=== PATIENT | female | born 1930 | race Caucasian/White ===

== ENCOUNTER 2016-05-21 12:12 | Inpatient (IN) | payer MEDICARE, MEDICAID ==
--- NOTE | 2016-05-21 12:54 | ED Physician Chart ---
Chief Complaint/HPI - Patient Information Date Seen:: 05/21/16 Time Seen:: 12:40 Chief Complaint:: right chest wall mass History of Present Illness:: location: right chest wall severity: moderate duration: 2 days context: [facility] patient had bath yesterday, staff noted right side chest wall darkened purple area with induration. said it looks like a bruise, but when asked pt reports she did not fall. also does not report any pain at chest wall, but does report pain at the site of the darkened purple area on right lateral chest wall. no substernal chest pain, no shortness of breath or cough. mod factors: none assoc s/s: none hx from pt. and grand daughter and EMS. Allergies:: Allergies Allergy/AdvReac Type Severity Reaction Status Date / Time No Known Allergies Allergy Verified 05/21/16 12:36 Historian:: Patient, EMS, Family Member Review:: Nurse's Note Reviewed, EMS run form Reviewed Review of Systems - Review of Systems General/Constitutional: No fever, No chills, No weight loss, No weakness, No diaphoresis, No edema, No loss of appetite Skin: No skin lesions, No rash, No bruising Head: No headache, No light-headedness Eyes: No loss of vision, No pain, No diplopia ENT: No earache, No nasal drainage, No sore throat, No tinnitus Neck: No neck pain, No swelling, No thyromegaly, No stiffness, No mass noted Cardio Vascular: No chest pain, No palpitations, No PND, No orthopnea, No edema Pulmonary: No SOB, No cough, No sputum, No wheezing GI: No nausea, No vomiting, No diarrhea, No pain, No melena, No hematochezia, No constipation, No hematemesis G/U: No dysuria, No frequency, No hematuria Musculoskeletal: No bone or joint pain, No back pain, No muscle pain Endocrine: No polyuria, No polydipsia Psychiatric: No prior psych history, No depression, No anxiety, No suicidal ideation Hematopoietic: No bruising, No lymphadenopathy Allergic/Immuno: No urticaria, No angioedema Neurological: No syncope, No focal symptoms, No weakness, No paresthesia, No headache, No seizure, No dizziness, No confusion, No vertigo Past Medical History - Past Medical History Past Medical History: HTN, DM, PUD/GERD, ESRD, Other (chronic pain, osteoporosis ) Family History: Diabetes Melitus Social History: Non Smoker, No Alcohol, No Drug Use, Single, Care Facility Surgical History: other (av fistula left upper limb, right AKA) Psychiatricy History: None Medication: Reviewed Family Medical History - Family Member Father History Unknown: Yes Ethnicity: Living Status: Hx Family Cancer: (UNKNOWN) Hx Family Coronary Artery Disease: (UNKNOWN) Hx Family Congestive Heart Failure: (UNKNOWN) Hx Family Hypertension: (UNKNOWN) Hx Family Stroke: (UNKNOWN) Hx Family Diabetes: (UNKNOWN) Hx Family Seizures: (UNKNOWN) Hx Family Dementia: (UNKNOWN) Hx Family AIDS: (UNKNOWN) Hx Family HIV: No Hx Family COPD: (UNKNOWN) Hx Family Hepatitis: (UNKNOWN) Hx Family Psychiatric Problems: (UNKNOWN) Hx Family Tuberculosis: (UNKNOWN) Physical Exam - Physical Examination General/Constitutional: Awake, Well-developed, well-nourished, Alert, No distress, GCS 15, Non-toxic appearing Head: Atraumatic Eyes: Lids, conjuctiva normal, PERRL, EOMI Skin: Nl inspection, No skin lesions (pt with dark purple indurated area size approx 14 cm x 6 cm in 2 locations at right lateral chest wall, nonadherent to underlying chest wall. the purplish mildly indurated area appears to be within the skin of the chest wall and is not affecting the ribs/chest wall. ), Well hydrated ENMT: External ears, nose nl, Nasal exam nl, Lips, teeth, gums nl Neck: Nontender, No nuchal rigidity Respiratory: Nl effort/Exclusion, Clear to Auscultation (chest wall and rib exam , no tenderness on firm pressure of right sided chest wall ribs. thoracic spine is nontender, no step offs, no wound. ), No Wheeze/Rhonchi/Rales Cardio Vascular: RRR, No murmur, gallop, rubs, NL S1 S2 GI: No tenderness/rebounding/guarding, Normal BS's, Nondistended, No mass/bruits , No McBurney tenderness : No CVA tenderness Extremities: No tenderness or effusion (pt is right AKA), Full ROM, normal strength in all extremities, No edema, Normal digits & nails Neuro/Psych: Alert/oriented, Judgement/insight normal, Mood normal, Normal gait , No focal deficits Misc: normal gait, Normal back, No paraspinal tenderness Labs/Radiology/EKG Results - Lab Results Results: Laboratory Tests 05/21/16 05/21/16 05/21/16 13:25 13:25 13:25 WBC 7.5 D RBC 4.25 Hgb 10.0 L Hct 32.0 L MCV 75.2 L MCH 23.5 L MCHC Differential 31.3 RDW 22.0 H Plt Count 67 L MPV 8.4 Neutrophils (Manual) 67 Lymphocytes 20 Monocytes 12 H Eosinophils 1 Platelet Estimate DECREASED PLATELETS Platelet Morphology NORMAL Anisocytosis 1+ Microcytosis 2+ RBC Morph Micro Appear ABNORMAL PT 9.9 INR 1.00 Sodium 129 L Potassium 3.4 L Chloride 96 L Carbon Dioxide 22.3 Anion Gap 14.1 BUN 47 H Creatinine 3.6 H Est GFR ( Amer) TNP Est GFR (Non-Af Amer) TNP BUN/Creatinine Ratio 13.1 Glucose 111 H Calcium 9.3 Total Bilirubin 0.4 AST 10 L ALT 7 Alkaline Phosphatase 64 Ammonia Total Protein 7.4 Albumin 4.0 Globulin 3.4 Albumin/Globulin Ratio 1.2 05/21/16 13:25 WBC RBC Hgb Hct MCV MCH MCHC Differential RDW Plt Count MPV Neutrophils (Manual) Lymphocytes Monocytes Eosinophils Platelet Estimate Platelet Morphology Anisocytosis Microcytosis RBC Morph Micro Appear PT INR Sodium Potassium Chloride Carbon Dioxide Anion Gap BUN Creatinine Est GFR ( Amer) Est GFR (Non-Af Amer) BUN/Creatinine Ratio Glucose Calcium Total Bilirubin AST ALT Alkaline Phosphatase Ammonia 32 Total Protein Albumin Globulin Albumin/Globulin Ratio - Radiology Results Results: CT chest pulmonary nodules, old granulomatous disease (TB?) chronic LLL parenchymal changes cardiomegaly right lobe of thyroid gland, enlargement? nodule? degenerative changes at thoracic spine markedly dilated loop of small bowel RAD READ - EKG Interpretations Comments:: EKG nsr 73 inferior infarct, old anterior infarct, old no acute ST elevation no acute ST depression pt reports no shortness of breath or left sided chest pain or numbness. abnormal EKG ER read Assessment - Assessment General Assessment: pt in stable condition while in ER. complains of pain at affected area. ED Septic Shock - . Is Septic Shock (SBP<90, OR Lactate>4 mmol\L) present?: No Reassessment (Disposition) - Reassessment Reassessment:: ER course: pt stable while in ER, complains of mild right chest wall/skin pain over discolored area. MDM: pt with ESRD, dialysis dependent, recalls no fall. very low platelets. CT chest shows pulmonary nodules, no chest wall mass. markedly dilated loop of bowel beneath the diaphragm. (pt has no tenderness at abdomen) Reassessment Condition:: Unchanged - Diagnosis Diagnosis:: acute low platelets spontaneous bleeding/ecchymosis right chest wall from low platelets acutely dilated bowel - Patient Disposition Discharge/Transfer:: Acute Care w/in this hosp Admitting Medical Physician:: Deepthi Stephenson Condition at Disposition:: Stable
[2016-05-21 14:06] LABS: PROTHROMBIN TIME (TEST) 9.9 SECONDS (9.5-11.5)
[2016-05-21 14:08] LABS: ALB/GLOB RATIO 1.2 (1.0-1.8); ALKALINE PHOSPHATASE 64 U/L (34-104); ANION GAP 14.1 (7.0-16.0); BILIRUBIN,TOTAL 0.4 mg/dL (0.3-1.0); BUN - UREA NITROGEN 47 mg/dL (7-25); BUN/CREATININE RATIO 13.1; CALCIUM SERUM 9.3 mg/dL (8.6-10.3); CARBON DIOXIDE 22.3 mEq/L (21.0-31.0); CHLORIDE 96 mEq/L (98-107); CREATININE - SERUM 3.6 mg/dL (0.6-1.2); GLUCOSE 111 mg/dL (70-105); POTASSIUM SERUM 3.4 mEq/L (3.5-5.1); SGOT 10 U/L (13-39); SGPT/ALT 7 U/L (7-52); SODIUM SERUM 129 mEq/L (136-145)
[2016-05-21 14:18] LABS: MEAN CORPUSCULAR HGB CONC 31.3 pg (28.0-36.0); RED BLOOD COUNT 4.25 Mil/cmm (3.80-5.20); WHITE BLOOD COUNT 7.5 Th/cmm (4.8-10.8)
[2016-05-21 14:19] LABS: MEAN PLATELET VOLUME 8.4 fl; PLATELET COUNT 67 Th/cmm (150-400)
[2016-05-21 14:23] LABS: MEAN CORPUSCULAR HEMOGLOBIN 23.5 pg (27.0-31.0)
[2016-05-21 14:24] LABS: EOSINOPHIL 1 % (0-5); NEUTROPHILS 67 % (40-80); PLATELET ESTIMATE DECREASED PLATELETS (NORMAL); TOTAL CELLS COUNTED 100
[2016-05-21 14:25] LABS: ANISOCYTOSIS 1+; MICROCYTOSIS 2+; PLATELET MORPHOLOGY NORMAL (NORMAL)
[2016-05-21 14:26] LABS: MEAN CELL VOLUME 75.2 fl (81-100)
--- NOTE | 2016-05-21 14:50 | Diagnostic Imaging Report ---
CT scan of the chest without intravenous contrast HISTORY: Mass. Total DLP equals 260 CTDI equals 7.0 Axial sections were obtained from a level above the clavicles down to level below the diaphragm. The heart is enlarged. Atherosclerotic calcification is noted. Several normal-sized lymph nodes are seen within the mediastinum. Evaluation of the hilar structures is limited due to the absence of intravenous contrast. There is a punctate calcified nodule noted in the right upper lobe and left lower lobe regions consistent with old granulomatous disease. Nonspecific interstitial changes noted in the left lower lobe that appear chronic. No other focal abnormalities. Incidentally noted is what appears to be enlargement of the right lobe of the thyroid gland with a hypodense focus that may be related to a thyroid nodule. If necessary, sonography would provide additional characterization. No abnormal chest wall masses are seen. Degenerative changes noted throughout the spine. Incidentally noted is what appears to be a markedly dilated loop of bowel beneath the diaphragm. Significance and etiology uncertain. Clinical correlation is needed. IMPRESSION: 1. Bilateral punctate calcified pulmonary nodules consistent with old granulomatous disease 2. Nonspecific parenchymal changes in the left lower lobe that appear chronic 3. Cardiomegaly with atherosclerotic vascular changes 4. Suggestion of enlargement of the right lobe of the thyroid gland with a questionable nodule. If necessary, follow-up sonography may be helpful. 5. Degenerative changes throughout the spine 6. Incidentally noted is a markedly dilated loop of bowel beneath the diaphragm. The significance should be correlated clinically.
[2016-05-21] MEDS ORDERED: Dextrose 50% 50 mL Abboject IVP PRN (15:36)
[2016-05-21] MEDS ORDERED: Lactulose 10 Gm/15 mL 30mL UDC PO PRN (15:36)
[2016-05-21] MEDS ORDERED: INSULIN ASPART SLIDING SCALE 100 UNITS/ML UNIT SUBQ SCH (16:30)
[2016-05-21] MEDS: INSULIN ASPART SLIDING SCALE 100 UNITS/ML UNIT SUBQ SCH (21:00)
[2016-05-21] MEDS: Zinc Oxide Ointment 60 gm TP SCH (21:29)
[2016-05-21] MEDS: Calcium Carb/Vit D 500 mg/200 U Tab PO SCH (21:29)
[2016-05-21] MEDS: Hydrocodone/APAP 5mg/325mg Tab PO SCH (21:40)
[2016-05-22] MEDS: INSULIN ASPART SLIDING SCALE 100 UNITS/ML UNIT SUBQ SCH ×4 (06:51→21:52)
[2016-05-22 07:22] LABS: ALB/GLOB RATIO 1.1 (1.0-1.8); ALKALINE PHOSPHATASE 61 U/L (34-104); ANION GAP 18.6 (7.0-16.0); BILIRUBIN,TOTAL 0.4 mg/dL (0.3-1.0); BUN - UREA NITROGEN 60 mg/dL (7-25); BUN/CREATININE RATIO 14.6; CALCIUM SERUM 9.6 mg/dL (8.6-10.3); CARBON DIOXIDE 18.4 mEq/L (21.0-31.0); CHLORIDE 94 mEq/L (98-107); GLUCOSE 89 mg/dL (70-105); SGOT 11 U/L (13-39); SGPT/ALT 7 U/L (7-52); SODIUM SERUM 127 mEq/L (136-145)
[2016-05-22 07:27] LABS: HEMATOCRIT 31.4 % (35.0-45.0); HEMOGLOBIN 9.7 gm/dL (11.7-16.1); MEAN CELL VOLUME 76.3 fl (81-100); MEAN CORPUSCULAR HEMOGLOBIN 23.6 pg (27.0-31.0); RED BLOOD COUNT 4.11 Mil/cmm (3.80-5.20); RED CELL DISTRIBUTION WIDTH 23.5 % (11.5-20.0); WHITE BLOOD COUNT 6.4 Th/cmm (4.8-10.8)
[2016-05-22 07:29] LABS: PLATELET COUNT 46 Th/cmm (150-400)
[2016-05-22 07:46] LABS: CREATININE - SERUM 4.1 mg/dL (0.6-1.2)
[2016-05-22] MEDS: Zinc Oxide Ointment 60 gm TP SCH ×3 (09:17→21:29)
[2016-05-22] MEDS: Vitamin B Complex w/Vitamin C Tab PO SCH (09:18)
[2016-05-22] MEDS: Hydrocodone/APAP 5mg/325mg Tab PO SCH ×2 (09:18→21:29)
[2016-05-22 09:46] LABS: ANISOCYTOSIS 2+; BAND NEUTROPHILE 1 % (0-10); EOSINOPHIL 4 % (0-5); MICROCYTOSIS 2+; NEUTROPHILS 56 % (40-80); PLATELET ESTIMATE DECREASED PLATELETS (NORMAL); PLATELET MORPHOLOGY NORMAL (NORMAL); TOTAL CELLS COUNTED 100
[2016-05-22] MEDS: Calcium Carb/Vit D 500 mg/200 U Tab PO SCH (21:35)
[2016-05-23] MEDS ORDERED: Albumin 25% 25gm/100mL 25 GM/100 ML BTL IV PRN
--- NOTE | 2016-05-23 05:07 | Consultation ---
ATTENDING PHYSICIAN: Kyler Stephenson M.D. INDUSTRIAL CLEANER: Francisco Porras M.D. REASON FOR CONSULTATION: Electrolyte imbalance and fluid management. HISTORY OF PRESENT ILLNESS: This is an 85-year-old female with past medical history of end-stage renal disease on hemodialysis, who was brought in because of right chest/lateral breast hematoma. A few hours prior to admission, the patient and staff noted right lateral chest wall and lateral breast hematoma after she took a shower. This was associated with some tenderness initially. She had no history of fall, trauma nor mishandling by [facility] staff. She was then brought to the Emergency Room. CT scan of the chest revealed no evidence of hematoma/abscess. Her pain subsequently resolved. Her AV fistula is situated on her left arm. She does have a history of end-stage renal disease, now on hemodialysis. PAST MEDICAL HISTORY: 1. End-stage renal disease, on hemodialysis. 2. Type 2 diabetes mellitus. 3. Essential hypertension. 4. Diabetic neuropathy. 5. Pemphigus. 6. Acquired thrombocytopenia. PAST SURGICAL HISTORY: 1. 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 2. Status post creation of left AV fistula. CURRENT MEDICATIONS: She is currently on acetaminophen, bisacodyl, calcium carbonate, hydralazine, [place], aspart, lisinopril, nifedipine, Nitrostat, Renagel, sucralfate, vitamin B, zinc oxide, amlodipine and clonidine. ALLERGIES: No known drug allergies. SOCIAL HISTORY: No history of alcohol or tobacco use. 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 FAMILY HISTORY: Noncontributory to her present illness. REVIEW OF SYSTEMS: CONSTITUTIONAL: Denied any weakness. Appetite had been fair. No fever, no chills. HEENT: No mention of headaches, no dizziness. Wears glasses due to poor vision. Her acuity has also diminished. CARDIORESPIRATORY: She has a history of hypertension. PULMONARY: She did complain of pain in right lateral chest wall, but has now resolved. She denies any shortness of breath, palpitations, diaphoresis or cough. GASTROINTESTINAL: No nausea and vomiting, abdominal pain or cramping, hematemesis, melena, hematochezia, no diarrhea. ENDOCRINE: No history of diabetes, no thyroid abnormalities. She has no dyslipidemia. MUSCULOSKELETAL: She has a history of pemphigus but no arthralgias. GENITOURINARY: History of kidney failure, now on hemodialysis. Rarely urinates, but if she does no dysuria nor hematuria. HEMATOLOGIC: She has anemia, more likely of chronic kidney disease. She also has a chronic thrombocythemia. No history of significant bleeding. However, she does have some hematoma on her right lateral chest wall as well as right lateral breast area. NEUROPSYCH: No syncopal episode or seizure activity. She has diabetic neuropathy. PHYSICAL EXAMINATION: NEUROLOGIC: The patient is alert, verbal, comfortable. VITAL SIGNS: Blood pressure is 169/71, pulse 68, temperature 98.4 degrees. SKIN: Good turgor, warm, no rash, no jaundice appreciated. HEENT: Head normocephalic, atraumatic. EYES: Extraocular muscles intact. Pupils equal, round, reactive to light and accommodates. Anicteric sclerae, pale conjunctivae. Nose, midline nasal septum. Mouth, moist mucosa with adequate dentition. NECK: Supple, no adenopathy, no thyromegaly, no bruits. Trachea palpated in the midline. CHEST AND CVS: S1, S2. No rub, murmur, no gallop appreciated. Point of maximal impulse fifth intercostal space, left midclavicular line. No abdominal or femoral bruits appreciated. She does have hematoma located on the right lateral/axillary line of her chest wall, she also has a hematoma involving right lateral breast region. There is palpable mass on the right lateral breast area compared to her left breast area. There is no tenderness on palpation, not warm to touch. No drainage, no discharge. LUNGS: Equal expansion. No use of accessory muscles. No supraclavicular retractions. Decreased breath sounds but clear to auscultation without any wheeze. BREASTS: Symmetrical, without any discharge. ABDOMEN: Flat, soft. Positive bowel sounds. No bruits either diastolic or systolic. RECTAL: Lax sphincter tone. GENITOURINARY: Normal appearing female genitalia. MUSCULOSKELETAL: No effusions present in her joints with adequate range of motion. EXTREMITIES: She has a right BKA, no evidence of edema. No cyanosis on her left lower extremity. NEUROLOGIC: Alert and oriented. Motor is 5/5. Cranial nerves 3-12 intact. Sensory intact. LABORATORY DATA: Sodium 127, potassium 4, chloride 94, bicarbonate 18, BUN 60, creatinine 4.9, glucose 89, calcium 9.6, albumin is 3.6. White count 6.4, hemoglobin is 9.7, hematocrit 31.4. PT is 9.9. INR is 1. IMPRESSION: 1. End-stage renal disease, on hemodialysis. 2. Right lateral chest wall, lateral breast hematoma secondary to chronic thrombocytopenia possible antiphospholipid syndrome or heparin induce. 3. Type 2 diabetes mellitus. 4. Essential hypertension. 5. Diabetic neuropathy. 6. Pemphigus. 7. Acquired thrombocytopenia. 8. Hyponatremia secondary to kidney failure. 9. Anemia of chronic kidney disease. 10. Anion gap, metabolic acidosis. PLAN: 1. Hemodialysis today, but hold heparin. 2. Monitor CBC. 3. Chronic thrombocytopenia workup per attending. JOB# [id number]
--- NOTE | 2016-05-23 05:50 | Consultation ---
REASON FOR CONSULTATION: Abnormal chest x-ray. HISTORY OF PRESENT ILLNESS: This is an 85-year-old female who basically lives in a convalescent home and apparently the patient is also on dialysis. Apparently, there was a questionable history of fall with pain in the right side. As the patient has some bruise tryone as well as pain initially on the right side, the patient was transferred to the hospital for further care and necessary treatment. The patient denies of any coughing, denies any shortness of breath, complaints of slight discomfort in the chest wall area, but otherwise unremarkable on the right side. Denies of any hemoptysis, any swelling of the legs, PND, orthopnea, etc. PAST MEDICAL HISTORY: History of chronic renal failure, history of hemodialysis fistula on the left upper limb, also history of thrombocytopenia and also history of practically bedridden. ALLERGIC HISTORY: Nil. SOCIAL HISTORY: Denies of any smoking. PHYSICAL FINDINGS: GENERAL: This is an elderly looking female, awake, alert and oriented, a little bit slow, not in acute distress. VITAL SIGNS: The patient's recorded vitals: Temperature is 98.4, blood pressure 154/68 and saturation 98% on room air. HEENT: Examination of the head is essentially unremarkable. Pupils appear to be equal and reacting to light. Conjunctivae are slightly pallor. Oral cavity shows edentulous. NECK: No nodes in the neck could be palpated. JVP not visualized. CHEST: Findings show slightly dorsal kyphosis. On the right chest wall, there is some bruise area, very minimal tenderness. LUNGS: Auscultation of lungs appear to be clear. No other adventitious breath sounds could be appreciated. HEART: Regular. ABDOMEN: Soft and nontender. EXTREMITIES: Right leg is above knee amputation and left knee ____ poor pulsation. Right upper arm, there is a shunt and the patient ____. LABORATORY STUDIES: White count is 6.4 and platelets are 46. Sodium is 127 and creatinine is 4.1 and other laboratory studies are essentially unremarkable. IMAGING STUDIES: CT reviewed and no parenchymal injury. There is a vague interstitial change on the left basal area with vague nodular density. ASSESSMENT: 1. The patient has probably chronic changes in the lung on the left base. 2. Chest wall injury with some bruise ____. Probably more bruise because of thrombocytopenia, exact etiology not clear. 3. Chronic renal failure on hemodialysis. PLANS AND SUGGESTIONS: No active treatment needed, observe, cold compresses right chest wall, repeat chest x-ray if there is delayed development or any lung contusion and we will check the blood gases and needs to have workup for thrombocytopenia if it is not done and will be glad to follow along with you. JOB# [id number]
[2016-05-23] MEDS: INSULIN ASPART SLIDING SCALE 100 UNITS/ML UNIT SUBQ SCH ×4 (06:57→21:16)
[2016-05-23 08:02] LABS: INR 1.03 (0.5-1.4); PROTHROMBIN TIME (TEST) 10.2 SECONDS (9.5-11.5)
[2016-05-23 08:15] LABS: HEMOGLOBIN 9.6 gm/dL (11.7-16.1); MEAN CELL VOLUME 75.7 fl (81-100); MEAN CORPUSCULAR HEMOGLOBIN 23.5 pg (27.0-31.0); MEAN PLATELET VOLUME 7.7 fl; RED CELL DISTRIBUTION WIDTH 22.7 % (11.5-20.0)
[2016-05-23 08:22] LABS: ALB/GLOB RATIO 1.1 (1.0-1.8); ALKALINE PHOSPHATASE 54 U/L (34-104); ANION GAP 12.3 (7.0-16.0); BILIRUBIN,TOTAL 0.4 mg/dL (0.3-1.0); BUN - UREA NITROGEN 33 mg/dL (7-25); BUN/CREATININE RATIO 11.8; CALCIUM SERUM 9.3 mg/dL (8.6-10.3); CARBON DIOXIDE 26.9 mEq/L (21.0-31.0); CHLORIDE 97 mEq/L (98-107); CREATININE - SERUM 2.8 mg/dL (0.6-1.2); GLUCOSE 90 mg/dL (70-105); POTASSIUM SERUM 3.2 mEq/L (3.5-5.1); SGOT 10 U/L (13-39); SGPT/ALT 6 U/L (7-52); SODIUM SERUM 133 mEq/L (136-145)
[2016-05-23 08:23] LABS: BILIRUBIN,DIRECT 0.03 mg/dL (0.0-0.2)
[2016-05-23 08:26] LABS: PLATELET COUNT 59 Th/cmm (150-400); WHITE BLOOD COUNT 4.9 Th/cmm (4.8-10.8)
[2016-05-23 08:58] LABS: TSH 2.8 uIU/ml (0.34-5.60)
[2016-05-23 09:16] LABS: ABG SOURCE Arterial; ALLEN TEST Positive; BE(B) 4.3 mmol/L (-3.0-3.0); FIO2 21; HCO3 29.2 mmol/L (20.0-26.0); pH 7.43 (7.35-7.45)
--- NOTE | 2016-05-23 09:41 | General Progress Note ---
Objective - Results Result Diagrams: 05/23/16 07:05 05/23/16 07:05 Recent Labs: Laboratory Last Values WBC 4.9 Th/cmm (4.8-10.8) D 05/23/16 07:05 RBC 4.10 Mil/cmm (3.80-5.20) 05/23/16 07:05 Hgb 9.6 gm/dL (11.7-16.1) L 05/23/16 07:05 Hct 31.0 % (35.0-45.0) L 05/23/16 07:05 MCV 75.7 fl (81-100) L 05/23/16 07:05 MCH 23.5 pg (27.0-31.0) L 05/23/16 07:05 MCHC Differential 31.0 pg (28.0-36.0) 05/23/16 07:05 RDW 22.7 % (11.5-20.0) H 05/23/16 07:05 Plt Count 59 Th/cmm (150-400) L D 05/23/16 07:05 MPV 7.7 fl 05/23/16 07:05 Band Neutrophils % 1 % (0-10) 05/22/16 06:22 Neutrophils (Manual) 56 % (40-80) 05/22/16 06:22 Lymphocytes 27 % (20-50) 05/22/16 06:22 Monocytes 12 % (2-10) H 05/22/16 06:22 Eosinophils 4 % (0-5) 05/22/16 06:22 Nucleated RBCs 1.0 % (0-0) H 05/22/16 06:22 Platelet Estimate DECREASED PLATELETS (NORMAL) 05/22/16 06:22 Platelet Morphology NORMAL (NORMAL) 05/22/16 06:22 Anisocytosis 2+ 05/22/16 06:22 Microcytosis 2+ 05/22/16 06:22 RBC Morph Micro Appear ABNORMAL (NORMAL) 05/22/16 06:22 PT 10.2 SECONDS (9.5-11.5) 05/23/16 07:05 INR 1.03 (0.5-1.4) 05/23/16 07:05 PTT (Actin FS) 27.9 SECONDS (26.0-38.0) 05/23/16 07:05 Specimen Source Arterial 05/23/16 08:54 Sample Site Right Radial 05/23/16 08:54 pH 7.43 (7.35-7.45) 05/23/16 08:54 pCO2 44.0 mmHg (35.0-45.0) 05/23/16 08:54 pO2 81.0 mmHg (80.0-100.0) 05/23/16 08:54 HCO3 29.2 mmol/L (20.0-26.0) H 05/23/16 08:54 Base Excess 4.3 mmol/L (-3.0-3.0) H 05/23/16 08:54 O2 Saturation 96.0 % (92.0-100.0) 05/23/16 08:54 Enrico Test Positive 05/23/16 08:54 Vent Rate NA 05/23/16 08:54 Inspired O2 21 05/23/16 08:54 Tidal Volume NA 05/23/16 08:54 PEEP NA 05/23/16 08:54 Pressure (ins/psv/peep) NA 05/23/16 08:54 Critical Value LZHANG 05/23/16 08:54 Sodium 133 mEq/L (136-145) L 05/23/16 07:05 Potassium 3.2 mEq/L (3.5-5.1) L 05/23/16 07:05 Chloride 97 mEq/L (98-107) L 05/23/16 07:05 Carbon Dioxide 26.9 mEq/L (21.0-31.0) 05/23/16 07:05 Anion Gap 12.3 (7.0-16.0) 05/23/16 07:05 BUN 33 mg/dL (7-25) H 05/23/16 07:05 Creatinine 2.8 mg/dL (0.6-1.2) H 05/23/16 07:05 Est GFR ( Amer) TNP 05/23/16 07:05 Est GFR (Non-Af Amer) TNP 05/23/16 07:05 BUN/Creatinine Ratio 11.8 05/23/16 07:05 Glucose 90 mg/dL (70-105) 05/23/16 07:05 POC Glucose 91 MG/DL (70 - 105) 05/23/16 06:42 Calcium 9.3 mg/dL (8.6-10.3) 05/23/16 07:05 Total Bilirubin 0.4 mg/dL (0.3-1.0) 05/23/16 07:05 Direct Bilirubin 0.03 mg/dL (0.0-0.2) 05/23/16 07:05 AST 10 U/L (13-39) L 05/23/16 07:05 ALT 6 U/L (7-52) L 05/23/16 07:05 Alkaline Phosphatase 54 U/L (34-104) 05/23/16 07:05 Ammonia 30 umol/L (16-53) 05/23/16 07:05 Total Protein 6.9 gm/dL (6.0-8.3) 05/23/16 07:05 Albumin 3.6 gm/dL (3.7-5.3) L 05/23/16 07:05 Globulin 3.3 gm/dL 05/23/16 07:05 Albumin/Globulin Ratio 1.1 (1.0-1.8) 05/23/16 07:05 TSH 2.80 uIU/ml (0.34-5.60) 05/23/16 07:05 - Physical Exam Vitals and I&O: Vital Signs Temp 97.9 F 05/23/16 03:55 Pulse 94 05/23/16 06:59 Resp 18 05/23/16 03:55 BP 159/70 05/23/16 06:59 Pulse Ox 99 05/23/16 03:55 Intake & Output 05/22/16 05/23/16 05/23/16 18:59 06:59 18:59 Intake Total 600 320 Output Total 0 Balance 600 320 Intake: Oral 600 320 Output: Urine 0 Other: # Voids 0 # Bowel Movements 1 Active Medications: Current Medications Acetaminophen (Tylenol) 650 mg PO Q4HR PRN PRN Reason: PAIN (MILD) OR TEMP 100.0 OR > Stop: 07/20/16 15:35 Last Admin: 05/22/16 23:31 Dose: 650 mg Acetaminophen/Hydrocodone Bitart ([place] 5mg/325mg) 1 tab PO Q12HR [facility] Stop: 07/20/16 20:59 Last Admin: 05/22/16 21:29 Dose: 1 tab Amlodipine Besylate (Norvasc) 5 mg PO SuMoWeFr@0900,2100 [facility] Stop: 07/20/16 20:59 Last Admin: 05/21/16 21:29 Dose: 5 mg Amlodipine Besylate (Norvasc) 5 mg PO TuThSa@2100 [facility] Stop: 07/21/16 20:59 Last Admin: 05/22/16 21:27 Dose: 5 mg Bisacodyl (Dulcolax 10 Mg Supp) 10 mg RC DAILY PRN PRN Reason: BM MANAGEMENT Stop: 07/20/16 15:35 Calcium/Vitamin D (Oscal W/Vitamin D) 1 tab PO HS [facility] Stop: 07/20/16 20:59 Last Admin: 05/22/16 21:35 Dose: 1 tab Clonidine HCl (Catapres) 0.1 mg PO Q4H PRN PRN Reason: SBP>160 Stop: 07/20/16 15:35 Dextrose (D50w) 50 ml IVP PRN PRN PRN Reason: BLOOD SUGAR < 70 Stop: 07/20/16 15:35 Hydralazine HCl (Apresoline) 50 mg PO Q12H [facility] Stop: 07/20/16 15:44 Last Admin: 05/23/16 06:59 Dose: 50 mg Albumin Human (Albuminar 25%) 25 gm in 100 mls @ 50 mls/hr IV PRN PRN PRN Reason: BP Support During HD Stop: 05/24/16 00:00 Insulin Aspart (Novolog Insulin Sliding Scale) 0 units SUBQ ACHS [facility] PRN Reason: Protocol Stop: 07/20/16 16:29 Last Admin: 05/23/16 06:57 Dose: Not Given Lactulose (Cephulac) 15 gm PO Q8H PRN PRN Reason: BM MANAGEMENT Lisinopril (Zestril) 40 mg PO BID [facility] Stop: 07/20/16 16:59 Last Admin: 05/22/16 17:03 Dose: Not Given Miscellaneous (Clinical Monitoring) 1 ea MC PRN PRN PRN Reason: RENAL DOSING Stop: 07/21/16 13:08 Nifedipine (Procardia) 10 mg PO Q6H PRN PRN Reason: SBP >160 Stop: 07/20/16 15:35 Nitroglycerin (Nitrostat) 0.4 mg SL Q5MIN PRN PRN Reason: Chest Pain X3 Stop: 07/20/16 15:35 Petrolatum (Zinc Oxide) 1 appl TP TID [facility] Stop: 07/20/16 20:59 Last Admin: 05/22/16 21:29 Dose: 1 appl Sevelamer HCl (Renagel) 800 mg PO TID [facility] Stop: 07/21/16 08:59 Last Admin: 05/22/16 21:28 Dose: 800 mg Sodium Bicarbonate (Sodium Bicarbonate) 650 mg PO BID [facility] PRN Reason: Protocol Stop: 07/21/16 16:59 Last Admin: 05/22/16 16:56 Dose: 650 mg Sucralfate (Carafate) 1 gm PO ACHS [facility] Stop: 07/20/16 16:59 Last Admin: 05/23/16 07:00 Dose: 1 gm Vitamin B Complex/Vit C/Folic Acid (Vitamin B Complex W/Vitamin C) 1 tab PO DAILY [facility] Stop: 07/21/16 08:59 Last Admin: 05/22/16 09:18 Dose: 1 tab - Procedures Procedures: Procedures Procedure Code Date PERFORMANCE OF URINARY FILTRATION, SINGLE [id number] 12/29/15
[2016-05-23 09:42] LABS: MAGNESIUM 2.3 mg/dL (1.9-2.7); PHOSPHOROUS 1.9 mg/dL (2.5-5.0)
[2016-05-23] MEDS: Hydrocodone/APAP 5mg/325mg Tab PO SCH ×2 (10:06→21:06)
[2016-05-23] MEDS: Vitamin B Complex w/Vitamin C Tab PO SCH (10:08)
[2016-05-23] MEDS: Zinc Oxide Ointment 60 gm TP SCH ×3 (10:11→21:16)
[2016-05-23 10:40] LABS: BAND NEUTROPHILE 1 % (0-10); EOSINOPHIL 3 % (0-5); NEUTROPHILS 53 % (40-80); TOTAL CELLS COUNTED 100
[2016-05-23 10:41] LABS: ANISOCYTOSIS 1+; MICROCYTOSIS 2+; PLATELET ESTIMATE DECREASED PLATELETS (NORMAL); PLATELET MORPHOLOGY GIANT PLATELETS SEEN (NORMAL); POLYCHROMASIA 1+
--- NOTE | 2016-05-23 13:02 | Consultation ---
This is a consultation report for hematology. HISTORY OF PRESENT ILLNESS: The patient is an 85-year-old female who has history of hypertension, diabetes, right above-knee amputation, end-stage kidney disease, neuropathy, acquired thrombocytopenia, and history of pemphigus. She was seen in the Emergency Room complaining of bruising and right chest wall mass. ER physician thought that this was possibly a cellulitis. ALLERGIES: No known drug allergies. FAMILY HISTORY: Unremarkable. SOCIAL HISTORY: Nonsmoker, no alcohol, and no drug use. PAST SURGICAL HISTORY: AV fistula left upper extremity, right above-knee amputation. PSYCHIATRIC HISTORY: None. CURRENT MEDICATIONS: Reviewed. REVIEW OF SYSTEMS: GENERAL: No fever, chills, or weight loss. SKIN: No bruising. HEENT: Head: No headache, lightheadedness. Vision: No change. ENT: No discharge. No tinnitus. CARDIOVASCULAR: No chest pain. No palpitation. PULMONARY: No shortness of breath or cough. GASTROINTESTINAL: No bleeding, diarrhea, or melena. GENITOURINARY: No hematuria. MUSCULOSKELETAL: No back pain, joint pain. ENDOCRINE: No polyuria. No cold intolerance. PSYCHIATRIC: No anxiety. HEMATOPOIETIC: No lymphadenopathy. NEUROLOGIC: No syncope. No confusion. No vertigo. PHYSICAL EXAMINATION: VITAL SIGNS: Temperature is 98.4, pulse 69, respirations 17, and blood pressure 154/68. HEENT: Normocephalic and atraumatic. Conjunctivae pale. Sclerae are anicteric. Nose and throat not congested. NECK: Supple. No jugular venous distention. LUNGS: Scattered rhonchi. HEART: S1, S2 normal. On the right chest wall, there is a purplish area of induration. There is no tenderness at that area. ABDOMEN: Soft. Bowel sounds present. EXTREMITIES: Right AKA and AV fistula in left upper extremity. LABORATORY DATA: White cell count 6.4, hemoglobin 9.7, platelet count of <100. Chemistry: Sodium is 127 and creatinine is 4.1. ASSESSMENT: The patient has anemia and thrombocytopenia. This may be due to bone marrow suppression or due to effect of chronic renal failure, rule out drug-induced thrombocytopenia. PLAN: We will follow the patient with you as needed. Thank you for asking us to see the patient in consultation. JOB# [id number] [facility]
--- NOTE | 2016-05-23 13:14 | Diagnostic Imaging Report ---
CHEST X-RAY: AP view INDICATION: Right chest trauma COMPARISON: Chest on 05/21/2016 Findings: Chronic lung changes are seen with no focal consolidation pleural effusions or evidence of pneumothorax. Left basal scarring is noted. Distended bowel loops are seen with elevation of left hemidiaphragm. Cardiomegaly is noted with atherosclerosis. No obvious rib fracture identified. IMPRESSION: Chronic lung changes with left basal scarring. No focal consolidation identified. No evidence of pneumothorax. Cardiomegaly and atherosclerotic vascular disease. . Distended bowel loops along the upper abdomen. Consider follow-up KUB or acute abdominal series. No rib fracture identified. Given clinical history, if indicated dedicated right rib series may also be obtained.
--- NOTE | 2016-05-23 13:21 | General Progress Note ---
Subjective - Review of Systems Service Date: 05/23/16 Subjective: alert, denied further chest wall pain Objective - Results Result Diagrams: 05/23/16 07:05 05/23/16 07:05 Recent Labs: Laboratory Last Values WBC 4.9 Th/cmm (4.8-10.8) D 05/23/16 07:05 RBC 4.10 Mil/cmm (3.80-5.20) 05/23/16 07:05 Hgb 9.6 gm/dL (11.7-16.1) L 05/23/16 07:05 Hct 31.0 % (35.0-45.0) L 05/23/16 07:05 MCV 75.7 fl (81-100) L 05/23/16 07:05 MCH 23.5 pg (27.0-31.0) L 05/23/16 07:05 MCHC Differential 31.0 pg (28.0-36.0) 05/23/16 07:05 RDW 22.7 % (11.5-20.0) H 05/23/16 07:05 Plt Count 59 Th/cmm (150-400) L D 05/23/16 07:05 MPV 7.7 fl 05/23/16 07:05 Band Neutrophils % 1 % (0-10) 05/23/16 07:05 Neutrophils (Manual) 53 % (40-80) 05/23/16 07:05 Lymphocytes 30 % (20-50) 05/23/16 07:05 Monocytes 13 % (2-10) H 05/23/16 07:05 Eosinophils 3 % (0-5) 05/23/16 07:05 Nucleated RBCs 1.0 % (0-0) H 05/22/16 06:22 Platelet Estimate DECREASED PLATELETS (NORMAL) 05/23/16 07:05 Platelet Morphology GIANT PLATELETS SEEN (NORMAL) 05/23/16 07:05 Polychromasia 1+ 05/23/16 07:05 Anisocytosis 1+ 05/23/16 07:05 Microcytosis 2+ 05/23/16 07:05 RBC Morph Micro Appear ABNORMAL (NORMAL) 05/23/16 07:05 PT 10.2 SECONDS (9.5-11.5) 05/23/16 07:05 INR 1.03 (0.5-1.4) 05/23/16 07:05 PTT (Actin FS) 27.9 SECONDS (26.0-38.0) 05/23/16 07:05 Specimen Source Arterial 05/23/16 08:54 Sample Site Right Radial 05/23/16 08:54 pH 7.43 (7.35-7.45) 05/23/16 08:54 pCO2 44.0 mmHg (35.0-45.0) 05/23/16 08:54 pO2 81.0 mmHg (80.0-100.0) 05/23/16 08:54 HCO3 29.2 mmol/L (20.0-26.0) H 05/23/16 08:54 Base Excess 4.3 mmol/L (-3.0-3.0) H 05/23/16 08:54 O2 Saturation 96.0 % (92.0-100.0) 05/23/16 08:54 Enrico Test Positive 05/23/16 08:54 Vent Rate NA 05/23/16 08:54 Inspired O2 21 05/23/16 08:54 Tidal Volume NA 05/23/16 08:54 PEEP NA 05/23/16 08:54 Pressure (ins/psv/peep) NA 05/23/16 08:54 Critical Value LZHANG 05/23/16 08:54 Sodium 133 mEq/L (136-145) L 05/23/16 07:05 Potassium 3.2 mEq/L (3.5-5.1) L 05/23/16 07:05 Chloride 97 mEq/L (98-107) L 05/23/16 07:05 Carbon Dioxide 26.9 mEq/L (21.0-31.0) 05/23/16 07:05 Anion Gap 12.3 (7.0-16.0) 05/23/16 07:05 BUN 33 mg/dL (7-25) H 05/23/16 07:05 Creatinine 2.8 mg/dL (0.6-1.2) H 05/23/16 07:05 Est GFR ( Amer) TNP 05/23/16 07:05 Est GFR (Non-Af Amer) TNP 05/23/16 07:05 BUN/Creatinine Ratio 11.8 05/23/16 07:05 Glucose 90 mg/dL (70-105) 05/23/16 07:05 POC Glucose 146 MG/DL (70 - 105) H 05/23/16 11:23 Calcium 9.3 mg/dL (8.6-10.3) 05/23/16 07:05 Phosphorus 1.9 mg/dL (2.5-5.0) L 05/23/16 07:05 Magnesium 2.3 mg/dL (1.9-2.7) 05/23/16 07:05 Total Bilirubin 0.4 mg/dL (0.3-1.0) 05/23/16 07:05 Direct Bilirubin 0.03 mg/dL (0.0-0.2) 05/23/16 07:05 AST 10 U/L (13-39) L 05/23/16 07:05 ALT 6 U/L (7-52) L 05/23/16 07:05 Alkaline Phosphatase 54 U/L (34-104) 05/23/16 07:05 Ammonia 30 umol/L (16-53) 05/23/16 07:05 Total Protein 6.9 gm/dL (6.0-8.3) 05/23/16 07:05 Albumin 3.6 gm/dL (3.7-5.3) L 05/23/16 07:05 Globulin 3.3 gm/dL 05/23/16 07:05 Albumin/Globulin Ratio 1.1 (1.0-1.8) 05/23/16 07:05 TSH 2.80 uIU/ml (0.34-5.60) 05/23/16 07:05 - Physical Exam Vitals and I&O: Vital Signs Temp 97.9 F 05/23/16 03:55 Pulse 62 05/23/16 10:06 Resp 18 05/23/16 03:55 BP 155/60 05/23/16 10:06 Pulse Ox 99 05/23/16 03:55 Intake & Output 05/22/16 05/23/16 05/23/16 18:59 06:59 18:59 Intake Total 600 320 Output Total 0 Balance 600 320 Intake: Oral 600 320 Output: Urine 0 Other: # Voids 0 # Bowel Movements 1 Active Medications: Current Medications Acetaminophen (Tylenol) 650 mg PO Q4HR PRN PRN Reason: PAIN (MILD) OR TEMP 100.0 OR > Stop: 07/20/16 15:35 Last Admin: 05/22/16 23:31 Dose: 650 mg Acetaminophen/Hydrocodone Bitart ([place] 5mg/325mg) 1 tab PO Q12HR [facility] Stop: 07/20/16 20:59 Last Admin: 05/23/16 10:06 Dose: 1 tab Amlodipine Besylate (Norvasc) 5 mg PO SuMoWeFr@0900,2100 [facility] Stop: 07/20/16 20:59 Last Admin: 05/23/16 10:06 Dose: 5 mg Amlodipine Besylate (Norvasc) 5 mg PO TuThSa@2100 [facility] Stop: 07/21/16 20:59 Last Admin: 05/22/16 21:27 Dose: 5 mg Bisacodyl (Dulcolax 10 Mg Supp) 10 mg RC DAILY PRN PRN Reason: BM MANAGEMENT Stop: 07/20/16 15:35 Calcium/Vitamin D (Oscal W/Vitamin D) 1 tab PO HS [facility] Stop: 07/20/16 20:59 Last Admin: 05/22/16 21:35 Dose: 1 tab Clonidine HCl (Catapres) 0.1 mg PO Q4H PRN PRN Reason: SBP>160 Stop: 07/20/16 15:35 Dextrose (D50w) 50 ml IVP PRN PRN PRN Reason: BLOOD SUGAR < 70 Stop: 07/20/16 15:35 Hydralazine HCl (Apresoline) 50 mg PO Q12H [facility] Stop: 07/20/16 15:44 Last Admin: 05/23/16 06:59 Dose: 50 mg Albumin Human (Albuminar 25%) 25 gm in 100 mls @ 50 mls/hr IV PRN PRN PRN Reason: BP Support During HD Stop: 05/24/16 00:00 Insulin Aspart (Novolog Insulin Sliding Scale) 0 units SUBQ ACHS [facility] PRN Reason: Protocol Stop: 07/20/16 16:29 Last Admin: 05/23/16 12:08 Dose: 2 units Lactulose (Cephulac) 15 gm PO Q8H PRN PRN Reason: BM MANAGEMENT Lisinopril (Zestril) 40 mg PO BID [facility] Stop: 07/20/16 16:59 Last Admin: 05/23/16 10:05 Dose: 40 mg Miscellaneous (Clinical Monitoring) 1 ea MC PRN PRN PRN Reason: RENAL DOSING Stop: 07/21/16 13:08 Nifedipine (Procardia) 10 mg PO Q6H PRN PRN Reason: SBP >160 Stop: 07/20/16 15:35 Nitroglycerin (Nitrostat) 0.4 mg SL Q5MIN PRN PRN Reason: Chest Pain X3 Stop: 07/20/16 15:35 Petrolatum (Zinc Oxide) 1 appl TP TID [facility] Stop: 07/20/16 20:59 Last Admin: 05/23/16 10:11 Dose: 1 appl Sevelamer HCl (Renagel) 800 mg PO TID [facility] Stop: 07/21/16 08:59 Last Admin: 05/23/16 10:06 Dose: 800 mg Sodium Bicarbonate (Sodium Bicarbonate) 650 mg PO BID [facility] PRN Reason: Protocol Stop: 07/21/16 16:59 Last Admin: 05/23/16 10:06 Dose: 650 mg Sucralfate (Carafate) 1 gm PO ACHS [facility] Stop: 07/20/16 16:59 Last Admin: 05/23/16 12:07 Dose: 1 gm Vitamin B Complex/Vit C/Folic Acid (Vitamin B Complex W/Vitamin C) 1 tab PO DAILY [facility] Stop: 07/21/16 08:59 Last Admin: 05/23/16 10:08 Dose: 1 tab General: Alert, No acute distress HEENT: Atraumatic, Mucous membr. moist/pink Neck: Supple, +2 carotid pulse wo bruit Cardiovascular: Regular rate, Normal S1, Normal S2, Other (hematoma right chest wall, breast area) Lungs: Clear to auscultation Abdomen: Bowel sounds, Soft Extremities: no Edema Neurological: Sensation intact Skin: no Rash - Procedures Procedures: Procedures Procedure Code Date PERFORMANCE OF URINARY FILTRATION, SINGLE [id number] 12/29/15 Assessment/Plan - Assessment Assessment: esrd on hd hematoma right lat chest wall, breast area due to chronic thrombocytopenia type 2 dm ess htn dm neuropathy pemphigus acquired thombocytopenia hyponatremia improved anemia ckd AG met acid - Plan Plan: pt. was dialyzed yesterday & tolerated it well replace K hgb/ hct stable @ 9.6/31 f/u cbc, electrolytes
[2016-05-23 13:22] LABS: HEP B CORE IGM Negative (Negative); HEP C ANTIBODY <0.1 s/co ratio (0.0-0.9)
[2016-05-23] MEDS ORDERED: Potassium Chloride 20 mEq ER Tab PO ONE (13:22)
[2016-05-23 14:27] LABS: FOLIC ACID >20.0 ng/mL (>3.0)
[2016-05-23] MEDS ORDERED: Potassium Phosphate 20 MMOLE in Sodium Chloride 0.9% 250 ML IV ONE (15:00)
--- NOTE | 2016-05-23 16:16 | General Progress Note ---
Subjective - Review of Systems Service Date: 05/23/16 Events since last encounter: in no apparent distress/sob.Breathing even and unlabored on RA. o- vss heent not deyvi c/r s1/s2 nl cap gi/u bs+ n/t shle p/e- nms awake labs noted a/p anemia sec to ckd low plt c/w itp plan f/u as needed Objective - Results Result Diagrams: 05/23/16 07:05 05/23/16 07:05 Recent Labs: Laboratory Last Values WBC 4.9 Th/cmm (4.8-10.8) D 05/23/16 07:05 RBC 4.10 Mil/cmm (3.80-5.20) 05/23/16 07:05 Hgb 9.6 gm/dL (11.7-16.1) L 05/23/16 07:05 Hct 31.0 % (35.0-45.0) L 05/23/16 07:05 MCV 75.7 fl (81-100) L 05/23/16 07:05 MCH 23.5 pg (27.0-31.0) L 05/23/16 07:05 MCHC Differential 31.0 pg (28.0-36.0) 05/23/16 07:05 RDW 22.7 % (11.5-20.0) H 05/23/16 07:05 Plt Count 59 Th/cmm (150-400) L D 05/23/16 07:05 MPV 7.7 fl 05/23/16 07:05 Band Neutrophils % 1 % (0-10) 05/23/16 07:05 Neutrophils (Manual) 53 % (40-80) 05/23/16 07:05 Lymphocytes 30 % (20-50) 05/23/16 07:05 Monocytes 13 % (2-10) H 05/23/16 07:05 Eosinophils 3 % (0-5) 05/23/16 07:05 Nucleated RBCs 1.0 % (0-0) H 05/22/16 06:22 Platelet Estimate DECREASED PLATELETS (NORMAL) 05/23/16 07:05 Platelet Morphology GIANT PLATELETS SEEN (NORMAL) 05/23/16 07:05 Polychromasia 1+ 05/23/16 07:05 Anisocytosis 1+ 05/23/16 07:05 Microcytosis 2+ 05/23/16 07:05 RBC Morph Micro Appear ABNORMAL (NORMAL) 05/23/16 07:05 PT 10.2 SECONDS (9.5-11.5) 05/23/16 07:05 INR 1.03 (0.5-1.4) 05/23/16 07:05 PTT (Actin FS) 27.9 SECONDS (26.0-38.0) 05/23/16 07:05 Specimen Source Arterial 05/23/16 08:54 Sample Site Right Radial 05/23/16 08:54 pH 7.43 (7.35-7.45) 05/23/16 08:54 pCO2 44.0 mmHg (35.0-45.0) 05/23/16 08:54 pO2 81.0 mmHg (80.0-100.0) 05/23/16 08:54 HCO3 29.2 mmol/L (20.0-26.0) H 05/23/16 08:54 Base Excess 4.3 mmol/L (-3.0-3.0) H 05/23/16 08:54 O2 Saturation 96.0 % (92.0-100.0) 05/23/16 08:54 Enrico Test Positive 05/23/16 08:54 Vent Rate NA 05/23/16 08:54 Inspired O2 21 05/23/16 08:54 Tidal Volume NA 05/23/16 08:54 PEEP NA 05/23/16 08:54 Pressure (ins/psv/peep) NA 05/23/16 08:54 Critical Value LZHANG 05/23/16 08:54 Sodium 133 mEq/L (136-145) L 05/23/16 07:05 Potassium 3.2 mEq/L (3.5-5.1) L 05/23/16 07:05 Chloride 97 mEq/L (98-107) L 05/23/16 07:05 Carbon Dioxide 26.9 mEq/L (21.0-31.0) 05/23/16 07:05 Anion Gap 12.3 (7.0-16.0) 05/23/16 07:05 BUN 33 mg/dL (7-25) H 05/23/16 07:05 Creatinine 2.8 mg/dL (0.6-1.2) H 05/23/16 07:05 Est GFR ( Amer) TNP 05/23/16 07:05 Est GFR (Non-Af Amer) TNP 05/23/16 07:05 BUN/Creatinine Ratio 11.8 05/23/16 07:05 Glucose 90 mg/dL (70-105) 05/23/16 07:05 POC Glucose 146 MG/DL (70 - 105) H 05/23/16 11:23 Calcium 9.3 mg/dL (8.6-10.3) 05/23/16 07:05 Phosphorus 1.9 mg/dL (2.5-5.0) L 05/23/16 07:05 Magnesium 2.3 mg/dL (1.9-2.7) 05/23/16 07:05 Ferritin 1901 ng/mL (15-150) H 05/22/16 13:25 Total Bilirubin 0.4 mg/dL (0.3-1.0) 05/23/16 07:05 Direct Bilirubin 0.03 mg/dL (0.0-0.2) 05/23/16 07:05 AST 10 U/L (13-39) L 05/23/16 07:05 ALT 6 U/L (7-52) L 05/23/16 07:05 Alkaline Phosphatase 54 U/L (34-104) 05/23/16 07:05 Ammonia 30 umol/L (16-53) 05/23/16 07:05 Total Protein 6.9 gm/dL (6.0-8.3) 05/23/16 07:05 Albumin 3.6 gm/dL (3.7-5.3) L 05/23/16 07:05 Globulin 3.3 gm/dL 05/23/16 07:05 Albumin/Globulin Ratio 1.1 (1.0-1.8) 05/23/16 07:05 Vitamin B12 387 pg/mL (211-946) 05/22/16 13:25 Folic Acid >20.0 ng/mL (>3.0) 05/22/16 13:25 TSH 2.80 uIU/ml (0.34-5.60) 05/23/16 07:05 Hepatitis A IgM Ab Negative (Negative) 05/22/16 13:25 Hep Bs Antigen Negative (Negative) 05/22/16 13:25 Hep B Core IgM Ab Negative (Negative) 05/22/16 13:25 Hepatitis C Antibody <0.1 s/co ratio (0.0-0.9) 05/22/16 13:25 - Physical Exam Vitals and I&O: Vital Signs Temp 97.9 F 05/23/16 03:55 Pulse 62 05/23/16 10:06 Resp 18 05/23/16 03:55 BP 155/60 05/23/16 10:06 Pulse Ox 99 05/23/16 03:55 Intake & Output 05/22/16 05/23/16 05/23/16 18:59 06:59 18:59 Intake Total 600 320 Output Total 0 Balance 600 320 Intake: Oral 600 320 Output: Urine 0 Other: # Voids 0 # Bowel Movements 1 Active Medications: Current Medications Acetaminophen (Tylenol) 650 mg PO Q4HR PRN PRN Reason: PAIN (MILD) OR TEMP 100.0 OR > Stop: 07/20/16 15:35 Last Admin: 05/22/16 23:31 Dose: 650 mg Acetaminophen/Hydrocodone Bitart ([place] 5mg/325mg) 1 tab PO Q12HR [facility] Stop: 07/20/16 20:59 Last Admin: 05/23/16 10:06 Dose: 1 tab Amlodipine Besylate (Norvasc) 5 mg PO SuMoWeFr@0900,2100 [facility] Stop: 07/20/16 20:59 Last Admin: 05/23/16 10:06 Dose: 5 mg Amlodipine Besylate (Norvasc) 5 mg PO TuThSa@2100 [facility] Stop: 07/21/16 20:59 Last Admin: 05/22/16 21:27 Dose: 5 mg Bisacodyl (Dulcolax 10 Mg Supp) 10 mg RC DAILY PRN PRN Reason: BM MANAGEMENT Stop: 07/20/16 15:35 Calcium/Vitamin D (Oscal W/Vitamin D) 1 tab PO HS [facility] Stop: 07/20/16 20:59 Last Admin: 05/22/16 21:35 Dose: 1 tab Clonidine HCl (Catapres) 0.1 mg PO Q4H PRN PRN Reason: SBP>160 Stop: 07/20/16 15:35 Dextrose (D50w) 50 ml IVP PRN PRN PRN Reason: BLOOD SUGAR < 70 Stop: 07/20/16 15:35 Hydralazine HCl (Apresoline) 50 mg PO Q12H [facility] Stop: 07/20/16 15:44 Last Admin: 05/23/16 06:59 Dose: 50 mg Albumin Human (Albuminar 25%) 25 gm in 100 mls @ 50 mls/hr IV PRN PRN PRN Reason: BP Support During HD Stop: 05/24/16 00:00 Potassium Phosphate 20 mmole/ (Sodium Chloride) 256.6667 mls @ 42.5 mls/hr IV X1 ONE Stop: 05/23/16 21:02 Insulin Aspart (Novolog Insulin Sliding Scale) 0 units SUBQ ACHS [facility] PRN Reason: Protocol Stop: 07/20/16 16:29 Last Admin: 05/23/16 12:08 Dose: 2 units Lactulose (Cephulac) 15 gm PO Q8H PRN PRN Reason: BM MANAGEMENT Lisinopril (Zestril) 40 mg PO BID [facility] Stop: 07/20/16 16:59 Last Admin: 05/23/16 10:05 Dose: 40 mg Miscellaneous (Clinical Monitoring) 1 ea MC PRN PRN PRN Reason: RENAL DOSING Stop: 07/21/16 13:08 Nifedipine (Procardia) 10 mg PO Q6H PRN PRN Reason: SBP >160 Stop: 07/20/16 15:35 Nitroglycerin (Nitrostat) 0.4 mg SL Q5MIN PRN PRN Reason: Chest Pain X3 Stop: 07/20/16 15:35 Petrolatum (Zinc Oxide) 1 appl TP TID [facility] Stop: 07/20/16 20:59 Last Admin: 05/23/16 10:11 Dose: 1 appl Sevelamer HCl (Renagel) 800 mg PO TID [facility] Stop: 07/21/16 08:59 Last Admin: 05/23/16 10:06 Dose: 800 mg Sodium Bicarbonate (Sodium Bicarbonate) 650 mg PO BID [facility] PRN Reason: Protocol Stop: 07/21/16 16:59 Last Admin: 05/23/16 10:06 Dose: 650 mg Sucralfate (Carafate) 1 gm PO ACHS [facility] Stop: 07/20/16 16:59 Last Admin: 05/23/16 12:07 Dose: 1 gm Vitamin B Complex/Vit C/Folic Acid (Vitamin B Complex W/Vitamin C) 1 tab PO DAILY [facility] Stop: 07/21/16 08:59 Last Admin: 05/23/16 10:08 Dose: 1 tab - Procedures Procedures: Procedures Procedure Code Date PERFORMANCE OF URINARY FILTRATION, SINGLE [id number] 12/29/15
[2016-05-23] MEDS ORDERED: Menthol/Zinc Oxide Oint 113gm Tube TP PRN (17:33)
[2016-05-23] MEDS: Calcium Carb/Vit D 500 mg/200 U Tab PO SCH (21:05)
[2016-05-24 07:00] LABS: HEMATOCRIT 32.5 % (35.0-45.0); HEMOGLOBIN 10.4 gm/dL (11.7-16.1); MEAN CELL VOLUME 74.4 fl (81-100); MEAN CORPUSCULAR HEMOGLOBIN 23.7 pg (27.0-31.0); MEAN CORPUSCULAR HGB CONC 31.9 pg (28.0-36.0); PLATELET COUNT 61 Th/cmm (150-400); RED BLOOD COUNT 4.36 Mil/cmm (3.80-5.20); RED CELL DISTRIBUTION WIDTH 22.2 % (11.5-20.0); WHITE BLOOD COUNT 5.8 Th/cmm (4.8-10.8)
[2016-05-24 07:15] LABS: ANION GAP 16.5 (7.0-16.0); BUN - UREA NITROGEN 52 mg/dL (7-25); BUN/CREATININE RATIO 14.1; CALCIUM SERUM 9.4 mg/dL (8.6-10.3); CARBON DIOXIDE 22.4 mEq/L (21.0-31.0); CHLORIDE 93 mEq/L (98-107); CREATININE - SERUM 3.7 mg/dL (0.6-1.2); GLUCOSE 109 mg/dL (70-105); MAGNESIUM 2.3 mg/dL (1.9-2.7); POTASSIUM SERUM 3.9 mEq/L (3.5-5.1); SODIUM SERUM 128 mEq/L (136-145)
[2016-05-24 08:14] LABS: T3 FREE 2.3 pg/mL (2.0-4.4); T4 FREE 1.01 ng/dL (0.82-1.77)
--- NOTE | 2016-05-24 08:22 | General Progress Note ---
Objective - Results Result Diagrams: 05/24/16 06:30 05/24/16 06:30 Recent Labs: Laboratory Last Values WBC 5.8 Th/cmm (4.8-10.8) 05/24/16 06:30 RBC 4.36 Mil/cmm (3.80-5.20) 05/24/16 06:30 Hgb 10.4 gm/dL (11.7-16.1) L 05/24/16 06:30 Hct 32.5 % (35.0-45.0) L 05/24/16 06:30 MCV 74.4 fl (81-100) L 05/24/16 06:30 MCH 23.7 pg (27.0-31.0) L 05/24/16 06:30 MCHC Differential 31.9 pg (28.0-36.0) 05/24/16 06:30 RDW 22.2 % (11.5-20.0) H 05/24/16 06:30 Plt Count 61 Th/cmm (150-400) L 05/24/16 06:30 MPV 8.0 fl 05/24/16 06:30 Band Neutrophils % 1 % (0-10) 05/23/16 07:05 Neutrophils (Manual) 53 % (40-80) 05/23/16 07:05 Lymphocytes 30 % (20-50) 05/23/16 07:05 Monocytes 13 % (2-10) H 05/23/16 07:05 Eosinophils 3 % (0-5) 05/23/16 07:05 Nucleated RBCs 1.0 % (0-0) H 05/22/16 06:22 Platelet Estimate DECREASED PLATELETS (NORMAL) 05/23/16 07:05 Platelet Morphology GIANT PLATELETS SEEN (NORMAL) 05/23/16 07:05 Polychromasia 1+ 05/23/16 07:05 Anisocytosis 1+ 05/23/16 07:05 Microcytosis 2+ 05/23/16 07:05 RBC Morph Micro Appear ABNORMAL (NORMAL) 05/23/16 07:05 PT 10.2 SECONDS (9.5-11.5) 05/23/16 07:05 INR 1.03 (0.5-1.4) 05/23/16 07:05 PTT (Actin FS) 27.9 SECONDS (26.0-38.0) 05/23/16 07:05 Specimen Source Arterial 05/23/16 08:54 Sample Site Right Radial 05/23/16 08:54 pH 7.43 (7.35-7.45) 05/23/16 08:54 pCO2 44.0 mmHg (35.0-45.0) 05/23/16 08:54 pO2 81.0 mmHg (80.0-100.0) 05/23/16 08:54 HCO3 29.2 mmol/L (20.0-26.0) H 05/23/16 08:54 Base Excess 4.3 mmol/L (-3.0-3.0) H 05/23/16 08:54 O2 Saturation 96.0 % (92.0-100.0) 05/23/16 08:54 Enrico Test Positive 05/23/16 08:54 Vent Rate NA 05/23/16 08:54 Inspired O2 21 05/23/16 08:54 Tidal Volume NA 05/23/16 08:54 PEEP NA 05/23/16 08:54 Pressure (ins/psv/peep) NA 05/23/16 08:54 Critical Value LZHANG 05/23/16 08:54 Sodium 128 mEq/L (136-145) L 05/24/16 06:30 Potassium 3.9 mEq/L (3.5-5.1) 05/24/16 06:30 Chloride 93 mEq/L (98-107) L 05/24/16 06:30 Carbon Dioxide 22.4 mEq/L (21.0-31.0) 05/24/16 06:30 Anion Gap 16.5 (7.0-16.0) H 05/24/16 06:30 BUN 52 mg/dL (7-25) H 05/24/16 06:30 Creatinine 3.7 mg/dL (0.6-1.2) H 05/24/16 06:30 Est GFR ( Amer) TNP 05/24/16 06:30 Est GFR (Non-Af Amer) TNP 05/24/16 06:30 BUN/Creatinine Ratio 14.1 05/24/16 06:30 Glucose 109 mg/dL (70-105) H 05/24/16 06:30 POC Glucose 111 MG/DL (70 - 105) H 05/24/16 06:38 Calcium 9.4 mg/dL (8.6-10.3) 05/24/16 06:30 Phosphorus 1.9 mg/dL (2.5-5.0) L 05/23/16 07:05 Magnesium 2.3 mg/dL (1.9-2.7) 05/24/16 06:30 Ferritin 1901 ng/mL (15-150) H 05/22/16 13:25 Total Bilirubin 0.4 mg/dL (0.3-1.0) 05/23/16 07:05 Direct Bilirubin 0.03 mg/dL (0.0-0.2) 05/23/16 07:05 AST 10 U/L (13-39) L 05/23/16 07:05 ALT 6 U/L (7-52) L 05/23/16 07:05 Alkaline Phosphatase 54 U/L (34-104) 05/23/16 07:05 Ammonia 30 umol/L (16-53) 05/23/16 07:05 Total Protein 6.9 gm/dL (6.0-8.3) 05/23/16 07:05 Albumin 3.6 gm/dL (3.7-5.3) L 05/23/16 07:05 Globulin 3.3 gm/dL 05/23/16 07:05 Albumin/Globulin Ratio 1.1 (1.0-1.8) 05/23/16 07:05 Vitamin B12 387 pg/mL (211-946) 05/22/16 13:25 Folic Acid >20.0 ng/mL (>3.0) 05/22/16 13:25 Free T4 1.01 ng/dL (0.82-1.77) 05/23/16 07:05 Free T3 2.3 pg/mL (2.0-4.4) 05/23/16 07:05 TSH 2.80 uIU/ml (0.34-5.60) 05/23/16 07:05 Hepatitis A IgM Ab Negative (Negative) 05/22/16 13:25 Hep Bs Antigen Negative (Negative) 05/22/16 13:25 Hep B Core IgM Ab Negative (Negative) 05/22/16 13:25 Hepatitis C Antibody <0.1 s/co ratio (0.0-0.9) 05/22/16 13:25 - Physical Exam Vitals and I&O: Vital Signs Temp 98 F 05/24/16 04:00 Pulse 77 05/24/16 06:01 Resp 100 05/24/16 04:00 BP 159/90 05/24/16 06:01 Pulse Ox 18 05/24/16 04:00 Intake & Output 05/23/16 05/24/16 05/24/16 18:59 06:59 18:59 Intake Total 1080 200 Balance 1080 200 Intake: Oral 1080 200 Other: # Bowel Movements 1 1 Stool Characteristics Soft Soft Active Medications: Current Medications Acetaminophen (Tylenol) 650 mg PO Q4HR PRN PRN Reason: PAIN (MILD) OR TEMP 100.0 OR > Stop: 07/20/16 15:35 Last Admin: 05/24/16 05:40 Dose: 650 mg Acetaminophen/Hydrocodone Bitart (Accord 5mg/325mg) 1 tab PO Q12HR [facility] Stop: 07/20/16 20:59 Last Admin: 05/23/16 21:06 Dose: 1 tab Amlodipine Besylate (Norvasc) 5 mg PO [id number]@0900,2100 [facility] Stop: 07/20/16 20:59 Last Admin: 05/23/16 21:06 Dose: 5 mg Amlodipine Besylate (Norvasc) 5 mg PO TuThSa@2100 [facility] Stop: 07/21/16 20:59 Last Admin: 05/22/16 21:27 Dose: 5 mg Bisacodyl (Dulcolax 10 Mg Supp) 10 mg RC DAILY PRN PRN Reason: BM MANAGEMENT Stop: 07/20/16 15:35 Calamine/Phenol (Calmoseptine) 1 appl TP QID PRN PRN Reason: Skin Irritation Stop: 07/22/16 17:32 Calcium/Vitamin D (Oscal W/Vitamin D) 1 tab PO HS [facility] Stop: 07/20/16 20:59 Last Admin: 05/23/16 21:05 Dose: 1 tab Clonidine HCl (Catapres) 0.1 mg PO Q4H PRN PRN Reason: SBP>160 Stop: 07/20/16 15:35 Dextrose (D50w) 50 ml IVP PRN PRN PRN Reason: BLOOD SUGAR < 70 Stop: 07/20/16 15:35 Hydralazine HCl (Apresoline) 50 mg PO Q12H [facility] Stop: 07/20/16 15:44 Last Admin: 05/24/16 03:44 Dose: 50 mg Insulin Aspart (Novolog Insulin Sliding Scale) 0 units SUBQ ACHS [facility] PRN Reason: Protocol Stop: 07/20/16 16:29 Last Admin: 05/23/16 21:16 Dose: Not Given Lactulose (Cephulac) 15 gm PO Q8H PRN PRN Reason: BM MANAGEMENT Lisinopril (Zestril) 40 mg PO BID [facility] Stop: 07/20/16 16:59 Last Admin: 05/23/16 16:31 Dose: 40 mg Miscellaneous (Clinical Monitoring) 1 ea MC PRN PRN PRN Reason: RENAL DOSING Stop: 07/21/16 13:08 Nifedipine (Procardia) 10 mg PO Q6H PRN PRN Reason: SBP >160 Stop: 07/20/16 15:35 Last Admin: 05/24/16 03:45 Dose: 10 mg Nitroglycerin (Nitrostat) 0.4 mg SL Q5MIN PRN PRN Reason: Chest Pain X3 Stop: 07/20/16 15:35 Petrolatum (Zinc Oxide) 1 appl TP TID [facility] Stop: 07/20/16 20:59 Last Admin: 05/23/16 21:16 Dose: 1 appl Sevelamer HCl (Renagel) 800 mg PO TID [facility] Stop: 07/21/16 08:59 Last Admin: 05/23/16 21:06 Dose: 800 mg Sodium Bicarbonate (Sodium Bicarbonate) 650 mg PO BID [facility] PRN Reason: Protocol Stop: 07/21/16 16:59 Last Admin: 05/23/16 16:31 Dose: 650 mg Sucralfate (Carafate) 1 gm PO ACHS [facility] Stop: 07/20/16 16:59 Last Admin: 05/23/16 21:06 Dose: 1 gm Vitamin B Complex/Vit C/Folic Acid (Vitamin B Complex W/Vitamin C) 1 tab PO DAILY [facility] Stop: 07/21/16 08:59 Last Admin: 05/23/16 10:08 Dose: 1 tab - Procedures Procedures: Procedures Procedure Code Date PERFORMANCE OF URINARY FILTRATION, SINGLE [id number] 12/29/15
[2016-05-24] MEDS: Vitamin B Complex w/Vitamin C Tab PO SCH (09:00)
[2016-05-24] MEDS: Hydrocodone/APAP 5mg/325mg Tab PO SCH (09:00)
[2016-05-24] MEDS: INSULIN ASPART SLIDING SCALE 100 UNITS/ML UNIT SUBQ SCH ×3 (09:02→18:40)
[2016-05-24] MEDS: Zinc Oxide Ointment 60 gm TP SCH ×2 (09:16→13:03)
[2016-05-24 10:13] LABS: ANISOCYTOSIS 1+; BAND NEUTROPHILE 4 % (0-10); EOSINOPHIL 3 % (0-5); MICROCYTOSIS 2+; NEUTROPHILS 56 % (40-80); PLATELET ESTIMATE DECREASED PLATELETS (NORMAL); PLATELET MORPHOLOGY NORMAL (NORMAL); TOTAL CELLS COUNTED 100
--- NOTE | 2016-05-24 13:29 | History & Physical ---
HISTORY OF PRESENT ILLNESS: The patient very well known to me. The patient known to have history of multiple medical problems. She resides at [place]. The patient is an elderly female in late ____. The patient known to have history of hypertension, history of diabetes, history of peripheral vascular disease, history of right above knee amputation, history of ESRD, on dialysis, apparently she has lot of darkened discolored area on her right chest wall was admitted and found to have thrombocytopenia and purpura. PAST MEDICAL HISTORY: History of hypertension, diabetes, peripheral vascular disease, ESRD, and osteoporosis. The patient is unable to give me much history because of language problem. PHYSICAL EXAMINATION: HEAD: Normal. ENT: Normal. LUNGS: Clear to auscultation. CARDIOVASCULAR SYSTEM: S1, S2 heard. ABDOMEN: Soft. Bowel sounds are heard. CENTRAL NERVOUS SYSTEM: Grossly normal. SKIN: Discolored area is noted on the chest wall. LABORATORY DATA: Hemoglobin was 10.0, hematocrit was 32, white count was 7.5 and platelets were lowest at ____. The patient also found to have a chest x-ray showed multiple nodules in left lower lobe, parenchymal changes. DIAGNOSES: Purpura, thrombocytopenia, the patient has possible pneumonia, right lower lobe, history of ____, history of diabetes, history of hypertension, history of end-stage renal disease. PLAN: The patient is being admitted. I will have Hematology and ID consult and I will follow the patient. JOB# [id number]
--- NOTE | 2016-05-24 14:51 | General Progress Note ---
Subjective - Review of Systems Service Date: 05/24/16 Subjective: alert, denied further chest wall pain Objective - Results Result Diagrams: 05/24/16 06:30 05/24/16 06:30 Recent Labs: Laboratory Last Values WBC 5.8 Th/cmm (4.8-10.8) 05/24/16 06:30 RBC 4.36 Mil/cmm (3.80-5.20) 05/24/16 06:30 Hgb 10.4 gm/dL (11.7-16.1) L 05/24/16 06:30 Hct 32.5 % (35.0-45.0) L 05/24/16 06:30 MCV 74.4 fl (81-100) L 05/24/16 06:30 MCH 23.7 pg (27.0-31.0) L 05/24/16 06:30 MCHC Differential 31.9 pg (28.0-36.0) 05/24/16 06:30 RDW 22.2 % (11.5-20.0) H 05/24/16 06:30 Plt Count 61 Th/cmm (150-400) L 05/24/16 06:30 MPV 8.0 fl 05/24/16 06:30 Band Neutrophils % 4 % (0-10) 05/24/16 06:30 Neutrophils (Manual) 56 % (40-80) 05/24/16 06:30 Lymphocytes 26 % (20-50) 05/24/16 06:30 Monocytes 11 % (2-10) H 05/24/16 06:30 Eosinophils 3 % (0-5) 05/24/16 06:30 Nucleated RBCs 1.0 % (0-0) H 05/22/16 06:22 Platelet Estimate DECREASED PLATELETS (NORMAL) 05/24/16 06:30 Platelet Morphology NORMAL (NORMAL) 05/24/16 06:30 Polychromasia 1+ 05/23/16 07:05 Anisocytosis 1+ 05/24/16 06:30 Microcytosis 2+ 05/24/16 06:30 RBC Morph Micro Appear ABNORMAL (NORMAL) 05/24/16 06:30 PT 10.2 SECONDS (9.5-11.5) 05/23/16 07:05 INR 1.03 (0.5-1.4) 05/23/16 07:05 PTT (Actin FS) 27.9 SECONDS (26.0-38.0) 05/23/16 07:05 Specimen Source Arterial 05/23/16 08:54 Sample Site Right Radial 05/23/16 08:54 pH 7.43 (7.35-7.45) 05/23/16 08:54 pCO2 44.0 mmHg (35.0-45.0) 05/23/16 08:54 pO2 81.0 mmHg (80.0-100.0) 05/23/16 08:54 HCO3 29.2 mmol/L (20.0-26.0) H 05/23/16 08:54 Base Excess 4.3 mmol/L (-3.0-3.0) H 05/23/16 08:54 O2 Saturation 96.0 % (92.0-100.0) 05/23/16 08:54 Enrico Test Positive 05/23/16 08:54 Vent Rate NA 05/23/16 08:54 Inspired O2 21 05/23/16 08:54 Tidal Volume NA 05/23/16 08:54 PEEP NA 05/23/16 08:54 Pressure (ins/psv/peep) NA 05/23/16 08:54 Critical Value LZHANG 05/23/16 08:54 Sodium 128 mEq/L (136-145) L 05/24/16 06:30 Potassium 3.9 mEq/L (3.5-5.1) 05/24/16 06:30 Chloride 93 mEq/L (98-107) L 05/24/16 06:30 Carbon Dioxide 22.4 mEq/L (21.0-31.0) 05/24/16 06:30 Anion Gap 16.5 (7.0-16.0) H 05/24/16 06:30 BUN 52 mg/dL (7-25) H 05/24/16 06:30 Creatinine 3.7 mg/dL (0.6-1.2) H 05/24/16 06:30 Est GFR ( Amer) TNP 05/24/16 06:30 Est GFR (Non-Af Amer) TNP 05/24/16 06:30 BUN/Creatinine Ratio 14.1 05/24/16 06:30 Glucose 109 mg/dL (70-105) H 05/24/16 06:30 POC Glucose 118 MG/DL (70 - 105) H 05/24/16 12:18 Calcium 9.4 mg/dL (8.6-10.3) 05/24/16 06:30 Phosphorus 4.0 mg/dL (2.5-5.0) 05/24/16 06:30 Magnesium 2.3 mg/dL (1.9-2.7) 05/24/16 06:30 Ferritin 1901 ng/mL (15-150) H 05/22/16 13:25 Total Bilirubin 0.4 mg/dL (0.3-1.0) 05/23/16 07:05 Direct Bilirubin 0.03 mg/dL (0.0-0.2) 05/23/16 07:05 AST 10 U/L (13-39) L 05/23/16 07:05 ALT 6 U/L (7-52) L 05/23/16 07:05 Alkaline Phosphatase 54 U/L (34-104) 05/23/16 07:05 Ammonia 30 umol/L (16-53) 05/23/16 07:05 Total Protein 6.9 gm/dL (6.0-8.3) 05/23/16 07:05 Albumin 3.6 gm/dL (3.7-5.3) L 05/23/16 07:05 Globulin 3.3 gm/dL 05/23/16 07:05 Albumin/Globulin Ratio 1.1 (1.0-1.8) 05/23/16 07:05 Vitamin B12 387 pg/mL (211-946) 05/22/16 13:25 Folic Acid >20.0 ng/mL (>3.0) 05/22/16 13:25 Free T4 1.01 ng/dL (0.82-1.77) 05/23/16 07:05 Free T3 2.3 pg/mL (2.0-4.4) 05/23/16 07:05 TSH 2.80 uIU/ml (0.34-5.60) 05/23/16 07:05 Hepatitis A IgM Ab Negative (Negative) 05/22/16 13:25 Hep Bs Antigen Negative (Negative) 05/22/16 13:25 Hep B Core IgM Ab Negative (Negative) 05/22/16 13:25 Hepatitis C Antibody <0.1 s/co ratio (0.0-0.9) 05/22/16 13:25 - Physical Exam Vitals and I&O: Vital Signs Temp 97.4 F 05/24/16 12:00 Pulse 67 05/24/16 12:00 Resp 16 05/24/16 12:00 BP 169/78 05/24/16 12:00 Pulse Ox 100 05/24/16 12:00 Intake & Output 05/23/16 05/24/16 05/24/16 18:59 06:59 18:59 Intake Total 1080 200 Balance 1080 200 Intake: Oral 1080 200 Other: # Bowel Movements 1 1 Stool Characteristics Soft Soft Soft Active Medications: Current Medications Acetaminophen (Tylenol) 650 mg PO Q4HR PRN PRN Reason: PAIN (MILD) OR TEMP 100.0 OR > Stop: 07/20/16 15:35 Last Admin: 05/24/16 05:40 Dose: 650 mg Acetaminophen/Hydrocodone Bitart (Sisters 5mg/325mg) 1 tab PO Q12HR [facility] Stop: 07/20/16 20:59 Last Admin: 05/24/16 09:00 Dose: 1 tab Amlodipine Besylate (Norvasc) 5 mg PO SuMoWeFr@0900,2100 [facility] Stop: 07/20/16 20:59 Last Admin: 05/23/16 21:06 Dose: 5 mg Amlodipine Besylate (Norvasc) 5 mg PO TuThSa@2100 [facility] Stop: 07/21/16 20:59 Last Admin: 05/22/16 21:27 Dose: 5 mg Bisacodyl (Dulcolax 10 Mg Supp) 10 mg RC DAILY PRN PRN Reason: BM MANAGEMENT Stop: 07/20/16 15:35 Calamine/Phenol (Calmoseptine) 1 appl TP QID PRN PRN Reason: Skin Irritation Stop: 07/22/16 17:32 Calcium/Vitamin D (Oscal W/Vitamin D) 1 tab PO HS [facility] Stop: 07/20/16 20:59 Last Admin: 05/23/16 21:05 Dose: 1 tab Clonidine HCl (Catapres) 0.1 mg PO Q4H PRN PRN Reason: SBP>160 Stop: 07/20/16 15:35 Dextrose (D50w) 50 ml IVP PRN PRN PRN Reason: BLOOD SUGAR < 70 Stop: 07/20/16 15:35 Hydralazine HCl (Apresoline) 50 mg PO Q12H [facility] Stop: 07/20/16 15:44 Last Admin: 05/24/16 03:44 Dose: 50 mg Insulin Aspart (Novolog Insulin Sliding Scale) 0 units SUBQ ACHS [facility] PRN Reason: Protocol Stop: 07/20/16 16:29 Last Admin: 05/24/16 11:59 Dose: Not Given Lactulose (Cephulac) 15 gm PO Q8H PRN PRN Reason: BM MANAGEMENT Lisinopril (Zestril) 40 mg PO BID [facility] Stop: 07/20/16 16:59 Last Admin: 05/24/16 09:14 Dose: 40 mg Miscellaneous (Clinical Monitoring) 1 ea MC PRN PRN PRN Reason: RENAL DOSING Stop: 07/21/16 13:08 Nifedipine (Procardia) 10 mg PO Q6H PRN PRN Reason: SBP >160 Stop: 07/20/16 15:35 Last Admin: 05/24/16 03:45 Dose: 10 mg Nitroglycerin (Nitrostat) 0.4 mg SL Q5MIN PRN PRN Reason: Chest Pain X3 Stop: 07/20/16 15:35 Petrolatum (Zinc Oxide) 1 appl TP TID [facility] Stop: 07/20/16 20:59 Last Admin: 05/24/16 13:03 Dose: 1 appl Sevelamer HCl (Renagel) 800 mg PO TID [facility] Stop: 07/21/16 08:59 Last Admin: 05/24/16 13:02 Dose: 800 mg Sodium Bicarbonate (Sodium Bicarbonate) 650 mg PO BID [facility] PRN Reason: Protocol Stop: 07/21/16 16:59 Last Admin: 05/24/16 09:00 Dose: 650 mg Sucralfate (Carafate) 1 gm PO ACHS [facility] Stop: 07/20/16 16:59 Last Admin: 05/24/16 12:02 Dose: 1 gm Vitamin B Complex/Vit C/Folic Acid (Vitamin B Complex W/Vitamin C) 1 tab PO DAILY [facility] Stop: 07/21/16 08:59 Last Admin: 05/24/16 09:00 Dose: 1 tab General: Alert, No acute distress HEENT: Atraumatic, Mucous membr. moist/pink Neck: Supple, +2 carotid pulse wo bruit Cardiovascular: Regular rate, Normal S1, Normal S2, Other (hematoma right chest wall & right lateral breast area about same size) Lungs: Clear to auscultation Abdomen: Bowel sounds, Soft Extremities: no Edema Neurological: Normal speech, Sensation intact Skin: no Rash - Procedures Procedures: Procedures Procedure Code Date PERFORMANCE OF URINARY FILTRATION, SINGLE [id number] 12/29/15 Assessment/Plan - Assessment Assessment: esrd on hd hematoma right lat chest wall, breast area due to chronic thrombocytopenia type 2 dm ess htn dm neuropathy pemphigus acquired thombocytopenia hyponatremia improved anemia ckd AG met acid - Plan Plan: scheduled for hd today hgb/ hct stable @ 10.4/32.5 f/u cbc, electrolytes
--- NOTE | 2016-05-24 16:53 | General Progress Note ---
Subjective - Review of Systems Service Date: 05/24/16 Events since last encounter: noted Subjective: pt is resting Objective - Results Result Diagrams: 05/24/16 06:30 05/24/16 06:30 Recent Labs: Laboratory Last Values WBC 5.8 Th/cmm (4.8-10.8) 05/24/16 06:30 RBC 4.36 Mil/cmm (3.80-5.20) 05/24/16 06:30 Hgb 10.4 gm/dL (11.7-16.1) L 05/24/16 06:30 Hct 32.5 % (35.0-45.0) L 05/24/16 06:30 MCV 74.4 fl (81-100) L 05/24/16 06:30 MCH 23.7 pg (27.0-31.0) L 05/24/16 06:30 MCHC Differential 31.9 pg (28.0-36.0) 05/24/16 06:30 RDW 22.2 % (11.5-20.0) H 05/24/16 06:30 Plt Count 61 Th/cmm (150-400) L 05/24/16 06:30 MPV 8.0 fl 05/24/16 06:30 Band Neutrophils % 4 % (0-10) 05/24/16 06:30 Neutrophils (Manual) 56 % (40-80) 05/24/16 06:30 Lymphocytes 26 % (20-50) 05/24/16 06:30 Monocytes 11 % (2-10) H 05/24/16 06:30 Eosinophils 3 % (0-5) 05/24/16 06:30 Nucleated RBCs 1.0 % (0-0) H 05/22/16 06:22 Platelet Estimate DECREASED PLATELETS (NORMAL) 05/24/16 06:30 Platelet Morphology NORMAL (NORMAL) 05/24/16 06:30 Polychromasia 1+ 05/23/16 07:05 Anisocytosis 1+ 05/24/16 06:30 Microcytosis 2+ 05/24/16 06:30 RBC Morph Micro Appear ABNORMAL (NORMAL) 05/24/16 06:30 PT 10.2 SECONDS (9.5-11.5) 05/23/16 07:05 INR 1.03 (0.5-1.4) 05/23/16 07:05 PTT (Actin FS) 27.9 SECONDS (26.0-38.0) 05/23/16 07:05 Specimen Source Arterial 05/23/16 08:54 Sample Site Right Radial 05/23/16 08:54 pH 7.43 (7.35-7.45) 05/23/16 08:54 pCO2 44.0 mmHg (35.0-45.0) 05/23/16 08:54 pO2 81.0 mmHg (80.0-100.0) 05/23/16 08:54 HCO3 29.2 mmol/L (20.0-26.0) H 05/23/16 08:54 Base Excess 4.3 mmol/L (-3.0-3.0) H 05/23/16 08:54 O2 Saturation 96.0 % (92.0-100.0) 05/23/16 08:54 Enrico Test Positive 05/23/16 08:54 Vent Rate NA 05/23/16 08:54 Inspired O2 21 05/23/16 08:54 Tidal Volume NA 05/23/16 08:54 PEEP NA 05/23/16 08:54 Pressure (ins/psv/peep) NA 05/23/16 08:54 Critical Value LZHANG 05/23/16 08:54 Sodium 128 mEq/L (136-145) L 05/24/16 06:30 Potassium 3.9 mEq/L (3.5-5.1) 05/24/16 06:30 Chloride 93 mEq/L (98-107) L 05/24/16 06:30 Carbon Dioxide 22.4 mEq/L (21.0-31.0) 05/24/16 06:30 Anion Gap 16.5 (7.0-16.0) H 05/24/16 06:30 BUN 52 mg/dL (7-25) H 05/24/16 06:30 Creatinine 3.7 mg/dL (0.6-1.2) H 05/24/16 06:30 Est GFR ( Amer) TNP 05/24/16 06:30 Est GFR (Non-Af Amer) TNP 05/24/16 06:30 BUN/Creatinine Ratio 14.1 05/24/16 06:30 Glucose 109 mg/dL (70-105) H 05/24/16 06:30 POC Glucose 118 MG/DL (70 - 105) H 05/24/16 12:18 Calcium 9.4 mg/dL (8.6-10.3) 05/24/16 06:30 Phosphorus 4.0 mg/dL (2.5-5.0) 05/24/16 06:30 Magnesium 2.3 mg/dL (1.9-2.7) 05/24/16 06:30 Ferritin 1901 ng/mL (15-150) H 05/22/16 13:25 Total Bilirubin 0.4 mg/dL (0.3-1.0) 05/23/16 07:05 Direct Bilirubin 0.03 mg/dL (0.0-0.2) 05/23/16 07:05 AST 10 U/L (13-39) L 05/23/16 07:05 ALT 6 U/L (7-52) L 05/23/16 07:05 Alkaline Phosphatase 54 U/L (34-104) 05/23/16 07:05 Ammonia 30 umol/L (16-53) 05/23/16 07:05 Total Protein 6.9 gm/dL (6.0-8.3) 05/23/16 07:05 Albumin 3.6 gm/dL (3.7-5.3) L 05/23/16 07:05 Globulin 3.3 gm/dL 05/23/16 07:05 Albumin/Globulin Ratio 1.1 (1.0-1.8) 05/23/16 07:05 Vitamin B12 387 pg/mL (211-946) 05/22/16 13:25 Folic Acid >20.0 ng/mL (>3.0) 05/22/16 13:25 Free T4 1.01 ng/dL (0.82-1.77) 05/23/16 07:05 Free T3 2.3 pg/mL (2.0-4.4) 05/23/16 07:05 TSH 2.80 uIU/ml (0.34-5.60) 05/23/16 07:05 Hepatitis A IgM Ab Negative (Negative) 05/22/16 13:25 Hep Bs Antigen Negative (Negative) 05/22/16 13:25 Hep B Core IgM Ab Negative (Negative) 05/22/16 13:25 Hepatitis C Antibody <0.1 s/co ratio (0.0-0.9) 05/22/16 13:25 - Physical Exam Vitals and I&O: Vital Signs Temp 97.4 F 05/24/16 12:00 Pulse 67 05/24/16 12:00 Resp 16 05/24/16 12:00 BP 169/78 05/24/16 12:00 Pulse Ox 100 05/24/16 12:00 Intake & Output 05/23/16 05/24/16 05/24/16 18:59 06:59 18:59 Intake Total 1080 200 Balance 1080 200 Intake: Oral 1080 200 Other: # Bowel Movements 1 1 Stool Characteristics Soft Soft Soft Active Medications: Current Medications Acetaminophen (Tylenol) 650 mg PO Q4HR PRN PRN Reason: PAIN (MILD) OR TEMP 100.0 OR > Stop: 07/20/16 15:35 Last Admin: 05/24/16 05:40 Dose: 650 mg Acetaminophen/Hydrocodone Bitart (Malcom 5mg/325mg) 1 tab PO Q12HR [facility] Stop: 07/20/16 20:59 Last Admin: 05/24/16 09:00 Dose: 1 tab Amlodipine Besylate (Norvasc) 5 mg PO SuMoWeFr@0900,2100 [facility] Stop: 07/20/16 20:59 Last Admin: 05/23/16 21:06 Dose: 5 mg Amlodipine Besylate (Norvasc) 5 mg PO TuThSa@2100 [facility] Stop: 07/21/16 20:59 Last Admin: 05/22/16 21:27 Dose: 5 mg Bisacodyl (Dulcolax 10 Mg Supp) 10 mg RC DAILY PRN PRN Reason: BM MANAGEMENT Stop: 07/20/16 15:35 Calamine/Phenol (Calmoseptine) 1 appl TP QID PRN PRN Reason: Skin Irritation Stop: 07/22/16 17:32 Calcium/Vitamin D (Oscal W/Vitamin D) 1 tab PO HS [facility] Stop: 07/20/16 20:59 Last Admin: 05/23/16 21:05 Dose: 1 tab Clonidine HCl (Catapres) 0.1 mg PO Q4H PRN PRN Reason: SBP>160 Stop: 07/20/16 15:35 Dextrose (D50w) 50 ml IVP PRN PRN PRN Reason: BLOOD SUGAR < 70 Stop: 07/20/16 15:35 Hydralazine HCl (Apresoline) 50 mg PO Q12H [facility] Stop: 07/20/16 15:44 Last Admin: 05/24/16 03:44 Dose: 50 mg Insulin Aspart (Novolog Insulin Sliding Scale) 0 units SUBQ ACHS [facility] PRN Reason: Protocol Stop: 07/20/16 16:29 Last Admin: 05/24/16 11:59 Dose: Not Given Lactulose (Cephulac) 15 gm PO Q8H PRN PRN Reason: BM MANAGEMENT Lisinopril (Zestril) 40 mg PO BID [facility] Stop: 07/20/16 16:59 Last Admin: 05/24/16 09:14 Dose: 40 mg Miscellaneous (Clinical Monitoring) 1 ea MC PRN PRN PRN Reason: RENAL DOSING Stop: 07/21/16 13:08 Nifedipine (Procardia) 10 mg PO Q6H PRN PRN Reason: SBP >160 Stop: 07/20/16 15:35 Last Admin: 05/24/16 03:45 Dose: 10 mg Nitroglycerin (Nitrostat) 0.4 mg SL Q5MIN PRN PRN Reason: Chest Pain X3 Stop: 07/20/16 15:35 Petrolatum (Zinc Oxide) 1 appl TP TID [facility] Stop: 07/20/16 20:59 Last Admin: 05/24/16 13:03 Dose: 1 appl Sevelamer HCl (Renagel) 800 mg PO TID [facility] Stop: 07/21/16 08:59 Last Admin: 05/24/16 13:02 Dose: 800 mg Sodium Bicarbonate (Sodium Bicarbonate) 650 mg PO BID [facility] PRN Reason: Protocol Stop: 07/21/16 16:59 Last Admin: 05/24/16 09:00 Dose: 650 mg Sucralfate (Carafate) 1 gm PO ACHS [facility] Stop: 07/20/16 16:59 Last Admin: 05/24/16 12:02 Dose: 1 gm Vitamin B Complex/Vit C/Folic Acid (Vitamin B Complex W/Vitamin C) 1 tab PO DAILY [facility] Stop: 07/21/16 08:59 Last Admin: 05/24/16 09:00 Dose: 1 tab General: Alert, Oriented x3, Cooperative HEENT: Atraumatic, EOMI Neck: Supple, JVD, +2 carotid pulse wo bruit Cardiovascular: Regular rate, Normal S1, Normal S2 Lungs: Clear to auscultation, Normal air movement Abdomen: Bowel sounds, Soft, Tender Extremities: Clubbing, Cyanosis, Edema Neurological: Normal gait Skin: Rash Psych/Mental Status: Mental status NL - Procedures Procedures: Procedures Procedure Code Date PERFORMANCE OF URINARY FILTRATION, SINGLE [id number] 12/29/15 Assessment/Plan - Assessment Assessment: doing fair, anemia stable - Plan Plan: fu as needed
--- NOTE | 2016-05-28 10:56 | Progress Notes ---
PULMONARY PROGRESS NOTE PROBLEM LIST: 1. History of fall, soft issue injury right chest. 2. Questionable infiltrate versus pulmonary nodule. 3. Insulin-dependent diabetes mellitus. 4. Chronic renal failure, on hemodialysis. SYMPTOMS: Nil. She has no shortness of breath. Pain on the right side of the chest is much better and no respiratory distress, etc. No coughing, no hemoptysis, etc. PHYSICAL EXAMINATION: VITAL SIGNS: Temperature is 97, respiration is 74, and patient's saturation is pretty descent on room air. NECK: Veins not visualized. CHEST: Chest wall shows still ecchymotic area towards the lateral side of the breast and may be some hematoma on the lateral part of tissue of the breast and there is some ecchymotic ____ going in the front. No localized tenderness. LUNGS: Clinically clear without any other adventitious breath sounds. HEART: Regular. ABDOMEN: Soft and nontender. LABORATORY DATA: White count is 4.9 and platelet is 59,000. ABG is okay on room air, and electrolyte shows potassium 3.2 and creatinine 2.8. ASSESSMENT: 1. The patient is clinically stable with blunt soft issues injury on right chest wall with some hematoma including in the breast issue with some ecchymotic areas on the surrounding areas. 2. Pulmonary nodule, probably old granuloma, not seen at all on a regular chest x-ray except for slightly elevated diaphragm on the left side. ASSESSMENT AND IMPRESSION: The patient clinically appears doing much better. History of fall. Blunt traumatic injury to soft issue of her chest wall, pulmonary nodules, probably old granuloma and ecchymosis is significant on account of low platelet count. PLANS AND SUGGESTIONS: Pulmonary peck, okay to discharge when okay with Dr. Stephenson and go from there. I have discussed with the patient's granddaughter that side to keep an eye on that hematoma on the lateral part of the breast tissue on the right breast and if it does not resole, we need to do more workout later down the line. JOB# [id number]
--- NOTE | 2016-06-04 20:36 | Discharge Summary ---
HOSPITAL COURSE: The patient was admitted from the half-way through the Emergency Room with a chief complaint of ecchymosis on the right chest wall. From the Emergency Room, chest x-ray and CT scan was done and showed that the patient has chronic pulmonary changes. The patient was admitted to med/surg floor. DISPOSITION: The patient was discharged back to [facility]. DISCHARGE DIAGNOSES: 1. Thrombocytopenia. 2. End-stage renal disease, hemodialysis dependent. 3. Hypertension. 4. Anemia. 5. Peripheral arterial disease. [facility]# [id number]
--- NOTE | 2016-08-15 12:02 | Admit Criteria Form ---
Admit Criteria Forms - Admit Criteria Diagnosis: HEMATOLOGY GRG Clinical Indications for Admission to Inpatient Care (Place 'X' for any and all applicable criteria): Hospital admission is needed for appropriate care of the patient because of ANY ONE of the following: [ ]I. Severe anemia indicated by ANY ONE of the following (1)(2) [ ]a) Altered mental status [ ]b) Syncope [ ]c) Other findings suggesting inadequate perfusion [ ]d) Chest pain [ ]e) Exertional dyspnea [ ]f) Treatment with transfusion or volume replacement is ineffective at resolving ANY ONE of the following [A]: [ ]i) Tachycardia for age [ ]ii) Orthostatic vital sign changes as indicated by ANY ONE of the following (3) [ ]1) Fall in SBP of 20 mm Hg or more 1 to 3 minutes after patient sits or stands from recumbent position [ ]2) Fall in DBP of 10 mm Hg or more 1 to 3 minutes after patient sits or stands from recumbent position [ ]II. High-risk febrile neutropenia [B] as indicated by ANY ONE of the following(4)(5) [ ]a) Hemodynamic instability [ ]b) Hypoxemia [ ]c) Tachypnea [ ]d) Altered mental status [ ]e) New onset abdominal pain [ ]f) New onset vomiting or diarrhea [ ]g) Pneumonia [ ]h) Profound neutropenia [C] anticipated to extend for more than 7 days [ ]i) Oral or gastrointestinal mucositis that interferes with swallowing or causes severe diarrhea [ ]j) Evidence of significant focal infection (eg, cellulitis, central line or catheter infection, perirectal abscess) [ ]k) Leukemia or lymphoma induction therapy [ ]l) Bone marrow transplant patient [ ]m) Renal insufficiency (eg, GFR of less than 30 mL/min/1.73m2 (0.5 mL/sec/1.73m2) [ ]n) Severe liver dysfunction (transaminase levels greater than 5 times normal) [ ]o) Platelet count less than 50,000/mm3 (50 x109/L)(6) [ ]p) [employer] Support[employer] Care in Cancer (MASCC) Risk Index score of < 21 [D] [ ]III. High-risk low platelet count as indicated by ANY ONE of the following(8) (9) [ ]a) Severe or life-threatening bleeding (eg, intracranial, major gastrointestinal, or extensive mucosal bleeding), with any reduced platelet count [ ]b) Platelet count less than 20,000/mm3 (20 x109/L) with any active bleeding [ ]c) Platelet count less than 10,000/mm3 (10 x109/L) with minor purpura or petechiae [ ]d) Platelet count less than 5000/mm3 (5 x109/L) [ ]e) Low platelet count with hemolytic anemia [ ]IV.Active hemolysis with high-risk findings, including ANY ONE of the following(2)(10)(11) [ ]a) Hematocrit less than 25% (0.25) [ ]b) Rapidly progressing anemia [ ]c) Thrombocytopenia(12)(13) [ ]d) Evidence of thrombosis or new renal insufficiency [ ]V. Bleeding disorder with high-risk features (eg, hemophilia, coagulopathy) as indicated by ANY ONE of the following (2)(14)(15) [ ]a) Central nervous system bleeding [ ]b) Retroperitoneal bleeding [ ]c) Retropharyngeal bleeding [ ]d) Gastrointestinal bleeding (22) [ ]e) Purpura [ ]f) Disseminated intravascular coagulation(23) [ ]g) Major trauma [ ]h) Deep laceration [ ]i) Head trauma [ ]j) Any trauma with internal hematoma (eg, retroperitoneal, ocular) [ ]k) Failed outpatient management [ ]. Severe over-anticoagulation or high-risk situation as indicated by ANY ONE of the following(24)(25) [ ]a) Active bleeding [ ]b) International normalized ratio 5 or greater and rapid reversal needed [ ]c) International normalized ratio 9 or greater [ ]VII. Congenital immunodeficiency states with severe morbidity as indicated by ANY ONE of the following(26)(27) [ ]a) Severe infection [ ]b) Bone marrow transplant needed (Also use Medical Oncology GRG) [ ]VIII. Hyperviscosity syndrome with high-risk indicators indicated by ANY ONE of the following (2)(28)(29)(30)(31) [ ]a) Polycythemia vera with hematocrit greater than 60% (0.60) [ ]b) Elevated platelet count associated with thrombosis, bleeding, or life-threatening organ dysfunction [ ]c) Severe signs or symptoms from elevated red cell, white cell, or protein levels, including ANY ONE of the following: [ ]i) Mental status change [ ]ii) Dyspnea [ ]iii) Chest x-ray infiltrate [ ]iv) Visual changes [ ]v) Retinal abnormalities [ ]vi) Neuromuscular symptoms [ ]vii) Suspected ischemia or thrombosis [ ]viii) Bleeding [ ]IX. Methemoglobinemia greater than 15% (0.15) or severe symptoms persist after emergency treatment (32)(33) [ ]X. Spleen trauma with blood loss or other need for acute (medical) treatment (34) [ X]XI. Hematology condition and ALL of the following: [X ]a) Symptom or finding for which emergency and observation care have failed or are not considered appropriate (Also use General Criteria: Observation Care as appropriate) [X ]b) Presence of ANY ONE of the following: [ ]i) A General Admission Criteria [ ]ii) A Pediatric General Admission Criteria The original [facility] content created by [facility] has been revised. The portions of the content which have been revised are identified through the use of italic text or in bold, and [facility] has neither reviewed nor approved the modified material. All other unmodified content is copyright [facility]. Please see references footnoted in the original [facility] edition 2016 Admit Criteria Met?: Yes
== END 2016-05-24 19:05 | DRG 813 ==
LOC: ER 12:12 → MSI 15:27
PROVIDERS: ADMIT Internal Medicine; ATTEND Internal Medicine
PROC: 5A1D60Z (ICD-10-PCS; principal; 2016-05-22)
DX: D69.49 Other primary thrombocytopenia (principal); E87.2 Acidosis; E11.22 Type 2 diabetes mellitus with diabetic chronic kidney disease; N18.6 End stage renal disease; I12.0 Hypertensive chronic kidney disease with stage 5 chronic kidney disease or end stage renal disease; D63.1 Anemia in chronic kidney disease; S20.02XA Contusion of left breast, initial encounter; L10.9 Pemphigus, unspecified; E87.1 Hypo-osmolality and hyponatremia; E11.40 Type 2 diabetes mellitus with diabetic neuropathy, unspecified; N64.89 Other specified disorders of breast; E11.51 Type 2 diabetes mellitus with diabetic peripheral angiopathy without gangrene; K21.9 Gastro-esophageal reflux disease without esophagitis; G89.29 Other chronic pain; M81.0 Age-related osteoporosis without current pathological fracture; Z83.3 Family history of diabetes mellitus; Z89.611 Acquired absence of right leg above knee; Z98.890 Other specified postprocedural states; Z99.2 Dependence on renal dialysis; Z89.511 Acquired absence of right leg below knee
CPT/HCPCS: 36415-UA; 71010-TC; 71250-TC; 80048-TC; 80053-TC; 80074-90; 82140-TC; 82248-TC; 82607-90; 82728-90; 82746-90; 82803-TC; 82948-90; 83735-TC; 84100-TC; 84439-90; 84443-TC; 84479-90; 85007-TC; 85027-TC; 85610-TC; 85730-TC; 90799; 90937; 93005; J1815; J1885; J7030; Z7610

== ENCOUNTER 2016-06-07 15:30 | Inpatient (IN) | payer MEDICARE, MEDICAID ==
--- NOTE | 2016-06-07 16:22 | ED Physician Chart ---
Chief Complaint/HPI - Patient Information Date Seen:: 06/07/16 Time Seen:: 16:00 Chief Complaint:: abnormal lab History of Present Illness:: sent here for a H and H of 7.4 and 23.8. Was 8.8 and 26.4 on 05/28/16. Has had a cough, rhinorrhea and back pain for two days. Last dmitted here 05/21/16 for thrombocytopenia and purpura. Had dialysis today. No longer puts out urine. Allergies:: Allergies Allergy/AdvReac Type Severity Reaction Status Date / Time No Known Allergies Allergy Verified 05/21/16 12:36 Historian:: Patient, Family Member Review of Systems - Review of Systems General/Constitutional: Fever Skin: No skin lesions Head: No headache Eyes: No loss of vision ENT: No earache, No sore throat Neck: No neck pain Cardio Vascular: No chest pain Pulmonary: Cough GI: No nausea, No vomiting, No diarrhea Musculoskeletal: No bone or joint pain Endocrine: No polydipsia Psychiatric: No prior psych history Hematopoietic: Bruising Allergic/Immuno: No urticaria Neurological: No syncope, No focal symptoms Past Medical History - Past Medical History Past Medical History: HTN, DM, Asthma/COPD, PUD/GERD, Other (thrombocytopenia; renal failure on dialysis; hyponatremia; PVD) Social History: Non Smoker, No Alcohol Surgical History: other (right AK amputation; dialysis shunt) Psychiatricy History: None Medication: Reviewed Family Medical History - Family Member Father History Unknown: Yes Ethnicity: Living Status: Still Living Hx Family Cancer: (UNKNOWN) Hx Family Coronary Artery Disease: (UNKNOWN) Hx Family Congestive Heart Failure: (UNKNOWN) Hx Family Hypertension: (UNKNOWN) Hx Family Stroke: (UNKNOWN) Hx Family Diabetes: (UNKNOWN) Hx Family Seizures: (UNKNOWN) Hx Family Dementia: (UNKNOWN) Hx Family AIDS: (UNKNOWN) Hx Family HIV: No Hx Family COPD: (UNKNOWN) Hx Family Hepatitis: (UNKNOWN) Hx Family Psychiatric Problems: (UNKNOWN) Hx Family Tuberculosis: (UNKNOWN) Physical Exam - Physical Examination General/Constitutional: Awake, Alert Other Gen/Cons comments:: chronically ill appearing Head: Atraumatic Other Eyes comments:: pupils off center; right pupil larger than left Skin: Nl inspection ENMT: External ears, nose nl Other ENMT comments:: edentulous Neck: No nuchal rigidity Other Respiratory comments:: basilar rales right more than left Other Cardio Vascular comments:: RR with 4/6 systolic murmur GI: No tenderness/rebounding/guarding : No CVA tenderness Other Extremities comments:: right AK amputation Neuro/Psych: No focal deficits Misc: Normal back Labs/Radiology/EKG Results - Lab Results Results: Laboratory Results - last 24 hr 06/07/16 06/07/16 15:45 15:45 WBC 8.9 D RBC 3.52 L Hgb 8.2 L D Hct 26.3 L D MCV 74.9 L MCH 23.3 L MCHC Differential 31.1 RDW 21.8 H Plt Count 68 L MPV 8.1 Band Neutrophils % 12 H Neutrophils (Manual) 66 Lymphocytes 8 L Monocytes 12 H Eosinophils 2 Platelet Estimate DECREASED PLATELETS Platelet Morphology NORMAL Anisocytosis 1+ Microcytosis 2+ RBC Morph Micro Appear ABNORMAL Sodium 132 L Potassium 3.1 L Chloride 98 Carbon Dioxide 27.2 Anion Gap 9.9 BUN 16 Creatinine 1.8 H Est GFR ( Amer) TNP Est GFR (Non-Af Amer) TNP BUN/Creatinine Ratio 8.9 Glucose 161 H Calcium 9.0 Comments:: CXR: cardiomegaly; calcification aortic arch; increased interstitial markings; possible infiltrate right base - Radiology Results Results: Chest: increased interstitial markings; right basilar infiltrate. CT chest: multifocal infiltrates. CT neck: NAD Assessment - Assessment General Assessment: at 1718 patient compained of severe pain right posterior base of neck radiating to right superior back; neck supple; no redness or swelling ED Septic Shock - . Is Septic Shock (SBP<90, OR Lactate>4 mmol\L) present?: No Reassessment (Disposition) - Reassessment Reassessment Condition:: Unchanged - Diagnosis Diagnosis:: Pneumonia; renal failure on dialysis - Patient Disposition Admitted to:: Med/Surg Spoke to:: Deepthi Stephenson Admitting Medical Physician:: Deepthi Stephenson Condition at Disposition:: Stable, Improved
[2016-06-07 17:01] LABS: MEAN CELL VOLUME 74.9 fl (81-100); MEAN CORPUSCULAR HEMOGLOBIN 23.3 pg (27.0-31.0); MEAN CORPUSCULAR HGB CONC 31.1 pg (28.0-36.0); MEAN PLATELET VOLUME 8.1 fl; PLATELET COUNT 68 Th/cmm (150-400); RED BLOOD COUNT 3.52 Mil/cmm (3.80-5.20); RED CELL DISTRIBUTION WIDTH 21.8 % (11.5-20.0)
[2016-06-07 17:02] LABS: ANION GAP 9.9 (7.0-16.0); BUN - UREA NITROGEN 16 mg/dL (7-25); BUN/CREATININE RATIO 8.9; CARBON DIOXIDE 27.2 mEq/L (21.0-31.0); CHLORIDE 98 mEq/L (98-107); CREATININE - SERUM 1.8 mg/dL (0.6-1.2); GLUCOSE 161 mg/dL (70-105); POTASSIUM SERUM 3.1 mEq/L (3.5-5.1); SODIUM SERUM 132 mEq/L (136-145)
[2016-06-07 17:06] LABS: HEMATOCRIT 26.3 % (35.0-45.0); HEMOGLOBIN 8.2 gm/dL (11.7-16.1); WHITE BLOOD COUNT 8.9 Th/cmm (4.8-10.8)
[2016-06-07] MEDS ORDERED: HYDROmorphone 1 mg/mL 1mL Syr IVP STA (17:20)
[2016-06-07] MEDS ORDERED: HYDROmorphone 1 mg/mL 1mL Syr ONE (17:28)
[2016-06-07 17:38] LABS: ANISOCYTOSIS 1+; BAND NEUTROPHILE 12 % (0-10); EOSINOPHIL 2 % (0-5); MICROCYTOSIS 2+; NEUTROPHILS 66 % (40-80); PLATELET ESTIMATE DECREASED PLATELETS (NORMAL); PLATELET MORPHOLOGY NORMAL (NORMAL); TOTAL CELLS COUNTED 100
[2016-06-07] MEDS ORDERED: cefTRIAXone 1 GM in Sodium Chloride 0.9% 50 ML IV ONE (18:30)
[2016-06-07] MEDS ORDERED: Dextrose 50% 50 mL Abboject IVP PRN (22:22)
[2016-06-07] MEDS ORDERED: Maalox 30 mL Cup PO PRN (22:22)
[2016-06-07] MEDS ORDERED: Lactulose 10 Gm/15 mL 30mL UDC PO PRN (22:22)
--- NOTE | 2016-06-07 22:36 | Admit Criteria Form ---
Admit Criteria Forms - Admit Criteria Diagnosis: PNEUMONIA, COMMUNITY ACQUIRED Clinical Indications for Admission to Inpatient Care ( Place 'X' for any and all applicable criteria): Admission is indicated for ANY ONE of the following (1)(2)(3): [ ]I. Hypoxemia indicated by ANY ONE of the following: [ ]a) Oxygen saturation less than 90% while breathing room air [ ]b) PO2 less than 60 mm Hg (8.0 kPa) while breathing room air [ ]c) Chronic lung disease with significant deterioration from baseline oxygenation [ ]II. Appropriate diagnostic testing and treatment unavailable in outpatient or recovery facility (eg,testing or infection control measures unavailable(10) [ ]III. Moderate-risk or high-risk category patients (Pneumonia Severity Index (PSI) class IV or V, or CURB-65 score of 3 or greater). [ ]IV. Outpatient treatment failure as indicated by ANY ONE of the following(9) : [ ]a) Failure to respond to antibiotic (eg, resistant organism) [ ]b) Clinically significant adverse effects from medication (eg, vomiting) [ ]c) Complications of pneumonia (eg, empyema, bacteremia) [ ]d) Significant worsening of comorbid cond necessitating inpatient care (eg, chronic heart failure) [X]V. Intermediate-risk category patients (eg, PSI class III or CURB-65 score 2) who do not improve with initial therapy and observation. [ ]. Immunocompromised patients (eg, AIDS, chronic steroid use) at moderate or high risk based on clinical evaluation. [ ]VII. Complicated pleural effusions (eg, exudative, loculated) [ ]VIII.Hemodynamic instability [ ] IX. Altered mental status that is severe or persistent. [ ]X. Dehydration that is severe or persistent. [ ]XI. Bacteremia [ ]XII. Respiratory finding (eg. tachypnea) that do not respond to outpatient or observation care treatment Extended stay beyond goal length of stay may be needed for (20) [ ]a) Unclear diagnosis [ ]b) Pleural disease [ ]c) Severe pneumonia or treatment failure (25 [ ]d) Respiratory failure (anticipate invasive or noninvasive ventilatory support) [ ]e) Abnormal serum electrolytes (serum Na concentration less than 135 mEq/L (mmol/L) (32)(33) [ ]f) Clinically significant comorbid illness (eg, heart failure, atrial fibrillation with rapid heart rate, alcohol withdrawal, renal insufficiency)(34)(35) [ ]g) Comorbid acute exacerbation of COPD(36) [ ]h) Concomitant diagnosis of malignancy that may be associated with malnutrition, immunologic impairment, or bronchial obstruction. [ ]i) Concomitant altered mental status [ ]j) Culture-identified Gram-negative or antibiotic-resistant organism (eg, Pseudomonas, methicillin-resistant Staphylococcus aureus)(30) [ ]k) Healthcare-associated pneumonia The original [facility] content created by [facility] has been revised. The portions of the content which have been revised are identified through the use of italic text or in bold, and [facility] has neither reviewed nor approved the modified material. All other unmodified content is copyright [facility]. Please see references footnoted in the original [facility] Lee Silber edition 2016 Admit Criteria Met?: Yes
[2016-06-08] MEDS ORDERED: Pneumococcal Vaccine 0.5 mL Vial IM ONE (01:19)
[2016-06-08] MEDS ORDERED: Piperacillin Sodium/Tazobact 2.25 gm Vial IV ONE (04:15)
[2016-06-08] MEDS: Codeine/Promethazine Susp 5 mL UDC PO PRN ×2 (05:03→13:20)
[2016-06-08 06:55] LABS: ANION GAP 7.6 (7.0-16.0); BUN - UREA NITROGEN 28 mg/dL (7-25); BUN/CREATININE RATIO 10.8; CALCIUM SERUM 8.4 mg/dL (8.6-10.3); CARBON DIOXIDE 26.3 mEq/L (21.0-31.0); CHLORIDE 102 mEq/L (98-107); CREATININE - SERUM 2.6 mg/dL (0.6-1.2); GLUCOSE 130 mg/dL (70-105); SODIUM SERUM 133 mEq/L (136-145)
[2016-06-08 07:15] LABS: MEAN CELL VOLUME 75.2 fl (81-100); MEAN CORPUSCULAR HEMOGLOBIN 23.8 pg (27.0-31.0); MEAN CORPUSCULAR HGB CONC 31.7 pg (28.0-36.0); MEAN PLATELET VOLUME 8.2 fl; RED BLOOD COUNT 3.07 Mil/cmm (3.80-5.20); RED CELL DISTRIBUTION WIDTH 21.4 % (11.5-20.0); WHITE BLOOD COUNT 8.5 Th/cmm (4.8-10.8)
[2016-06-08 07:16] LABS: HEMOGLOBIN 7.3 gm/dL (11.7-16.1); POTASSIUM SERUM 2.9 mEq/L (3.5-5.1)
[2016-06-08 07:17] LABS: HEMATOCRIT 23.1 % (35.0-45.0); PLATELET COUNT 54 Th/cmm (150-400)
[2016-06-08] MEDS: SEVELAMER 800 MG PO SCH ×3 (08:56→17:10)
[2016-06-08] MEDS: INSULIN ASPART SLIDING SCALE 100 UNITS/ML UNIT SUBQ SCH ×4 (08:58→21:19)
[2016-06-08] MEDS ORDERED: Hydrocodone/APAP 5mg/325mg Tab PO SCH (09:00)
[2016-06-08] MEDS ORDERED: SEVELAMER CARBONATE 800 MG PO SCH (09:00)
[2016-06-08 09:47] LABS: ANISOCYTOSIS 1+; BAND NEUTROPHILE 5 % (0-10); BASOPHIL 1 % (0-3); EOSINOPHIL 1 % (0-5); MICROCYTOSIS 2+; NEUTROPHILS 52 % (40-80); PLATELET ESTIMATE DECREASED PLATELETS (NORMAL); PLATELET MORPHOLOGY NORMAL (NORMAL); TOTAL CELLS COUNTED 100
[2016-06-08] MEDS: KCL 20mEq/100mL Premix 20 MEQ/100 ML PIGGYBACK IV SCH ×2 (10:15→15:12)
--- NOTE | 2016-06-08 10:29 | Diagnostic Imaging Report ---
CHEST X-RAY: AP view INDICATION: Cough COMPARISON: Chest x-ray 05/23/2016 FINDINGS: Chronic lung changes are seen with right lower lung zone opacity and infiltrates. Cardiomegaly is noted with atherosclerosis. Distended loops of bowel are seen along the left hemiabdomen with associated elevation of the left hemidiaphragm. Degenerative changes of the spine are noted. IMPRESSION: Chronic lung changes with right lower lung zone opacity and infiltrates. Please refer to follow-up CT chest for further details. Cardiomegaly and atherosclerotic vascular disease. Gaseous distended bowel loops along the upper abdomen.
[2016-06-08] MEDS: Zinc Oxide Ointment 60 gm TP SCH ×3 (10:35→21:00)
[2016-06-08] MEDS: Hydrocodone/APAP 5mg/325mg Tab PO PRN ×2 (10:41→18:08)
--- NOTE | 2016-06-08 11:18 | Diagnostic Imaging Report ---
CT cervical spine without IV contrast HISTORY: Pain, possible soft tissue infection on the right side of the neck COMPARISON: None Technique: Axial images were obtained from the skull base to the upper thoracic spine without IV contrast. Multiplanar reconstructions were made. Total DLP: 356, CTDI23 Findings: Images of the cervical spine obtained without contrast demonstrate no evidence of an acute fracture or subluxation. Spinal scoliosis is noted. Extensive degenerative changes are seen with multilevel disc space loss of height and diffuse subchondral cystic changes throughout the endplates and facet joints. No prevertebral soft tissue swelling. No pockets of gas identified within the visualized portions of the neck. Limited evaluation demonstrate no evidence of gross fluid collection. Atherosclerosis is noted. IMPRESSION: Limited exam as CT cervical spine exam was performed, however, no pockets of gas identified within the region of soft tissues. No evidence of significant focal soft tissue swelling. No evidence of acute fracture or subluxation. Extensive degenerative changes Atherosclerotic vascular disease.
--- NOTE | 2016-06-08 12:10 | Diagnostic Imaging Report ---
CT Chest without IV contrast HISTORY: Cough, infection Comparison: Chest x-ray on 04/06/[address] chest on 05/21/2016. Study was also compared to today's CT cervical spine exam Technique: Axial images were obtained from the base of the neck to the upper abdomen without administration of IV contrast. Coronal reconstructions were made. Total DLP 202, CTD I 5.6 Findings: Exam is limited due to motion. Assessment of the mediastinum is limited due to lack of IV contrast. There is prominence of the right lobe of the thyroid gland with nodules noted. Mildly prominent mediastinal lymph nodes are noted the largest along the paratracheal region on the right side measuring 1.5 cm. Diffuse atherosclerotic vascular disease is noted. Cardiomegaly is noted which trace pericardial effusion. Chronic lung changes are seen with multifocal patchily pulmonary infiltrates and consolidative changes involving the right middle lobe. Additional atelectatic changes of the lungs are seen with small bilateral effusions. 4 mm granuloma of the right upper lobe is noted. The upper abdomen demonstrates evidence of prior granulomatous disease of the liver. Multiple gallstones are noted. Multiple distended loops of bowel are noted with copious amount of stool. Degenerative changes of the spine are noted. No evidence of pockets of gas in the soft tissues. IMPRESSION: Multifocal bilateral pulmonary infiltrates and consolidative changes of the right middle lobe. Findings favor multifocal infectious pneumonia. Neoplastic processes is considered less likely, however follow-up is recommended to ensure resolution. Small bilateral effusions. Multiple gallstones Diffuse distended loops of bowel seen along the upper abdomen with copious stool. Findings may be due to ileus and constipation. Consider follow-up abdominal series or CT examination. Mildly prominent mediastinal lymph nodes, nonspecific. Cardiomegaly and diffuse atherosclerotic vascular disease Evidence of prior granulomatous disease.
--- NOTE | 2016-06-08 13:57 | Consultation ---
Consult Note - Consult Note Service Date: 06/08/16 Referring Physician: Deepthi Stephenson Consult Note: PHYSICIAN Consultation Note: Date of Admission: 06/07/16 Purpose of Consultation: Pneumonia. Chief Complaint: Low H/H History of Present Illness: Patient VIRIDIANA ZARCO was admitted to location Medical[facility] Unit I with PNEUMONIA. Patient is 85 Y female with history of DM2, HTN, CKD 5 on HD brought from the hospital for Hb 7.6 and Cough. On initial evaluation, she was febrile with temperature 101.6 degree F and wbc count was 8900 with bands 12%. Sepsis W/U was performed and Patient was given ceftriaxone and zithromax, I was called for ID consultation for antibiotic management. I did change rocephin to zosyn. She c /o cough and fever, no chills. ALLERGIES: NKDA Allergy/AdvReac Type Severity Reaction Status Date / Time No Known Allergies Allergy Verified 06/07/16 16:29 Vital Signs Temp 100.3 F 06/07/16 21:45 Pulse 68 06/08/16 08:42 Resp 18 06/08/16 08:00 BP 143/61 06/08/16 08:42 Pulse Ox 18 06/07/16 21:45 Intake & Output 06/07/16 06/08/16 06/08/16 18:59 06:59 18:59 Intake Total 150 Balance 150 Intake: Intake, IV Amount 150 Piperacillin Sodium/ 50 Tazobact 2.25 gm In Sodium Chloride 0.9% 50 ml @ 100 mls/hr IV Q8HR [facility] Rx#:[id number] Other: Stool Characteristics Liquid Liquid Brown Brown Laboratory Results - last 24 hr 06/08/16 06/08/16 06/08/16 06:20 06:20 06:20 WBC 8.5 RBC 3.07 L Hgb 7.3 L* Hct 23.1 L* D MCV 75.2 L MCH 23.8 L MCHC Differential 31.7 RDW 21.4 H Plt Count 54 L D MPV 8.2 Band Neutrophils % 5 Neutrophils (Manual) 52 Lymphocytes 15 L Monocytes 26 H Eosinophils 1 Basophils 1 Platelet Estimate DECREASED PLATELETS Platelet Morphology NORMAL Anisocytosis 1+ Microcytosis 2+ RBC Morph Micro Appear ABNORMAL Sodium 133 L Potassium 2.9 L* Chloride 102 Carbon Dioxide 26.3 Anion Gap 7.6 BUN 28 H Creatinine 2.6 H Est GFR ( Amer) TNP Est GFR (Non-Af Amer) TNP BUN/Creatinine Ratio 10.8 Glucose 130 H POC Glucose Calcium 8.4 L Blood Type O POSITIVE Antibody Screen NEGATIVE Crossmatch See Detail 06/08/16 06/08/16 08:58 11:08 WBC RBC Hgb Hct MCV MCH MCHC Differential RDW Plt Count MPV Band Neutrophils % Neutrophils (Manual) Lymphocytes Monocytes Eosinophils Basophils Platelet Estimate Platelet Morphology Anisocytosis Microcytosis RBC Morph Micro Appear Sodium Potassium Chloride Carbon Dioxide Anion Gap BUN Creatinine Est GFR ( Amer) Est GFR (Non-Af Amer) BUN/Creatinine Ratio Glucose POC Glucose 120 H 158 H Calcium Blood Type Antibody Screen Crossmatch CT SCAN CHEST 06/07/2016 Multifocal bilateral infiltrates with consolidative changes in RML. Pleural effusions. Multiple Gall stones. Constipation or Ileus. Cardiomegaly. Home Medication Medication Instructions Recorded Type Calcium Carbonate/Vitamin D3 1 tab PO HS 12/29/15 History [Oystercal-D 500 mg-400 Unit Tb] Hydralazine HCl 50 mg PO Q12H 12/29/15 History Hydrocodone/Acetaminophen [[place] 1 tab PO Q12HR 12/29/15 History 325 mg-5 mg*] Insulin Aspart Sliding Scale 0 units SUBQ ACHS 12/29/15 History [NovoLOG INSULIN SLIDING SCALE] Lisinopril [Zestril*] 40 mg PO BID 12/29/15 History Sevelamer Carbonate [Renvela] 800 mg PO TID 12/29/15 History amLODIPine Besylate [Norvasc] 5 mg PO DAILY 12/29/15 History amLODIPine Besylate [Norvasc] 5 mg PO Q12HR 12/29/15 History Acetaminophen [Tylenol] 650 mg PO Q4HR PRN 05/21/16 History Bisacodyl [Dulcolax 10 Mg Supp] 1 supp RC DAILY PRN 05/21/16 History Clonidine HCl [Catapres] 0.1 mg PO Q4H PRN 05/21/16 History Dextrose 50% [D50w] 50 ml IVP X1 PRN 05/21/16 History Lactulose 15 gm PO Q8H PRN 05/21/16 History NIFEdipine [Procardia] 10 mg PO Q6H PRN 05/21/16 History Nitroglycerin [Nitrostat] 0.4 mg SL [id number] PRN 05/21/16 History Sucralfate [Carafate] 1 gm PO TIDHS 05/21/16 History Zinc Oxide Ointment [Zinc Oxide] 1 appl TP TID 05/21/16 History Sodium Bicarbonate 650 mg PO BID #0 tab 05/24/16 Rx Acetaminophen [Pain Reliever] 1,000 mg PO Q6H PRN 06/07/16 History Hydralazine HCl 50 mg PO HS 06/07/16 History Hydrocodone/Acetaminophen [[place] 1 tab PO Q6H PRN 06/07/16 History 325 mg-5 mg*] Mag Hydrox/Al Hydrox/Simeth 30 ml PO Q6H PRN 06/07/16 History [Alum-Mag Hydroxide-Simeth Liq] Current Medications Generic Name Dose Route Start Last Admin Trade Name Freq PRN Reason Stop Dose Admin Acetaminophen 650 mg 06/07/16 22:22 06/08/16 05:00 Tylenol PO 08/06/16 22:21 650 mg Q4HR PRN Administration PAIN (MILD) OR TEMP 100.0 OR > Acetaminophen/Hydrocodone Bitart 1 tab 06/07/16 22:22 06/08/16 10:41 [place] 5mg/325mg PO 08/06/16 22:21 1 tab Q6H PRN Administration Pain (Severe) Al Hydrox/Mg Hydrox/Simethicone 30 ml 06/07/16 22:22 Maalox PO 08/06/16 22:21 Q6H PRN Upset Stomach / Indigestion Amlodipine Besylate 5 mg 06/08/16 09:00 06/08/16 08:42 Norvasc PO 08/07/16 08:59 5 mg DAILY KOSTA Administration Bisacodyl 10 mg 06/07/16 22:22 Dulcolax 10 Mg Supp RC 08/06/16 22:21 DAILY PRN BM MANAGEMENT Calcium/Vitamin D 1 tab 06/07/16 21:00 Oscal W/Vitamin D PO 08/06/16 20:59 HS KOSTA Clonidine HCl 0.1 mg 06/07/16 22:22 06/08/16 05:01 Catapres PO 08/06/16 22:21 0.1 mg Q4H PRN Administration SBP>160 Dextrose 50 ml 06/07/16 22:22 D50w IVP 08/06/16 22:21 ACHS PRN BLOOD SUGAR < 70 Hydralazine HCl 50 mg 06/08/16 21:00 Apresoline PO 08/07/16 20:59 HS KOSTA Piperacillin Sod/Tazobactam 50 mls @ 100 mls/hr 06/08/16 05:00 06/08/16 13:20 Sod 2.25 gm/ Sodium Chloride IV 08/07/16 04:59 100 mls/hr Q8HR KOSTA Administration Potassium Chloride 20 meq in 100 mls @ 50 mls/hr 06/08/16 11:00 06/08/16 10: 15 Potassium Chloride IV 06/08/16 14:59 50 mls/hr Q2H KOSTA Administration Insulin Aspart 0 units 06/08/16 07:30 06/08/16 12:24 Novolog Insulin Sliding Scale SUBQ 08/07/16 07:29 4 units ACHS KOSTA Administration Protocol Lactulose 15 gm 06/07/16 22:22 Cephulac PO Q8H PRN BM MANAGEMENT Lisinopril 40 mg 06/08/16 09:00 06/08/16 08:42 Zestril PO 08/07/16 08:59 40 mg BID KOSTA Administration Nitroglycerin 0.4 mg 06/07/16 22:22 Nitrostat SL 08/06/16 22:21 Q5M PRN Chest Pain Petrolatum 1 appl 06/08/16 09:00 06/08/16 13:20 Zinc Oxide TP 08/07/16 08:59 1 appl TID KOSTA Administration Promethazine HCl/Codeine 5 ml 06/07/16 22:21 06/08/16 13:20 Phenergan W/Cod Susp PO 08/06/16 22:20 5 ml Q6H PRN Administration Cough Sevelamer HCl 800 mg 06/08/16 09:00 06/08/16 12:24 Renagel PO 08/07/16 08:59 800 mg TIDWM KOSTA Administration Sodium Bicarbonate 650 mg 06/08/16 09:00 06/08/16 08:42 Sodium Bicarbonate PO 08/07/16 08:59 650 mg BID KOSTA Administration Protocol Sucralfate 1 gm 06/08/16 09:00 06/08/16 12:24 Carafate PO 08/07/16 08:59 1 gm TIDHS KOSTA Administration Review of Systems: A 12 point ROS was reviewed with the pertinent positive and negatives noted in the HPI. Past Medical History: Diabetes Mellitus, HTN,COPD, CKD 5 on HD, Asthma, GI Problems/Ulcer Yes TB Diagnosis In Past 2 Years: No. Ill contacts: No. Social History: Lives at [facility] Smoking Status Unknown if ever smoked Drug Use No Alcohol Use No Family Medical History Noncontributory. Physical Exam: VITALS: As above. General: No Acute Distress HEENT: EOMI Bilaterally, PERRLA Bilaterally, Head is normocephalic, atraumatic on inspection. Cardio: +S1/S2 Auscultated, RRR, no murmurs/rubs/gallops noted Respiratory: Vesicular breath sounds. crackles bilaterally. Abdominal: Soft, Nondistended, Nontender to palpation x 4 quadrants. obese. No hepatomegaly appreciated. Extremities: No Edema noted in the lower extremities. Right lower extremity disarticulation Neurological: Alert and Oriented x3, Cranial Nerves II-XII intact bilaterally, Gait Steady, No Focal Deficits noted. Assessment/Plan: 1. Sepsis. 2. multifocal pneumonia. 3. Constipations versus ileus. 4. DM2 5. HTN. 6. Hyperlipidemia. 7. Obesity. 8. Anemia of CD. Recommendation/s: Will continue Zosyn and start zithromax. KUB. CXR. lactulose. PRBC transfusion during HD. Legionella, mycoplasma serlogies. Thank you Dr Stephenson for involving me in taking care of this patient. Brandi, Tez Esqueda M.D. [id number]/08/[id number]
--- NOTE | 2016-06-08 15:22 | History & Physical ---
HISTORY OF PRESENT ILLNESS: The patient known to have history of hypertension, diabetes, history of asthma, COPD, history of peptic ulcer disease, thrombocytopenia. The patient has end-stage renal disease on dialysis, has peripheral vascular disease, has right above-knee amputation and ____. Apparently, the patient was developing a fever, discoloration of back and also the patient's hemoglobin came back at 7.6. The patient was evaluated in the Emergency Room and was admitted for severe anemia and fever of unknown origin, rule out sepsis, history of diabetes, hypertension, CKD and dialysis. PAST MEDICAL HISTORY: As enumerated above. PAST SURGICAL HISTORY: As enumerated above. FAMILY HISTORY: Unremarkable. PHYSICAL EXAMINATION: HEENT: Head, atraumatic. Pupils equal and reactive to light. NECK: Supple, nontender. LUNGS: Right basal rales. CARDIOVASCULAR SYSTEM: S1, S2 heard. ABDOMEN: Soft, bowel sounds are heard. CENTRAL NERVOUS SYSTEM: Grossly normal. SKIN: Discoloration of the skin on the ____ area is noted. The patient complains of pain to the back to the neck as well the patient had a CAT scan, which was negative. DIAGNOSES: 1. Right lower lobe pneumonia. 2. Sepsis. 3. Pain to the back of the neck. 4. History of hypertension. 5. History of diabetes. 6. History of chronic kidney disease, on dialysis with shunt. 7. History of thrombocytopenia purpura, rule out sepsis ____. PLAN: The patient is being admitted. I will ____ antibiotics and allow Dr. Porras for consult for renal and we will also call Dr. Tez Esqueda for ID consult, and I will follow the patient. JOB# [id number]
[2016-06-08] MEDS ORDERED: VTE Chemical Prophylaxis Screen/Admission MC PRN (17:00)
[2016-06-08] MEDS ORDERED: cefTRIAXone 1 GM in Sodium Chloride 0.9% 50 ML IV SCH (21:00)
[2016-06-08] MEDS: Calcium Carb/Vit D 500 mg/200 U Tab PO SCH (21:13)
[2016-06-08] MEDS: Azithromycin 250 MG in Sodium Chloride 0.9% 250 ML IV SCH (22:10)
[2016-06-09] MEDS ORDERED: metroNIDAZOLE 500mg/NS 100mL 500 MG in Premix Fluid 1 BAG IV ONE (01:06)
[2016-06-09] MEDS ORDERED: metroNIDAZOLE 500mg/NS 100mL 500 MG/100 ML BAG IV ONE ×2 (01:12→05:02)
[2016-06-09] MEDS: metroNIDAZOLE 500mg/NS 100mL 500 MG in Premix Fluid 1 BAG IV SCH ×3 (05:51→23:29)
--- NOTE | 2016-06-09 06:07 | Consultation ---
ATTENDING PHYSICIAN: Kyler Stephenson M.D. COMPOUNDING ASSISTANT: Dr. Francisco Porras. REASON FOR CONSULTATION: Electrolyte imbalance and fluid management. HISTORY OF PRESENT ILLNESS: This is an 85-year-old female with past medical history of end-stage renal disease on hemodialysis who came in because of severe anemia. 10 days prior to admission, her hemoglobin/hematocrit were 8.8/26.4. She continues to receive Epogen as per outpatient dialysis unit. Two days prior to admission, her hemoglobin/hematocrit dropped to 7.4/23.8. A few hours prior to admission, she felt quite weak with easy fatigability. She was then brought to the Emergency Room. Her hemoglobin/hematocrit today were 7.3/23.1. She had no hematemesis, melena, hematochezia or epistaxis. PAST MEDICAL HISTORY: 1. End-stage renal disease, on hemodialysis. 2. Type 2 diabetes mellitus. 3. COPD. 4. Peptic ulcer disease. 5. Thrombocythemia. 6. Anemia of chronic disease. PAST SURGICAL HISTORY: 1. Status post creation of left AV fistula. 2. Status post right AKA. CURRENT MEDICATIONS: She is currently on acetaminophen, bisacodyl, calcium carbonate, hydromorphone, Aspart, lactulose, lisinopril, nifedipine, nitroglycerine, sevelamer, sodium bicarbonate, sucralfate, zinc oxide, Zosyn, amlodipine, Rocephin, Catapres and Phenergan with codeine. ALLERGIES: No known drug allergies. SOCIAL HISTORY: No history of alcohol or tobacco use. Currently resides at an extended care facility. FAMILY HISTORY: Unknown at the present time. REVIEW OF SYSTEMS: CONSTITUTIONAL: She did complain of generalized weakness and easy fatigability. Appetite had been fair. HEENT: No mention of headaches nor dizziness. Wears glasses due to poor vision. Hearing acuity has also diminished. CARDIORESPIRATORY: She does have some occasional cough, which is productive. No shortness of breath, chest pain, palpitations or diaphoresis. GASTROINTESTINAL: No nausea and vomiting, abdominal pain or cramping, hematemesis, melena, hematochezia nor diarrhea. ENDOCRINE: No history of diabetes, no thyroid abnormalities and no dyslipidemia. MUSCULOSKELETAL: Multiple joint arthralgias. GENITOURINARY: History of kidney failure on hemodialysis. No further urine output. HEMATOLOGIC: She came in because of progressive anemia. She also has history of chronic thrombocythemia, but no obvious bleeding. NEUROPSYCHIATRIC: No syncopal episode nor seizure activity. PHYSICAL EXAMINATION: GENERAL: The patient is alert, verbal and still weak. VITAL SIGNS: Blood pressure is 142/61 and pulse 68. She is afebrile. SKIN: Poor turgor and warm. No rash and no jaundice appreciated. HEENT: Head is normocephalic and atraumatic. Eyes: Extraocular muscles are intact. Pupils are equal, round and reactive to light and accommodates. Anicteric sclerae. Pale conjunctivae. Nose: Midline nasal septum. Mouth: Moist mucosa with poor dentition. NECK: Supple. No adenopathy, no thyromegaly and no bruits. Trachea palpated in the midline. CHEST AND CVS: S1 and S2. No rub, murmur or gallop appreciated. Point of maximal impulse is in the fifth intercostal space, left midclavicular line. No abdominal or femoral bruits appreciated. She still has a hematoma on the lateral portion of her left breast as well as left lateral chest wall; however hematoma has decreased remarkably as compared to about 2 weeks ago when she was admitted for this. LUNGS: Equal expansion. No use of accessory muscles. No supraclavicular retractions, few rhonchi, but no rales nor wheezes appreciated. ABDOMEN: Flat and soft. Positive for bowel sounds. No bruits either diastolic or systolic. RECTAL: Lax sphincter tone without any evidence of dark stool on examining finger. EXTREMITIES: No evidence of any edema. No cyanosis or clubbing. MUSCULOSKELETAL: No effusions present in her joints with limited range of motion. EXTREMITIES: She has a right AKA, no evidence of any edema, cyanosis nor clubbing on her left lower extremity. She has a palpable femoral, but unable to fully appreciate popliteal and dorsalis pedis again on her left lower extremity. NEUROLOGIC: The patient is alert and verbal. Motor is 5/5. Cranial nerves 2-12 intact. Sensory intact. LABORATORY DATA: Did reveal sodium 133, potassium 2.9, chloride 102, bicarbonate 26, BUN 28, creatinine 2.6, glucose is 130 and calcium 8.4. White count 8.5, hemoglobin 7.3, hematocrit ____, polys 52% and platelets 54. IMPRESSION: 1. End-stage renal disease, on hemodialysis. 2. Anemia, acute, (possibly GI bleed) ____ chronic disease. 3. Chronic thrombocythemia. 4. Type 2 diabetes mellitus with CKD. 5. COPD. 6. Peptic ulcer disease. 7. Bilateral healthcare-acquired pneumonia. 8. Gallbladder stones. 9. Hypokalemia. 10. Ileus with constipation. 11. Essential hypertension with CKD. 12. Peripheral arterial disease, status post right AKA. PLAN: 1. Transfuse 2 units with hemodialysis. 2. Stool for occult blood x 3. 3. Hemodialysis as scheduled. 4. Agree with potassium replacement. Thank you, Dr. Stephenson for this consult. I will follow the patient closely with you. JOB# [id number]
[2016-06-09] MEDS: INSULIN ASPART SLIDING SCALE 100 UNITS/ML UNIT SUBQ SCH ×4 (06:33→22:41)
[2016-06-09 07:43] LABS: RED BLOOD COUNT 3.72 Mil/cmm (3.80-5.20)
[2016-06-09 07:54] LABS: MEAN CORPUSCULAR HGB CONC 33.5 pg (28.0-36.0); MEAN PLATELET VOLUME 8.6 fl; PLATELET COUNT 52 Th/cmm (150-400)
[2016-06-09 07:58] LABS: ALB/GLOB RATIO 1.1 (1.0-1.8); ALKALINE PHOSPHATASE 58 U/L (34-104); ANION GAP 9.9 (7.0-16.0); BILIRUBIN,TOTAL 0.7 mg/dL (0.3-1.0); BUN - UREA NITROGEN 23 mg/dL (7-25); BUN/CREATININE RATIO 10.5; CALCIUM SERUM 8.2 mg/dL (8.6-10.3); CARBON DIOXIDE 27.6 mEq/L (21.0-31.0); CHLORIDE 101 mEq/L (98-107); CREATININE - SERUM 2.2 mg/dL (0.6-1.2); GLUCOSE 99 mg/dL (70-105); POTASSIUM SERUM 3.5 mEq/L (3.5-5.1); SGOT 9 U/L (13-39); SGPT/ALT 6 U/L (7-52); SODIUM SERUM 135 mEq/L (136-145)
[2016-06-09] MEDS: SEVELAMER 800 MG PO SCH ×2 (08:00→12:46)
[2016-06-09 08:08] LABS: MAGNESIUM 1.8 mg/dL (1.9-2.7); PHOSPHOROUS 1.1 mg/dL (2.5-5.0)
[2016-06-09] MEDS: Zinc Oxide Ointment 60 gm TP SCH ×2 (09:43→14:00)
[2016-06-09 09:47] LABS: EOSINOPHIL 4 % (0-5); NEUTROPHILS 72 % (40-80); PLATELET ESTIMATE DECREASED PLATELETS (NORMAL); TOTAL CELLS COUNTED 100
[2016-06-09 09:48] LABS: ANISOCYTOSIS 1+; MICROCYTOSIS 2+; PLATELET MORPHOLOGY NORMAL (NORMAL)
[2016-06-09] MEDS: Hydrocodone/APAP 5mg/325mg Tab PO PRN ×2 (10:09→17:38)
[2016-06-09 10:23] LABS: WHITE BLOOD COUNT 10.5 Th/cmm (4.8-10.8)
[2016-06-09 10:24] LABS: MEAN CORPUSCULAR HEMOGLOBIN 25.8 pg (27.0-31.0)
[2016-06-09 10:26] LABS: RED CELL DISTRIBUTION WIDTH 19.6 % (11.5-20.0)
--- NOTE | 2016-06-09 10:43 | Diagnostic Imaging Report ---
Portable chest x-ray HISTORY: Pneumonia Compared with prior exam of 2016, more focal infiltrate is seen in the right lower lobe. Findings are consistent with pneumonia. The heart remains enlarged. IMPRESSION: 1. Somewhat more focal infiltrate right lower lobe consistent with pneumonia. Clinical correlation is needed. 2. Persistent cardiomegaly with atherosclerotic vascular changes
--- NOTE | 2016-06-09 10:44 | Diagnostic Imaging Report ---
KUB abdominal film HISTORY: Pain The exam demonstrates stool-filled dilated large bowel. A dilated air-filled loop of bowel extends up out of the pelvis that may be related to the sigmoid colon. Additional nondilated small bowel loops are seen. IMPRESSION: 1. Moderately distended stool-filled ascending colon along with stool in the rectal region. Dilated loop of bowel that appears related to the sigmoid colon noted. Findings may be associated with constipation/fecal impaction. Clinical correlation is needed. If necessary, a CT scan would provide additional assessment.
[2016-06-09 11:32] LABS: HEMATOCRIT 28.6 % (35.0-45.0); HEMOGLOBIN 9.6 gm/dL (11.7-16.1)
--- NOTE | 2016-06-09 12:12 | Infectious Disease Prog Note ---
Infectious Disease Subjective - Review of Systems Service Date: 06/09/16 Subjective: No new change, there is no fever. Infectious Disease Objective - Results Result Diagrams: 06/09/16 06:40 06/09/16 06:40 Recent Labs: Laboratory Last Values WBC 10.5 Th/cmm (4.8-10.8) D 06/09/16 06:40 RBC 3.72 Mil/cmm (3.80-5.20) L 06/09/16 06:40 Hgb 9.6 gm/dL (11.7-16.1) L D 06/09/16 06:40 Hct 28.6 % (35.0-45.0) L D 06/09/16 06:40 MCV 77.0 fl (81-100) L 06/09/16 06:40 MCH 25.8 pg (27.0-31.0) L 06/09/16 06:40 MCHC Differential 33.5 pg (28.0-36.0) 06/09/16 06:40 RDW 19.6 % (11.5-20.0) 06/09/16 06:40 Plt Count 52 Th/cmm (150-400) L 06/09/16 06:40 MPV 8.6 fl 06/09/16 06:40 Band Neutrophils % 5 % (0-10) 06/08/16 06:20 Neutrophils (Manual) 72 % (40-80) 06/09/16 06:40 Lymphocytes 9 % (20-50) L 06/09/16 06:40 Monocytes 15 % (2-10) H 06/09/16 06:40 Eosinophils 4 % (0-5) 06/09/16 06:40 Basophils 1 % (0-3) 06/08/16 06:20 Platelet Estimate DECREASED PLATELETS (NORMAL) 06/09/16 06:40 Platelet Morphology NORMAL (NORMAL) 06/09/16 06:40 Anisocytosis 1+ 06/09/16 06:40 Microcytosis 2+ 06/09/16 06:40 RBC Morph Micro Appear ABNORMAL (NORMAL) 06/09/16 06:40 Sodium 135 mEq/L (136-145) L 06/09/16 06:40 Potassium 3.5 mEq/L (3.5-5.1) 06/09/16 06:40 Chloride 101 mEq/L (98-107) 06/09/16 06:40 Carbon Dioxide 27.6 mEq/L (21.0-31.0) 06/09/16 06:40 Anion Gap 9.9 (7.0-16.0) 06/09/16 06:40 BUN 23 mg/dL (7-25) 06/09/16 06:40 Creatinine 2.2 mg/dL (0.6-1.2) H 06/09/16 06:40 Est GFR ( Amer) TNP 06/09/16 06:40 Est GFR (Non-Af Amer) TNP 06/09/16 06:40 BUN/Creatinine Ratio 10.5 06/09/16 06:40 Glucose 99 mg/dL (70-105) 06/09/16 06:40 POC Glucose 104 MG/DL (70 - 105) 06/09/16 06:10 Whole Bld Lactic Acid 1.34 mmol/L (0.60-2.00) 06/08/16 14:46 Calcium 8.2 mg/dL (8.6-10.3) L 06/09/16 06:40 Phosphorus 1.1 mg/dL (2.5-5.0) L 06/09/16 06:40 Magnesium 1.8 mg/dL (1.9-2.7) L 06/09/16 06:40 Total Bilirubin 0.7 mg/dL (0.3-1.0) 06/09/16 06:40 AST 9 U/L (13-39) L 06/09/16 06:40 ALT 6 U/L (7-52) L 06/09/16 06:40 Alkaline Phosphatase 58 U/L (34-104) 06/09/16 06:40 Total Protein 6.4 gm/dL (6.0-8.3) 06/09/16 06:40 Albumin 3.3 gm/dL (3.7-5.3) L 06/09/16 06:40 Globulin 3.1 gm/dL 06/09/16 06:40 Albumin/Globulin Ratio 1.1 (1.0-1.8) 06/09/16 06:40 Stool Occult Blood NEGATIVE (NEGATIVE) 06/09/16 00:45 Blood Type O POSITIVE 06/08/16 06:20 Antibody Screen NEGATIVE 06/08/16 06:20 Crossmatch See Detail 06/08/16 06:20 - Physical Exam Vitals and I&O: Vital Signs Temp 97.2 F 06/09/16 00:00 Pulse 79 06/09/16 09:42 Resp 18 06/09/16 00:00 BP 177/72 06/09/16 09:42 Pulse Ox 100 06/09/16 00:00 Intake & Output 06/08/16 06/09/16 06/09/16 18:59 06:59 18:59 Intake Total 150 300 Balance 150 300 Intake: Intake, IV Amount 150 300 Azithromycin 250 mg In 250 Sodium Chloride 0.9% 250 ml @ 250 mls/hr IV Q24HR [facility] Rx#:[id number] KCL 20mEq/100mL Premix 20 100 meq In 100 ml @ 50 mls/ hr IV Q2H [facility] Rx#: [id number] Piperacillin Sodium/ 50 50 Tazobact 2.25 gm In Sodium Chloride 0.9% 50 ml @ 100 mls/hr IV Q8HR [facility] Rx#:[id number] Other: Stool Characteristics Liquid Liquid Brown Brown Active Medications: Current Medications Acetaminophen (Tylenol) 650 mg PO Q4HR PRN PRN Reason: PAIN (MILD) OR TEMP 100.0 OR > Stop: 08/06/16 22:21 Last Admin: 06/08/16 05:00 Dose: 650 mg Acetaminophen/Hydrocodone Bitart ([place] 5mg/325mg) 1 tab PO Q6H PRN PRN Reason: Pain (Severe) Stop: 08/06/16 22:21 Last Admin: 06/09/16 10:09 Dose: 1 tab Al Hydrox/Mg Hydrox/Simethicone (Maalox) 30 ml PO Q6H PRN PRN Reason: Upset Stomach / Indigestion Stop: 08/06/16 22:21 Amlodipine Besylate (Norvasc) 5 mg PO DAILY [facility] Stop: 08/07/16 08:59 Last Admin: 06/09/16 09:42 Dose: 5 mg Bisacodyl (Dulcolax 10 Mg Supp) 10 mg RC DAILY PRN PRN Reason: BM MANAGEMENT Stop: 08/06/16 22:21 Calcium/Vitamin D (Oscal W/Vitamin D) 1 tab PO HS [facility] Stop: 08/06/16 20:59 Last Admin: 06/08/16 21:13 Dose: 1 tab Clonidine HCl (Catapres) 0.1 mg PO Q4H PRN PRN Reason: SBP>160 Stop: 08/06/16 22:21 Last Admin: 06/08/16 05:01 Dose: 0.1 mg Dextrose (D50w) 50 ml IVP ACHS PRN PRN Reason: BLOOD SUGAR < 70 Stop: 08/06/16 22:21 Hydralazine HCl (Apresoline) 50 mg PO HS [facility] Stop: 08/07/16 20:59 Last Admin: 06/08/16 21:13 Dose: 50 mg Piperacillin Sod/Tazobactam (Sod 2.25 gm/ Sodium Chloride) 50 mls @ 100 mls/hr IV Q8HR [facility] Stop: 08/07/16 04:59 Last Admin: 06/09/16 04:44 Dose: 100 mls/hr Azithromycin 250 mg/ Sodium (Chloride) 250 mls @ 250 mls/hr IV Q24HR [facility] Stop: 06/12/16 20:59 Last Infusion: 06/08/16 23:10 Dose: Infused Metronidazole 500 mg/ (Miscellaneous) 100 mls @ 100 mls/hr IV Q8HR [facility] Stop: 08/08/16 04:59 Last Admin: 06/09/16 05:51 Dose: 100 mls/hr Insulin Aspart (Novolog Insulin Sliding Scale) 0 units SUBQ ACHS [facility] PRN Reason: Protocol Stop: 08/07/16 07:29 Last Admin: 06/09/16 11:54 Dose: 2 units Lactulose (Cephulac) 15 gm PO Q8H PRN PRN Reason: BM MANAGEMENT Lisinopril (Zestril) 40 mg PO BID [facility] Stop: 08/07/16 08:59 Last Admin: 06/09/16 09:42 Dose: 40 mg Miscellaneous (Vte Chemical Prophylaxis Screen/ Admission) 1 ea [facility] PRN PRN PRN Reason: PROTOCOL Stop: 08/07/16 16:59 Nitroglycerin (Nitrostat) 0.4 mg SL Q5M PRN PRN Reason: Chest Pain Stop: 08/06/16 22:21 Petrolatum (Zinc Oxide) 1 appl TP TID [facility] Stop: 08/07/16 08:59 Last Admin: 06/09/16 09:43 Dose: 1 appl Promethazine HCl/Codeine (Phenergan W/Cod Susp) 5 ml PO Q6H PRN PRN Reason: Cough Stop: 08/06/16 22:20 Last Admin: 06/08/16 13:20 Dose: 5 ml Sevelamer HCl (Renagel) 800 mg PO TIDWM [facility] Stop: 08/07/16 08:59 Last Admin: 06/09/16 08:00 Dose: Not Given Sodium Bicarbonate (Sodium Bicarbonate) 650 mg PO BID [facility] PRN Reason: Protocol Stop: 08/07/16 08:59 Last Admin: 06/09/16 09:41 Dose: 650 mg Sucralfate (Carafate) 1 gm PO TIDHS [facility] Stop: 08/07/16 08:59 Last Admin: 06/09/16 09:42 Dose: 1 gm General: no acute distress, well developed, well nourished HEENT: atraumatic, normocephalic, PERRLA, EOMI Neck: supple, no thyromegaly, no lymphadenopathy Cardiovascular: S1S2, regular Lungs: clear to percussion, crackles Abdomen: soft, no tender, no distended, no mass Extremities: no cyanosis, no clubbing, no edema Neurological: awake, alert, oriented Skin: intact - Procedures Procedures: Procedures Procedure Code Date PERFORMANCE OF URINARY FILTRATION, MULTIPLE [id number] 05/21/16 PERFORMANCE OF URINARY FILTRATION, SINGLE [id number] 12/29/15 Infectious Disease Assmt/Plan - Assessment Assessment: Impression: 1. Sepsis improving. 2. Pneumonia, multiofocal. 3. DM2 4. HTN. 5. Hyperlipidemia. 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 7. Anemia of chronic disease. - Plan Plan: Continue zosyn and zithromax.
--- NOTE | 2016-06-09 15:07 | General Progress Note ---
Subjective - Review of Systems Service Date: 06/09/16 Subjective: mild tacypnea, but better overall Objective - Results Result Diagrams: 06/09/16 06:40 06/09/16 06:40 Recent Labs: Laboratory Last Values WBC 10.5 Th/cmm (4.8-10.8) D 06/09/16 06:40 RBC 3.72 Mil/cmm (3.80-5.20) L 06/09/16 06:40 Hgb 9.6 gm/dL (11.7-16.1) L D 06/09/16 06:40 Hct 28.6 % (35.0-45.0) L D 06/09/16 06:40 MCV 77.0 fl (81-100) L 06/09/16 06:40 MCH 25.8 pg (27.0-31.0) L 06/09/16 06:40 MCHC Differential 33.5 pg (28.0-36.0) 06/09/16 06:40 RDW 19.6 % (11.5-20.0) 06/09/16 06:40 Plt Count 52 Th/cmm (150-400) L 06/09/16 06:40 MPV 8.6 fl 06/09/16 06:40 Band Neutrophils % 5 % (0-10) 06/08/16 06:20 Neutrophils (Manual) 72 % (40-80) 06/09/16 06:40 Lymphocytes 9 % (20-50) L 06/09/16 06:40 Monocytes 15 % (2-10) H 06/09/16 06:40 Eosinophils 4 % (0-5) 06/09/16 06:40 Basophils 1 % (0-3) 06/08/16 06:20 Platelet Estimate DECREASED PLATELETS (NORMAL) 06/09/16 06:40 Platelet Morphology NORMAL (NORMAL) 06/09/16 06:40 Anisocytosis 1+ 06/09/16 06:40 Microcytosis 2+ 06/09/16 06:40 RBC Morph Micro Appear ABNORMAL (NORMAL) 06/09/16 06:40 Sodium 135 mEq/L (136-145) L 06/09/16 06:40 Potassium 3.5 mEq/L (3.5-5.1) 06/09/16 06:40 Chloride 101 mEq/L (98-107) 06/09/16 06:40 Carbon Dioxide 27.6 mEq/L (21.0-31.0) 06/09/16 06:40 Anion Gap 9.9 (7.0-16.0) 06/09/16 06:40 BUN 23 mg/dL (7-25) 06/09/16 06:40 Creatinine 2.2 mg/dL (0.6-1.2) H 06/09/16 06:40 Est GFR ( Amer) TNP 06/09/16 06:40 Est GFR (Non-Af Amer) TNP 06/09/16 06:40 BUN/Creatinine Ratio 10.5 06/09/16 06:40 Glucose 99 mg/dL (70-105) 06/09/16 06:40 POC Glucose 104 MG/DL (70 - 105) 06/09/16 06:10 Whole Bld Lactic Acid 1.34 mmol/L (0.60-2.00) 06/08/16 14:46 Calcium 8.2 mg/dL (8.6-10.3) L 06/09/16 06:40 Phosphorus 1.1 mg/dL (2.5-5.0) L 06/09/16 06:40 Magnesium 1.8 mg/dL (1.9-2.7) L 06/09/16 06:40 Total Bilirubin 0.7 mg/dL (0.3-1.0) 06/09/16 06:40 AST 9 U/L (13-39) L 06/09/16 06:40 ALT 6 U/L (7-52) L 06/09/16 06:40 Alkaline Phosphatase 58 U/L (34-104) 06/09/16 06:40 Total Protein 6.4 gm/dL (6.0-8.3) 06/09/16 06:40 Albumin 3.3 gm/dL (3.7-5.3) L 06/09/16 06:40 Globulin 3.1 gm/dL 06/09/16 06:40 Albumin/Globulin Ratio 1.1 (1.0-1.8) 06/09/16 06:40 Stool Occult Blood NEGATIVE (NEGATIVE) 06/09/16 00:45 Blood Type O POSITIVE 06/08/16 06:20 Antibody Screen NEGATIVE 06/08/16 06:20 Crossmatch See Detail 06/08/16 06:20 - Physical Exam Vitals and I&O: Vital Signs Temp 99.3 F 06/09/16 12:00 Pulse 72 06/09/16 12:00 Resp 20 06/09/16 12:00 BP 161/73 06/09/16 12:00 Pulse Ox 96 06/09/16 12:00 Intake & Output 06/08/16 06/09/16 06/09/16 18:59 06:59 18:59 Intake Total 150 350 Balance 150 350 Intake: Intake, IV Amount 150 350 Azithromycin 250 mg In 250 Sodium Chloride 0.9% 250 ml @ 250 mls/hr IV Q24HR [facility] Rx#:[id number] KCL 20mEq/100mL Premix 20 100 meq In 100 ml @ 50 mls/ hr IV Q2H [facility] Rx#: [id number] Piperacillin Sodium/ 50 100 Tazobact 2.25 gm In Sodium Chloride 0.9% 50 ml @ 100 mls/hr IV Q8HR [facility] Rx#:[id number] Other: Stool Characteristics Liquid Liquid Liquid Brown Brown Brown Active Medications: Current Medications Acetaminophen (Tylenol) 650 mg PO Q4HR PRN PRN Reason: PAIN (MILD) OR TEMP 100.0 OR > Stop: 08/06/16 22:21 Last Admin: 06/08/16 05:00 Dose: 650 mg Acetaminophen/Hydrocodone Bitart ([place] 5mg/325mg) 1 tab PO Q6H PRN PRN Reason: Pain (Severe) Stop: 08/06/16 22:21 Last Admin: 06/09/16 10:09 Dose: 1 tab Al Hydrox/Mg Hydrox/Simethicone (Maalox) 30 ml PO Q6H PRN PRN Reason: Upset Stomach / Indigestion Stop: 08/06/16 22:21 Amlodipine Besylate (Norvasc) 5 mg PO DAILY [facility] Stop: 08/07/16 08:59 Last Admin: 06/09/16 09:42 Dose: 5 mg Bisacodyl (Dulcolax 10 Mg Supp) 10 mg RC DAILY PRN PRN Reason: BM MANAGEMENT Stop: 08/06/16 22:21 Calcium/Vitamin D (Oscal W/Vitamin D) 1 tab PO HS [facility] Stop: 08/06/16 20:59 Last Admin: 06/08/16 21:13 Dose: 1 tab Clonidine HCl (Catapres) 0.1 mg PO Q4H PRN PRN Reason: SBP>160 Stop: 08/06/16 22:21 Last Admin: 06/08/16 05:01 Dose: 0.1 mg Dextrose (D50w) 50 ml IVP ACHS PRN PRN Reason: BLOOD SUGAR < 70 Stop: 08/06/16 22:21 Hydralazine HCl (Apresoline) 50 mg PO HS [facility] Stop: 08/07/16 20:59 Last Admin: 06/08/16 21:13 Dose: 50 mg Piperacillin Sod/Tazobactam (Sod 2.25 gm/ Sodium Chloride) 50 mls @ 100 mls/hr IV Q8HR [facility] Stop: 08/07/16 04:59 Last Admin: 06/09/16 12:46 Dose: 100 mls/hr Azithromycin 250 mg/ Sodium (Chloride) 250 mls @ 250 mls/hr IV Q24HR [facility] Stop: 06/12/16 20:59 Last Infusion: 06/08/16 23:10 Dose: Infused Metronidazole 500 mg/ (Miscellaneous) 100 mls @ 100 mls/hr IV Q8HR [facility] Stop: 08/08/16 04:59 Last Admin: 06/09/16 05:51 Dose: 100 mls/hr Insulin Aspart (Novolog Insulin Sliding Scale) 0 units SUBQ ACHS [facility] PRN Reason: Protocol Stop: 08/07/16 07:29 Last Admin: 06/09/16 11:54 Dose: 2 units Lactulose (Cephulac) 15 gm PO Q8H PRN PRN Reason: BM MANAGEMENT Lisinopril (Zestril) 40 mg PO BID [facility] Stop: 08/07/16 08:59 Last Admin: 06/09/16 09:42 Dose: 40 mg Miscellaneous (Vte Chemical Prophylaxis Screen/ Admission) 1 ea [facility] PRN PRN PRN Reason: PROTOCOL Stop: 08/07/16 16:59 Nitroglycerin (Nitrostat) 0.4 mg SL Q5M PRN PRN Reason: Chest Pain Stop: 08/06/16 22:21 Petrolatum (Zinc Oxide) 1 appl TP TID [facility] Stop: 08/07/16 08:59 Last Admin: 06/09/16 09:43 Dose: 1 appl Promethazine HCl/Codeine (Phenergan W/Cod Susp) 5 ml PO Q6H PRN PRN Reason: Cough Stop: 08/06/16 22:20 Last Admin: 06/08/16 13:20 Dose: 5 ml Sevelamer HCl (Renagel) 800 mg PO TIDWM [facility] Stop: 08/07/16 08:59 Last Admin: 06/09/16 12:46 Dose: 800 mg Sodium Bicarbonate (Sodium Bicarbonate) 650 mg PO BID [facility] PRN Reason: Protocol Stop: 08/07/16 08:59 Last Admin: 06/09/16 09:41 Dose: 650 mg Sucralfate (Carafate) 1 gm PO TIDHS [facility] Stop: 08/07/16 08:59 Last Admin: 06/09/16 12:46 Dose: 1 gm General: Alert, Mild distress, Moderate distress HEENT: Atraumatic, Mucous membr. 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
[2016-06-09] MEDS ORDERED: Potassium Phosphate 20 MMOLE in Sodium Chloride 0.9% 250 ML IV ONE (15:10)
[2016-06-09] MEDS: Albuterol/Ipratropium Neb 3 ML AERS HHN SCH (19:49)
[2016-06-09] MEDS: Calcium Carb/Vit D 500 mg/200 U Tab PO SCH (22:29)
[2016-06-10] MEDS: Azithromycin 250 MG in Sodium Chloride 0.9% 250 ML IV SCH ×2 (00:32→23:06)
--- NOTE | 2016-06-10 00:45 | Consultation ---
REASON FOR CONSULTATION: Abnormal chest x-ray. CONSULT NOTE: This is an 85-year-old female who has multiple metabolic disease including hypertension, diabetes mellitus, history of chronic bronchial asthma, has not been a smoker, with history of peptic ulcer disease as well as history of chronic renal failure, on hemodialysis at ____. The patient has right above knee for many, many years when she was okay and apparently the patient was found to have abnormal discoloration of the back and also the patient's blood count was abnormal. Subsequently, the patient was admitted and routine chest x-ray was found to be abnormal. Hence, I was asked to see this patient for further care and necessary treatment. The patient denies of much of coughing though occasionally does, has a history of some snoring, history of periodic wheezing and history of previous pneumonia multiple times and has been on dialysis for last 5 years. PAST MEDICAL HISTORY: As above, multiple metabolic diseases. SURGICAL HISTORY: Right above knee amputation, ____ childhood. ALLERGIC HISTORY: Nil. Smoking history, nil. The patient lives in a convalescent home. Lot of the information is obtained by talking to the patient's granddaughter at the bedside. PHYSICAL EXAMINATION: GENERAL: This is an elderly looking female, awake, alert, not in any acute distress, with some periodic coughing at my exam, but no respiratory distress. VITAL SIGNS: Temperature is 99.4, blood pressure is 161/73 and saturation 96% on 2 liters of oxygen. HEENT: Examination of the head is essentially unremarkable. Pupils appear to be equal and reacting to light. Conjunctivae appear pallor. Oral cavity shows edentulous with small oropharyngeal opening. NECK: Veins not visualized. Good bilateral carotid upstroke. CHEST: Finding shows scattered wheezing with diminished air entry. HEART: Regular. ABDOMEN: Soft, nontender. EXTREMITIES: Right leg is absent just above the knee. Left leg appears to be okay. LABORATORY DATA: The patient's white count is 10.5 and electrolytes are okay except for creatinine 2.2 and albumin is 3.3. Chest x-ray shows slight lower lobe infiltrate and patient's CT shows area of right mid lung area infiltrate associated with some patchy nodular infiltrate bilaterally. IMPRESSION: 1. The patient has bilateral pneumonia, exact etiology not clear, history of chronic bronchial asthma. 2. Nodular infiltrate, a remote possibility of sepsis or septic embolism. 3. Suspect obstructive sleep apnea syndrome. History of metabolic disease. History of chronic bronchial asthma. Nonsmoker with history of chronic renal failure. PLANS AND SUGGESTIONS: We will go ahead with aggressive inhalation treatment, sputum culture, repeat blood cultures, may need to have an ____ valvular disease if there is any problem. Otherwise, continue antibiotic per ID, etc., and go from there. JOB# [id number]
[2016-06-10] MEDS: Hydrocodone/APAP 5mg/325mg Tab PO PRN ×3 (02:54→23:16)
[2016-06-10 06:21] LABS: HEMATOCRIT 29.5 % (35.0-45.0); HEMOGLOBIN 9.5 gm/dL (11.7-16.1); MEAN CELL VOLUME 77.1 fl (81-100); MEAN CORPUSCULAR HEMOGLOBIN 24.9 pg (27.0-31.0); MEAN CORPUSCULAR HGB CONC 32.3 pg (28.0-36.0); MEAN PLATELET VOLUME 7.9 fl; PLATELET COUNT 52 Th/cmm (150-400); RED BLOOD COUNT 3.82 Mil/cmm (3.80-5.20); RED CELL DISTRIBUTION WIDTH 19.3 % (11.5-20.0); WHITE BLOOD COUNT 8.9 Th/cmm (4.8-10.8)
[2016-06-10] MEDS: metroNIDAZOLE 500mg/NS 100mL 500 MG in Premix Fluid 1 BAG IV SCH ×3 (06:38→21:15)
[2016-06-10 06:43] LABS: ANION GAP 14.7 (7.0-16.0); BUN - UREA NITROGEN 40 mg/dL (7-25); BUN/CREATININE RATIO 12.9; CALCIUM SERUM 7.9 mg/dL (8.6-10.3); CHLORIDE 99 mEq/L (98-107); CREATININE - SERUM 3.1 mg/dL (0.6-1.2); GLUCOSE 89 mg/dL (70-105); POTASSIUM SERUM 3.7 mEq/L (3.5-5.1); SODIUM SERUM 133 mEq/L (136-145)
[2016-06-10] MEDS: Albuterol/Ipratropium Neb 3 ML AERS HHN SCH ×4 (06:46→19:32)
[2016-06-10] MEDS: Budesonide 0.5 Mg/2 mL Ud HHN SCH ×2 (06:46→19:32)
[2016-06-10] MEDS: INSULIN ASPART SLIDING SCALE 100 UNITS/ML UNIT SUBQ SCH ×4 (06:46→23:05)
[2016-06-10 07:47] LABS: NEUTROPHILS 72 % (40-80); TOTAL CELLS COUNTED 100
[2016-06-10 07:48] LABS: ANISOCYTOSIS 1+; EOSINOPHIL 4 % (0-5); MICROCYTOSIS 2+; PLATELET ESTIMATE DECREASED PLATELETS (NORMAL); PLATELET MORPHOLOGY NORMAL (NORMAL)
[2016-06-10] MEDS: Zinc Oxide Ointment 60 gm TP SCH ×3 (08:30→21:15)
[2016-06-10 10:01] LABS: BE(B) 0.1 mmol/L (-3.0-3.0); HCO3 25.4 mmol/L (20.0-26.0); pH 7.38 (7.35-7.45)
[2016-06-10 10:02] LABS: ABG SOURCE Arterial; ALLEN TEST YES; CRITICAL VALUES REPORTED BY SH; FIO2 21
--- NOTE | 2016-06-10 14:53 | General Progress Note ---
Subjective - Review of Systems Service Date: 06/10/16 Subjective: mild tacypnea, but better overall, less cough Objective - Results Result Diagrams: 06/10/16 05:40 06/10/16 05:40 Recent Labs: Laboratory Last Values WBC 8.9 Th/cmm (4.8-10.8) 06/10/16 05:40 RBC 3.82 Mil/cmm (3.80-5.20) 06/10/16 05:40 Hgb 9.5 gm/dL (11.7-16.1) L 06/10/16 05:40 Hct 29.5 % (35.0-45.0) L 06/10/16 05:40 MCV 77.1 fl (81-100) L 06/10/16 05:40 MCH 24.9 pg (27.0-31.0) L 06/10/16 05:40 MCHC Differential 32.3 pg (28.0-36.0) 06/10/16 05:40 RDW 19.3 % (11.5-20.0) 06/10/16 05:40 Plt Count 52 Th/cmm (150-400) L 06/10/16 05:40 MPV 7.9 fl 06/10/16 05:40 Band Neutrophils % 5 % (0-10) 06/08/16 06:20 Neutrophils (Manual) 72 % (40-80) 06/10/16 05:40 Lymphocytes 12 % (20-50) L 06/10/16 05:40 Monocytes 12 % (2-10) H 06/10/16 05:40 Eosinophils 4 % (0-5) 06/10/16 05:40 Basophils 1 % (0-3) 06/08/16 06:20 Platelet Estimate DECREASED PLATELETS (NORMAL) 06/10/16 05:40 Platelet Morphology NORMAL (NORMAL) 06/10/16 05:40 Anisocytosis 1+ 06/10/16 05:40 Microcytosis 2+ 06/10/16 05:40 RBC Morph Micro Appear ABNORMAL (NORMAL) 06/10/16 05:40 Specimen Source Arterial 06/10/16 09:00 Sample Site Right Radial 06/10/16 09:00 pH 7.38 (7.35-7.45) 06/10/16 09:00 pCO2 43.0 mmHg (35.0-45.0) 06/10/16 09:00 pO2 55.0 mmHg (80.0-100.0) L 06/10/16 09:00 HCO3 25.4 mmol/L (20.0-26.0) 06/10/16 09:00 Base Excess 0.1 mmol/L (-3.0-3.0) 06/10/16 09:00 O2 Saturation 88.0 % (92.0-100.0) L 06/10/16 09:00 Enrico Test YES 06/10/16 09:00 Vent Rate NA 06/10/16 09:00 Inspired O2 21 06/10/16 09:00 Tidal Volume NA 06/10/16 09:00 PEEP NA 06/10/16 09:00 Pressure (ins/psv/peep) NA 06/10/16 09:00 Critical Value SH 06/10/16 09:00 Sodium 133 mEq/L (136-145) L 06/10/16 05:40 Potassium 3.7 mEq/L (3.5-5.1) 06/10/16 05:40 Chloride 99 mEq/L (98-107) 06/10/16 05:40 Carbon Dioxide 23.0 mEq/L (21.0-31.0) 06/10/16 05:40 Anion Gap 14.7 (7.0-16.0) 06/10/16 05:40 BUN 40 mg/dL (7-25) H 06/10/16 05:40 Creatinine 3.1 mg/dL (0.6-1.2) H 06/10/16 05:40 Est GFR ( Amer) TNP 06/10/16 05:40 Est GFR (Non-Af Amer) TNP 06/10/16 05:40 BUN/Creatinine Ratio 12.9 06/10/16 05:40 Glucose 89 mg/dL (70-105) 06/10/16 05:40 POC Glucose 160 MG/DL (70 - 105) H 06/10/16 11:19 Whole Bld Lactic Acid 1.34 mmol/L (0.60-2.00) 06/08/16 14:46 Calcium 7.9 mg/dL (8.6-10.3) L 06/10/16 05:40 Phosphorus 2.6 mg/dL (2.5-5.0) 06/10/16 05:40 Magnesium 1.8 mg/dL (1.9-2.7) L 06/09/16 06:40 Total Bilirubin 0.7 mg/dL (0.3-1.0) 06/09/16 06:40 AST 9 U/L (13-39) L 06/09/16 06:40 ALT 6 U/L (7-52) L 06/09/16 06:40 Alkaline Phosphatase 58 U/L (34-104) 06/09/16 06:40 Total Protein 6.4 gm/dL (6.0-8.3) 06/09/16 06:40 Albumin 3.3 gm/dL (3.7-5.3) L 06/09/16 06:40 Globulin 3.1 gm/dL 06/09/16 06:40 Albumin/Globulin Ratio 1.1 (1.0-1.8) 06/09/16 06:40 TSH 2.09 uIU/ml (0.34-5.60) 06/10/16 05:40 Stool Occult Blood NEGATIVE (NEGATIVE) 06/09/16 00:45 Blood Type O POSITIVE 06/08/16 06:20 Antibody Screen NEGATIVE 06/08/16 06:20 Crossmatch See Detail 06/08/16 06:20 - Physical Exam Vitals and I&O: Vital Signs Temp 98.1 F 06/10/16 12:00 Pulse 77 06/10/16 12:00 Resp 20 06/10/16 12:00 BP 143/60 06/10/16 12:00 Pulse Ox 98 06/10/16 12:00 Intake & Output 06/09/16 06/10/16 06/10/16 18:59 06:59 18:59 Intake Total 150 200 150 Balance 150 200 150 Intake: Intake, IV Amount 150 200 150 Piperacillin Sodium/ 50 100 50 Tazobact 2.25 gm In Sodium Chloride 0.9% 50 ml @ 100 mls/hr IV Q8HR [facility] Rx#:[id number] metroNIDAZOLE 500mg/NS 100 100 100 100mL 500 mg In Premix Fluid 1 bag @ 100 mls/hr IV Q8HR [facility] Rx#:[id number] Other: # Voids 2 Stool Characteristics Liquid Liquid Brown Active Medications: Current Medications Acetaminophen (Tylenol) 650 mg PO Q4HR PRN PRN Reason: PAIN (MILD) OR TEMP 100.0 OR > Stop: 08/06/16 22:21 Last Admin: 06/08/16 05:00 Dose: 650 mg Acetaminophen/Hydrocodone Bitart ([place] 5mg/325mg) 1 tab PO Q6H PRN PRN Reason: Pain (Severe) Stop: 08/06/16 22:21 Last Admin: 06/10/16 08:18 Dose: 1 tab Al Hydrox/Mg Hydrox/Simethicone (Maalox) 30 ml PO Q6H PRN PRN Reason: Upset Stomach / Indigestion Stop: 08/06/16 22:21 Albuterol/Ipratropium (Duoneb Neb) 3 ml HHN [id number] [facility] Stop: 08/08/16 18:59 Last Admin: 06/10/16 14:36 Dose: 3 ml Amlodipine Besylate (Norvasc) 5 mg PO DAILY [facility] Stop: 08/07/16 08:59 Last Admin: 06/10/16 08:18 Dose: 5 mg Bisacodyl (Dulcolax 10 Mg Supp) 10 mg RC DAILY PRN PRN Reason: BM MANAGEMENT Stop: 08/06/16 22:21 Budesonide (Pulmicort) 0.5 mg HHN BIDRT [facility] Stop: 08/08/16 18:59 Last Admin: 06/10/16 06:46 Dose: 0.5 mg Calcium/Vitamin D (Oscal W/Vitamin D) 1 tab PO HS [facility] Stop: 08/06/16 20:59 Last Admin: 06/09/16 22:29 Dose: 1 tab Clonidine HCl (Catapres) 0.1 mg PO Q4H PRN PRN Reason: SBP>160 Stop: 08/06/16 22:21 Last Admin: 06/10/16 08:30 Dose: 0.1 mg Dextrose (D50w) 50 ml IVP ACHS PRN PRN Reason: BLOOD SUGAR < 70 Stop: 08/06/16 22:21 Hydralazine HCl (Apresoline) 50 mg PO HS [facility] Stop: 08/07/16 20:59 Last Admin: 06/09/16 22:29 Dose: 50 mg Piperacillin Sod/Tazobactam (Sod 2.25 gm/ Sodium Chloride) 50 mls @ 100 mls/hr IV Q8HR [facility] Stop: 08/07/16 04:59 Last Infusion: 06/10/16 13:19 Dose: Infused Azithromycin 250 mg/ Sodium (Chloride) 250 mls @ 250 mls/hr IV Q24HR [facility] Stop: 06/12/16 20:59 Last Admin: 06/10/16 00:32 Dose: 250 mls/hr Metronidazole 500 mg/ (Miscellaneous) 100 mls @ 100 mls/hr IV Q8HR [facility] Stop: 08/08/16 04:59 Last Admin: 06/10/16 12:32 Dose: 100 mls/hr Insulin Aspart (Novolog Insulin Sliding Scale) 0 units SUBQ ACHS [facility] PRN Reason: Protocol Stop: 08/07/16 07:29 Last Admin: 06/10/16 11:20 Dose: 4 units Lactulose (Cephulac) 15 gm PO Q8H PRN PRN Reason: BM MANAGEMENT Lisinopril (Zestril) 40 mg PO BID [facility] Stop: 08/07/16 08:59 Last Admin: 06/10/16 08:19 Dose: 40 mg Magnesium Oxide (Mag-Oxide) 400 mg PO DAILY [facility] Stop: 08/08/16 15:14 Last Admin: 06/10/16 08:18 Dose: 400 mg Miscellaneous (Vte Chemical Prophylaxis Screen/ Admission) 1 ea [facility] PRN PRN PRN Reason: PROTOCOL Stop: 08/07/16 16:59 Nitroglycerin (Nitrostat) 0.4 mg SL Q5M PRN PRN Reason: Chest Pain Stop: 08/06/16 22:21 Petrolatum (Zinc Oxide) 1 appl TP TID [facility] Stop: 08/07/16 08:59 Last Admin: 06/10/16 13:11 Dose: 1 appl Promethazine HCl/Codeine (Phenergan W/Cod Susp) 5 ml PO Q6H PRN PRN Reason: Cough Stop: 08/06/16 22:20 Last Admin: 06/08/16 13:20 Dose: 5 ml Sodium Bicarbonate (Sodium Bicarbonate) 650 mg PO BID [facility] PRN Reason: Protocol Stop: 08/07/16 08:59 Last Admin: 06/10/16 08:18 Dose: 650 mg Sucralfate (Carafate) 1 gm PO TIDHS [facility] Stop: 08/07/16 08:59 Last Admin: 06/10/16 12:32 Dose: 1 gm General: Alert, Oriented x3, Mild distress HEENT: Atraumatic, Mucous membr. moist/pink Neck: Supple, +2 carotid pulse wo bruit Cardiovascular: Regular rate, Normal S1, Normal S2 Lungs: Other (rhonchi, min. congestion) Abdomen: Bowel sounds, Soft Extremities: no Edema Neurological: Sensation intact Skin: no Rash Psych/Mental Status: Mental status NL, Mood NL - Procedures Procedures: Procedures Procedure Code Date PERFORMANCE OF URINARY FILTRATION, MULTIPLE [id number] 05/21/16 PERFORMANCE OF URINARY FILTRATION, SINGLE [id number] 12/29/15 Assessment/Plan - Assessment Assessment: esrd on hd anemia acute ( possible GI bleed ) on CKD chronic thrombocytopenia type 2 dm w/ CKD COPD right lower lobe HAP GB stones ileus/constipation Htn w/ CKD PAD s/p right AKA - Plan Plan: schedule for hd today hgb/hct improved w/transfusion f/u cbc, electrolytes P04 corrected
--- NOTE | 2016-06-10 18:40 | Infectious Disease Prog Note ---
Infectious Disease Subjective - Review of Systems Service Date: 06/10/16 Subjective: No new change, there is no fever. Infectious Disease Objective - Results Result Diagrams: 06/10/16 05:40 06/10/16 05:40 Recent Labs: Laboratory Last Values WBC 8.9 Th/cmm (4.8-10.8) 06/10/16 05:40 RBC 3.82 Mil/cmm (3.80-5.20) 06/10/16 05:40 Hgb 9.5 gm/dL (11.7-16.1) L 06/10/16 05:40 Hct 29.5 % (35.0-45.0) L 06/10/16 05:40 MCV 77.1 fl (81-100) L 06/10/16 05:40 MCH 24.9 pg (27.0-31.0) L 06/10/16 05:40 MCHC Differential 32.3 pg (28.0-36.0) 06/10/16 05:40 RDW 19.3 % (11.5-20.0) 06/10/16 05:40 Plt Count 52 Th/cmm (150-400) L 06/10/16 05:40 MPV 7.9 fl 06/10/16 05:40 Band Neutrophils % 5 % (0-10) 06/08/16 06:20 Neutrophils (Manual) 72 % (40-80) 06/10/16 05:40 Lymphocytes 12 % (20-50) L 06/10/16 05:40 Monocytes 12 % (2-10) H 06/10/16 05:40 Eosinophils 4 % (0-5) 06/10/16 05:40 Basophils 1 % (0-3) 06/08/16 06:20 Platelet Estimate DECREASED PLATELETS (NORMAL) 06/10/16 05:40 Platelet Morphology NORMAL (NORMAL) 06/10/16 05:40 Anisocytosis 1+ 06/10/16 05:40 Microcytosis 2+ 06/10/16 05:40 RBC Morph Micro Appear ABNORMAL (NORMAL) 06/10/16 05:40 Specimen Source Arterial 06/10/16 09:00 Sample Site Right Radial 06/10/16 09:00 pH 7.38 (7.35-7.45) 06/10/16 09:00 pCO2 43.0 mmHg (35.0-45.0) 06/10/16 09:00 pO2 55.0 mmHg (80.0-100.0) L 06/10/16 09:00 HCO3 25.4 mmol/L (20.0-26.0) 06/10/16 09:00 Base Excess 0.1 mmol/L (-3.0-3.0) 06/10/16 09:00 O2 Saturation 88.0 % (92.0-100.0) L 06/10/16 09:00 Enrico Test YES 06/10/16 09:00 Vent Rate NA 06/10/16 09:00 Inspired O2 21 06/10/16 09:00 Tidal Volume NA 06/10/16 09:00 PEEP NA 06/10/16 09:00 Pressure (ins/psv/peep) NA 06/10/16 09:00 Critical Value SH 06/10/16 09:00 Sodium 133 mEq/L (136-145) L 06/10/16 05:40 Potassium 3.7 mEq/L (3.5-5.1) 06/10/16 05:40 Chloride 99 mEq/L (98-107) 06/10/16 05:40 Carbon Dioxide 23.0 mEq/L (21.0-31.0) 06/10/16 05:40 Anion Gap 14.7 (7.0-16.0) 06/10/16 05:40 BUN 40 mg/dL (7-25) H 06/10/16 05:40 Creatinine 3.1 mg/dL (0.6-1.2) H 06/10/16 05:40 Est GFR ( Amer) TNP 06/10/16 05:40 Est GFR (Non-Af Amer) TNP 06/10/16 05:40 BUN/Creatinine Ratio 12.9 06/10/16 05:40 Glucose 89 mg/dL (70-105) 06/10/16 05:40 POC Glucose 225 MG/DL (70 - 105) H 06/10/16 16:27 Whole Bld Lactic Acid 1.34 mmol/L (0.60-2.00) 06/08/16 14:46 Calcium 7.9 mg/dL (8.6-10.3) L 06/10/16 05:40 Phosphorus 2.6 mg/dL (2.5-5.0) 06/10/16 05:40 Magnesium 1.8 mg/dL (1.9-2.7) L 06/09/16 06:40 Total Bilirubin 0.7 mg/dL (0.3-1.0) 06/09/16 06:40 AST 9 U/L (13-39) L 06/09/16 06:40 ALT 6 U/L (7-52) L 06/09/16 06:40 Alkaline Phosphatase 58 U/L (34-104) 06/09/16 06:40 Total Protein 6.4 gm/dL (6.0-8.3) 06/09/16 06:40 Albumin 3.3 gm/dL (3.7-5.3) L 06/09/16 06:40 Globulin 3.1 gm/dL 06/09/16 06:40 Albumin/Globulin Ratio 1.1 (1.0-1.8) 06/09/16 06:40 TSH 2.09 uIU/ml (0.34-5.60) 06/10/16 05:40 Stool Occult Blood NEGATIVE (NEGATIVE) 06/09/16 00:45 Blood Type O POSITIVE 06/08/16 06:20 Antibody Screen NEGATIVE 06/08/16 06:20 Crossmatch See Detail 06/08/16 06:20 - Physical Exam Vitals and I&O: Vital Signs Temp 98.1 F 06/10/16 12:00 Pulse 80 06/10/16 16:32 Resp 16 06/10/16 14:35 BP 136/54 06/10/16 16:32 Pulse Ox 100 06/10/16 14:35 Intake & Output 06/09/16 06/10/16 06/10/16 18:59 06:59 18:59 Intake Total 150 200 150 Balance 150 200 150 Intake: Intake, IV Amount 150 200 150 Piperacillin Sodium/ 50 100 50 Tazobact 2.25 gm In Sodium Chloride 0.9% 50 ml @ 100 mls/hr IV Q8HR [facility] Rx#:[id number] metroNIDAZOLE 500mg/NS 100 100 100 100mL 500 mg In Premix Fluid 1 bag @ 100 mls/hr IV Q8HR [facility] Rx#:[id number] Other: # Voids 2 Stool Characteristics Liquid Liquid Brown Active Medications: Current Medications Acetaminophen (Tylenol) 650 mg PO Q4HR PRN PRN Reason: PAIN (MILD) OR TEMP 100.0 OR > Stop: 08/06/16 22:21 Last Admin: 06/08/16 05:00 Dose: 650 mg Acetaminophen/Hydrocodone Bitart ([place] 5mg/325mg) 1 tab PO Q6H PRN PRN Reason: Pain (Severe) Stop: 08/06/16 22:21 Last Admin: 06/10/16 08:18 Dose: 1 tab Al Hydrox/Mg Hydrox/Simethicone (Maalox) 30 ml PO Q6H PRN PRN Reason: Upset Stomach / Indigestion Stop: 08/06/16 22:21 Albuterol/Ipratropium (Duoneb Neb) 3 ml HHN [id number] [facility] Stop: 08/08/16 18:59 Last Admin: 06/10/16 14:36 Dose: 3 ml Amlodipine Besylate (Norvasc) 5 mg PO DAILY [facility] Stop: 08/07/16 08:59 Last Admin: 06/10/16 08:18 Dose: 5 mg Bisacodyl (Dulcolax 10 Mg Supp) 10 mg RC DAILY PRN PRN Reason: BM MANAGEMENT Stop: 08/06/16 22:21 Budesonide (Pulmicort) 0.5 mg HHN BIDRT [facility] Stop: 08/08/16 18:59 Last Admin: 06/10/16 06:46 Dose: 0.5 mg Calcium/Vitamin D (Oscal W/Vitamin D) 1 tab PO HS [facility] Stop: 08/06/16 20:59 Last Admin: 06/09/16 22:29 Dose: 1 tab Clonidine HCl (Catapres) 0.1 mg PO Q4H PRN PRN Reason: SBP>160 Stop: 08/06/16 22:21 Last Admin: 06/10/16 08:30 Dose: 0.1 mg Dextrose (D50w) 50 ml IVP ACHS PRN PRN Reason: BLOOD SUGAR < 70 Stop: 08/06/16 22:21 Docusate Sodium (Colace) 250 mg PO DAILY [facility] Stop: 08/09/16 14:59 Last Admin: 06/10/16 16:32 Dose: 250 mg Hydralazine HCl (Apresoline) 50 mg PO HS [facility] Stop: 08/07/16 20:59 Last Admin: 06/09/16 22:29 Dose: 50 mg Piperacillin Sod/Tazobactam (Sod 2.25 gm/ Sodium Chloride) 50 mls @ 100 mls/hr IV Q8HR [facility] Stop: 08/07/16 04:59 Last Infusion: 06/10/16 13:19 Dose: Infused Azithromycin 250 mg/ Sodium (Chloride) 250 mls @ 250 mls/hr IV Q24HR [facility] Stop: 06/12/16 20:59 Last Admin: 06/10/16 00:32 Dose: 250 mls/hr Metronidazole 500 mg/ (Miscellaneous) 100 mls @ 100 mls/hr IV Q8HR [facility] Stop: 08/08/16 04:59 Last Admin: 06/10/16 12:32 Dose: 100 mls/hr Insulin Aspart (Novolog Insulin Sliding Scale) 0 units SUBQ ACHS [facility] PRN Reason: Protocol Stop: 08/07/16 07:29 Last Admin: 06/10/16 16:28 Dose: 6 units Lactulose (Cephulac) 15 gm PO Q8H PRN PRN Reason: BM MANAGEMENT Lisinopril (Zestril) 40 mg PO BID [facility] Stop: 08/07/16 08:59 Last Admin: 06/10/16 16:32 Dose: 40 mg Magnesium Oxide (Mag-Oxide) 400 mg PO DAILY [facility] Stop: 08/08/16 15:14 Last Admin: 06/10/16 08:18 Dose: 400 mg Miscellaneous (Vte Chemical Prophylaxis Screen/ Admission) 1 ea [facility] PRN PRN PRN Reason: PROTOCOL Stop: 08/07/16 16:59 Nitroglycerin (Nitrostat) 0.4 mg SL Q5M PRN PRN Reason: Chest Pain Stop: 08/06/16 22:21 Petrolatum (Zinc Oxide) 1 appl TP TID [facility] Stop: 08/07/16 08:59 Last Admin: 06/10/16 13:11 Dose: 1 appl Promethazine HCl/Codeine (Phenergan W/Cod Susp) 5 ml PO Q6H PRN PRN Reason: Cough Stop: 08/06/16 22:20 Last Admin: 06/08/16 13:20 Dose: 5 ml Sodium Bicarbonate (Sodium Bicarbonate) 650 mg PO BID [facility] PRN Reason: Protocol Stop: 08/07/16 08:59 Last Admin: 06/10/16 16:32 Dose: 650 mg Sucralfate (Carafate) 1 gm PO TIDHS [facility] Stop: 08/07/16 08:59 Last Admin: 06/10/16 16:32 Dose: 1 gm General: no acute distress, well developed, well nourished HEENT: atraumatic, normocephalic, PERRLA Neck: supple, no thyromegaly, no lymphadenopathy Cardiovascular: S1S2, regular Lungs: clear to percussion, crackles Abdomen: soft, no tender, no distended Extremities: no cyanosis, no clubbing, no edema Neurological: awake, alert, oriented Skin: intact - Procedures Procedures: Procedures Procedure Code Date PERFORMANCE OF URINARY FILTRATION, MULTIPLE [id number] 05/21/16 PERFORMANCE OF URINARY FILTRATION, SINGLE [id number] 12/29/15 Infectious Disease Assmt/Plan - Assessment Assessment: Impression: 1. Sepsis improving. 2. Pneumonia, multiofocal. suspected nodular infiltrates, ? embolic. 3. DM2 4. HTN. 5. Hyperlipidemia. 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 7. Anemia of chronic disease. - Plan Plan: Continue zosyn and zithromax. 2D echo and consult Dr Becky sandoval.
[2016-06-10] MEDS: Calcium Carb/Vit D 500 mg/200 U Tab PO SCH (21:15)
--- NOTE | 2016-06-11 06:03 | Progress Notes ---
PULMONARY PROGRESS NOTE PROBLEM LIST: 1. Bilateral pneumonia. 2. Possibly septic embolism. 3. Possibly suspect obstructive sleep apnea syndrome and also history of chronic renal failure, on hemodialysis. SYMPTOMS: Nil. The patient has a lot coughing, no specific new symptomatology. No difficulty in breathing, etc. PHYSICAL EXAMINATION: VITAL SIGNS: The patient's recorded vitals: Temperature is 98.1, pulse is 75, blood pressure is 136/74, and saturation 98% on 2 liters. NECK: Veins could not be visualized. CHEST: Shows occasional rhonchi with diminished air entry. HEART: Regular. EXTREMITIES: Left one shows no edema, right one is absent. LABORATORY DATA: The patient's white count is 8.9, hemoglobin 9.5. ABG shows pO2 is 55 on room air. Repeat blood cultures are pending including sputum cultures are pending. ASSESSMENT: The patient clinically appears to be stable, not much changed; pneumonia, question septic embolism with chronic renal failure, on hemodialysis with suspect obstructive sleep apnea syndrome. PLANS AND SUGGESTIONS: We will go ahead and continue current treatment. Await for the cultures, etc. Repeat chest x-ray as well as other studies in the next few days and go from there. JOB# [id number]
[2016-06-11] MEDS: metroNIDAZOLE 500mg/NS 100mL 500 MG in Premix Fluid 1 BAG IV SCH ×3 (06:14→23:48)
[2016-06-11] MEDS: INSULIN ASPART SLIDING SCALE 100 UNITS/ML UNIT SUBQ SCH ×3 (06:39→18:19)
[2016-06-11] MEDS: Budesonide 0.5 Mg/2 mL Ud HHN SCH ×2 (06:40→19:48)
[2016-06-11] MEDS: Albuterol/Ipratropium Neb 3 ML AERS HHN SCH ×4 (06:40→19:49)
[2016-06-11 07:08] LABS: BUN - UREA NITROGEN 25 mg/dL (7-25); BUN/CREATININE RATIO 11.4; CALCIUM SERUM 8.2 mg/dL (8.6-10.3); CARBON DIOXIDE 28.5 mEq/L (21.0-31.0); CHLORIDE 101 mEq/L (98-107); CREATININE - SERUM 2.2 mg/dL (0.6-1.2); GLUCOSE 99 mg/dL (70-105); POTASSIUM SERUM 3.5 mEq/L (3.5-5.1); SODIUM SERUM 134 mEq/L (136-145)
[2016-06-11 07:26] LABS: HEMATOCRIT 29.7 % (35.0-45.0); HEMOGLOBIN 9.7 gm/dL (11.7-16.1); MEAN CELL VOLUME 77.8 fl (81-100); MEAN CORPUSCULAR HEMOGLOBIN 25.4 pg (27.0-31.0); MEAN CORPUSCULAR HGB CONC 32.6 pg (28.0-36.0); MEAN PLATELET VOLUME 8.1 fl; PLATELET COUNT 52 Th/cmm (150-400); RED BLOOD COUNT 3.81 Mil/cmm (3.80-5.20); RED CELL DISTRIBUTION WIDTH 20.1 % (11.5-20.0)
[2016-06-11 07:33] LABS: WHITE BLOOD COUNT 7.1 Th/cmm (4.8-10.8)
[2016-06-11] MEDS: Zinc Oxide Ointment 60 gm TP SCH ×2 (08:30→14:06)
[2016-06-11] MEDS: Hydrocodone/APAP 5mg/325mg Tab PO PRN ×3 (08:40→23:47)
[2016-06-11 09:46] LABS: ANISOCYTOSIS 1+; EOSINOPHIL 4 % (0-5); MICROCYTOSIS 1+; NEUTROPHILS 68 % (40-80); PLATELET ESTIMATE DECREASED PLATELETS (NORMAL); PLATELET MORPHOLOGY GIANT PLATELETS SEEN (NORMAL); TOTAL CELLS COUNTED 100
--- NOTE | 2016-06-11 11:08 | Diagnostic Imaging Report ---
Portable chest x-ray HISTORY: Pneumonia Compared with prior exam of June 09, 2016, the heart remains enlarged. Persistent infiltrate is seen in the right lower lobe. IMPRESSION: 1. No change in the pulmonary status. Persistent infiltrate within the right lower lobe. Findings consistent with pneumonia 2. Persistent cardiomegaly with atherosclerotic vascular changes.
--- NOTE | 2016-06-11 13:16 | Infectious Disease Prog Note ---
Infectious Disease Subjective - Review of Systems Service Date: 06/11/16 Subjective: No new change, there is no fever. Infectious Disease Objective - Results Result Diagrams: 06/11/16 06:15 06/11/16 06:15 Recent Labs: Laboratory Last Values WBC 7.1 Th/cmm (4.8-10.8) D 06/11/16 06:15 RBC 3.81 Mil/cmm (3.80-5.20) 06/11/16 06:15 Hgb 9.7 gm/dL (11.7-16.1) L 06/11/16 06:15 Hct 29.7 % (35.0-45.0) L 06/11/16 06:15 MCV 77.8 fl (81-100) L 06/11/16 06:15 MCH 25.4 pg (27.0-31.0) L 06/11/16 06:15 MCHC Differential 32.6 pg (28.0-36.0) 06/11/16 06:15 RDW 20.1 % (11.5-20.0) H 06/11/16 06:15 Plt Count 52 Th/cmm (150-400) L 06/11/16 06:15 MPV 8.1 fl 06/11/16 06:15 Band Neutrophils % 5 % (0-10) 06/08/16 06:20 Neutrophils (Manual) 68 % (40-80) 06/11/16 06:15 Lymphocytes 12 % (20-50) L 06/11/16 06:15 Monocytes 16 % (2-10) H 06/11/16 06:15 Eosinophils 4 % (0-5) 06/11/16 06:15 Basophils 1 % (0-3) 06/08/16 06:20 Platelet Estimate DECREASED PLATELETS (NORMAL) 06/11/16 06:15 Platelet Morphology GIANT PLATELETS SEEN (NORMAL) 06/11/16 06:15 Anisocytosis 1+ 06/11/16 06:15 Microcytosis 1+ 06/11/16 06:15 RBC Morph Micro Appear ABNORMAL (NORMAL) 06/11/16 06:15 Specimen Source Arterial 06/10/16 09:00 Sample Site Right Radial 06/10/16 09:00 pH 7.38 (7.35-7.45) 06/10/16 09:00 pCO2 43.0 mmHg (35.0-45.0) 06/10/16 09:00 pO2 55.0 mmHg (80.0-100.0) L 06/10/16 09:00 HCO3 25.4 mmol/L (20.0-26.0) 06/10/16 09:00 Base Excess 0.1 mmol/L (-3.0-3.0) 06/10/16 09:00 O2 Saturation 88.0 % (92.0-100.0) L 06/10/16 09:00 Enrico Test YES 06/10/16 09:00 Vent Rate NA 06/10/16 09:00 Inspired O2 21 06/10/16 09:00 Tidal Volume NA 06/10/16 09:00 PEEP NA 06/10/16 09:00 Pressure (ins/psv/peep) NA 06/10/16 09:00 Critical Value SH 06/10/16 09:00 Sodium 134 mEq/L (136-145) L 06/11/16 06:15 Potassium 3.5 mEq/L (3.5-5.1) 06/11/16 06:15 Chloride 101 mEq/L (98-107) 06/11/16 06:15 Carbon Dioxide 28.5 mEq/L (21.0-31.0) 06/11/16 06:15 Anion Gap 8.0 (7.0-16.0) 06/11/16 06:15 BUN 25 mg/dL (7-25) 06/11/16 06:15 Creatinine 2.2 mg/dL (0.6-1.2) H 06/11/16 06:15 Est GFR ( Amer) TNP 06/11/16 06:15 Est GFR (Non-Af Amer) TNP 06/11/16 06:15 BUN/Creatinine Ratio 11.4 06/11/16 06:15 Glucose 99 mg/dL (70-105) 06/11/16 06:15 POC Glucose 177 MG/DL (70 - 105) H 06/11/16 11:55 Whole Bld Lactic Acid 1.34 mmol/L (0.60-2.00) 06/08/16 14:46 Calcium 8.2 mg/dL (8.6-10.3) L 06/11/16 06:15 Phosphorus 2.6 mg/dL (2.5-5.0) 06/10/16 05:40 Magnesium 1.8 mg/dL (1.9-2.7) L 06/09/16 06:40 Total Bilirubin 0.7 mg/dL (0.3-1.0) 06/09/16 06:40 AST 9 U/L (13-39) L 06/09/16 06:40 ALT 6 U/L (7-52) L 06/09/16 06:40 Alkaline Phosphatase 58 U/L (34-104) 06/09/16 06:40 Total Protein 6.4 gm/dL (6.0-8.3) 06/09/16 06:40 Albumin 3.3 gm/dL (3.7-5.3) L 06/09/16 06:40 Globulin 3.1 gm/dL 06/09/16 06:40 Albumin/Globulin Ratio 1.1 (1.0-1.8) 06/09/16 06:40 TSH 2.09 uIU/ml (0.34-5.60) 06/10/16 05:40 Stool Occult Blood NEGATIVE (NEGATIVE) 06/11/16 05:20 Blood Type O POSITIVE 06/08/16 06:20 Antibody Screen NEGATIVE 06/08/16 06:20 Crossmatch See Detail 06/08/16 06:20 - Physical Exam Vitals and I&O: Vital Signs Temp 98.8 F 06/11/16 12:00 Pulse 76 06/11/16 12:00 Resp 18 06/11/16 12:00 BP 141/54 06/11/16 12:00 Pulse Ox 97 06/11/16 12:00 Intake & Output 06/10/16 06/11/16 06/11/16 18:59 06:59 18:59 Intake Total 1300 400 Output Total 2004 Balance 1300 -1604 Intake: Intake, IV Amount 250 200 Piperacillin Sodium/ 50 100 Tazobact 2.25 gm In Sodium Chloride 0.9% 50 ml @ 100 mls/hr IV Q8HR [facility] Rx#:[id number] metroNIDAZOLE 500mg/NS 200 100 100mL 500 mg In Premix Fluid 1 bag @ 100 mls/hr IV Q8HR [facility] Rx#:[id number] Oral 1050 200 Output: Stool 4 Hemodialysis 2000 Other: # Voids 2 Stool Characteristics Liquid Active Medications: Current Medications Acetaminophen (Tylenol) 650 mg PO Q4HR PRN PRN Reason: PAIN (MILD) OR TEMP 100.0 OR > Stop: 08/06/16 22:21 Last Admin: 06/08/16 05:00 Dose: 650 mg Acetaminophen/Hydrocodone Bitart ([place] 5mg/325mg) 1 tab PO Q6H PRN PRN Reason: Pain (Severe) Stop: 08/06/16 22:21 Last Admin: 06/11/16 08:40 Dose: 1 tab Al Hydrox/Mg Hydrox/Simethicone (Maalox) 30 ml PO Q6H PRN PRN Reason: Upset Stomach / Indigestion Stop: 08/06/16 22:21 Albuterol/Ipratropium (Duoneb Neb) 3 ml HHN [id number] [facility] Stop: 08/08/16 18:59 Last Admin: 06/11/16 10:44 Dose: 3 ml Amlodipine Besylate (Norvasc) 5 mg PO DAILY [facility] Stop: 08/07/16 08:59 Last Admin: 06/11/16 08:31 Dose: 5 mg Bisacodyl (Dulcolax 10 Mg Supp) 10 mg RC DAILY PRN PRN Reason: BM MANAGEMENT Stop: 08/06/16 22:21 Budesonide (Pulmicort) 0.5 mg HHN BIDRT [facility] Stop: 08/08/16 18:59 Last Admin: 06/11/16 06:40 Dose: 0.5 mg Calcium/Vitamin D (Oscal W/Vitamin D) 1 tab PO HS [facility] Stop: 08/06/16 20:59 Last Admin: 06/10/16 21:15 Dose: 1 tab Clonidine HCl (Catapres) 0.1 mg PO Q4H PRN PRN Reason: SBP>160 Stop: 08/06/16 22:21 Last Admin: 06/11/16 03:58 Dose: 0.1 mg Dextrose (D50w) 50 ml IVP ACHS PRN PRN Reason: BLOOD SUGAR < 70 Stop: 08/06/16 22:21 Docusate Sodium (Colace) 250 mg PO DAILY [facility] Stop: 08/09/16 14:59 Last Admin: 06/11/16 08:31 Dose: 250 mg Hydralazine HCl (Apresoline) 50 mg PO HS [facility] Stop: 08/07/16 20:59 Last Admin: 06/10/16 23:02 Dose: 50 mg Piperacillin Sod/Tazobactam (Sod 2.25 gm/ Sodium Chloride) 50 mls @ 100 mls/hr IV Q8HR [facility] Stop: 08/07/16 04:59 Last Admin: 06/11/16 12:22 Dose: 100 mls/hr Azithromycin 250 mg/ Sodium (Chloride) 250 mls @ 250 mls/hr IV Q24HR [facility] Stop: 06/12/16 20:59 Last Admin: 06/10/16 23:06 Dose: 250 mls/hr Metronidazole 500 mg/ (Miscellaneous) 100 mls @ 100 mls/hr IV Q8HR [facility] Stop: 08/08/16 04:59 Last Admin: 06/11/16 06:14 Dose: 100 mls/hr Insulin Aspart (Novolog Insulin Sliding Scale) 0 units SUBQ ACHS [facility] PRN Reason: Protocol Stop: 08/07/16 07:29 Last Admin: 06/11/16 12:20 Dose: 4 units Lactulose (Cephulac) 15 gm PO Q8H PRN PRN Reason: BM MANAGEMENT Lisinopril (Zestril) 40 mg PO BID [facility] Stop: 08/07/16 08:59 Last Admin: 06/11/16 08:30 Dose: 40 mg Magnesium Oxide (Mag-Oxide) 400 mg PO DAILY [facility] Stop: 08/08/16 15:14 Last Admin: 06/11/16 08:30 Dose: 400 mg Miscellaneous (Vte Chemical Prophylaxis Screen/ Admission) 1 ea PRN PRN PRN Reason: PROTOCOL Stop: 08/07/16 16:59 Miscellaneous (Clinical Monitoring) 1 ea PRN PRN PRN Reason: RENAL DOSING Stop: 08/10/16 12:35 Nitroglycerin (Nitrostat) 0.4 mg SL Q5M PRN PRN Reason: Chest Pain Stop: 08/06/16 22:21 Petrolatum (Zinc Oxide) 1 appl TP TID [facility] Stop: 08/07/16 08:59 Last Admin: 06/11/16 08:30 Dose: 1 appl Promethazine HCl/Codeine (Phenergan W/Cod Susp) 5 ml PO Q6H PRN PRN Reason: Cough Stop: 08/06/16 22:20 Last Admin: 06/08/16 13:20 Dose: 5 ml Sodium Bicarbonate (Sodium Bicarbonate) 650 mg PO BID [facility] PRN Reason: Protocol Stop: 08/07/16 08:59 Last Admin: 06/11/16 08:30 Dose: 650 mg Sucralfate (Carafate) 1 gm PO TIDHS [facility] Stop: 08/07/16 08:59 Last Admin: 06/11/16 08:31 Dose: 1 gm General: no acute distress, other (obese) HEENT: atraumatic, normocephalic, PERRLA, EOMI, moist mucous membrane Neck: supple, no thyromegaly, no lymphadenopathy Cardiovascular: S1S2, regular Lungs: clear to auscultation bilaterally, clear to percussion Abdomen: soft, no tender, no distended Extremities: no cyanosis, no clubbing, no edema Neurological: awake, alert, oriented Skin: intact - Procedures Procedures: Procedures Procedure Code Date PERFORMANCE OF URINARY FILTRATION, MULTIPLE [id number] 05/21/16 PERFORMANCE OF URINARY FILTRATION, SINGLE [id number] 12/29/15 Infectious Disease Assmt/Plan - Assessment Assessment: Impression: 1. Sepsis improving. 2. Pneumonia, multiofocal. suspected nodular infiltrates, ? embolic. 3. DM2 4. HTN. 5. Hyperlipidemia. 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 7. Anemia of chronic disease. - Plan Plan: Continue zosyn and Zithromax. 2D echo and consult Dr Becky sandoval.
--- NOTE | 2016-06-11 15:18 | General Progress Note ---
Subjective - Review of Systems Service Date: 06/11/16 Subjective: still w/ cough, some congestion Objective - Results Result Diagrams: 06/11/16 06:15 06/11/16 06:15 Recent Labs: Laboratory Last Values WBC 7.1 Th/cmm (4.8-10.8) D 06/11/16 06:15 RBC 3.81 Mil/cmm (3.80-5.20) 06/11/16 06:15 Hgb 9.7 gm/dL (11.7-16.1) L 06/11/16 06:15 Hct 29.7 % (35.0-45.0) L 06/11/16 06:15 MCV 77.8 fl (81-100) L 06/11/16 06:15 MCH 25.4 pg (27.0-31.0) L 06/11/16 06:15 MCHC Differential 32.6 pg (28.0-36.0) 06/11/16 06:15 RDW 20.1 % (11.5-20.0) H 06/11/16 06:15 Plt Count 52 Th/cmm (150-400) L 06/11/16 06:15 MPV 8.1 fl 06/11/16 06:15 Band Neutrophils % 5 % (0-10) 06/08/16 06:20 Neutrophils (Manual) 68 % (40-80) 06/11/16 06:15 Lymphocytes 12 % (20-50) L 06/11/16 06:15 Monocytes 16 % (2-10) H 06/11/16 06:15 Eosinophils 4 % (0-5) 06/11/16 06:15 Basophils 1 % (0-3) 06/08/16 06:20 Platelet Estimate DECREASED PLATELETS (NORMAL) 06/11/16 06:15 Platelet Morphology GIANT PLATELETS SEEN (NORMAL) 06/11/16 06:15 Anisocytosis 1+ 06/11/16 06:15 Microcytosis 1+ 06/11/16 06:15 RBC Morph Micro Appear ABNORMAL (NORMAL) 06/11/16 06:15 Specimen Source Arterial 06/10/16 09:00 Sample Site Right Radial 06/10/16 09:00 pH 7.38 (7.35-7.45) 06/10/16 09:00 pCO2 43.0 mmHg (35.0-45.0) 06/10/16 09:00 pO2 55.0 mmHg (80.0-100.0) L 06/10/16 09:00 HCO3 25.4 mmol/L (20.0-26.0) 06/10/16 09:00 Base Excess 0.1 mmol/L (-3.0-3.0) 06/10/16 09:00 O2 Saturation 88.0 % (92.0-100.0) L 06/10/16 09:00 Enrico Test YES 06/10/16 09:00 Vent Rate NA 06/10/16 09:00 Inspired O2 21 06/10/16 09:00 Tidal Volume NA 06/10/16 09:00 PEEP NA 06/10/16 09:00 Pressure (ins/psv/peep) NA 06/10/16 09:00 Critical Value SH 06/10/16 09:00 Sodium 134 mEq/L (136-145) L 06/11/16 06:15 Potassium 3.5 mEq/L (3.5-5.1) 06/11/16 06:15 Chloride 101 mEq/L (98-107) 06/11/16 06:15 Carbon Dioxide 28.5 mEq/L (21.0-31.0) 06/11/16 06:15 Anion Gap 8.0 (7.0-16.0) 06/11/16 06:15 BUN 25 mg/dL (7-25) 06/11/16 06:15 Creatinine 2.2 mg/dL (0.6-1.2) H 06/11/16 06:15 Est GFR ( Amer) TNP 06/11/16 06:15 Est GFR (Non-Af Amer) TNP 06/11/16 06:15 BUN/Creatinine Ratio 11.4 06/11/16 06:15 Glucose 99 mg/dL (70-105) 06/11/16 06:15 POC Glucose 177 MG/DL (70 - 105) H 06/11/16 11:55 Whole Bld Lactic Acid 1.34 mmol/L (0.60-2.00) 06/08/16 14:46 Calcium 8.2 mg/dL (8.6-10.3) L 06/11/16 06:15 Phosphorus 2.6 mg/dL (2.5-5.0) 06/10/16 05:40 Magnesium 1.8 mg/dL (1.9-2.7) L 06/09/16 06:40 Total Bilirubin 0.7 mg/dL (0.3-1.0) 06/09/16 06:40 AST 9 U/L (13-39) L 06/09/16 06:40 ALT 6 U/L (7-52) L 06/09/16 06:40 Alkaline Phosphatase 58 U/L (34-104) 06/09/16 06:40 Total Protein 6.4 gm/dL (6.0-8.3) 06/09/16 06:40 Albumin 3.3 gm/dL (3.7-5.3) L 06/09/16 06:40 Globulin 3.1 gm/dL 06/09/16 06:40 Albumin/Globulin Ratio 1.1 (1.0-1.8) 06/09/16 06:40 TSH 2.09 uIU/ml (0.34-5.60) 06/10/16 05:40 Stool Occult Blood NEGATIVE (NEGATIVE) 06/11/16 05:20 Blood Type O POSITIVE 06/08/16 06:20 Antibody Screen NEGATIVE 06/08/16 06:20 Crossmatch See Detail 06/08/16 06:20 - Physical Exam Vitals and I&O: Vital Signs Temp 98.8 F 06/11/16 12:00 Pulse 79 06/11/16 14:38 Resp 16 06/11/16 14:38 BP 141/54 06/11/16 12:00 Pulse Ox 100 06/11/16 14:38 Intake & Output 06/10/16 06/11/16 06/11/16 18:59 06:59 18:59 Intake Total 1300 400 100 Output Total 2003 Balance 1300 -1604 100 Intake: Intake, IV Amount 250 200 100 Piperacillin Sodium/ 50 100 Tazobact 2.25 gm In Sodium Chloride 0.9% 50 ml @ 100 mls/hr IV Q8HR [facility] Rx#:[id number] metroNIDAZOLE 500mg/NS 200 100 100 100mL 500 mg In Premix Fluid 1 bag @ 100 mls/hr IV Q8HR [facility] Rx#:[id number] Oral 1050 200 Output: Stool 4 Hemodialysis 2000 Other: # Voids 2 Stool Characteristics Liquid Liquid Active Medications: Current Medications Acetaminophen (Tylenol) 650 mg PO Q4HR PRN PRN Reason: PAIN (MILD) OR TEMP 100.0 OR > Stop: 08/06/16 22:21 Last Admin: 06/08/16 05:00 Dose: 650 mg Acetaminophen/Hydrocodone Bitart ([place] 5mg/325mg) 1 tab PO Q6H PRN PRN Reason: Pain (Severe) Stop: 08/06/16 22:21 Last Admin: 06/11/16 08:40 Dose: 1 tab Al Hydrox/Mg Hydrox/Simethicone (Maalox) 30 ml PO Q6H PRN PRN Reason: Upset Stomach / Indigestion Stop: 08/06/16 22:21 Albuterol/Ipratropium (Duoneb Neb) 3 ml HHN [id number] [facility] Stop: 08/08/16 18:59 Last Admin: 06/11/16 14:37 Dose: 3 ml Amlodipine Besylate (Norvasc) 5 mg PO DAILY [facility] Stop: 08/07/16 08:59 Last Admin: 06/11/16 08:31 Dose: 5 mg Bisacodyl (Dulcolax 10 Mg Supp) 10 mg RC DAILY PRN PRN Reason: BM MANAGEMENT Stop: 08/06/16 22:21 Budesonide (Pulmicort) 0.5 mg HHN BIDRT [facility] Stop: 08/08/16 18:59 Last Admin: 06/11/16 06:40 Dose: 0.5 mg Calcium/Vitamin D (Oscal W/Vitamin D) 1 tab PO HS [facility] Stop: 08/06/16 20:59 Last Admin: 06/10/16 21:15 Dose: 1 tab Clonidine HCl (Catapres) 0.1 mg PO Q4H PRN PRN Reason: SBP>160 Stop: 08/06/16 22:21 Last Admin: 06/11/16 03:58 Dose: 0.1 mg Dextrose (D50w) 50 ml IVP ACHS PRN PRN Reason: BLOOD SUGAR < 70 Stop: 08/06/16 22:21 Docusate Sodium (Colace) 250 mg PO DAILY [facility] Stop: 08/09/16 14:59 Last Admin: 06/11/16 08:31 Dose: 250 mg Hydralazine HCl (Apresoline) 50 mg PO HS [facility] Stop: 08/07/16 20:59 Last Admin: 06/10/16 23:02 Dose: 50 mg Piperacillin Sod/Tazobactam (Sod 2.25 gm/ Sodium Chloride) 50 mls @ 100 mls/hr IV Q8HR [facility] Stop: 06/12/16 06:00 Last Admin: 06/11/16 12:22 Dose: 100 mls/hr Azithromycin 250 mg/ Sodium (Chloride) 250 mls @ 250 mls/hr IV Q24HR [facility] Stop: 06/12/16 20:59 Last Admin: 06/10/16 23:06 Dose: 250 mls/hr Metronidazole 500 mg/ (Miscellaneous) 100 mls @ 100 mls/hr IV Q8HR [facility] Stop: 08/08/16 04:59 Last Admin: 06/11/16 14:06 Dose: 100 mls/hr Piperacillin Sod/Tazobactam (Sod 2.25 gm/ Dextrose) 50 mls @ 100 mls/hr IV Q8HR [facility] Stop: 08/11/16 12:59 Insulin Aspart (Novolog Insulin Sliding Scale) 0 units SUBQ ACHS [facility] PRN Reason: Protocol Stop: 08/07/16 07:29 Last Admin: 06/11/16 12:20 Dose: 4 units Lactulose (Cephulac) 15 gm PO Q8H PRN PRN Reason: BM MANAGEMENT Lactulose (Cephulac) 30 gm PO DAILY [facility] Stop: 08/10/16 14:44 Lisinopril (Zestril) 40 mg PO BID [facility] Stop: 08/07/16 08:59 Last Admin: 06/11/16 08:30 Dose: 40 mg Magnesium Oxide (Mag-Oxide) 400 mg PO DAILY [facility] Stop: 08/08/16 15:14 Last Admin: 06/11/16 08:30 Dose: 400 mg Miscellaneous (Vte Chemical Prophylaxis Screen/ Admission) 1 ea [facility] PRN PRN PRN Reason: PROTOCOL Stop: 08/07/16 16:59 Miscellaneous (Clinical Monitoring) 1 ea [facility] PRN PRN PRN Reason: RENAL DOSING Stop: 08/10/16 12:35 Nitroglycerin (Nitrostat) 0.4 mg SL Q5M PRN PRN Reason: Chest Pain Stop: 08/06/16 22:21 Petrolatum (Zinc Oxide) 1 appl TP TID [facility] Stop: 08/07/16 08:59 Last Admin: 06/11/16 14:06 Dose: 1 appl Promethazine HCl/Codeine (Phenergan W/Cod Susp) 5 ml PO Q6H PRN PRN Reason: Cough Stop: 08/06/16 22:20 Last Admin: 06/08/16 13:20 Dose: 5 ml Sodium Bicarbonate (Sodium Bicarbonate) 650 mg PO BID [facility] PRN Reason: Protocol Stop: 08/07/16 08:59 Last Admin: 06/11/16 08:30 Dose: 650 mg Sucralfate (Carafate) 1 gm PO TIDHS [facility] Stop: 08/07/16 08:59 Last Admin: 06/11/16 14:06 Dose: 1 gm General: Alert, Mild distress HEENT: Atraumatic, Mucous membr. 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
[2016-06-11] MEDS: Lactulose 10 Gm/15 mL 30mL UDC PO SCH (15:19)
--- NOTE | 2016-06-11 16:41 | Cardiology ---
Patient of Dr. Stephenson. M-MODE ECHOCARDIOGRAM: Mitral valve, anterior leaflets of mitral valve shows normal excursion, EF velocity. Posterior leaflet of the mitral valve shows normal excursion. Left ventricular posterior wall shows increased thickness, normal excursion. Interventricular septum shows increased thickness, normal excursion. Hypertrophy of the left ventricle, ejection fraction 50%. Left atrium enlarged 5.1 cm. Aortic root shows normal dimension, normal excursion of aortic leaflets. CONCLUSION: Hypertrophy of the left ventricle, left atrial enlargement, ejection fraction 50%. 2D ECHO: Long axis view shows normal sized left ventricle with hypertrophy of the left ventricle. Left atrium enlarged. Aortic root shows normal dimension, normal excursion of aortic leaflets. Short axis view mitral valve normal, short axis view aortic valve normal. Apical four chamber view showed normal sized left ventricle with hypertrophy of the left ventricle. Left atrium enlarged. Right ventricular cavity normal. Right atrium enlarged. CONCLUSION: Left atrial enlargement. Right atrial enlargement. Hypertrophy of the left ventricle, ejection fraction 50%. Doppler study shows prominent A wave consistent with poor compliance of left ventricle. Mild mitral regurgitation, moderate to severe tricuspid regurgitation, mild mitral regurgitation, mild aortic regurgitation and [id number] pulmonary hypertension with right ventricular systolic pressure 60 mmHg. [facility]# [id number]
[2016-06-11] MEDS: Calcium Carb/Vit D 500 mg/200 U Tab PO SCH (23:47)
--- NOTE | 2016-06-11 23:47 | Progress Notes ---
SUBJECTIVE: The patient was seen in her room. Denies any pain or discomfort at this time, stating that she feels a little bit short of breath and currently on oxygen at 2 liters via nasal cannula. OBJECTIVE: HEENT: Head is atraumatic, normocephalic. Bilateral pupils are equally round and reactive. NECK: Supple. No JVD. CARDIOVASCULAR: S1 and S2 heard, no murmur. PULMONARY: Mild expiratory wheezing noted. GASTROINTESTINAL: Soft and nontender. No guarding. EXTREMITIES: Right above knee amputation. The patient is currently bedbound. ASSESSMENT: 1. Pneumonia. 2. End-stage renal disease, hemodialysis dependent. 3. Hypertension. 4. Anemia. 5. Thrombocytopenia purpura. PLAN: We will continue patient's IV antibiotics per ID doctor. We will continue patient's hemodialysis schedule per renal doctor. We will keep patient in Med/Surg floor. JOB# [id number]
[2016-06-11] MEDS: Azithromycin 250 MG in Sodium Chloride 0.9% 250 ML IV SCH (23:49)
[2016-06-12] MEDS: INSULIN ASPART SLIDING SCALE 100 UNITS/ML UNIT SUBQ SCH ×5 (00:07→20:44)
--- NOTE | 2016-06-12 03:25 | Progress Notes ---
PROBLEM LIST: 1. Bilateral pneumonia with dense ____. Question septic. 2. Obstructive sleep apnea syndrome. 3. Right leg above knee amputation many years ago. SYMPTOMS: Nil. The patient says feeling much better, very minimal to no coughing. No shortness of breath. No mucous, etc. PHYSICAL EXAMINATION: VITAL SIGNS: Temperature is 98.8, blood pressure 140/54, saturation 97. LABORATORY DATA: So far, repeat blood cultures shows no growth. White count is 7.1, hemoglobin is 9.7. ASSESSMENT: The patient is clinically improving. PLANS AND SUGGESTIONS: We will review the x-ray, if it is stable, may consider discharge and followup as an outpatient. [facility]# [id number]
[2016-06-12] MEDS: Zinc Oxide Ointment 60 gm TP SCH ×4 (03:38→20:46)
[2016-06-12] MEDS: metroNIDAZOLE 500mg/NS 100mL 500 MG in Premix Fluid 1 BAG IV SCH ×3 (04:31→22:17)
[2016-06-12 06:48] LABS: HEMATOCRIT 31.1 % (35.0-45.0); HEMOGLOBIN 9.8 gm/dL (11.7-16.1); MEAN CELL VOLUME 78.5 fl (81-100); MEAN CORPUSCULAR HEMOGLOBIN 24.7 pg (27.0-31.0); MEAN CORPUSCULAR HGB CONC 31.4 pg (28.0-36.0); PLATELET COUNT 58 Th/cmm (150-400); RED BLOOD COUNT 3.96 Mil/cmm (3.80-5.20); RED CELL DISTRIBUTION WIDTH 20.1 % (11.5-20.0); WHITE BLOOD COUNT 7.5 Th/cmm (4.8-10.8)
[2016-06-12 07:15] LABS: ANION GAP 11.5 (7.0-16.0); BUN - UREA NITROGEN 20 mg/dL (7-25); BUN/CREATININE RATIO 10.5; CALCIUM SERUM 8.3 mg/dL (8.6-10.3); CARBON DIOXIDE 28.8 mEq/L (21.0-31.0); CHLORIDE 100 mEq/L (98-107); CREATININE - SERUM 1.9 mg/dL (0.6-1.2); GLUCOSE 84 mg/dL (70-105); POTASSIUM SERUM 3.3 mEq/L (3.5-5.1); SODIUM SERUM 137 mEq/L (136-145)
[2016-06-12 07:34] LABS: ANISOCYTOSIS 1+; BAND NEUTROPHILE 3 % (0-10); EOSINOPHIL 5 % (0-5); MICROCYTOSIS 1+; NEUTROPHILS 70 % (40-80); PLATELET ESTIMATE DECREASED PLATELETS (NORMAL); PLATELET MORPHOLOGY NORMAL (NORMAL); TOTAL CELLS COUNTED 100
[2016-06-12] MEDS: Albuterol/Ipratropium Neb 3 ML AERS HHN SCH ×4 (08:06→19:15)
[2016-06-12] MEDS: Budesonide 0.5 Mg/2 mL Ud HHN SCH ×2 (08:07→19:15)
[2016-06-12] MEDS: Hydrocodone/APAP 5mg/325mg Tab PO PRN ×2 (08:10→16:38)
[2016-06-12] MEDS: Lactulose 10 Gm/15 mL 30mL UDC PO SCH (08:11)
--- NOTE | 2016-06-12 11:15 | Diagnostic Imaging Report ---
Portable chest x-ray HISTORY: Shortness of breath Compared with prior exam of 06/11/2016, the heart remains enlarged. There is pulmonary vascular redistribution consistent with cardiac decompensation. Hazy interstitial markings. Findings suggest a persistent yet slightly decreased small right pleural effusion. IMPRESSION: 1. Changes as described above suggesting congestive heart failure. Persistent yet somewhat decreased small right pleural effusion.
[2016-06-12] MEDS ORDERED: Potassium Chloride 20 mEq ER Tab PO ONE ×2 (12:00→13:50)
--- NOTE | 2016-06-12 13:49 | General Progress Note ---
Subjective - Review of Systems Service Date: 06/12/16 Subjective: less cough/congestion, more comfortable Objective - Results Result Diagrams: 06/12/16 06:16 06/12/16 06:16 Recent Labs: Laboratory Last Values WBC 7.5 Th/cmm (4.8-10.8) 06/12/16 06:16 RBC 3.96 Mil/cmm (3.80-5.20) 06/12/16 06:16 Hgb 9.8 gm/dL (11.7-16.1) L 06/12/16 06:16 Hct 31.1 % (35.0-45.0) L 06/12/16 06:16 MCV 78.5 fl (81-100) L 06/12/16 06:16 MCH 24.7 pg (27.0-31.0) L 06/12/16 06:16 MCHC Differential 31.4 pg (28.0-36.0) 06/12/16 06:16 RDW 20.1 % (11.5-20.0) H 06/12/16 06:16 Plt Count 58 Th/cmm (150-400) L 06/12/16 06:16 MPV 8.0 fl 06/12/16 06:16 Band Neutrophils % 3 % (0-10) 06/12/16 06:16 Neutrophils (Manual) 70 % (40-80) 06/12/16 06:16 Lymphocytes 10 % (20-50) L 06/12/16 06:16 Monocytes 12 % (2-10) H 06/12/16 06:16 Eosinophils 5 % (0-5) 06/12/16 06:16 Basophils 1 % (0-3) 06/08/16 06:20 Nucleated RBCs 1.0 % (0-0) H 06/12/16 06:16 Platelet Estimate DECREASED PLATELETS (NORMAL) 06/12/16 06:16 Platelet Morphology NORMAL (NORMAL) 06/12/16 06:16 Anisocytosis 1+ 06/12/16 06:16 Microcytosis 1+ 06/12/16 06:16 RBC Morph Micro Appear ABNORMAL (NORMAL) 06/12/16 06:16 Specimen Source Arterial 06/10/16 09:00 Sample Site Right Radial 06/10/16 09:00 pH 7.38 (7.35-7.45) 06/10/16 09:00 pCO2 43.0 mmHg (35.0-45.0) 06/10/16 09:00 pO2 55.0 mmHg (80.0-100.0) L 06/10/16 09:00 HCO3 25.4 mmol/L (20.0-26.0) 06/10/16 09:00 Base Excess 0.1 mmol/L (-3.0-3.0) 06/10/16 09:00 O2 Saturation 88.0 % (92.0-100.0) L 06/10/16 09:00 Enrico Test YES 06/10/16 09:00 Vent Rate NA 06/10/16 09:00 Inspired O2 21 06/10/16 09:00 Tidal Volume NA 06/10/16 09:00 PEEP NA 06/10/16 09:00 Pressure (ins/psv/peep) NA 06/10/16 09:00 Critical Value SH 06/10/16 09:00 Sodium 137 mEq/L (136-145) 06/12/16 06:16 Potassium 3.3 mEq/L (3.5-5.1) L 06/12/16 06:16 Chloride 100 mEq/L (98-107) 06/12/16 06:16 Carbon Dioxide 28.8 mEq/L (21.0-31.0) 06/12/16 06:16 Anion Gap 11.5 (7.0-16.0) 06/12/16 06:16 BUN 20 mg/dL (7-25) 06/12/16 06:16 Creatinine 1.9 mg/dL (0.6-1.2) H 06/12/16 06:16 Est GFR ( Amer) TNP 06/12/16 06:16 Est GFR (Non-Af Amer) TNP 06/12/16 06:16 BUN/Creatinine Ratio 10.5 06/12/16 06:16 Glucose 84 mg/dL (70-105) 06/12/16 06:16 POC Glucose 179 MG/DL (70 - 105) H 06/12/16 11:19 Whole Bld Lactic Acid 1.34 mmol/L (0.60-2.00) 06/08/16 14:46 Calcium 8.3 mg/dL (8.6-10.3) L 06/12/16 06:16 Phosphorus 2.6 mg/dL (2.5-5.0) 06/10/16 05:40 Magnesium 1.8 mg/dL (1.9-2.7) L 06/09/16 06:40 Total Bilirubin 0.7 mg/dL (0.3-1.0) 06/09/16 06:40 AST 9 U/L (13-39) L 06/09/16 06:40 ALT 6 U/L (7-52) L 06/09/16 06:40 Alkaline Phosphatase 58 U/L (34-104) 06/09/16 06:40 Total Protein 6.4 gm/dL (6.0-8.3) 06/09/16 06:40 Albumin 3.3 gm/dL (3.7-5.3) L 06/09/16 06:40 Globulin 3.1 gm/dL 06/09/16 06:40 Albumin/Globulin Ratio 1.1 (1.0-1.8) 06/09/16 06:40 TSH 2.09 uIU/ml (0.34-5.60) 06/10/16 05:40 Stool Occult Blood NEGATIVE (NEGATIVE) 06/11/16 05:20 Blood Type O POSITIVE 06/08/16 06:20 Antibody Screen NEGATIVE 06/08/16 06:20 Crossmatch See Detail 06/08/16 06:20 - Physical Exam Vitals and I&O: Vital Signs Temp 98.9 F 06/12/16 08:00 Pulse 79 06/12/16 11:10 Resp 18 06/12/16 11:10 BP 175/74 06/12/16 08:09 Pulse Ox 98 06/12/16 11:10 Intake & Output 06/11/16 06/12/16 06/12/16 18:59 06:59 18:59 Intake Total 650 250 Balance 650 250 Intake: Intake, IV Amount 250 250 Piperacillin Sodium/ 50 50 Tazobact 2.25 gm In Sodium Chloride 0.9% 50 ml @ 100 mls/hr IV Q8HR [facility] Rx#:[id number] metroNIDAZOLE 500mg/NS 200 200 100mL 500 mg In Premix Fluid 1 bag @ 100 mls/hr IV Q8HR [facility] Rx#:[id number] Oral 400 Other: # Voids 2 Stool Characteristics Liquid Liquid Active Medications: Current Medications Acetaminophen (Tylenol) 650 mg PO Q4HR PRN PRN Reason: PAIN (MILD) OR TEMP 100.0 OR > Stop: 08/06/16 22:21 Last Admin: 06/08/16 05:00 Dose: 650 mg Acetaminophen/Hydrocodone Bitart ([place] 5mg/325mg) 1 tab PO Q6H PRN PRN Reason: Pain (Severe) Stop: 08/06/16 22:21 Last Admin: 06/12/16 08:10 Dose: 1 tab Al Hydrox/Mg Hydrox/Simethicone (Maalox) 30 ml PO Q6H PRN PRN Reason: Upset Stomach / Indigestion Stop: 08/06/16 22:21 Albuterol/Ipratropium (Duoneb Neb) 3 ml HHN [id number] [place] Stop: 08/08/16 18:59 Last Admin: 06/12/16 11:06 Dose: 3 ml Amlodipine Besylate (Norvasc) 5 mg PO DAILY [facility] Stop: 08/07/16 08:59 Last Admin: 06/12/16 08:09 Dose: 5 mg Bisacodyl (Dulcolax 10 Mg Supp) 10 mg RC DAILY PRN PRN Reason: BM MANAGEMENT Stop: 08/06/16 22:21 Budesonide (Pulmicort) 0.5 mg HHN BIDRT [facility] Stop: 08/08/16 18:59 Last Admin: 06/12/16 08:07 Dose: 0.5 mg Calcium/Vitamin D (Oscal W/Vitamin D) 1 tab PO HS [facility] Stop: 08/06/16 20:59 Last Admin: 06/11/16 23:47 Dose: 1 tab Clonidine HCl (Catapres) 0.1 mg PO Q4H PRN PRN Reason: SBP>160 Stop: 08/06/16 22:21 Last Admin: 06/11/16 03:58 Dose: 0.1 mg Dextrose (D50w) 50 ml IVP ACHS PRN PRN Reason: BLOOD SUGAR < 70 Stop: 08/06/16 22:21 Docusate Sodium (Colace) 250 mg PO DAILY [facility] Stop: 08/09/16 14:59 Last Admin: 06/12/16 08:08 Dose: 250 mg Hydralazine HCl (Apresoline) 50 mg PO HS [facility] Stop: 08/07/16 20:59 Last Admin: 06/11/16 23:42 Dose: 50 mg Azithromycin 250 mg/ Sodium (Chloride) 250 mls @ 250 mls/hr IV Q24HR [facility] Stop: 06/12/16 20:59 Last Admin: 06/11/16 23:49 Dose: 250 mls/hr Metronidazole 500 mg/ (Miscellaneous) 100 mls @ 100 mls/hr IV Q8HR [facility] Stop: 08/08/16 04:59 Last Admin: 06/12/16 13:15 Dose: 100 mls/hr Piperacillin Sod/Tazobactam (Sod 2.25 gm/ Dextrose) 50 mls @ 100 mls/hr IV Q8HR [facility] Stop: 08/11/16 12:59 Last Admin: 06/12/16 12:10 Dose: 100 mls/hr Insulin Aspart (Novolog Insulin Sliding Scale) 0 units SUBQ ACHS [facility] PRN Reason: Protocol Stop: 08/07/16 07:29 Last Admin: 06/12/16 12:11 Dose: 4 units Lactulose (Cephulac) 15 gm PO Q8H PRN PRN Reason: BM MANAGEMENT Lactulose (Cephulac) 30 gm PO DAILY [facility] Stop: 08/10/16 14:44 Last Admin: 06/12/16 08:11 Dose: 30 gm Lisinopril (Zestril) 40 mg PO BID [facility] Stop: 08/07/16 08:59 Last Admin: 06/12/16 08:08 Dose: 40 mg Magnesium Oxide (Mag-Oxide) 400 mg PO DAILY [facility] Stop: 08/08/16 15:14 Last Admin: 06/12/16 08:08 Dose: 400 mg Miscellaneous (Vte Chemical Prophylaxis Screen/ Admission) 1 ea MC PRN PRN PRN Reason: PROTOCOL Stop: 08/07/16 16:59 Miscellaneous (Clinical Monitoring) 1 ea MC PRN PRN PRN Reason: RENAL DOSING Stop: 08/10/16 12:35 Nitroglycerin (Nitrostat) 0.4 mg SL Q5M PRN PRN Reason: Chest Pain Stop: 08/06/16 22:21 Petrolatum (Zinc Oxide) 1 appl TP TID [facility] Stop: 08/07/16 08:59 Last Admin: 02/21/17 13:16 Dose: 1 appl Promethazine HCl/Codeine (Phenergan W/Cod Susp) 5 ml PO Q6H PRN PRN Reason: Cough Stop: 08/06/16 22:20 Last Admin: 06/08/16 13:20 Dose: 5 ml Sodium Bicarbonate (Sodium Bicarbonate) 650 mg PO BID [facility] PRN Reason: Protocol Stop: 08/07/16 08:59 Last Admin: 06/12/16 08:08 Dose: 650 mg Sucralfate (Carafate) 1 gm PO TIDHS [facility] Stop: 08/07/16 08:59 Last Admin: 06/12/16 13:16 Dose: 1 gm General: Alert, No acute distress HEENT: Atraumatic, Mucous membr. 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
--- NOTE | 2016-06-12 14:01 | Infectious Disease Prog Note ---
Infectious Disease Subjective - Review of Systems Service Date: 06/12/16 Subjective: No new change, there is no fever. Infectious Disease Objective - Results Result Diagrams: 06/12/16 06:16 06/12/16 06:16 Recent Labs: Laboratory Last Values WBC 7.5 Th/cmm (4.8-10.8) 06/12/16 06:16 RBC 3.96 Mil/cmm (3.80-5.20) 06/12/16 06:16 Hgb 9.8 gm/dL (11.7-16.1) L 06/12/16 06:16 Hct 31.1 % (35.0-45.0) L 06/12/16 06:16 MCV 78.5 fl (81-100) L 06/12/16 06:16 MCH 24.7 pg (27.0-31.0) L 06/12/16 06:16 MCHC Differential 31.4 pg (28.0-36.0) 06/12/16 06:16 RDW 20.1 % (11.5-20.0) H 06/12/16 06:16 Plt Count 58 Th/cmm (150-400) L 06/12/16 06:16 MPV 8.0 fl 06/12/16 06:16 Band Neutrophils % 3 % (0-10) 06/12/16 06:16 Neutrophils (Manual) 70 % (40-80) 06/12/16 06:16 Lymphocytes 10 % (20-50) L 06/12/16 06:16 Monocytes 12 % (2-10) H 06/12/16 06:16 Eosinophils 5 % (0-5) 06/12/16 06:16 Basophils 1 % (0-3) 06/08/16 06:20 Nucleated RBCs 1.0 % (0-0) H 06/12/16 06:16 Platelet Estimate DECREASED PLATELETS (NORMAL) 06/12/16 06:16 Platelet Morphology NORMAL (NORMAL) 06/12/16 06:16 Anisocytosis 1+ 06/12/16 06:16 Microcytosis 1+ 06/12/16 06:16 RBC Morph Micro Appear ABNORMAL (NORMAL) 06/12/16 06:16 Specimen Source Arterial 06/10/16 09:00 Sample Site Right Radial 06/10/16 09:00 pH 7.38 (7.35-7.45) 06/10/16 09:00 pCO2 43.0 mmHg (35.0-45.0) 06/10/16 09:00 pO2 55.0 mmHg (80.0-100.0) L 06/10/16 09:00 HCO3 25.4 mmol/L (20.0-26.0) 06/10/16 09:00 Base Excess 0.1 mmol/L (-3.0-3.0) 06/10/16 09:00 O2 Saturation 88.0 % (92.0-100.0) L 06/10/16 09:00 Enrico Test YES 06/10/16 09:00 Vent Rate NA 06/10/16 09:00 Inspired O2 21 06/10/16 09:00 Tidal Volume NA 06/10/16 09:00 PEEP NA 06/10/16 09:00 Pressure (ins/psv/peep) NA 06/10/16 09:00 Critical Value SH 06/10/16 09:00 Sodium 137 mEq/L (136-145) 06/12/16 06:16 Potassium 3.3 mEq/L (3.5-5.1) L 06/12/16 06:16 Chloride 100 mEq/L (98-107) 06/12/16 06:16 Carbon Dioxide 28.8 mEq/L (21.0-31.0) 06/12/16 06:16 Anion Gap 11.5 (7.0-16.0) 06/12/16 06:16 BUN 20 mg/dL (7-25) 06/12/16 06:16 Creatinine 1.9 mg/dL (0.6-1.2) H 06/12/16 06:16 Est GFR ( Amer) TNP 06/12/16 06:16 Est GFR (Non-Af Amer) TNP 06/12/16 06:16 BUN/Creatinine Ratio 10.5 06/12/16 06:16 Glucose 84 mg/dL (70-105) 06/12/16 06:16 POC Glucose 179 MG/DL (70 - 105) H 06/12/16 11:19 Whole Bld Lactic Acid 1.34 mmol/L (0.60-2.00) 06/08/16 14:46 Calcium 8.3 mg/dL (8.6-10.3) L 06/12/16 06:16 Phosphorus 2.6 mg/dL (2.5-5.0) 06/10/16 05:40 Magnesium 1.8 mg/dL (1.9-2.7) L 06/09/16 06:40 Total Bilirubin 0.7 mg/dL (0.3-1.0) 06/09/16 06:40 AST 9 U/L (13-39) L 06/09/16 06:40 ALT 6 U/L (7-52) L 06/09/16 06:40 Alkaline Phosphatase 58 U/L (34-104) 06/09/16 06:40 Total Protein 6.4 gm/dL (6.0-8.3) 06/09/16 06:40 Albumin 3.3 gm/dL (3.7-5.3) L 06/09/16 06:40 Globulin 3.1 gm/dL 06/09/16 06:40 Albumin/Globulin Ratio 1.1 (1.0-1.8) 06/09/16 06:40 TSH 2.09 uIU/ml (0.34-5.60) 06/10/16 05:40 Stool Occult Blood NEGATIVE (NEGATIVE) 06/11/16 05:20 Blood Type O POSITIVE 06/08/16 06:20 Antibody Screen NEGATIVE 06/08/16 06:20 Crossmatch See Detail 06/08/16 06:20 - Physical Exam Vitals and I&O: Vital Signs Temp 98.9 F 06/12/16 08:00 Pulse 79 06/12/16 11:10 Resp 18 06/12/16 11:10 BP 175/74 06/12/16 08:09 Pulse Ox 98 06/12/16 11:10 Intake & Output 06/11/16 06/12/16 06/12/16 18:59 06:59 18:59 Intake Total 650 250 Balance 650 250 Intake: Intake, IV Amount 250 250 Piperacillin Sodium/ 50 50 Tazobact 2.25 gm In Sodium Chloride 0.9% 50 ml @ 100 mls/hr IV Q8HR [facility] Rx#:[id number] metroNIDAZOLE 500mg/NS 200 200 100mL 500 mg In Premix Fluid 1 bag @ 100 mls/hr IV Q8HR [facility] Rx#:[id number] Oral 400 Other: # Voids 2 Stool Characteristics Liquid Liquid Active Medications: Current Medications Acetaminophen (Tylenol) 650 mg PO Q4HR PRN PRN Reason: PAIN (MILD) OR TEMP 100.0 OR > Stop: 08/06/16 22:21 Last Admin: 06/08/16 05:00 Dose: 650 mg Acetaminophen/Hydrocodone Bitart ([place] 5mg/325mg) 1 tab PO Q6H PRN PRN Reason: Pain (Severe) Stop: 08/06/16 22:21 Last Admin: 06/12/16 08:10 Dose: 1 tab Al Hydrox/Mg Hydrox/Simethicone (Maalox) 30 ml PO Q6H PRN PRN Reason: Upset Stomach / Indigestion Stop: 08/06/16 22:21 Albuterol/Ipratropium (Duoneb Neb) 3 ml HHN [id number] [facility] Stop: 08/08/16 18:59 Last Admin: 06/12/16 11:06 Dose: 3 ml Amlodipine Besylate (Norvasc) 5 mg PO DAILY [facility] Stop: 08/07/16 08:59 Last Admin: 06/12/16 08:09 Dose: 5 mg Bisacodyl (Dulcolax 10 Mg Supp) 10 mg RC DAILY PRN PRN Reason: BM MANAGEMENT Stop: 08/06/16 22:21 Budesonide (Pulmicort) 0.5 mg HHN BIDRT [facility] [place] Stop: 08/08/16 18:59 Last Admin: 06/12/16 08:07 Dose: 0.5 mg Calcium/Vitamin D (Oscal W/Vitamin D) 1 tab PO HS [facility] [place] Stop: 08/06/16 20:59 Last Admin: 06/11/16 23:47 Dose: 1 tab Clonidine HCl (Catapres) 0.1 mg PO Q4H PRN PRN Reason: SBP>160 Stop: 08/06/16 22:21 Last Admin: 06/11/16 03:58 Dose: 0.1 mg Dextrose (D50w) 50 ml IVP ACHS PRN PRN Reason: BLOOD SUGAR < 70 Stop: 08/06/16 22:21 Docusate Sodium (Colace) 250 mg PO DAILY [facility] Stop: 08/09/16 14:59 Last Admin: 06/12/16 08:08 Dose: 250 mg Hydralazine HCl (Apresoline) 50 mg PO HS [facility] Stop: 08/07/16 20:59 Last Admin: 06/11/16 23:42 Dose: 50 mg Azithromycin 250 mg/ Sodium (Chloride) 250 mls @ 250 mls/hr IV Q24HR [facility] Stop: 06/12/16 20:59 Last Admin: 06/11/16 23:49 Dose: 250 mls/hr Metronidazole 500 mg/ (Miscellaneous) 100 mls @ 100 mls/hr IV Q8HR [facility] Stop: 08/08/16 04:59 Last Admin: 06/12/16 13:15 Dose: 100 mls/hr Piperacillin Sod/Tazobactam (Sod 2.25 gm/ Dextrose) 50 mls @ 100 mls/hr IV Q8HR [facility] Stop: 08/11/16 12:59 Last Admin: 06/12/16 12:10 Dose: 100 mls/hr Insulin Aspart (Novolog Insulin Sliding Scale) 0 units SUBQ ACHS [facility] PRN Reason: Protocol Stop: 08/07/16 07:29 Last Admin: 06/12/16 12:11 Dose: 4 units Lactulose (Cephulac) 15 gm PO Q8H PRN PRN Reason: BM MANAGEMENT Lactulose (Cephulac) 30 gm PO DAILY [facility] Stop: 08/10/16 14:44 Last Admin: 06/12/16 08:11 Dose: 30 gm Lisinopril (Zestril) 40 mg PO BID [facility] Stop: 08/07/16 08:59 Last Admin: 06/12/16 08:08 Dose: 40 mg Magnesium Oxide (Mag-Oxide) 400 mg PO DAILY [facility] Stop: 08/08/16 15:14 Last Admin: 06/12/16 08:08 Dose: 400 mg Miscellaneous (Vte Chemical Prophylaxis Screen/ Admission) 1 ea [facility] PRN PRN PRN Reason: PROTOCOL Stop: 08/07/16 16:59 Miscellaneous (Clinical Monitoring) 1 ea MC PRN PRN PRN Reason: RENAL DOSING Stop: 08/10/16 12:35 Nitroglycerin (Nitrostat) 0.4 mg SL Q5M PRN PRN Reason: Chest Pain Stop: 08/06/16 22:21 Petrolatum (Zinc Oxide) 1 appl TP TID [facility] Stop: 08/07/16 08:59 Last Admin: 06/12/16 13:16 Dose: 1 appl Promethazine HCl/Codeine (Phenergan W/Cod Susp) 5 ml PO Q6H PRN PRN Reason: Cough Stop: 08/06/16 22:20 Last Admin: 06/08/16 13:20 Dose: 5 ml Sodium Bicarbonate (Sodium Bicarbonate) 650 mg PO BID [facility] PRN Reason: Protocol Stop: 08/07/16 08:59 Last Admin: 06/12/16 08:08 Dose: 650 mg Sucralfate (Carafate) 1 gm PO TIDHS [facility] Stop: 08/07/16 08:59 Last Admin: 06/12/16 13:16 Dose: 1 gm General: no acute distress, well developed, well nourished HEENT: atraumatic, normocephalic, PERRLA Neck: supple, no thyromegaly Cardiovascular: S1S2, regular Lungs: clear to percussion, crackles Abdomen: soft, no tender, no distended Extremities: no cyanosis, no clubbing, no edema Neurological: awake, alert, oriented Skin: intact - Procedures Procedures: Procedures Procedure Code Date PERFORMANCE OF URINARY FILTRATION, MULTIPLE [id number] 05/21/16 PERFORMANCE OF URINARY FILTRATION, SINGLE [id number] 12/29/15 Infectious Disease Assmt/Plan - Assessment Assessment: Impression: 1. Sepsis improving. 2. Pneumonia, multiofocal. suspected nodular infiltrates, ? embolic. 3. DM2 4. HTN. 5. Hyperlipidemia. 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 7. Anemia of chronic disease. - Plan Plan: Continue zosyn and Zithromax. LTAC eval.
--- NOTE | 2016-06-12 18:57 | Consultation ---
Patient of Dr. Stephenson. HISTORY AND PHYSICAL: This 85-year-old female patient who was brought to the Emergency Room complaining of shortness of breath. The patient had a chest x-ray, which showed bilateral pneumonia. During the hospital stay, the patient had echocardiogram, which showed severe pulmonary hypertension, moderate mitral regurgitation, moderate tricuspid regurgitation. At this time, Cardiac consult was requested to rule out endocarditis. PAST MEDICAL HISTORY: Pneumonia, chronic asthma, diabetes mellitus type 2, insulin-dependent diabetes mellitus, diabetic CKD stage 5, end-stage renal disease on dialysis, moderate mitral regurgitation, moderate tricuspid regurgitation, moderate pulmonary hypertension, obstructive sleep apnea, thrombocytopenia, diabetic peripheral vascular disease with right above-knee amputation. FAMILY HISTORY: Unremarkable. SOCIAL HISTORY: No history of smoking, alcohol abuse. ALLERGIES: None. PHYSICAL EXAMINATION: VITAL SIGNS: Blood pressure 150/80, pulse 70, respirations 20. HEAD: Normocephalic. No lumps or bumps. EYES: Pupils equal, reactive to light. Fundi show AV nicking, sclerae white, conjunctivae pink. NECK: Carotid 2+. Normal upstroke. JVD 10 cm above the sternal angle. Thyroid not palpable. Lymph nodes not palpable. CHEST: Shows increased AP diameter. No kyphosis, scoliosis. LUNGS: Bilateral bronchovesicular breath sounds. HEART: PMI fifth intercostal space with lateral to midclavicular line. S1, S2. No S3, S4. Systolic murmur, grade 2/6, lower left sternal border ____ left axilla. ABDOMEN: Soft. Liver, spleen not palpable. No organomegaly. Bowel sounds are active. NEUROLOGIC: Unremarkable. EXTREMITIES: Peripheral pulses 2+. No pedal edema. CLINICAL IMPRESSION: Pneumonia, chronic asthma, diabetes mellitus type 2, diabetic chronic kidney disease stage 5, end-stage renal disease on dialysis, moderate mitral regurgitation, moderate tricuspid regurgitation, moderate pulmonary hypertension, obstructive sleep apnea, diabetic peripheral vascular disease with right above-knee amputation and thrombocytopenia. PLAN: Admit the patient. We will continue present care. Echocardiogram showed no evidence of endocarditis. JOB# [id number]
[2016-06-12] MEDS: Calcium Carb/Vit D 500 mg/200 U Tab PO SCH (20:44)
--- NOTE | 2016-06-13 00:21 | Progress Notes ---
PROBLEM LIST: 1. Pneumonia. 2. Right-sided effusion. 3. Chronic renal failure, on hemodialysis. SYMPTOMS: Nil, very minimal coughing, no respiratory distress, etc. PHYSICAL EXAMINATION: VITAL SIGNS: Temperature is 98.9, blood pressure 170/74. Respiration is 18 and the saturation is 98. ENT: Shows no new changes. CHEST: Shows diminished air entry with occasional rhonchi. HEART: Regular. ABDOMEN: Soft, nontender. LABORATORY DATA: White count is 7.5. Potassium is 3.0, creatinine is 1.9. ASSESSMENT: The patient possibly has pneumonia with some effusion on the right side. PLANS AND SUGGESTIONS: Aggressive dialysis, discussed with Dr. Porras yesterday, agree with Ellen. Care and plan discussed with patient's granddaughter at the bedside and go from there. JOB# [id number]
[2016-06-13] MEDS: metroNIDAZOLE 500mg/NS 100mL 500 MG in Premix Fluid 1 BAG IV SCH ×3 (05:02→22:20)
[2016-06-13] MEDS: Hydrocodone/APAP 5mg/325mg Tab PO PRN ×4 (05:07→23:00)
[2016-06-13] MEDS: INSULIN ASPART SLIDING SCALE 100 UNITS/ML UNIT SUBQ SCH ×4 (06:56→22:20)
[2016-06-13 06:58] LABS: HEMOGLOBIN 9.5 gm/dL (11.7-16.1); MEAN CELL VOLUME 78.9 fl (81-100); MEAN CORPUSCULAR HEMOGLOBIN 25.8 pg (27.0-31.0); MEAN CORPUSCULAR HGB CONC 32.7 pg (28.0-36.0); MEAN PLATELET VOLUME 8.2 fl; PLATELET COUNT 57 Th/cmm (150-400); RED BLOOD COUNT 3.68 Mil/cmm (3.80-5.20); RED CELL DISTRIBUTION WIDTH 20.4 % (11.5-20.0); WHITE BLOOD COUNT 8.6 Th/cmm (4.8-10.8)
[2016-06-13] MEDS: Albuterol/Ipratropium Neb 3 ML AERS HHN SCH ×3 (07:06→15:50)
[2016-06-13] MEDS: Budesonide 0.5 Mg/2 mL Ud HHN SCH (07:09)
[2016-06-13 07:38] LABS: ANION GAP 8.9 (7.0-16.0); BUN - UREA NITROGEN 36 mg/dL (7-25); BUN/CREATININE RATIO 12.9; CALCIUM SERUM 8.8 mg/dL (8.6-10.3); CARBON DIOXIDE 27.1 mEq/L (21.0-31.0); CHLORIDE 99 mEq/L (98-107); CREATININE - SERUM 2.8 mg/dL (0.6-1.2); GLUCOSE 103 mg/dL (70-105); MAGNESIUM 1.9 mg/dL (1.9-2.7); SODIUM SERUM 131 mEq/L (136-145)
[2016-06-13 07:44] LABS: BAND NEUTROPHILE 4 % (0-10); EOSINOPHIL 4 % (0-5); NEUTROPHILS 65 % (40-80); TOTAL CELLS COUNTED 100
[2016-06-13 07:45] LABS: ANISOCYTOSIS 1+; MICROCYTOSIS 1+; PLATELET ESTIMATE DECREASED PLATELETS (NORMAL); PLATELET MORPHOLOGY GIANT PLATELETS SEEN (NORMAL)
[2016-06-13] MEDS: Lactulose 10 Gm/15 mL 30mL UDC PO SCH (08:22)
[2016-06-13] MEDS: Zinc Oxide Ointment 60 gm TP SCH ×3 (08:34→20:52)
[2016-06-13] MEDS ORDERED: HYDROmorphone 1 mg/mL 1mL Syr IVP ONE ×2 (11:17→18:08)
[2016-06-13] MEDS ORDERED: HYDROmorphone 1 mg/mL 1mL Syr ONE (11:21)
--- NOTE | 2016-06-13 12:28 | Infectious Disease Prog Note ---
Infectious Disease Subjective - Review of Systems Service Date: 06/13/16 Subjective: No new change, there is no fever. Right shoulder pain, There is no swelling. Infectious Disease Objective - Results Result Diagrams: 06/13/16 06:22 06/13/16 06:22 Recent Labs: Laboratory Last Values WBC 8.6 Th/cmm (4.8-10.8) 06/13/16 06:22 RBC 3.68 Mil/cmm (3.80-5.20) L 06/13/16 06:22 Hgb 9.5 gm/dL (11.7-16.1) L 06/13/16 06:22 Hct 29.0 % (35.0-45.0) L 06/13/16 06:22 MCV 78.9 fl (81-100) L 06/13/16 06:22 MCH 25.8 pg (27.0-31.0) L 06/13/16 06:22 MCHC Differential 32.7 pg (28.0-36.0) 06/13/16 06:22 RDW 20.4 % (11.5-20.0) H 06/13/16 06:22 Plt Count 57 Th/cmm (150-400) L 06/13/16 06:22 MPV 8.2 fl 06/13/16 06:22 Band Neutrophils % 4 % (0-10) 06/13/16 06:22 Neutrophils (Manual) 65 % (40-80) 06/13/16 06:22 Lymphocytes 17 % (20-50) L 06/13/16 06:22 Monocytes 10 % (2-10) 06/13/16 06:22 Eosinophils 4 % (0-5) 06/13/16 06:22 Basophils 1 % (0-3) 06/08/16 06:20 Nucleated RBCs 1.0 % (0-0) H 06/12/16 06:16 Platelet Estimate DECREASED PLATELETS (NORMAL) 06/13/16 06:22 Platelet Morphology GIANT PLATELETS SEEN (NORMAL) 06/13/16 06:22 Anisocytosis 1+ 06/13/16 06:22 Microcytosis 1+ 06/13/16 06:22 RBC Morph Micro Appear ABNORMAL (NORMAL) 06/13/16 06:22 Specimen Source Arterial 06/10/16 09:00 Sample Site Right Radial 06/10/16 09:00 pH 7.38 (7.35-7.45) 06/10/16 09:00 pCO2 43.0 mmHg (35.0-45.0) 06/10/16 09:00 pO2 55.0 mmHg (80.0-100.0) L 06/10/16 09:00 HCO3 25.4 mmol/L (20.0-26.0) 06/10/16 09:00 Base Excess 0.1 mmol/L (-3.0-3.0) 06/10/16 09:00 O2 Saturation 88.0 % (92.0-100.0) L 06/10/16 09:00 Enrico Test YES 06/10/16 09:00 Vent Rate NA 06/10/16 09:00 Inspired O2 21 06/10/16 09:00 Tidal Volume NA 06/10/16 09:00 PEEP NA 06/10/16 09:00 Pressure (ins/psv/peep) NA 06/10/16 09:00 Critical Value SH 06/10/16 09:00 Sodium 131 mEq/L (136-145) L 06/13/16 06:22 Potassium 4.0 mEq/L (3.5-5.1) 06/13/16 06:22 Chloride 99 mEq/L (98-107) 06/13/16 06:22 Carbon Dioxide 27.1 mEq/L (21.0-31.0) 06/13/16 06:22 Anion Gap 8.9 (7.0-16.0) 06/13/16 06:22 BUN 36 mg/dL (7-25) H 06/13/16 06:22 Creatinine 2.8 mg/dL (0.6-1.2) H 06/13/16 06:22 Est GFR ( Amer) TNP 06/13/16 06:22 Est GFR (Non-Af Amer) TNP 06/13/16 06:22 BUN/Creatinine Ratio 12.9 06/13/16 06:22 Glucose 103 mg/dL (70-105) 06/13/16 06:22 POC Glucose 148 MG/DL (70 - 105) H 06/13/16 10:56 Whole Bld Lactic Acid 1.34 mmol/L (0.60-2.00) 06/08/16 14:46 Calcium 8.8 mg/dL (8.6-10.3) 06/13/16 06:22 Phosphorus 2.6 mg/dL (2.5-5.0) 06/10/16 05:40 Magnesium 1.9 mg/dL (1.9-2.7) 06/13/16 06:22 Total Bilirubin 0.7 mg/dL (0.3-1.0) 06/09/16 06:40 AST 9 U/L (13-39) L 06/09/16 06:40 ALT 6 U/L (7-52) L 06/09/16 06:40 Alkaline Phosphatase 58 U/L (34-104) 06/09/16 06:40 Total Protein 6.4 gm/dL (6.0-8.3) 06/09/16 06:40 Albumin 3.3 gm/dL (3.7-5.3) L 06/09/16 06:40 Globulin 3.1 gm/dL 06/09/16 06:40 Albumin/Globulin Ratio 1.1 (1.0-1.8) 06/09/16 06:40 TSH 2.09 uIU/ml (0.34-5.60) 06/10/16 05:40 Stool Occult Blood NEGATIVE (NEGATIVE) 06/11/16 05:20 Mycoplasma pneumon IgG <100 U/mL (0-99) 06/09/16 06:44 Mycoplasma pneumon IgM <770 U/mL (0-769) 06/09/16 06:44 Blood Type O POSITIVE 06/08/16 06:20 Antibody Screen NEGATIVE 06/08/16 06:20 Crossmatch See Detail 06/08/16 06:20 - Physical Exam Vitals and I&O: Vital Signs Temp 97.8 F 06/13/16 12:09 Pulse 82 06/13/16 12:09 Resp 19 06/13/16 12:09 BP 190/83 06/13/16 12:09 Pulse Ox 98 06/13/16 12:09 Intake & Output 06/12/16 06/13/16 06/13/16 18:59 06:59 18:59 Intake Total 950 150 Balance 950 150 Intake: Intake, IV Amount 150 150 Piperacillin Sodium/ 50 50 Tazobact 2.25 gm In Dextrose 5% 50 ml @ 100 mls/hr IV Q8HR [facility] Rx#: [id number] metroNIDAZOLE 500mg/NS 100 100 100mL 500 mg In Premix Fluid 1 bag @ 100 mls/hr IV Q8HR [facility] Rx#:[id number] Oral 800 Other: # Voids 3 # Bowel Movements 1 Stool Characteristics Liquid Liquid Active Medications: Current Medications Acetaminophen (Tylenol) 650 mg PO Q4HR PRN PRN Reason: PAIN (MILD) OR TEMP 100.0 OR > Stop: 08/06/16 22:21 Last Admin: 06/13/16 08:33 Dose: 650 mg Acetaminophen/Hydrocodone Bitart ([place] 5mg/325mg) 1 tab PO Q6H PRN PRN Reason: Pain (Severe) Stop: 08/06/16 22:21 Last Admin: 06/13/16 11:03 Dose: 1 tab Al Hydrox/Mg Hydrox/Simethicone (Maalox) 30 ml PO Q6H PRN PRN Reason: Upset Stomach / Indigestion Stop: 08/06/16 22:21 Albuterol/Ipratropium (Duoneb Neb) 3 ml HHN [id number] [facility] Stop: 08/08/16 18:59 Last Admin: 06/13/16 11:12 Dose: 3 ml Amlodipine Besylate (Norvasc) 5 mg PO DAILY [facility] Stop: 08/07/16 08:59 Last Admin: 06/13/16 08:23 Dose: 5 mg Bisacodyl (Dulcolax 10 Mg Supp) 10 mg RC DAILY PRN PRN Reason: BM MANAGEMENT Stop: 08/06/16 22:21 Budesonide (Pulmicort) 0.5 mg HHN BIDRT [facility] Stop: 08/08/16 18:59 Last Admin: 06/13/16 07:09 Dose: 0.5 mg Calcium/Vitamin D (Oscal W/Vitamin D) 1 tab PO HS [facility] Stop: 08/06/16 20:59 Last Admin: 06/12/16 20:44 Dose: 1 tab Clonidine HCl (Catapres) 0.1 mg PO Q4H PRN PRN Reason: SBP>160 Stop: 08/06/16 22:21 Last Admin: 06/11/16 03:58 Dose: 0.1 mg Dextrose (D50w) 50 ml IVP ACHS PRN PRN Reason: BLOOD SUGAR < 70 Stop: 08/06/16 22:21 Docusate Sodium (Colace) 250 mg PO DAILY [facility] Stop: 08/09/16 14:59 Last Admin: 06/13/16 08:23 Dose: 250 mg Hydralazine HCl (Apresoline) 50 mg PO HS [facility] Stop: 08/07/16 20:59 Last Admin: 06/12/16 20:44 Dose: 50 mg Metronidazole 500 mg/ (Miscellaneous) 100 mls @ 100 mls/hr IV Q8HR [facility] Stop: 08/08/16 04:59 Last Admin: 06/13/16 05:02 Dose: 100 mls/hr Piperacillin Sod/Tazobactam (Sod 2.25 gm/ Dextrose) 50 mls @ 100 mls/hr IV Q8HR [facility] Stop: 08/11/16 12:59 Last Admin: 06/13/16 05:50 Dose: 100 mls/hr Insulin Aspart (Novolog Insulin Sliding Scale) 0 units SUBQ ACHS [facility] PRN Reason: Protocol Stop: 08/07/16 07:29 Last Admin: 06/13/16 11:04 Dose: 2 units Lactulose (Cephulac) 30 gm PO DAILY [facility] Stop: 08/10/16 14:44 Last Admin: 06/13/16 08:22 Dose: 30 gm Lisinopril (Zestril) 40 mg PO BID [facility] Stop: 08/07/16 08:59 Last Admin: 06/13/16 08:24 Dose: 40 mg Magnesium Oxide (Mag-Oxide) 400 mg PO DAILY [facility] Stop: 08/08/16 15:14 Last Admin: 06/13/16 08:23 Dose: 400 mg Miscellaneous (Vte Chemical Prophylaxis Screen/ Admission) 1 ea MC PRN PRN PRN Reason: PROTOCOL Stop: 08/07/16 16:59 Miscellaneous (Clinical Monitoring) 1 ea MC PRN PRN PRN Reason: RENAL DOSING Stop: 08/10/16 12:35 Nitroglycerin (Nitrostat) 0.4 mg SL Q5M PRN PRN Reason: Chest Pain Stop: 08/06/16 22:21 Petrolatum (Zinc Oxide) 1 appl TP TID [facility] Stop: 08/07/16 08:59 Last Admin: 06/13/16 08:34 Dose: 1 appl Promethazine HCl/Codeine (Phenergan W/Cod Susp) 5 ml PO Q6H PRN PRN Reason: Cough Stop: 08/06/16 22:20 Last Admin: 06/08/16 13:20 Dose: 5 ml Sodium Bicarbonate (Sodium Bicarbonate) 650 mg PO BID [facility] PRN Reason: Protocol Stop: 08/07/16 08:59 Last Admin: 06/13/16 08:23 Dose: 650 mg Sucralfate (Carafate) 1 gm PO TIDHS [facility] Stop: 08/07/16 08:59 Last Admin: 06/13/16 08:23 Dose: 1 gm General: no acute distress, well developed, well nourished HEENT: atraumatic, normocephalic, PERRLA, EOMI Neck: supple, no thyromegaly Cardiovascular: S1S2, regular Lungs: clear to auscultation bilaterally, clear to percussion Abdomen: soft, no tender, no distended Extremities: other (There is no swelling of the right shoulder.), no cyanosis, no clubbing, no edema Neurological: awake, alert, oriented Skin: intact - Procedures Procedures: Procedures Procedure Code Date PERFORMANCE OF URINARY FILTRATION, MULTIPLE [id number] 05/21/16 PERFORMANCE OF URINARY FILTRATION, SINGLE [id number] 12/29/15 Infectious Disease Assmt/Plan - Assessment Assessment: Impression: 1. Sepsis improving. 2. Pneumonia, multifocal. suspected nodular infiltrates, ? embolic. 3. DM2 4. HTN. 5. Hyperlipidemia. 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 7. Anemia of chronic disease. 8. Right shoulder pain, osteoarthritis. - Plan Plan: Continue Zosyn and Zithromax. Xray of right shoulder, pain med. LTAC transfer. Nutritional Asmnt/Malnutr-PDOC - Dietary Evaluation Malnutrition Findings (Please click <Entered> for more info): Nutritional Asmnt/Malnutrition Start: 06/12/16 16: 43 Text: Status: Complete Freq: Document 06/12/16 16:43 GSUN (Rec: 06/12/16 16:55 GSUN [id number]) Nutritional Asmnt/Malnutrition Patient General Information Nutritional Screening Moderate Risk Screening Diagnosis Pneumonia Pertinent Medical Hx/Surgical Hx HTN, DM, hx asthma, COPD, hx peptic ulcer disease, thrombocytopenia, ESRD on HD, peripheral vascular disease, right above knee amputation Subjective Information 85yo F, Greek speaking, on HD, granddaughter at bedside and translated. Per H&P: sepsis improving. Pt was alert , very pleasant. Avg PO intake 75-100% of meals, meeting nutritional needs. Family requested for menu to fill out for tomorrow. Family stated some bigger chunks of meat are harder to chew, but not a significant concern, otherwise no nutritional problems at this time. Current Diet Order/ Nutrition Support Renal, mech soft Pertinent Medications maalox, dulcolax, oscal w/ vitamin D, D50, colace, novolog sliding scale, mag- oxide Pertinent Labs 06/07: creatinine 1.8H, glucose 161H 06/08: potassium 2.9L, creatinine 2.6H, glucose 130H 06/10: creatinine 3.1H 06/12: creatinine 1.9H POC glcuose 85-225H Nutritional Hx/Data Height 1.63 m Height (Calculated Centimeters) 162.6 Current Weight (lbs) 55.792 kg Weight (Calculated Kilograms) 55.8 Weight (Calculated Grams) 15816.9 [place] Body Weight 101#/45.9 kg (Hamwi equation, adjusted for AKA -16%) Recent Weight Change No Weight Status Approriate GI Symptoms Food Allergies No Cultural/Ethnic/Samaritan Belief Unknown. Usual diet at home Unknown. Skin Integrity/Comment: Alton Vargas. Skin intact. Current %PO Good (75-100%) Estimated Nutritional Goals Calories/Kcals/Kg IBW 30-35 kcals/kg (pneumonia, HD) Kcals Calculated 3128-7742 kcals/day Protein g/k.2-1.5 gm/kg Protein Calculated 64-80 gm/day Fluid: ml Per MD/DO Nutritional Problem 1. Problem Problem Increase kcal and protein needs related to Etiology hypermtabolic state aeb Signs/Symptoms: ESRD on HD, penumonia, improving sepsis Intervention/Recommendation Comments 1. Continue with renal mech soft diet. Current PO intake is adequate. 2. Recommend [id number] for glycemic control if needed. Expected Outcomes/Goals Expected Outcomes/Goals 1. PO intake to meet 100% of estimated nutritional needs with tolerance. Physician Parameters for PEM Serum Albumin (g/dl) 3.1 - 3.4 (Mild)
--- NOTE | 2016-06-13 14:06 | General Progress Note ---
Subjective - Review of Systems Service Date: 06/13/16 Subjective: less cough/congestion, more comfortable, being dialyzed Objective - Results Result Diagrams: 06/13/16 06:22 06/13/16 06:22 Recent Labs: Laboratory Last Values WBC 8.6 Th/cmm (4.8-10.8) 06/13/16 06:22 RBC 3.68 Mil/cmm (3.80-5.20) L 06/13/16 06:22 Hgb 9.5 gm/dL (11.7-16.1) L 06/13/16 06:22 Hct 29.0 % (35.0-45.0) L 06/13/16 06:22 MCV 78.9 fl (81-100) L 06/13/16 06:22 MCH 25.8 pg (27.0-31.0) L 06/13/16 06:22 MCHC Differential 32.7 pg (28.0-36.0) 06/13/16 06:22 RDW 20.4 % (11.5-20.0) H 06/13/16 06:22 Plt Count 57 Th/cmm (150-400) L 06/13/16 06:22 MPV 8.2 fl 06/13/16 06:22 Band Neutrophils % 4 % (0-10) 06/13/16 06:22 Neutrophils (Manual) 65 % (40-80) 06/13/16 06:22 Lymphocytes 17 % (20-50) L 06/13/16 06:22 Monocytes 10 % (2-10) 06/13/16 06:22 Eosinophils 4 % (0-5) 06/13/16 06:22 Basophils 1 % (0-3) 06/08/16 06:20 Nucleated RBCs 1.0 % (0-0) H 06/12/16 06:16 Platelet Estimate DECREASED PLATELETS (NORMAL) 06/13/16 06:22 Platelet Morphology GIANT PLATELETS SEEN (NORMAL) 06/13/16 06:22 Anisocytosis 1+ 06/13/16 06:22 Microcytosis 1+ 06/13/16 06:22 RBC Morph Micro Appear ABNORMAL (NORMAL) 06/13/16 06:22 Specimen Source Arterial 06/10/16 09:00 Sample Site Right Radial 06/10/16 09:00 pH 7.38 (7.35-7.45) 06/10/16 09:00 pCO2 43.0 mmHg (35.0-45.0) 06/10/16 09:00 pO2 55.0 mmHg (80.0-100.0) L 06/10/16 09:00 HCO3 25.4 mmol/L (20.0-26.0) 06/10/16 09:00 Base Excess 0.1 mmol/L (-3.0-3.0) 06/10/16 09:00 O2 Saturation 88.0 % (92.0-100.0) L 06/10/16 09:00 Enrico Test YES 06/10/16 09:00 Vent Rate NA 06/10/16 09:00 Inspired O2 21 06/10/16 09:00 Tidal Volume NA 06/10/16 09:00 PEEP NA 06/10/16 09:00 Pressure (ins/psv/peep) NA 06/10/16 09:00 Critical Value SH 06/10/16 09:00 Sodium 131 mEq/L (136-145) L 06/13/16 06:22 Potassium 4.0 mEq/L (3.5-5.1) 06/13/16 06:22 Chloride 99 mEq/L (98-107) 06/13/16 06:22 Carbon Dioxide 27.1 mEq/L (21.0-31.0) 06/13/16 06:22 Anion Gap 8.9 (7.0-16.0) 06/13/16 06:22 BUN 36 mg/dL (7-25) H 06/13/16 06:22 Creatinine 2.8 mg/dL (0.6-1.2) H 06/13/16 06:22 Est GFR ( Amer) TNP 06/13/16 06:22 Est GFR (Non-Af Amer) TNP 06/13/16 06:22 BUN/Creatinine Ratio 12.9 06/13/16 06:22 Glucose 103 mg/dL (70-105) 06/13/16 06:22 POC Glucose 148 MG/DL (70 - 105) H 06/13/16 10:56 Whole Bld Lactic Acid 1.34 mmol/L (0.60-2.00) 06/08/16 14:46 Calcium 8.8 mg/dL (8.6-10.3) 06/13/16 06:22 Phosphorus 2.6 mg/dL (2.5-5.0) 06/10/16 05:40 Magnesium 1.9 mg/dL (1.9-2.7) 06/13/16 06:22 Total Bilirubin 0.7 mg/dL (0.3-1.0) 06/09/16 06:40 AST 9 U/L (13-39) L 06/09/16 06:40 ALT 6 U/L (7-52) L 06/09/16 06:40 Alkaline Phosphatase 58 U/L (34-104) 06/09/16 06:40 Total Protein 6.4 gm/dL (6.0-8.3) 06/09/16 06:40 Albumin 3.3 gm/dL (3.7-5.3) L 06/09/16 06:40 Globulin 3.1 gm/dL 06/09/16 06:40 Albumin/Globulin Ratio 1.1 (1.0-1.8) 06/09/16 06:40 TSH 2.09 uIU/ml (0.34-5.60) 06/10/16 05:40 Stool Occult Blood NEGATIVE (NEGATIVE) 06/11/16 05:20 Mycoplasma pneumon IgG <100 U/mL (0-99) 06/09/16 06:44 Mycoplasma pneumon IgM <770 U/mL (0-769) 06/09/16 06:44 Blood Type O POSITIVE 06/08/16 06:20 Antibody Screen NEGATIVE 06/08/16 06:20 Crossmatch See Detail 06/08/16 06:20 - Physical Exam Vitals and I&O: Vital Signs Temp 97.8 F 06/13/16 12:09 Pulse 82 06/13/16 12:09 Resp 19 06/13/16 12:09 BP 190/83 06/13/16 12:09 Pulse Ox 98 06/13/16 12:09 Intake & Output 06/12/16 06/13/16 06/13/16 18:59 06:59 18:59 Intake Total 950 150 Balance 950 150 Intake: Intake, IV Amount 150 150 Piperacillin Sodium/ 50 50 Tazobact 2.25 gm In Dextrose 5% 50 ml @ 100 mls/hr IV Q8HR [facility] Rx#: [id number] metroNIDAZOLE 500mg/NS 100 100 100mL 500 mg In Premix Fluid 1 bag @ 100 mls/hr IV Q8HR [facility] Rx#:[id number] Oral 800 Other: # Voids 3 # Bowel Movements 1 Stool Characteristics Liquid Liquid Active Medications: Current Medications Acetaminophen (Tylenol) 650 mg PO Q4HR PRN PRN Reason: PAIN (MILD) OR TEMP 100.0 OR > Stop: 08/06/16 22:21 Last Admin: 06/13/16 08:33 Dose: 650 mg Acetaminophen/Hydrocodone Bitart ([place] 5mg/325mg) 1 tab PO Q6H PRN PRN Reason: Pain (Severe) Stop: 08/06/16 22:21 Last Admin: 06/13/16 11:03 Dose: 1 tab Al Hydrox/Mg Hydrox/Simethicone (Maalox) 30 ml PO Q6H PRN PRN Reason: Upset Stomach / Indigestion Stop: 08/06/16 22:21 Albuterol/Ipratropium (Duoneb Neb) 3 ml HHN [id number] [facility] Stop: 08/08/16 18:59 Last Admin: 06/13/16 11:12 Dose: 3 ml Amlodipine Besylate (Norvasc) 5 mg PO DAILY [facility] Stop: 08/07/16 08:59 Last Admin: 06/13/16 08:23 Dose: 5 mg Bisacodyl (Dulcolax 10 Mg Supp) 10 mg RC DAILY PRN PRN Reason: BM MANAGEMENT Stop: 08/06/16 22:21 Budesonide (Pulmicort) 0.5 mg HHN BIDRT [facility] Stop: 08/08/16 18:59 Last Admin: 06/13/16 07:09 Dose: 0.5 mg Calcium/Vitamin D (Oscal W/Vitamin D) 1 tab PO HS [facility] Stop: 08/06/16 20:59 Last Admin: 06/12/16 20:44 Dose: 1 tab Clonidine HCl (Catapres) 0.1 mg PO Q4H PRN PRN Reason: SBP>160 Stop: 08/06/16 22:21 Last Admin: 06/11/16 03:58 Dose: 0.1 mg Dextrose (D50w) 50 ml IVP ACHS PRN PRN Reason: BLOOD SUGAR < 70 Stop: 08/06/16 22:21 Docusate Sodium (Colace) 250 mg PO DAILY [facility] Stop: 08/09/16 14:59 Last Admin: 06/13/16 08:23 Dose: 250 mg Hydralazine HCl (Apresoline) 50 mg PO HS [facility] Stop: 08/07/16 20:59 Last Admin: 06/12/16 20:44 Dose: 50 mg Metronidazole 500 mg/ (Miscellaneous) 100 mls @ 100 mls/hr IV Q8HR [facility] Stop: 08/08/16 04:59 Last Admin: 06/13/16 12:54 Dose: Not Given Piperacillin Sod/Tazobactam (Sod 2.25 gm/ Dextrose) 50 mls @ 100 mls/hr IV Q8HR [facility] Stop: 08/11/16 12:59 Last Admin: 06/13/16 12:55 Dose: Not Given Insulin Aspart (Novolog Insulin Sliding Scale) 0 units SUBQ ACHS [facility] PRN Reason: Protocol Stop: 08/07/16 07:29 Last Admin: 06/13/16 11:04 Dose: 2 units Lactulose (Cephulac) 30 gm PO DAILY [facility] Stop: 08/10/16 14:44 Last Admin: 06/13/16 08:22 Dose: 30 gm Lisinopril (Zestril) 40 mg PO BID [facility] Stop: 08/07/16 08:59 Last Admin: 06/13/16 08:24 Dose: 40 mg Magnesium Oxide (Mag-Oxide) 400 mg PO DAILY [facility] Stop: 08/08/16 15:14 Last Admin: 06/13/16 08:23 Dose: 400 mg Miscellaneous (Vte Chemical Prophylaxis Screen/ Admission) 1 ea PRN PRN PRN Reason: PROTOCOL Stop: 08/07/16 16:59 Miscellaneous (Clinical Monitoring) 1 ea PRN PRN PRN Reason: RENAL DOSING Stop: 08/10/16 12:35 Nitroglycerin (Nitrostat) 0.4 mg SL Q5M PRN PRN Reason: Chest Pain Stop: 08/06/16 22:21 Petrolatum (Zinc Oxide) 1 appl TP TID [facility] Stop: 08/07/16 08:59 Last Admin: 06/13/16 08:34 Dose: 1 appl Promethazine HCl/Codeine (Phenergan W/Cod Susp) 5 ml PO Q6H PRN PRN Reason: Cough Stop: 04/17/17 22:20 Last Admin: 06/08/16 13:20 Dose: 5 ml Sodium Bicarbonate (Sodium Bicarbonate) 650 mg PO BID [facility] PRN Reason: Protocol Stop: 08/07/16 08:59 Last Admin: 06/13/16 08:23 Dose: 650 mg Sucralfate (Carafate) 1 gm PO TIDHS [facility] Stop: 08/07/16 08:59 Last Admin: 06/13/16 12:56 Dose: Not Given General: Alert, No acute distress HEENT: Atraumatic, Mucous membr. moist/pink Neck: Supple, +2 carotid pulse wo bruit Cardiovascular: Regular rate, Normal S1, Normal S2 Lungs: Other (few rhonchi right lung) Abdomen: Bowel sounds, Soft Extremities: no Edema Neurological: Sensation intact Skin: no Rash Psych/Mental Status: Mood NL - Procedures Procedures: Procedures Procedure Code Date PERFORMANCE OF URINARY FILTRATION, MULTIPLE [id number] 05/21/16 PERFORMANCE OF URINARY FILTRATION, SINGLE [id number] 12/29/15 Assessment/Plan - Assessment Assessment: esrd on hd anemia acute ( possible GI bleed ) on CKD chronic thrombocytopenia type 2 dm w/ CKD COPD right lower lobe HAP GB stones ileus/constipation Htn w/ CKD PAD s/p right AKA - Plan Plan: schedule for hd today hgb/hct improved w/transfusion f/u cbc, electrolytes P04 corrected replace K possible dc today Nutritional Asmnt/Malnutr-PDOC - Dietary Evaluation Malnutrition Findings (Please click <Entered> for more info): Nutritional Asmnt/Malnutrition Start: 06/12/16 16: 43 Text: Status: Complete Freq: Document 06/12/16 16:43 GSUN (Rec: 06/12/16 16:55 GSUN [email or web address]) Nutritional Asmnt/Malnutrition Patient General Information Nutritional Screening Moderate Risk Screening Diagnosis Pneumonia Pertinent Medical Hx/Surgical Hx HTN, DM, hx asthma, COPD, hx peptic ulcer disease, thrombocytopenia, ESRD on HD, peripheral vascular disease, right above knee amputation Subjective Information 85yo F, [place] speaking, on HD, granddaughter at bedside and translated. Per H&P: sepsis improving. Pt was alert , very pleasant. Avg PO intake 75-100% of meals, meeting nutritional needs. Family requested for menu to fill out for tomorrow. Family stated some bigger chunks of meat are harder to chew, but not a significant concern, otherwise no nutritional problems at this time. Current Diet Order/ Nutrition Support Renal, mech soft Pertinent Medications maalox, dulcolax, oscal w/ vitamin D, D50, colace, novolog sliding scale, mag- oxide Pertinent Labs 06/07: creatinine 1.8H, glucose 161H 06/08: potassium 2.9L, creatinine 2.6H, glucose 130H 06/10: creatinine 3.1H 06/12: creatinine 1.9H POC glcuose 85-225H Nutritional Hx/Data Height 1.63 m Height (Calculated Centimeters) 162.6 Current Weight (lbs) 55.792 kg Weight (Calculated Kilograms) 55.8 Weight (Calculated Grams) 51671.9 [place] Body Weight 101#/45.9 kg (Hamwi equation, adjusted for AKA -16%) Recent Weight Change No Weight Status Approriate GI Symptoms Food Allergies No Cultural/Ethnic/Adventist Belief Unknown. Usual diet at home Unknown. Skin Integrity/Comment: Alton Vargas. Skin intact. Current %PO Good (75-100%) Estimated Nutritional Goals Calories/Kcals/Kg IBW 30-35 kcals/kg (pneumonia, HD) Kcals Calculated 4696-8456 kcals/day Protein g/k.2-1.5 gm/kg Protein Calculated 64-80 gm/day Fluid: ml Per MD/DO Nutritional Problem 1. Problem Problem Increase kcal and protein needs related to Etiology hypermtabolic state aeb Signs/Symptoms: ESRD on HD, penumonia, improving sepsis Intervention/Recommendation Comments 1. Continue with renal [facility] soft diet. Current PO intake is adequate. 2. Recommend [id number] for glycemic control if needed. Expected Outcomes/Goals Expected Outcomes/Goals 1. PO intake to meet 100% of estimated nutritional needs with tolerance. Physician Parameters for PEM Serum Albumin (g/dl) 3.1 - 3.4 (Mild)
[2016-06-13] MEDS: Calcium Carb/Vit D 500 mg/200 U Tab PO SCH (20:48)
--- NOTE | 2016-06-13 23:13 | Progress Notes ---
PROBLEM LIST: 1. Acute pneumonitis. 2. Possibly sepsis. 3. [id number] renal failure with right-sided effusion. SYMPTOMS: Nil. No specific new symptoms. Currently on a dialysis; no specific new other, very minimal coughing or very minimal shortness of breath. PHYSICAL EXAMINATION: VITAL SIGNS: Temperature is 97.4, saturation 98% with 2 liters of oxygen. ENT: Shows no acute changes. CHEST: Shows diminished air entry with occasional rhonchi. HEART: Regular. ABDOMEN: Soft, nontender. LABORATORY DATA: A white count is 8.6, hemoglobin 9.5. Sodium is 131. Chest x-ray yesterday shows slight improvement in effusion ____ right base. 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 PLANS AND SUGGESTIONS: We will go ahead and continue current treatment. We will follow through all other studies when she is transferred to [place] and go from there. [facility]# [id number]
--- NOTE | 2016-06-14 03:45 | Discharge Summary ---
INFECTIOUS DISEASE CHIEF COMPLAINT: Abnormal labs. HISTORY OF PRESENT ILLNESS AND HOSPITAL COURSE: The patient is an 85-year-old female with past medical history of hypertension, diabetes mellitus, history of asthma, COPD, history of peptic ulcer disease, thrombocytopenia, history of CKD stage V on dialysis, peripheral vascular disease, right above-knee amputation, brought to the ER for abnormal labs with hemoglobin of 7.6. The patient was evaluated in the ER and found to have fever of 101.6 degree Fahrenheit. Sepsis workup was performed. The patient was started on Rocephin and Zithromax. CT scan of the chest showed pneumonia. Pulmonary consultation with Dr. Pawan Esqueda and renal consult with Dr. Porras was called. The patient will continue on the medication she used to have some improvement. If the patient is required further treatment and plan, the patient will be transferred to [facility] for further care. DISPOSITION: [facility]. [facility] on correction acute facility. DISCHARGE CONDITION: Stable. MEDICATION: As per medication reconciliation sheet. JOB# [id number]
[2016-06-14] MEDS: metroNIDAZOLE 500mg/NS 100mL 500 MG in Premix Fluid 1 BAG IV SCH ×2 (05:34→14:42)
[2016-06-14] MEDS: INSULIN ASPART SLIDING SCALE 100 UNITS/ML UNIT SUBQ SCH ×3 (06:31→16:47)
[2016-06-14] MEDS: Lactulose 10 Gm/15 mL 30mL UDC PO SCH (08:50)
[2016-06-14] MEDS: Hydrocodone/APAP 5mg/325mg Tab PO PRN ×2 (08:57→16:06)
[2016-06-14] MEDS: Zinc Oxide Ointment 60 gm TP SCH ×2 (10:00→14:42)
--- NOTE | 2016-06-14 11:47 | Infectious Disease Prog Note ---
Infectious Disease Subjective - Review of Systems Service Date: 06/14/16 Subjective: Patient had very high blood pressure , so discharge was put on hold. Infectious Disease Objective - Results Result Diagrams: 06/13/16 06:22 06/13/16 06:22 Recent Labs: Laboratory Last Values WBC 8.6 Th/cmm (4.8-10.8) 06/13/16 06:22 RBC 3.68 Mil/cmm (3.80-5.20) L 06/13/16 06:22 Hgb 9.5 gm/dL (11.7-16.1) L 06/13/16 06:22 Hct 29.0 % (35.0-45.0) L 06/13/16 06:22 MCV 78.9 fl (81-100) L 06/13/16 06:22 MCH 25.8 pg (27.0-31.0) L 06/13/16 06:22 MCHC Differential 32.7 pg (28.0-36.0) 06/13/16 06:22 RDW 20.4 % (11.5-20.0) H 06/13/16 06:22 Plt Count 57 Th/cmm (150-400) L 06/13/16 06:22 MPV 8.2 fl 06/13/16 06:22 Band Neutrophils % 4 % (0-10) 06/13/16 06:22 Neutrophils (Manual) 65 % (40-80) 06/13/16 06:22 Lymphocytes 17 % (20-50) L 06/13/16 06:22 Monocytes 10 % (2-10) 06/13/16 06:22 Eosinophils 4 % (0-5) 06/13/16 06:22 Basophils 1 % (0-3) 06/08/16 06:20 Nucleated RBCs 1.0 % (0-0) H 06/12/16 06:16 Platelet Estimate DECREASED PLATELETS (NORMAL) 06/13/16 06:22 Platelet Morphology GIANT PLATELETS SEEN (NORMAL) 06/13/16 06:22 Anisocytosis 1+ 06/13/16 06:22 Microcytosis 1+ 06/13/16 06:22 RBC Morph Micro Appear ABNORMAL (NORMAL) 06/13/16 06:22 Specimen Source Arterial 06/10/16 09:00 Sample Site Right Radial 06/10/16 09:00 pH 7.38 (7.35-7.45) 06/10/16 09:00 pCO2 43.0 mmHg (35.0-45.0) 06/10/16 09:00 pO2 55.0 mmHg (80.0-100.0) L 06/10/16 09:00 HCO3 25.4 mmol/L (20.0-26.0) 06/10/16 09:00 Base Excess 0.1 mmol/L (-3.0-3.0) 06/10/16 09:00 O2 Saturation 88.0 % (92.0-100.0) L 06/10/16 09:00 Enrico Test YES 06/10/16 09:00 Vent Rate NA 06/10/16 09:00 Inspired O2 21 06/10/16 09:00 Tidal Volume NA 06/10/16 09:00 PEEP NA 06/10/16 09:00 Pressure (ins/psv/peep) NA 06/10/16 09:00 Critical Value SH 06/10/16 09:00 Sodium 131 mEq/L (136-145) L 06/13/16 06:22 Potassium 4.0 mEq/L (3.5-5.1) 06/13/16 06:22 Chloride 99 mEq/L (98-107) 06/13/16 06:22 Carbon Dioxide 27.1 mEq/L (21.0-31.0) 06/13/16 06:22 Anion Gap 8.9 (7.0-16.0) 06/13/16 06:22 BUN 36 mg/dL (7-25) H 06/13/16 06:22 Creatinine 2.8 mg/dL (0.6-1.2) H 06/13/16 06:22 Est GFR ( Amer) TNP 06/13/16 06:22 Est GFR (Non-Af Amer) TNP 06/13/16 06:22 BUN/Creatinine Ratio 12.9 06/13/16 06:22 Glucose 103 mg/dL (70-105) 06/13/16 06:22 POC Glucose 107 MG/DL (70 - 105) H 06/14/16 05:40 Whole Bld Lactic Acid 1.34 mmol/L (0.60-2.00) 06/08/16 14:46 Calcium 8.8 mg/dL (8.6-10.3) 06/13/16 06:22 Phosphorus 2.6 mg/dL (2.5-5.0) 06/10/16 05:40 Magnesium 1.9 mg/dL (1.9-2.7) 06/13/16 06:22 Total Bilirubin 0.7 mg/dL (0.3-1.0) 06/09/16 06:40 AST 9 U/L (13-39) L 06/09/16 06:40 ALT 6 U/L (7-52) L 06/09/16 06:40 Alkaline Phosphatase 58 U/L (34-104) 06/09/16 06:40 Total Protein 6.4 gm/dL (6.0-8.3) 06/09/16 06:40 Albumin 3.3 gm/dL (3.7-5.3) L 06/09/16 06:40 Globulin 3.1 gm/dL 06/09/16 06:40 Albumin/Globulin Ratio 1.1 (1.0-1.8) 06/09/16 06:40 TSH 2.09 uIU/ml (0.34-5.60) 06/10/16 05:40 Stool Occult Blood NEGATIVE (NEGATIVE) 06/11/16 05:20 Mycoplasma pneumon IgG <100 U/mL (0-99) 06/09/16 06:44 Mycoplasma pneumon IgM <770 U/mL (0-769) 06/09/16 06:44 Blood Type O POSITIVE 06/08/16 06:20 Antibody Screen NEGATIVE 06/08/16 06:20 Crossmatch See Detail 06/08/16 06:20 - Physical Exam Vitals and I&O: Vital Signs Temp 97.8 F 06/14/16 08:00 Pulse 66 06/14/16 10:12 Resp 19 06/14/16 08:00 BP 187/84 06/14/16 08:48 Pulse Ox 99 06/14/16 08:00 Intake & Output 06/13/16 06/14/16 06/14/16 18:59 06:59 18:59 Intake Total 2800 250 Output Total 3000 1 Balance -200 249 Intake: Intake, IV Amount 150 Piperacillin Sodium/ 50 Tazobact 2.25 gm In Dextrose 5% 50 ml @ 100 mls/hr IV Q8HR [facility] Rx#: [id number] metroNIDAZOLE 500mg/NS 100 100mL 500 mg In Premix Fluid 1 bag @ 100 mls/hr IV Q8HR [facility] Rx#:[id number] Oral 800 100 Other 2000 Output: Urine 0 Stool 1 Hemodialysis 3000 Other: # Voids 0 # Bowel Movements 1 Stool Characteristics Liquid Liquid Liquid Brown Active Medications: Current Medications Acetaminophen (Tylenol) 650 mg PO Q4HR PRN PRN Reason: PAIN (MILD) OR TEMP 100.0 OR > Stop: 08/06/16 22:21 Last Admin: 06/13/16 08:33 Dose: 650 mg Acetaminophen/Hydrocodone Bitart ([place] 5mg/325mg) 1 tab PO Q6H PRN PRN Reason: Pain (Severe) Stop: 08/06/16 22:21 Last Admin: 06/14/16 08:57 Dose: 1 tab Al Hydrox/Mg Hydrox/Simethicone (Maalox) 30 ml PO Q6H PRN PRN Reason: Upset Stomach / Indigestion Stop: 08/06/16 22:21 Albuterol/Ipratropium (Duoneb Neb) 3 ml HHN [id number] [facility] Stop: 08/08/16 18:59 Last Admin: 06/13/16 15:50 Dose: 3 ml Amlodipine Besylate (Norvasc) 5 mg PO DAILY [facility] Stop: 08/07/16 08:59 Last Admin: 06/14/16 08:48 Dose: 5 mg Bisacodyl (Dulcolax 10 Mg Supp) 10 mg RC DAILY PRN PRN Reason: BM MANAGEMENT Stop: 08/06/16 22:21 Budesonide (Pulmicort) 0.5 mg HHN BIDRT [facility] Stop: 08/08/16 18:59 Last Admin: 06/13/16 07:09 Dose: 0.5 mg Calcium/Vitamin D (Oscal W/Vitamin D) 1 tab PO HS [facility] Stop: 08/06/16 20:59 Last Admin: 06/13/16 20:48 Dose: 1 tab Clonidine HCl (Catapres) 0.1 mg PO Q4H PRN PRN Reason: SBP>160 Stop: 08/06/16 22:21 Last Admin: 06/14/16 10:12 Dose: 0.1 mg Dextrose (D50w) 50 ml IVP ACHS PRN PRN Reason: BLOOD SUGAR < 70 Stop: 08/06/16 22:21 Docusate Sodium (Colace) 250 mg PO DAILY [facility] Stop: 08/09/16 14:59 Last Admin: 06/14/16 08:47 Dose: Not Given Hydralazine HCl (Apresoline) 50 mg PO BID [facility] Stop: 08/13/16 08:59 Last Admin: 06/14/16 08:45 Dose: 50 mg Metronidazole 500 mg/ (Miscellaneous) 100 mls @ 100 mls/hr IV Q8HR [facility] Stop: 08/08/16 04:59 Last Admin: 06/14/16 05:34 Dose: 100 mls/hr Piperacillin Sod/Tazobactam (Sod 2.25 gm/ Dextrose) 50 mls @ 100 mls/hr IV Q8HR [facility] Stop: 08/11/16 12:59 Last Admin: 06/14/16 04:43 Dose: 100 mls/hr Insulin Aspart (Novolog Insulin Sliding Scale) 0 units SUBQ ACHS [facility] PRN Reason: Protocol Stop: 08/07/16 07:29 Last Admin: 06/14/16 06:31 Dose: Not Given Lactulose (Cephulac) 30 gm PO DAILY [facility] Stop: 08/10/16 14:44 Last Admin: 06/14/16 08:50 Dose: Not Given Lisinopril (Zestril) 40 mg PO BID [facility] Stop: 08/07/16 08:59 Last Admin: 06/14/16 08:46 Dose: 40 mg Magnesium Oxide (Mag-Oxide) 400 mg PO DAILY [facility] Stop: 08/08/16 15:14 Last Admin: 06/14/16 08:46 Dose: 400 mg Miscellaneous (Vte Chemical Prophylaxis Screen/ Admission) 1 ea MC PRN PRN PRN Reason: PROTOCOL Stop: 08/07/16 16:59 Miscellaneous (Clinical Monitoring) 1 ea MC PRN PRN PRN Reason: RENAL DOSING Stop: 08/10/16 12:35 Nitroglycerin (Nitrostat) 0.4 mg SL Q5M PRN PRN Reason: Chest Pain Stop: 08/06/16 22:21 Petrolatum (Zinc Oxide) 1 appl TP TID [facility] Stop: 08/07/16 08:59 Last Admin: 06/14/16 10:00 Dose: Not Given Promethazine HCl/Codeine (Phenergan W/Cod Susp) 5 ml PO Q6H PRN PRN Reason: Cough Stop: 08/06/16 22:20 Last Admin: 06/08/16 13:20 Dose: 5 ml Sodium Bicarbonate (Sodium Bicarbonate) 650 mg PO BID [facility] PRN Reason: Protocol Stop: 08/07/16 08:59 Last Admin: 06/14/16 08:48 Dose: 650 mg Sucralfate (Carafate) 1 gm PO TIDHS [facility] Stop: 08/07/16 08:59 Last Admin: 06/14/16 08:48 Dose: 1 gm General: no acute distress, well developed, well nourished HEENT: atraumatic, normocephalic, PERRLA, EOMI Neck: supple, no thyromegaly, no lymphadenopathy Cardiovascular: S1S2, regular Lungs: clear to percussion, crackles Abdomen: soft, no tender, no distended Extremities: no cyanosis, no clubbing, no edema Neurological: awake, alert, oriented, CN 2-12 intact Skin: intact - Procedures Procedures: Procedures Procedure Code Date PERFORMANCE OF URINARY FILTRATION, MULTIPLE [id number] 05/21/16 PERFORMANCE OF URINARY FILTRATION, SINGLE [id number] 12/29/15 Infectious Disease Assmt/Plan - Assessment Assessment: Impression: 1. Sepsis improving. 2. Pneumonia, multifocal. suspected nodular infiltrates, ? embolic. 3. DM2 4. HTN. Uncontrolled. 5. Hyperlipidemia. 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 7. Anemia of chronic disease. 8. Right shoulder pain, osteoarthritis. - Plan Plan: Continue Zosyn and Zithromax. Xray of right shoulder, pain med. LTAC transfer, if ok with consultants. Nutritional Asmnt/Malnutr-PDOC - Dietary Evaluation Malnutrition Findings (Please click <Entered> for more info): Nutritional Asmnt/Malnutrition Start: 06/12/16 16: 43 Text: Status: Complete Freq: Document 06/12/16 16:43 GSUN (Rec: 06/12/16 16:55 GSUN [id number]) Nutritional Asmnt/Malnutrition Patient General Information Nutritional Screening Moderate Risk Screening Diagnosis Pneumonia Pertinent Medical Hx/Surgical Hx HTN, DM, hx asthma, COPD, hx peptic ulcer disease, thrombocytopenia, ESRD on HD, peripheral vascular disease, right above knee amputation Subjective Information 85yo F, Sami speaking, on HD, granddaughter at bedside and translated. Per H&P: sepsis improving. Pt was alert , very pleasant. Avg PO intake 75-100% of meals, meeting nutritional needs. Family requested for menu to fill out for tomorrow. Family stated some bigger chunks of meat are harder to chew, but not a significant concern, otherwise no nutritional problems at this time. Current Diet Order/ Nutrition Support Renal, mech soft Pertinent Medications maalox, dulcolax, oscal w/ vitamin D, D50, colace, novolog sliding scale, mag- oxide Pertinent Labs 06/07: creatinine 1.8H, glucose 161H 06/08: potassium 2.9L, creatinine 2.6H, glucose 130H 06/10: creatinine 3.1H 06/12: creatinine 1.9H POC glcuose 85-225H Nutritional Hx/Data Height 1.63 m Height (Calculated Centimeters) 162.6 Current Weight (lbs) 55.792 kg Weight (Calculated Kilograms) 55.8 Weight (Calculated Grams) 23292.9 [place] Body Weight 101#/45.9 kg (Hamwi equation, adjusted for AKA -16%) Recent Weight Change No Weight Status Approriate GI Symptoms Food Allergies No Cultural/Ethnic/Mandaeism Belief Unknown. Usual diet at home Unknown. Skin Integrity/Comment: [place] 15. Skin intact. Current %PO Good (75-100%) Estimated Nutritional Goals Calories/Kcals/Kg IBW 30-35 kcals/kg (pneumonia, HD) Kcals Calculated 7164-8347 kcals/day Protein g/k.2-1.5 gm/kg Protein Calculated 64-80 gm/day Fluid: ml Per MD/DO Nutritional Problem 1. Problem Problem Increase kcal and protein needs related to Etiology hypermtabolic state aeb Signs/Symptoms: ESRD on HD, penumonia, improving sepsis Intervention/Recommendation Comments 1. Continue with renal mech soft diet. Current PO intake is adequate. 2. Recommend [id number] for glycemic control if needed. Expected Outcomes/Goals Expected Outcomes/Goals 1. PO intake to meet 100% of estimated nutritional needs with tolerance. Physician Parameters for PEM Serum Albumin (g/dl) 3.1 - 3.4 (Mild)
--- NOTE | 2016-06-14 16:14 | General Progress Note ---
Subjective - Review of Systems Service Date: 06/14/16 Subjective: less cough/congestion, more comfortable Objective - Results Result Diagrams: 06/13/16 06:22 06/13/16 06:22 Recent Labs: Laboratory Last Values WBC 8.6 Th/cmm (4.8-10.8) 06/13/16 06:22 RBC 3.68 Mil/cmm (3.80-5.20) L 06/13/16 06:22 Hgb 9.5 gm/dL (11.7-16.1) L 06/13/16 06:22 Hct 29.0 % (35.0-45.0) L 06/13/16 06:22 MCV 78.9 fl (81-100) L 06/13/16 06:22 MCH 25.8 pg (27.0-31.0) L 06/13/16 06:22 MCHC Differential 32.7 pg (28.0-36.0) 06/13/16 06:22 RDW 20.4 % (11.5-20.0) H 06/13/16 06:22 Plt Count 57 Th/cmm (150-400) L 06/13/16 06:22 MPV 8.2 fl 06/13/16 06:22 Band Neutrophils % 4 % (0-10) 06/13/16 06:22 Neutrophils (Manual) 65 % (40-80) 06/13/16 06:22 Lymphocytes 17 % (20-50) L 06/13/16 06:22 Monocytes 10 % (2-10) 06/13/16 06:22 Eosinophils 4 % (0-5) 06/13/16 06:22 Basophils 1 % (0-3) 06/08/16 06:20 Nucleated RBCs 1.0 % (0-0) H 06/12/16 06:16 Platelet Estimate DECREASED PLATELETS (NORMAL) 06/13/16 06:22 Platelet Morphology GIANT PLATELETS SEEN (NORMAL) 06/13/16 06:22 Anisocytosis 1+ 06/13/16 06:22 Microcytosis 1+ 06/13/16 06:22 RBC Morph Micro Appear ABNORMAL (NORMAL) 06/13/16 06:22 Specimen Source Arterial 06/10/16 09:00 Sample Site Right Radial 06/10/16 09:00 pH 7.38 (7.35-7.45) 06/10/16 09:00 pCO2 43.0 mmHg (35.0-45.0) 06/10/16 09:00 pO2 55.0 mmHg (80.0-100.0) L 06/10/16 09:00 HCO3 25.4 mmol/L (20.0-26.0) 06/10/16 09:00 Base Excess 0.1 mmol/L (-3.0-3.0) 06/10/16 09:00 O2 Saturation 88.0 % (92.0-100.0) L 06/10/16 09:00 Enrico Test YES 06/10/16 09:00 Vent Rate NA 06/10/16 09:00 Inspired O2 21 06/10/16 09:00 Tidal Volume NA 06/10/16 09:00 PEEP NA 06/10/16 09:00 Pressure (ins/psv/peep) NA 06/10/16 09:00 Critical Value SH 06/10/16 09:00 Sodium 131 mEq/L (136-145) L 06/13/16 06:22 Potassium 4.0 mEq/L (3.5-5.1) 06/13/16 06:22 Chloride 99 mEq/L (98-107) 06/13/16 06:22 Carbon Dioxide 27.1 mEq/L (21.0-31.0) 06/13/16 06:22 Anion Gap 8.9 (7.0-16.0) 06/13/16 06:22 BUN 36 mg/dL (7-25) H 06/13/16 06:22 Creatinine 2.8 mg/dL (0.6-1.2) H 06/13/16 06:22 Est GFR ( Amer) TNP 06/13/16 06:22 Est GFR (Non-Af Amer) TNP 06/13/16 06:22 BUN/Creatinine Ratio 12.9 06/13/16 06:22 Glucose 103 mg/dL (70-105) 06/13/16 06:22 POC Glucose 152 MG/DL (70 - 105) H 06/14/16 12:01 Whole Bld Lactic Acid 1.34 mmol/L (0.60-2.00) 06/08/16 14:46 Calcium 8.8 mg/dL (8.6-10.3) 06/13/16 06:22 Phosphorus 2.6 mg/dL (2.5-5.0) 06/10/16 05:40 Magnesium 1.9 mg/dL (1.9-2.7) 06/13/16 06:22 Total Bilirubin 0.7 mg/dL (0.3-1.0) 06/09/16 06:40 AST 9 U/L (13-39) L 06/09/16 06:40 ALT 6 U/L (7-52) L 06/09/16 06:40 Alkaline Phosphatase 58 U/L (34-104) 06/09/16 06:40 Total Protein 6.4 gm/dL (6.0-8.3) 06/09/16 06:40 Albumin 3.3 gm/dL (3.7-5.3) L 06/09/16 06:40 Globulin 3.1 gm/dL 06/09/16 06:40 Albumin/Globulin Ratio 1.1 (1.0-1.8) 06/09/16 06:40 TSH 2.09 uIU/ml (0.34-5.60) 06/10/16 05:40 Stool Occult Blood NEGATIVE (NEGATIVE) 06/11/16 05:20 Mycoplasma pneumon IgG <100 U/mL (0-99) 06/09/16 06:44 Mycoplasma pneumon IgM <770 U/mL (0-769) 06/09/16 06:44 Blood Type O POSITIVE 06/08/16 06:20 Antibody Screen NEGATIVE 06/08/16 06:20 Crossmatch See Detail 06/08/16 06:20 - Physical Exam Vitals and I&O: Vital Signs Temp 97.7 F 06/14/16 12:00 Pulse 70 06/14/16 16:03 Resp 19 06/14/16 12:00 BP 136/56 06/14/16 16:03 Pulse Ox 100 06/14/16 12:00 Intake & Output 06/13/16 06/14/16 06/14/16 18:59 06:59 18:59 Intake Total 2800 400 Output Total 3000 1 Balance -200 399 Intake: Intake, IV Amount 300 Piperacillin Sodium/ 100 Tazobact 2.25 gm In Dextrose 5% 50 ml @ 100 mls/hr IV Q8HR [facility] Rx#: [id number] metroNIDAZOLE 500mg/NS 200 100mL 500 mg In Premix Fluid 1 bag @ 100 mls/hr IV Q8HR [facility] Rx#:[id number] Oral 800 100 Other 2000 Output: Urine 0 Stool 1 Hemodialysis 3000 Other: # Voids 0 # Bowel Movements 1 Stool Characteristics Liquid Liquid Liquid Brown Active Medications: Current Medications Acetaminophen (Tylenol) 650 mg PO Q4HR PRN PRN Reason: PAIN (MILD) OR TEMP 100.0 OR > Stop: 08/06/16 22:21 Last Admin: 06/13/16 08:33 Dose: 650 mg Acetaminophen/Hydrocodone Bitart ([place] 5mg/325mg) 1 tab PO Q6H PRN PRN Reason: Pain (Severe) Stop: 08/06/16 22:21 Last Admin: 06/14/16 16:06 Dose: 1 tab Al Hydrox/Mg Hydrox/Simethicone (Maalox) 30 ml PO Q6H PRN PRN Reason: Upset Stomach / Indigestion Stop: 08/06/16 22:21 Albuterol/Ipratropium (Duoneb Neb) 3 ml HHN [id number] [facility] Stop: 08/08/16 18:59 Last Admin: 06/13/16 15:50 Dose: 3 ml Amlodipine Besylate (Norvasc) 5 mg PO DAILY [facility] Stop: 08/07/16 08:59 Last Admin: 06/14/16 08:48 Dose: 5 mg Bisacodyl (Dulcolax 10 Mg Supp) 10 mg RC DAILY PRN PRN Reason: BM MANAGEMENT Stop: 08/06/16 22:21 Budesonide (Pulmicort) 0.5 mg HHN BIDRT [facility] Stop: 08/08/16 18:59 Last Admin: 06/13/16 07:09 Dose: 0.5 mg Calcium/Vitamin D (Oscal W/Vitamin D) 1 tab PO HS [facility] Stop: 08/06/16 20:59 Last Admin: 06/13/16 20:48 Dose: 1 tab Clonidine HCl (Catapres) 0.1 mg PO Q4H PRN PRN Reason: SBP>160 Stop: 08/06/16 22:21 Last Admin: 06/14/16 10:12 Dose: 0.1 mg Dextrose (D50w) 50 ml IVP ACHS PRN PRN Reason: BLOOD SUGAR < 70 Stop: 08/06/16 22:21 Docusate Sodium (Colace) 250 mg PO DAILY [facility] Stop: 08/09/16 14:59 Last Admin: 06/14/16 08:47 Dose: Not Given Hydralazine HCl (Apresoline) 50 mg PO BID [facility] Stop: 08/13/16 08:59 Last Admin: 06/14/16 16:03 Dose: 50 mg Metronidazole 500 mg/ (Miscellaneous) 100 mls @ 100 mls/hr IV Q8HR [facility] Stop: 08/08/16 04:59 Last Admin: 06/14/16 14:42 Dose: 100 mls/hr Piperacillin Sod/Tazobactam (Sod 2.25 gm/ Dextrose) 50 mls @ 100 mls/hr IV Q8HR [facility] Stop: 08/11/16 12:59 Last Admin: 06/14/16 12:08 Dose: 100 mls/hr Insulin Aspart (Novolog Insulin Sliding Scale) 0 units SUBQ ACHS [facility] PRN Reason: Protocol Stop: 08/07/16 07:29 Last Admin: 06/14/16 12:12 Dose: 4 units Lactulose (Cephulac) 30 gm PO DAILY [facility] Stop: 08/10/16 14:44 Last Admin: 06/14/16 08:50 Dose: Not Given Lisinopril (Zestril) 40 mg PO BID [facility] Stop: 08/07/16 08:59 Last Admin: 06/14/16 16:03 Dose: 40 mg Magnesium Oxide (Mag-Oxide) 400 mg PO DAILY [facility] Stop: 08/08/16 15:14 Last Admin: 06/14/16 08:46 Dose: 400 mg Miscellaneous (Vte Chemical Prophylaxis Screen/ Admission) 1 ea MC PRN PRN PRN Reason: PROTOCOL Stop: 08/07/16 16:59 Miscellaneous (Clinical Monitoring) 1 ea MC PRN PRN PRN Reason: RENAL DOSING Stop: 08/10/16 12:35 Nitroglycerin (Nitrostat) 0.4 mg SL Q5M PRN PRN Reason: Chest Pain Stop: 08/06/16 22:21 Petrolatum (Zinc Oxide) 1 appl TP TID [facility] Stop: 08/07/16 08:59 Last Admin: 06/14/16 14:42 Dose: Not Given Promethazine HCl/Codeine (Phenergan W/Cod Susp) 5 ml PO Q6H PRN PRN Reason: Cough Stop: 08/06/16 22:20 Last Admin: 06/08/16 13:20 Dose: 5 ml Sodium Bicarbonate (Sodium Bicarbonate) 650 mg PO BID [facility] PRN Reason: Protocol Stop: 08/07/16 08:59 Last Admin: 06/14/16 16:03 Dose: 650 mg Sucralfate (Carafate) 1 gm PO TIDHS [facility] Stop: 08/07/16 08:59 Last Admin: 06/14/16 16:04 Dose: 1 gm General: Alert, No acute distress HEENT: Atraumatic, Mucous membr. 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 was dialyzed yesterday hgb/hct improved w/transfusion f/u cbc, electrolytes P04 corrected replace K BP elevated last nite, dc held, possible dc this pm Nutritional Asmnt/Malnutr-PDOC - Dietary Evaluation Malnutrition Findings (Please click <Entered> for more info): Nutritional Asmnt/Malnutrition Start: 06/12/16 16: 43 Text: Status: Complete Freq: Document 06/12/16 16:43 GSUN (Rec: 06/12/16 16:55 [email or web address] [id number]) Nutritional Asmnt/Malnutrition Patient General Information Nutritional Screening Moderate Risk Screening Diagnosis Pneumonia Pertinent Medical Hx/Surgical Hx HTN, DM, hx asthma, COPD, hx peptic ulcer disease, thrombocytopenia, ESRD on HD, peripheral vascular disease, right above knee amputation Subjective Information 85yo F, Nepali speaking, on HD, granddaughter at bedside and translated. Per H&P: sepsis improving. Pt was alert , very pleasant. Avg PO intake 75-100% of meals, meeting nutritional needs. Family requested for menu to fill out for tomorrow. Family stated some bigger chunks of meat are harder to chew, but not a significant concern, otherwise no nutritional problems at this time. Current Diet Order/ Nutrition Support Renal, mech soft Pertinent Medications maalox, dulcolax, oscal w/ vitamin D, D50, colace, novolog sliding scale, mag- oxide Pertinent Labs 06/07: creatinine 1.8H, glucose 161H 06/08: potassium 2.9L, creatinine 2.6H, glucose 130H 06/10: creatinine 3.1H 06/12: creatinine 1.9H POC glcuose 85-225H Nutritional Hx/Data Height 1.63 m Height (Calculated Centimeters) 162.6 Current Weight (lbs) 55.792 kg Weight (Calculated Kilograms) 55.8 Weight (Calculated Grams) 36385.9 [place] Body Weight 101#/45.9 kg ([place] equation, adjusted for AKA -16%) Recent Weight Change No Weight Status Approriate GI Symptoms Food Allergies No Cultural/Ethnic/Alevism Belief Unknown. Usual diet at home Unknown. Skin Integrity/Comment: [place] 15. Skin intact. Current %PO Good (75-100%) Estimated Nutritional Goals Calories/Kcals/Kg IBW 30-35 kcals/kg (pneumonia, HD) Kcals Calculated 8975-2971 kcals/day Protein g/k.2-1.5 gm/kg Protein Calculated 64-80 gm/day Fluid: ml Per MD/DO Nutritional Problem 1. Problem Problem Increase kcal and protein needs related to Etiology hypermtabolic state aeb Signs/Symptoms: ESRD on HD, penumonia, improving sepsis Intervention/Recommendation Comments 1. Continue with renal [facility] soft diet. Current PO intake is adequate. 2. Recommend [id number] for glycemic control if needed. Expected Outcomes/Goals Expected Outcomes/Goals 1. PO intake to meet 100% of estimated nutritional needs with tolerance. Physician Parameters for PEM Serum Albumin (g/dl) 3.1 - 3.4 (Mild)
--- NOTE | 2016-06-15 02:23 | Progress Notes ---
PROBLEM LIST: 1. Right-sided pneumonia. 2. Fluid overload. 3. Metabolic syndrome. 4. Right-sided AK amputation with history of chronic renal failure, on hemodialysis. SYMPTOMS: Nil, feeling okay. He is being prepared to go to the [facility]. No specific new symptoms otherwise. PHYSICAL EXAMINATION: VITAL SIGNS: The patient's recorded vitals: Temperature is 98.6, blood pressure 136/56. NECK: Veins not visualized. CHEST: Shows diminished air entry with occasional rhonchi; otherwise, unremarkable. ASSESSMENT: The patient is clinically stable, improving with very slow improvement in right basal effusion infiltrate with renal failure, on hemodialysis with the chronic anemia as well as a sleep apnea syndrome. PLANS AND SUGGESTIONS: We will continue current treatment. We will follow the patient at [facility] and go from there. JOB# [id number]
--- NOTE | 2016-06-15 03:08 | Progress Notes ---
SUBJECTIVE: The patient was seen in her room. Supposedly, the patient will be discharged to LTAC yesterday, but unfortunately the patient having elevated blood pressure despite giving clonidine p.r.n. So per director franchise sales the ____ discharged to LTAC until blood pressure is stable. Blood pressure today is better. The patient also was started on hydralazine p.o. OBJECTIVE: HEENT: Head is atraumatic and normocephalic. Bilateral pupils are equally round and reactive. NECK: Supple. No JVD. CARDIOVASCULAR: No murmurs, S1 and S2 heard. PULMONARY: Mild expiratory wheezing. The patient is not currently on 2 liters nasal cannula. GASTROINTESTINAL: Soft and nontender. Positive bowel sounds. EXTREMITIES: Right above knee amputation. ASSESSMENT: 1. End-stage renal disease, hemodialysis dependent. 2. Pneumonia. 3. Hypertension. 4. Anemia. 5. Thrombocytopenia. PLAN: We will stabilize the patient's blood pressure and condition. We will continue hemodialysis per [employer] and then we will proceed with discharge to a long-term acute care once cleared by the director franchise sales. JOB# [id number]
== END 2016-06-14 18:15 | disposition short-term general hospital (02) | DRG 871 ==
LOC: ER 15:30 → MSI 21:03 → TELE 06-08 14:40 → MSI 06-08 16:33
PROVIDERS: ADMIT Internal Medicine; ATTEND Internal Medicine
PROC: 30233N1 Transfusion of Nonautologous Red Blood Cells into Peripheral Vein, Percutaneous Approach (ICD-10-PCS; principal; 2016-06-08)
PROC: 5A1D60Z (ICD-10-PCS; 2016-06-08)
DX: A41.9 Sepsis, unspecified organism (principal); J18.9 Pneumonia, unspecified organism; J90 Pleural effusion, not elsewhere classified; D69.49 Other primary thrombocytopenia; N18.6 End stage renal disease; I12.0 Hypertensive chronic kidney disease with stage 5 chronic kidney disease or end stage renal disease; E11.22 Type 2 diabetes mellitus with diabetic chronic kidney disease; I27.2 Other secondary pulmonary hypertension; K56.7 Ileus, unspecified; K27.9 Peptic ulcer, site unspecified, unspecified as acute or chronic, without hemorrhage or perforation; E78.5 Hyperlipidemia, unspecified; K59.00 Constipation, unspecified; E66.9 Obesity, unspecified; J44.9 Chronic obstructive pulmonary disease, unspecified; E87.6 Hypokalemia; K80.20 Calculus of gallbladder without cholecystitis without obstruction; D63.8 Anemia in other chronic diseases classified elsewhere; D50.9 Iron deficiency anemia, unspecified; K21.9 Gastro-esophageal reflux disease without esophagitis; J45.909 Unspecified asthma, uncomplicated; G47.33 Obstructive sleep apnea (adult) (pediatric); I08.1 Rheumatic disorders of both mitral and tricuspid valves; M19.011 Primary osteoarthritis, right shoulder; E87.70 Fluid overload, unspecified; E88.81 Metabolic syndrome and other insulin resistance; Z99.2 Dependence on renal dialysis; Z79.4 Long term (current) use of insulin; Z89.611 Acquired absence of right leg above knee
CPT/HCPCS: 36415-UA; 36600-90; 71010-TC; 71250-TC; 72125-TC; 74000-TC; 80048-TC; 80053-TC; 82270-TC; 82803-TC; 82948-90; 83605; 83735-TC; 84100-TC; 84443-TC; 85007-TC; 85027-TC; 86738-90; 86850-TC; 86900-TC; 86901-TC; 86922-TC; 87070; 87230-TC; 90799; 90937; 93005; 94760; 96375; J0295; J0456; J0696; J1170; J1815; J2543; J3480; J7030; P9016; Z7610

== ENCOUNTER 2016-08-12 23:05 | Inpatient (IN) | payer MEDICARE, MEDICAID ==
--- NOTE | 2016-08-12 23:41 | ED Physician Chart ---
Chief Complaint/HPI - Patient Information Date Seen:: 08/12/16 Time Seen:: 23:30 Chief Complaint:: Recurrent bleeding from AV shunt in L forearm History of Present Illness:: Pt is Czech speaking. Interpretation is provided by her granddaughter Martha per pt's request. Pt was brought in by ambulance reportedly had bleeding from AV shunt at L forearm earlier today and last evening. Pt feels well now and denies lightheadedness. Pt has h/o ESRD on hemodialysis with last one performed yesterday. Pt does not take ASA or any anticoagulant. Pt has h/o thrombocytopenia. Allergies:: Allergies Allergy/AdvReac Type Severity Reaction Status Date / Time No Known Allergies Allergy Verified 08/12/16 23:17 Vitals:: Vital Signs - 8 hr 08/12/16 08/12/16 23:05 23:17 Temp 98.4 F 98.4 F HR 94 92 RR 18 18 BP 160/62 160/62 O2 Sat % 100 100 Historian:: Patient, Medical Records (from transferring facility.) Family MD/PCP:: Dr. Stephenson LMP:: Postmenopausal. Review:: Nurse's Note Reviewed, Transfer documents Reviewed Review of Systems - Review of Systems General/Constitutional: No fever, No chills, No weight loss, No weakness, No diaphoresis, No edema, No loss of appetite Skin: Bruising Head: No headache, No light-headedness Eyes: No pain, No diplopia, Other (Pt has significant loss of her L eye vision for about 2 years.) Neck: No neck pain, No swelling, No thyromegaly, No stiffness, No mass noted Cardio Vascular: No chest pain, No palpitations, No PND, No edema Pulmonary: No SOB, No cough, No wheezing GI: Nausea, Vomiting (transient vomiting yesterday with vomitus consists of gastric content.), No diarrhea, No pain, No melena, No hematochezia, No constipation, No hematemesis G/U: Other (Pt does not make much urine.) Psychiatric: No prior psych history Hematopoietic: Bruising (related to thrombocytopenia), No lymphadenopathy Allergic/Immuno: No urticaria, No angioedema Neurological: No syncope, No focal symptoms, No headache Past Medical History - Past Medical History Past Medical History: HTN, DM, Asthma/COPD, ESRD, Other (Chronic anemia, thrombocytopenia) Social History: Non Smoker, No Alcohol, No Drug Use, Legally, Care Facility Employment:: retired. Surgical History: other (R AKA at age 9.) Psychiatricy History: None Medication: Reviewed Family Medical History - Family Member Father History Unknown: Yes Ethnicity: Living Status: Hx Family Cancer: (UNKNOWN) Hx Family Coronary Artery Disease: (UNKNOWN) Hx Family Congestive Heart Failure: (UNKNOWN) Hx Family Hypertension: (UNKNOWN) Hx Family Stroke: (UNKNOWN) Hx Family Diabetes: (UNKNOWN) Hx Family Seizures: (UNKNOWN) Hx Family Dementia: (UNKNOWN) Hx Family AIDS: (UNKNOWN) Hx Family HIV: No Hx Family COPD: (UNKNOWN) Hx Family Hepatitis: (UNKNOWN) Hx Family Psychiatric Problems: (UNKNOWN) Hx Family Tuberculosis: (UNKNOWN) Physical Exam - Physical Examination General/Constitutional: Awake, Well-developed, well-nourished, Alert, No distress, Non-toxic appearing Other Gen/Cons comments:: Breathes comfortably and speaks clearly. Pt interacts normally. Head: Atraumatic Eyes: Lids, conjuctiva normal, PERRL, EOMI Other Eyes comments:: Mildly pale conjunctiva. Skin: Well hydrated, No lymphadenopathy Other Skin comments:: There are few ecchymotic areas in both UE's. Affected areas are nontender without other abnormal findings. ENMT: External ears, nose nl, Nasal exam nl, Oropharynx nl Other ENMT comments:: Pt is edentulous. Neck: Nontender, Full ROM w/o pain, No JVD, No nuchal rigidity, No mass, No stridor Respiratory: Nl effort/Exclusion, Clear to Auscultation, No Wheeze/Rhonchi/Rales Cardio Vascular: RRR, No murmur, gallop, rubs GI: No tenderness/rebounding/guarding, No organomegaly, No hernia, Normal BS's, Nondistended, No mass/bruits Other GI comments:: Abdomen is soft. Extremities: No edema Other Extremities comments:: R above knee amputation noticed with clean stump. L forearm AV shunt area has no sign of active bleeding or swelling. Neuro/Psych: Alert/oriented (oriented x 3), Mood normal, No focal deficits ( except pt has R AKA.) Labs/Radiology/EKG Results - Lab Results Results: Laboratory Tests 08/13/16 08/13/16 08/13/16 00:08 00:08 00:08 WBC 3.6 L D RBC 3.51 L Hgb 8.9 L Hct 28.0 L MCV 79.7 L MCH 25.4 L MCHC Differential 31.8 RDW 17.4 Plt Count 25 L* MPV 7.4 PT 10.6 INR 1.02 PTT (Actin FS) 35.0 Sodium 134 L Potassium 2.8 L* Chloride 95 L Carbon Dioxide 23.9 Anion Gap 17.9 H BUN 39 H Creatinine 3.6 H Est GFR ( Amer) TNP Est GFR (Non-Af Amer) TNP BUN/Creatinine Ratio 10.8 Glucose 146 H Whole Bld Lactic Acid Calcium 8.7 Total Bilirubin 0.4 AST 13 ALT 11 Alkaline Phosphatase 40 Total Protein 6.8 Albumin 3.8 Globulin 3.0 Albumin/Globulin Ratio 1.3 08/13/16 00:08 WBC RBC Hgb Hct MCV MCH MCHC Differential RDW Plt Count MPV PT INR PTT (Actin FS) Sodium Potassium Chloride Carbon Dioxide Anion Gap BUN Creatinine Est GFR ( Amer) Est GFR (Non-Af Amer) BUN/Creatinine Ratio Glucose Whole Bld Lactic Acid 0.59 L Calcium Total Bilirubin AST ALT Alkaline Phosphatase Total Protein Albumin Globulin Albumin/Globulin Ratio Mg level is pending. - EKG Interpretations EKG Time:: 00:56 Rate & Rhythm: NSR with VR 92 Comments:: First degree AVB. LAE. LVH Cannot r/o old IMI and AMI, age undetermined. No acute ischemic changes. ED Septic Shock - . Is Septic Shock (SBP<90, OR Lactate>4 mmol\L) present?: No - <6hrs of presentation: Vital Signs: Vital Signs - 8 hr 08/12/16 08/12/16 23:05 23:17 Temp 98.4 F 98.4 F HR 94 92 RR 18 18 BP 160/62 160/62 O2 Sat % 100 100 Reassessment (Disposition) - Reassessment Reassessment:: 0055 Pt remains stable. Lab results just became available. Lab findings have been reviewed with pt. Management plan has been discussed. Interpretation is provided by pt's granddaughter Martha. Pt is to be given oral potassium because of hypokalemia. EKG and Mg level have been ordered. 0110 Case was discussed with Dr. Stephenson with pertinent H & P, EKG, and available lab results reviewed. Pt is to be admitted to [facility] under his care. He will follow on pending Mg level. Reassessment Condition:: Improved - Diagnosis Diagnosis:: Pancytopenia. Consider myeloproliferative disorder. Mild hypokalemia, stable. ESRD, on hemodialysis. Diabetes mellitus, stable. - Patient Disposition Admitted to:: Telemetry Admitting Medical Physician:: Deepthi Stephenson Time:: 01:15 Condition at Disposition:: Stable, Improved
[2016-08-13 00:22] LABS: HEMOGLOBIN 8.9 gm/dL (11.7-16.1); MEAN CELL VOLUME 79.7 fl (81-100); MEAN CORPUSCULAR HEMOGLOBIN 25.4 pg (27.0-31.0); MEAN CORPUSCULAR HGB CONC 31.8 pg (28.0-36.0); MEAN PLATELET VOLUME 7.4 fl; RED BLOOD COUNT 3.51 Mil/cmm (3.80-5.20); RED CELL DISTRIBUTION WIDTH 17.4 % (11.5-20.0)
[2016-08-13 00:29] LABS: PLATELET COUNT 25 Th/cmm (150-400); WHITE BLOOD COUNT 3.6 Th/cmm (4.8-10.8)
[2016-08-13 00:30] LABS: INR 1.02 (0.5-1.4); PROTHROMBIN TIME (TEST) 10.6 SECONDS (9.5-11.5)
[2016-08-13 00:31] LABS: ALB/GLOB RATIO 1.3 (1.0-1.8); ALKALINE PHOSPHATASE 40 U/L (34-104); ANION GAP 17.9 (7.0-16.0); BILIRUBIN,TOTAL 0.4 mg/dL (0.3-1.0); BUN - UREA NITROGEN 39 mg/dL (7-25); BUN/CREATININE RATIO 10.8; CALCIUM SERUM 8.7 mg/dL (8.6-10.3); CARBON DIOXIDE 23.9 mEq/L (21.0-31.0); CHLORIDE 95 mEq/L (98-107); CREATININE - SERUM 3.6 mg/dL (0.6-1.2); GLUCOSE 146 mg/dL (70-105); SGOT 13 U/L (13-39); SGPT/ALT 11 U/L (7-52); SODIUM SERUM 134 mEq/L (136-145)
[2016-08-13 00:35] LABS: POTASSIUM SERUM 2.8 mEq/L (3.5-5.1)
[2016-08-13] MEDS ORDERED: Potassium Chloride 20 mEq ER Tab PO ONE ×3 (00:49→14:00)
[2016-08-13] MEDS ORDERED: Potassium Chloride Elixir 20 mEq /15 mL UDC ONE (00:52)
[2016-08-13 01:11] LABS: BAND NEUTROPHILE 3 % (0-10); HYPOCHROMIA 2+; MICROCYTOSIS 1+; NEUTROPHILS 65 % (40-80); PLATELET ESTIMATE DECREASED PLATELETS (NORMAL); POLYCHROMASIA 1+; TOTAL CELLS COUNTED 100
[2016-08-13] MEDS ORDERED: Dextrose 50% 50 mL Abboject IVP PRN ×2 (01:24→17:40)
[2016-08-13] MEDS ORDERED: Lactulose 10 Gm/15 mL 30mL UDC PO PRN (02:00)
[2016-08-13] MEDS ORDERED: cefTRIAXone 1 GM in Sodium Chloride 0.9% 50 ML IV ONE (02:14)
[2016-08-13] MEDS ORDERED: Pneumococcal Vaccine 0.5 mL Vial IM ONE (04:04)
[2016-08-13] MEDS: INSULIN ASPART SLIDING SCALE 100 UNITS/ML UNIT SUBQ SCH ×4 (06:55→21:33)
[2016-08-13] MEDS: Albuterol/Ipratropium Neb 3 ML AERS HHN SCH ×3 (06:55→19:34)
[2016-08-13] MEDS: Budesonide 0.5 Mg/2 mL Ud HHN SCH ×2 (06:55→19:37)
[2016-08-13 07:26] LABS: HEMATOCRIT 28.2 % (35.0-45.0); HEMOGLOBIN 9.2 gm/dL (11.7-16.1); MEAN CELL VOLUME 80.3 fl (81-100); MEAN CORPUSCULAR HEMOGLOBIN 26.1 pg (27.0-31.0); MEAN CORPUSCULAR HGB CONC 32.5 pg (28.0-36.0); MEAN PLATELET VOLUME 7.3 fl; PLATELET COUNT 60 Th/cmm (150-400); RED BLOOD COUNT 3.51 Mil/cmm (3.80-5.20); RED CELL DISTRIBUTION WIDTH 18.3 % (11.5-20.0); WHITE BLOOD COUNT 4.7 Th/cmm (4.8-10.8)
[2016-08-13 07:58] LABS: ANION GAP 17.4 (7.0-16.0); BUN - UREA NITROGEN 43 mg/dL (7-25); CALCIUM SERUM 9.2 mg/dL (8.6-10.3); CARBON DIOXIDE 23.9 mEq/L (21.0-31.0); CHLORIDE 96 mEq/L (98-107); CREATININE - SERUM 3.9 mg/dL (0.6-1.2); GLUCOSE 143 mg/dL (70-105); POTASSIUM SERUM 3.3 mEq/L (3.5-5.1); SODIUM SERUM 134 mEq/L (136-145)
[2016-08-13 08:48] LABS: BAND NEUTROPHILE 0 % (0-10); NEUTROPHILS 60 % (40-80); TOTAL CELLS COUNTED 100
[2016-08-13 08:49] LABS: PLATELET ESTIMATE DECREASED PLATELETS (NORMAL)
[2016-08-13] MEDS ORDERED: NUT TX GLUC INTOLER LAC FR SOY PO SCH (09:00)
[2016-08-13] MEDS: Lidocaine 5% Patch TD SCH (09:30)
--- NOTE | 2016-08-13 12:02 | Consultation ---
Consult Note - Consult Note Service Date: 08/13/16 Referring Physician: Deepthi Stephenson Consult Note: [id number]
[2016-08-13] MEDS: Hydrocodone/APAP 5mg/325mg Tab PO SCH ×2 (12:57→20:47)
[2016-08-13] MEDS: Vitamin B Complex w/Vitamin C Tab PO SCH (16:56)
--- NOTE | 2016-08-13 20:49 | Admit Criteria Form ---
Admit Criteria Forms - Admit Criteria Diagnosis: HEMATOLOGY GRG Clinical Indications for Admission to Inpatient Care (Place 'X' for any and all applicable criteria): Hospital admission is needed for appropriate care of the patient because of ANY ONE of the following: [ ]I. Severe anemia indicated by ANY ONE of the following (1)(2) [ ]a) Altered mental status [ ]b) Syncope [ ]c) Other findings suggesting inadequate perfusion [ ]d) Chest pain [ ]e) Exertional dyspnea [ ]f) Treatment with transfusion or volume replacement is ineffective at resolving ANY ONE of the following [A]: [ ]i) Tachycardia for age [ ]ii) Orthostatic vital sign changes as indicated by ANY ONE of the following (3) [ ]1) Fall in SBP of 20 mm Hg or more 1 to 3 minutes after patient sits or stands from recumbent position [ ]2) Fall in DBP of 10 mm Hg or more 1 to 3 minutes after patient sits or stands from recumbent position [ ]II. High-risk febrile neutropenia [B] as indicated by ANY ONE of the following(4)(5) [ ]a) Hemodynamic instability [ ]b) Hypoxemia [ ]c) Tachypnea [ ]d) Altered mental status [ ]e) New onset abdominal pain [ ]f) New onset vomiting or diarrhea [ ]g) Pneumonia [ ]h) Profound neutropenia [C] anticipated to extend for more than 7 days [ ]i) Oral or gastrointestinal mucositis that interferes with swallowing or causes severe diarrhea [ ]j) Evidence of significant focal infection (eg, cellulitis, central line or catheter infection, perirectal abscess) [ ]k) Leukemia or lymphoma induction therapy [ ]l) Bone marrow transplant patient [ ]m) Renal insufficiency (eg, GFR of less than 30 mL/min/1.73m2 (0.5 mL/sec/1.73m2) [ ]n) Severe liver dysfunction (transaminase levels greater than 5 times normal) [ ]o) Platelet count less than 50,000/mm3 (50 x109/L)(6) [ ]p) [employer] Association for Supportive Care in Cancer (MASCC) Risk Index score of < 21 [D] [ ]III. High-risk low platelet count as indicated by ANY ONE of the following(8) (9) [ ]a) Severe or life-threatening bleeding (eg, intracranial, major gastrointestinal, or extensive mucosal bleeding), with any reduced platelet count [ ]b) Platelet count less than 20,000/mm3 (20 x109/L) with any active bleeding [ ]c) Platelet count less than 10,000/mm3 (10 x109/L) with minor purpura or petechiae [ ]d) Platelet count less than 5000/mm3 (5 x109/L) [ ]e) Low platelet count with hemolytic anemia [X]IV.Active hemolysis with high-risk findings, including ANY ONE of the following(2)(10)(11) [ ]a) Hematocrit less than 25% (0.25) [ ]b) Rapidly progressing anemia [X]c) Thrombocytopenia(12)(13) [ ]d) Evidence of thrombosis or new renal insufficiency [ ]V. Bleeding disorder with high-risk features (eg, hemophilia, coagulopathy) as indicated by ANY ONE of the following (2)(14)(15) [ ]a) Central nervous system bleeding [ ]b) Retroperitoneal bleeding [ ]c) Retropharyngeal bleeding [ ]d) Gastrointestinal bleeding (22) [ ]e) Purpura [ ]f) Disseminated intravascular coagulation(23) [ ]g) Major trauma [ ]h) Deep laceration [ ]i) Head trauma [ ]j) Any trauma with internal hematoma (eg, retroperitoneal, ocular) [ ]k) Failed outpatient management [ ]. Severe over-anticoagulation or high-risk situation as indicated by ANY ONE of the following(24)(25) [ ]a) Active bleeding [ ]b) International normalized ratio 5 or greater and rapid reversal needed [ ]c) International normalized ratio 9 or greater [ ]VII. Congenital immunodeficiency states with severe morbidity as indicated by ANY ONE of the following(26)(27) [ ]a) Severe infection [ ]b) Bone marrow transplant needed (Also use Medical Oncology GRG) [ ]VIII. Hyperviscosity syndrome with high-risk indicators indicated by ANY ONE of the following (2)(28)(29)(30)(31) [ ]a) Polycythemia vera with hematocrit greater than 60% (0.60) [ ]b) Elevated platelet count associated with thrombosis, bleeding, or life-threatening organ dysfunction [ ]c) Severe signs or symptoms from elevated red cell, white cell, or protein levels, including ANY ONE of the following: [ ]i) Mental status change [ ]ii) Dyspnea [ ]iii) Chest x-ray infiltrate [ ]iv) Visual changes [ ]v) Retinal abnormalities [ ]vi) Neuromuscular symptoms [ ]vii) Suspected ischemia or thrombosis [ ]viii) Bleeding [ ]IX. Methemoglobinemia greater than 15% (0.15) or severe symptoms persist after emergency treatment (32)(33) [ ]X. Spleen trauma with blood loss or other need for acute (medical) treatment (34) [ ]XI. Hematology condition and ALL of the following: [ ]a) Symptom or finding for which emergency and observation care have failed or are not considered appropriate (Also use General Criteria: Observation Care as appropriate) [ ]b) Presence of ANY ONE of the following: [ ]i) A General Admission Criteria [ ]ii) A Pediatric General Admission Criteria The original [facility] content created by [facility] has been revised. The portions of the content which have been revised are identified through the use of italic text or in bold, and [facility] has neither reviewed nor approved the modified material. All other unmodified content is copyright [facility]. Please see references footnoted in the original [facility] edition 2016 Admit Criteria Met?: Yes
--- NOTE | 2016-08-14 01:47 | History & Physical ---
ADMIT DATE: 08/13/2016 The patient was admitted for recurrent bleeding from the AV fistula site. HISTORY OF PRESENT ILLNESS: This is a very well known patient for me. A very elderly female patient known to have history of hypertension, history of diabetes, history of ESRD, end-stage renal disease on dialysis and also history of low platelets and history of thrombocytopenia, was in the hemodialysis center, had bleeding, came to the Emergency Room, was admitted. The patient had no fever, no chills and no rigors. REVIEW OF SYSTEMS: Negative. PAST MEDICAL HISTORY: As enumerated ____ hypertension, diabetes, asthma, COPD, ESRD, chronic anemia and thrombocytopenia. 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 PHYSICAL EXAMINATION: GENERAL: Awake, alert, oriented and well-nourished. VITAL SIGNS: Stable. HEAD: Normal. ENT: Normal. LUNGS: Bilateral rhonchi. CARDIOVASCULAR SYSTEM: S1, S2 heard. ABDOMEN: Soft. EXTREMITIES: Some ecchymotic ____ on the left arm ____ upper extremities. CENTRAL NERVOUS SYSTEM: Grossly normal, left shunt was slightly bleeding. LABORATORY DATA: White count was 3.6, hemoglobin 8.9 and hematocrit was 28. BUN and creatinine were high. DIAGNOSES: Bleeding from the arteriovenous site, rule out sepsis, urinary tract infection, possible bronchitis, history of chronic obstructive pulmonary disease, history of end-stage renal disease, right above knee amputation history and history of hypertension was made. The patient is being admitted and I will follow the patient along with. We will call Dr. Esqueda for ID consult and we will also have the surgeon and call the dressmaker garment fitter. JOB# [id number]
[2016-08-14] MEDS: Albuterol/Ipratropium Neb 3 ML AERS HHN SCH ×4 (01:51→19:22)
--- NOTE | 2016-08-14 06:04 | Consultation ---
DATE OF CONSULTATION: 08/13/2016 REASON FOR CONSULTATION: Suspect sepsis. HISTORY OF PRESENT ILLNESS: The patient is an 86-year-old female with a past medical history of CKD stage V, on hemodialysis; diabetes mellitus type 2, hypertension, brought in to the ER for bleeding from AV shunt and left forearm. The patient was noted to have pancytopenia with platelets going down to 25,000. The patient had had no fever. Had normal temperature around 99.4 degrees Fahrenheit. ID consult was called for further antibiotic management. PAST MEDICAL HISTORY: CKD stage V, on hemodialysis; hypertension; and diabetes mellitus type 2. ALLERGIES: NKDA. MEDICATIONS: As per medication reconciliation sheet. The patient has received Rocephin 1 g in the ER. REVIEW OF SYSTEMS: The patient is a poor historian, not giving any history. No fever. SOCIAL HISTORY: The patient lives in [facility]. No history of smoking, alcohol, or drug use. FAMILY HISTORY: Noncontributory. PHYSICAL EXAMINATION: VITAL SIGNS: Shows temperature is 99 degrees Fahrenheit, pulse is 58, respirations 18, and blood pressure 149/77. GENERAL: The patient is comfortable, lying in the bed, not in acute distress. HEENT: Head is normocephalic and atraumatic. Oral cavity is moist, pink tongue. NECK: Supple. No JVD. No carotid bruit. Trachea in midline. CHEST: Bilateral breath sounds. No crackles or wheezing. HEART: S1 and S2 within normal limits. Regular rhythm. Systolic murmur present. ABDOMEN: Soft, nontender, and nondistended. Bowel sounds present. EXTREMITIES: No cyanosis, no clubbing, and no edema. Right lower extremity has disarticulation. NEUROLOGIC: Alert and awake. LABORATORY DATA: Current lab shows WBC count is 4700, hemoglobin 9.2, hematocrit 28.2, platelets 60,000, neutrophils 60%, leukocyte 25%. Sodium 134, potassium 3.3, chloride 96, BUN is 43, creatinine 3.9, and glucose is 129. Hold antibiotic at this time. IMPRESSION: 1. Pancytopenia. 2. Congestive heart failure. Chest x-ray shows congestive heart failure. 3. Diabetes mellitus type 2. 4. Hypertension. 5. Hyperlipidemia. 6. Obesity. 7. Anemia of chronic disease. 8. Chronic kidney disease stage V, on hemodialysis. 9. Bleeding from AV shunt on the left side, which has improved. RECOMMENDATIONS: We will monitor same antibiotics. Thank you, Dr. Stephenson for involving me in taking care of this patient. JOB# [id number] [email or web address]
[2016-08-14] MEDS: Hydrocodone/APAP 5mg/325mg Tab PO SCH ×3 (06:40→20:44)
[2016-08-14 07:07] LABS: ANION GAP 15.5 (7.0-16.0); BUN - UREA NITROGEN 52 mg/dL (7-25); BUN/CREATININE RATIO 11.3; CALCIUM SERUM 8.7 mg/dL (8.6-10.3); CARBON DIOXIDE 22.4 mEq/L (21.0-31.0); CHLORIDE 97 mEq/L (98-107); GLUCOSE 116 mg/dL (70-105); PHOSPHOROUS 1.9 mg/dL (2.5-5.0); POTASSIUM SERUM 3.9 mEq/L (3.5-5.1); SODIUM SERUM 131 mEq/L (136-145)
[2016-08-14] MEDS: Budesonide 0.5 Mg/2 mL Ud HHN SCH ×2 (07:35→19:22)
[2016-08-14] MEDS: INSULIN ASPART SLIDING SCALE 100 UNITS/ML UNIT SUBQ SCH ×5 (07:37→23:05)
[2016-08-14 07:50] LABS: MEAN CORPUSCULAR HEMOGLOBIN 25.6 pg (27.0-31.0)
[2016-08-14 07:56] LABS: HEMOGLOBIN 8.1 gm/dL (11.7-16.1); MEAN CELL VOLUME 79.7 fl (81-100); MEAN CORPUSCULAR HGB CONC 32.2 pg (28.0-36.0); MEAN PLATELET VOLUME 8.9 fl; RED BLOOD COUNT 3.17 Mil/cmm (3.80-5.20); RED CELL DISTRIBUTION WIDTH 18.3 % (11.5-20.0)
[2016-08-14] MEDS: Lidocaine 5% Patch TD SCH (08:19)
[2016-08-14 08:23] LABS: HEMATOCRIT 25.2 % (35.0-45.0); PLATELET COUNT 44 Th/cmm (150-400); WHITE BLOOD COUNT 3.9 Th/cmm (4.8-10.8)
[2016-08-14 08:28] LABS: CREATININE - SERUM 4.6 mg/dL (0.6-1.2)
[2016-08-14 09:58] LABS: ANISOCYTOSIS 1+; EOSINOPHIL 1 % (0-5); METAMYELOCYTE 2 % (0-0); MICROCYTOSIS 1+; NEUTROPHILS 61 % (40-80); PLATELET ESTIMATE DECREASED PLATELETS (NORMAL); PLATELET MORPHOLOGY NORMAL (NORMAL); TOTAL CELLS COUNTED 100
--- NOTE | 2016-08-14 11:24 | General Progress Note ---
Objective - Results Result Diagrams: 08/14/16 06:11 08/14/16 06:11 Recent Labs: Laboratory Last Values WBC 3.9 Th/cmm (4.8-10.8) L 08/14/16 06:11 RBC 3.17 Mil/cmm (3.80-5.20) L 08/14/16 06:11 Hgb 8.1 gm/dL (11.7-16.1) L 08/14/16 06:11 Hct 25.2 % (35.0-45.0) L D 08/14/16 06:11 MCV 79.7 fl (81-100) L 08/14/16 06:11 MCH 25.6 pg (27.0-31.0) L 08/14/16 06:11 MCHC Differential 32.2 pg (28.0-36.0) 08/14/16 06:11 RDW 18.3 % (11.5-20.0) 08/14/16 06:11 Plt Count 44 Th/cmm (150-400) L D 08/14/16 06:11 MPV 8.9 fl 08/14/16 06:11 Band Neutrophils % 0 % (0-10) 08/13/16 06:22 Neutrophils (Manual) 61 % (40-80) 08/14/16 06:11 Lymphocytes 24 % (20-50) 08/14/16 06:11 Monocytes 12 % (2-10) H 08/14/16 06:11 Eosinophils 1 % (0-5) 08/14/16 06:11 Metamyelocytes 2 % (0-0) H 08/14/16 06:11 Nucleated RBCs 1.0 % (0-0) H 08/14/16 06:11 Hypochromia 2+ 08/13/16 00:08 Platelet Estimate DECREASED PLATELETS (NORMAL) 08/14/16 06:11 Platelet Morphology NORMAL (NORMAL) 08/14/16 06:11 Polychromasia 1+ 08/13/16 00:08 Anisocytosis 1+ 08/14/16 06:11 Microcytosis 1+ 08/14/16 06:11 RBC Morph Micro Appear ABNORMAL (NORMAL) 08/14/16 06:11 PT 10.6 SECONDS (9.5-11.5) 08/13/16 00:08 INR 1.02 (0.5-1.4) 08/13/16 00:08 PTT (Actin FS) 35.0 SECONDS (26.0-38.0) 08/13/16 00:08 Sodium 131 mEq/L (136-145) L 08/14/16 06:11 Potassium 3.9 mEq/L (3.5-5.1) 08/14/16 06:11 Chloride 97 mEq/L (98-107) L 08/14/16 06:11 Carbon Dioxide 22.4 mEq/L (21.0-31.0) 08/14/16 06:11 Anion Gap 15.5 (7.0-16.0) 08/14/16 06:11 BUN 52 mg/dL (7-25) H 08/14/16 06:11 Creatinine 4.6 mg/dL (0.6-1.2) H* 08/14/16 06:11 Est GFR ( Amer) TNP 08/14/16 06:11 Est GFR (Non-Af Amer) TNP 08/14/16 06:11 BUN/Creatinine Ratio 11.3 08/14/16 06:11 Glucose 116 mg/dL (70-105) H 08/14/16 06:11 POC Glucose 113 MG/DL (70 - 105) H 08/14/16 06:28 Whole Bld Lactic Acid 0.59 mmol/L (0.60-1.99) L 08/13/16 00:08 Calcium 8.7 mg/dL (8.6-10.3) 08/14/16 06:11 Phosphorus 1.9 mg/dL (2.5-5.0) L 08/14/16 06:11 Magnesium 2.2 mg/dL (1.9-2.7) 08/13/16 00:08 Total Bilirubin 0.4 mg/dL (0.3-1.0) 08/13/16 00:08 AST 13 U/L (13-39) 08/13/16 00:08 ALT 11 U/L (7-52) 08/13/16 00:08 Alkaline Phosphatase 40 U/L (34-104) 08/13/16 00:08 Total Protein 6.8 gm/dL (6.0-8.3) 08/13/16 00:08 Albumin 3.8 gm/dL (3.7-5.3) 08/13/16 00:08 Globulin 3.0 gm/dL 08/13/16 00:08 Albumin/Globulin Ratio 1.3 (1.0-1.8) 08/13/16 00:08 Blood Type O POSITIVE 08/13/16 00:08 - Physical Exam Vitals and I&O: Vital Signs Temp 98.6 F 08/14/16 08:00 Pulse 91 08/14/16 08:00 Resp 20 08/14/16 08:00 BP 136/55 08/14/16 08:00 Pulse Ox 100 08/14/16 08:00 Intake & Output 08/13/16 08/14/16 08/14/16 18:59 06:59 18:59 Intake Total 300 Balance 300 Intake: Oral 300 Other: # Voids 2 Active Medications: Current Medications Acetaminophen (Tylenol) 650 mg PO Q4HR PRN PRN Reason: PAIN (MILD) OR TEMP 100.0 OR > Stop: 10/12/16 01:23 Last Admin: 08/13/16 02:32 Dose: 650 mg Acetaminophen/Hydrocodone Bitart ([place] 5mg/325mg) 1 tab PO Q8HR [facility] Stop: 10/12/16 04:59 Last Admin: 08/14/16 06:40 Dose: 1 tab Albuterol/Ipratropium (Duoneb Neb) 3 ml HHN Q6HR [facility] Stop: 10/12/16 05:59 Last Admin: 08/14/16 07:34 Dose: 3 ml Amlodipine Besylate (Norvasc) 5 mg PO TuThSa@2100 [facility] Stop: 10/12/16 20:59 Last Admin: 08/14/16 07:35 Dose: Not Given Amlodipine Besylate (Norvasc) 5 mg PO SuMoWeFr@0900,2100 [facility] Stop: 10/12/16 08:59 Last Admin: 08/13/16 20:47 Dose: 5 mg Ascorbic Acid (Vitamin C) 500 mg PO 1700 [facility] Stop: 10/12/16 16:59 Last Admin: 08/13/16 16:56 Dose: 500 mg Bisacodyl (Dulcolax 10 Mg Supp) 10 mg RC DAILY PRN PRN Reason: BM MANAGEMENT Stop: 10/12/16 01:23 Budesonide (Pulmicort) 0.5 mg HHN BIDRT [facility] Stop: 10/12/16 06:59 Last Admin: 08/14/16 07:35 Dose: 0.5 mg Clonidine HCl (Catapres) 0.1 mg PO Q4H PRN PRN Reason: SBP ABOVE 160 Stop: 10/12/16 01:23 Dextrose (D50w) 50 ml IVP ACHS PRN PRN Reason: BLOOD SUGAR < 70 Stop: 10/12/16 01:23 Last Admin: 08/13/16 17:44 Dose: 50 ml Docusate Sodium (Colace) 250 mg PO 1700 [facility] Stop: 10/12/16 16:59 Last Admin: 08/13/16 16:56 Dose: 250 mg Hydralazine HCl (Apresoline) 50 mg PO SuMoWeFr@0900,2100 [facility] Stop: 10/12/16 08:59 Last Admin: 08/13/16 20:48 Dose: 50 mg Hydralazine HCl (Apresoline) 50 mg PO HS [facility] Stop: 10/12/16 20:59 Insulin Aspart (Novolog Insulin Sliding Scale) 0 units SUBQ ACHS [place] PRN Reason: Protocol Stop: 10/12/16 07:29 Last Admin: 08/14/16 07:37 Dose: Not Given Lactulose (Cephulac) 15 gm PO Q8H PRN PRN Reason: BM MANAGEMENT Stop: 10/12/16 01:59 Lidocaine (Lidoderm 5% Patch) 1 patch TD DAILY [facility] Stop: 10/12/16 08:59 Last Admin: 08/14/16 08:19 Dose: 1 patch Lidocaine (Lidoderm 5% Patch) 1 patch TD DAILY [facility] Stop: 10/14/16 08:59 Lisinopril (Zestril) 40 mg PO TuThSa@2100 [facility] Stop: 10/12/16 20:59 Last Admin: 08/14/16 07:36 Dose: Not Given Lisinopril (Zestril) 40 mg PO SuMoWeFr@BID [facility] Stop: 10/12/16 16:59 Last Admin: 08/13/16 16:56 Dose: 40 mg Miscellaneous (Clinical Monitoring) 1 ea MC DAILY PRN PRN Reason: RENAL Stop: 10/12/16 06:58 Nifedipine (Procardia) 10 mg PO Q6H PRN PRN Reason: SBP >160 Stop: 10/12/16 01:23 Nitroglycerin (Nitrostat) 0.4 mg SL Q5M PRN PRN Reason: Chest Pain Stop: 10/12/16 01:23 Oxycodone HCl (Oxycodone Ir) 5 mg PO Q6HR PRN PRN Reason: Pain (Severe) Stop: 10/12/16 01:23 Sodium Bicarbonate (Sodium Bicarbonate) 650 mg PO BID [facility] PRN Reason: Protocol Stop: 10/12/16 08:59 Last Admin: 08/14/16 08:18 Dose: 650 mg Sucralfate (Carafate) 1 gm PO SuMoWeFr@ACHS [facility] Stop: 10/12/16 11:29 Last Admin: 08/13/16 20:49 Dose: 1 gm Sucralfate (Carafate) 1 gm PO TuThSa@TID [facility] Stop: 10/12/16 09:29 Last Admin: 08/14/16 08:18 Dose: 1 gm Vitamin B Complex/Vit C/Folic Acid (Vitamin B Complex W/Vitamin C) 1 tab PO 1700 [facility] Stop: 10/12/16 16:59 Last Admin: 08/13/16 16:56 Dose: 1 tab - Procedures Procedures: Procedures Procedure Code Date PERFORMANCE OF URINARY FILTRATION, MULTIPLE [id number] 06/07/16 PERFORMANCE OF URINARY FILTRATION, SINGLE [id number] 12/29/15 TRANSFUSE NONAUT RED BLOOD CELLS IN PERIPH VEIN, [facility] [id number] 06/07/16
--- NOTE | 2016-08-14 12:54 | Infectious Disease Prog Note ---
Infectious Disease Subjective - Review of Systems Service Date: 08/14/16 Subjective: No new change. Infectious Disease Objective - Results Result Diagrams: 08/14/16 06:11 08/14/16 06:11 Recent Labs: Laboratory Last Values WBC 3.9 Th/cmm (4.8-10.8) L 08/14/16 06:11 RBC 3.17 Mil/cmm (3.80-5.20) L 08/14/16 06:11 Hgb 8.1 gm/dL (11.7-16.1) L 08/14/16 06:11 Hct 25.2 % (35.0-45.0) L D 08/14/16 06:11 MCV 79.7 fl (81-100) L 08/14/16 06:11 MCH 25.6 pg (27.0-31.0) L 08/14/16 06:11 MCHC Differential 32.2 pg (28.0-36.0) 08/14/16 06:11 RDW 18.3 % (11.5-20.0) 08/14/16 06:11 Plt Count 44 Th/cmm (150-400) L D 08/14/16 06:11 MPV 8.9 fl 08/14/16 06:11 Band Neutrophils % 0 % (0-10) 08/13/16 06:22 Neutrophils (Manual) 61 % (40-80) 08/14/16 06:11 Lymphocytes 24 % (20-50) 08/14/16 06:11 Monocytes 12 % (2-10) H 08/14/16 06:11 Eosinophils 1 % (0-5) 08/14/16 06:11 Metamyelocytes 2 % (0-0) H 08/14/16 06:11 Nucleated RBCs 1.0 % (0-0) H 08/14/16 06:11 Hypochromia 2+ 08/13/16 00:08 Platelet Estimate DECREASED PLATELETS (NORMAL) 08/14/16 06:11 Platelet Morphology NORMAL (NORMAL) 08/14/16 06:11 Polychromasia 1+ 08/13/16 00:08 Anisocytosis 1+ 08/14/16 06:11 Microcytosis 1+ 08/14/16 06:11 RBC Morph Micro Appear ABNORMAL (NORMAL) 08/14/16 06:11 PT 10.6 SECONDS (9.5-11.5) 08/13/16 00:08 INR 1.02 (0.5-1.4) 08/13/16 00:08 PTT (Actin FS) 35.0 SECONDS (26.0-38.0) 08/13/16 00:08 Sodium 131 mEq/L (136-145) L 08/14/16 06:11 Potassium 3.9 mEq/L (3.5-5.1) 08/14/16 06:11 Chloride 97 mEq/L (98-107) L 08/14/16 06:11 Carbon Dioxide 22.4 mEq/L (21.0-31.0) 08/14/16 06:11 Anion Gap 15.5 (7.0-16.0) 08/14/16 06:11 BUN 52 mg/dL (7-25) H 08/14/16 06:11 Creatinine 4.6 mg/dL (0.6-1.2) H* 08/14/16 06:11 Est GFR ( Amer) TNP 08/14/16 06:11 Est GFR (Non-Af Amer) TNP 08/14/16 06:11 BUN/Creatinine Ratio 11.3 08/14/16 06:11 Glucose 116 mg/dL (70-105) H 08/14/16 06:11 POC Glucose 160 MG/DL (70 - 105) H 08/14/16 11:29 Whole Bld Lactic Acid 0.59 mmol/L (0.60-1.99) L 08/13/16 00:08 Calcium 8.7 mg/dL (8.6-10.3) 08/14/16 06:11 Phosphorus 1.9 mg/dL (2.5-5.0) L 08/14/16 06:11 Magnesium 2.2 mg/dL (1.9-2.7) 08/13/16 00:08 Total Bilirubin 0.4 mg/dL (0.3-1.0) 08/13/16 00:08 AST 13 U/L (13-39) 08/13/16 00:08 ALT 11 U/L (7-52) 08/13/16 00:08 Alkaline Phosphatase 40 U/L (34-104) 08/13/16 00:08 Total Protein 6.8 gm/dL (6.0-8.3) 08/13/16 00:08 Albumin 3.8 gm/dL (3.7-5.3) 08/13/16 00:08 Globulin 3.0 gm/dL 08/13/16 00:08 Albumin/Globulin Ratio 1.3 (1.0-1.8) 08/13/16 00:08 Blood Type O POSITIVE 08/13/16 00:08 - Physical Exam Vitals and I&O: Vital Signs Temp 98.7 F 08/14/16 12:00 Pulse 80 08/14/16 12:00 Resp 19 08/14/16 12:00 BP 141/69 08/14/16 12:00 Pulse Ox 100 08/14/16 12:00 Intake & Output 08/13/16 08/14/16 08/14/16 18:59 06:59 18:59 Intake Total 300 Balance 300 Intake: Oral 300 Other: # Voids 2 Active Medications: Current Medications Acetaminophen (Tylenol) 650 mg PO Q4HR PRN PRN Reason: PAIN (MILD) OR TEMP 100.0 OR > Stop: 10/12/16 01:23 Last Admin: 08/13/16 02:32 Dose: 650 mg Acetaminophen/Hydrocodone Bitart ([place] 5mg/325mg) 1 tab PO Q8HR [facility] Stop: 10/12/16 04:59 Last Admin: 08/14/16 06:40 Dose: 1 tab Albuterol/Ipratropium (Duoneb Neb) 3 ml HHN Q6HR [facility] Stop: 10/12/16 05:59 Last Admin: 08/14/16 07:34 Dose: 3 ml Amlodipine Besylate (Norvasc) 5 mg PO TuThSa@2100 [facility] Stop: 10/12/16 20:59 Last Admin: 08/14/16 07:35 Dose: Not Given Amlodipine Besylate (Norvasc) 5 mg PO SuMoWeFr@0900,2100 [facility] Stop: 10/12/16 08:59 Last Admin: 08/13/16 20:47 Dose: 5 mg Ascorbic Acid (Vitamin C) 500 mg PO 1700 [facility] Stop: 10/12/16 16:59 Last Admin: 08/13/16 16:56 Dose: 500 mg Bisacodyl (Dulcolax 10 Mg Supp) 10 mg RC DAILY PRN PRN Reason: BM MANAGEMENT Stop: 10/12/16 01:23 Budesonide (Pulmicort) 0.5 mg HHN BIDRT [facility] Stop: 10/12/16 06:59 Last Admin: 08/14/16 07:35 Dose: 0.5 mg Clonidine HCl (Catapres) 0.1 mg PO Q4H PRN PRN Reason: SBP ABOVE 160 Stop: 10/12/16 01:23 Dextrose (D50w) 50 ml IVP ACHS PRN PRN Reason: BLOOD SUGAR < 70 Stop: 10/12/16 01:23 Last Admin: 08/13/16 17:44 Dose: 50 ml Docusate Sodium (Colace) 250 mg PO 1700 [facility] Stop: 10/12/16 16:59 Last Admin: 08/13/16 16:56 Dose: 250 mg Hydralazine HCl (Apresoline) 50 mg PO SuMoWeFr@0900,2100 [facility] Stop: 10/12/16 08:59 Last Admin: 08/13/16 20:48 Dose: 50 mg Hydralazine HCl (Apresoline) 50 mg PO HS [facility] Stop: 10/12/16 20:59 Insulin Aspart (Novolog Insulin Sliding Scale) 0 units SUBQ ACHS [facility] PRN Reason: Protocol Stop: 10/12/16 07:29 Last Admin: 08/14/16 07:37 Dose: Not Given Lactulose (Cephulac) 15 gm PO Q8H PRN PRN Reason: BM MANAGEMENT Stop: 10/12/16 01:59 Lidocaine (Lidoderm 5% Patch) 1 patch TD DAILY [facility] Stop: 10/14/16 08:59 Lisinopril (Zestril) 40 mg PO TuThSa@2100 [facility] Stop: 10/12/16 20:59 Last Admin: 08/14/16 07:36 Dose: Not Given Lisinopril (Zestril) 40 mg PO SuMoWeFr@BID [facility] Stop: 10/12/16 16:59 Last Admin: 08/13/16 16:56 Dose: 40 mg Miscellaneous (Clinical Monitoring) 1 ea MC DAILY PRN PRN Reason: RENAL Stop: 10/12/16 06:58 Nifedipine (Procardia) 10 mg PO Q6H PRN PRN Reason: SBP >160 Stop: 10/12/16 01:23 Nitroglycerin (Nitrostat) 0.4 mg SL Q5M PRN PRN Reason: Chest Pain Stop: 10/12/16 01:23 Oxycodone HCl (Oxycodone Ir) 5 mg PO Q6HR PRN PRN Reason: Pain (Severe) Stop: 10/12/16 01:23 Sodium Bicarbonate (Sodium Bicarbonate) 650 mg PO BID [facility] PRN Reason: Protocol Stop: 10/12/16 08:59 Last Admin: 08/14/16 08:18 Dose: 650 mg Sucralfate (Carafate) 1 gm PO SuMoWeFr@ACHS [facility] Stop: 10/12/16 11:29 Last Admin: 08/13/16 20:49 Dose: 1 gm Sucralfate (Carafate) 1 gm PO TuThSa@TID [facility] Stop: 10/12/16 09:29 Last Admin: 08/14/16 08:18 Dose: 1 gm Vitamin B Complex/Vit C/Folic Acid (Vitamin B Complex W/Vitamin C) 1 tab PO 1700 [facility] Stop: 10/12/16 16:59 Last Admin: 08/13/16 16:56 Dose: 1 tab General: no acute distress, well developed, well nourished HEENT: atraumatic, normocephalic, PERRLA, EOMI, moist mucous membrane Neck: supple Cardiovascular: S1S2, regular Lungs: clear to auscultation bilaterally, clear to percussion Abdomen: soft, no tender, no distended, no splenomegaly Extremities: no cyanosis, no clubbing, no edema Neurological: awake, alert, oriented, CN 2-12 intact Skin: intact - Procedures Procedures: Procedures Procedure Code Date PERFORMANCE OF URINARY FILTRATION, MULTIPLE [id number] 06/07/16 PERFORMANCE OF URINARY FILTRATION, SINGLE [id number] 12/29/15 TRANSFUSE NONAUT RED BLOOD CELLS IN PERIPH VEIN, [facility] [id number] 06/07/16 Infectious Disease Assmt/Plan - Assessment Assessment: IMPRESSION: 1. Pancytopenia. 2. Congestive heart failure. Chest x-ray shows congestive heart failure. 3. Diabetes mellitus type 2. 4. Hypertension. 5. Hyperlipidemia. 6. Obesity. 7. Anemia of chronic disease. 8. Chronic kidney disease stage V, on hemodialysis. 9. Bleeding from AV shunt on the left side, which has improved. RECOMMENDATIONS: Will monitor off antibiotics.
--- NOTE | 2016-08-14 13:28 | Consultation ---
DATE OF CONSULTATION: 08/14/2016 REFERRING PHYSICIAN: Dr. Stephenson. REASON FOR CONSULTATION: Bleeding, left arm Lakia fistula. Thank you for referring this patient to me. HISTORY OF PRESENT ILLNESS: This is an 86-year-old female on chronic hemodialysis treatment with the Lakia fistula in the left upper extremity. The patient was sent to the Emergency Room because of bleeding. She has history of thrombocytopenia. Other comorbidities include hypertension, diabetes, asthma, COPD, chronic anemia. On this admission, laboratory studies showed hemoglobin 8.1, platelet count is 44,000. Chemistry, BUN 52 and creatinine of 4.6. The patient was given 1 unit of platelets. The bleeding had stopped since admission. The Lakia fistula is working well with no bleeding at this point. Hematology consultation was requested with Dr. Collazo. We will follow as needed. JOB# [id number]
[2016-08-14] MEDS: cefTRIAXone 1 GM in Sodium Chloride 0.9% 50 ML IV SCH (16:43)
[2016-08-14] MEDS: Vitamin B Complex w/Vitamin C Tab PO SCH (16:46)
--- NOTE | 2016-08-14 18:46 | General Progress Note ---
Subjective - Review of Systems Service Date: 08/14/16 Subjective: alert, comfortable, verbal Objective - Results Result Diagrams: 08/14/16 06:11 08/14/16 06:11 Recent Labs: Laboratory Last Values WBC 3.9 Th/cmm (4.8-10.8) L 08/14/16 06:11 RBC 3.17 Mil/cmm (3.80-5.20) L 08/14/16 06:11 Hgb 8.1 gm/dL (11.7-16.1) L 08/14/16 06:11 Hct 25.2 % (35.0-45.0) L D 08/14/16 06:11 MCV 79.7 fl (81-100) L 08/14/16 06:11 MCH 25.6 pg (27.0-31.0) L 08/14/16 06:11 MCHC Differential 32.2 pg (28.0-36.0) 08/14/16 06:11 RDW 18.3 % (11.5-20.0) 08/14/16 06:11 Plt Count 44 Th/cmm (150-400) L D 08/14/16 06:11 MPV 8.9 fl 08/14/16 06:11 Band Neutrophils % 0 % (0-10) 08/13/16 06:22 Neutrophils (Manual) 61 % (40-80) 08/14/16 06:11 Lymphocytes 24 % (20-50) 08/14/16 06:11 Monocytes 12 % (2-10) H 08/14/16 06:11 Eosinophils 1 % (0-5) 08/14/16 06:11 Metamyelocytes 2 % (0-0) H 08/14/16 06:11 Nucleated RBCs 1.0 % (0-0) H 08/14/16 06:11 Hypochromia 2+ 08/13/16 00:08 Platelet Estimate DECREASED PLATELETS (NORMAL) 08/14/16 06:11 Platelet Morphology NORMAL (NORMAL) 08/14/16 06:11 Polychromasia 1+ 08/13/16 00:08 Anisocytosis 1+ 08/14/16 06:11 Microcytosis 1+ 08/14/16 06:11 RBC Morph Micro Appear ABNORMAL (NORMAL) 08/14/16 06:11 PT 10.6 SECONDS (9.5-11.5) 08/13/16 00:08 INR 1.02 (0.5-1.4) 08/13/16 00:08 PTT (Actin FS) 35.0 SECONDS (26.0-38.0) 08/13/16 00:08 Sodium 131 mEq/L (136-145) L 08/14/16 06:11 Potassium 3.9 mEq/L (3.5-5.1) 08/14/16 06:11 Chloride 97 mEq/L (98-107) L 08/14/16 06:11 Carbon Dioxide 22.4 mEq/L (21.0-31.0) 08/14/16 06:11 Anion Gap 15.5 (7.0-16.0) 08/14/16 06:11 BUN 52 mg/dL (7-25) H 08/14/16 06:11 Creatinine 4.6 mg/dL (0.6-1.2) H* 08/14/16 06:11 Est GFR ( Amer) TNP 08/14/16 06:11 Est GFR (Non-Af Amer) TNP 08/14/16 06:11 BUN/Creatinine Ratio 11.3 08/14/16 06:11 Glucose 116 mg/dL (70-105) H 08/14/16 06:11 POC Glucose 149 MG/DL (70 - 105) H 08/14/16 16:20 Whole Bld Lactic Acid 0.59 mmol/L (0.60-1.99) L 08/13/16 00:08 Calcium 8.7 mg/dL (8.6-10.3) 08/14/16 06:11 Phosphorus 1.9 mg/dL (2.5-5.0) L 08/14/16 06:11 Magnesium 2.2 mg/dL (1.9-2.7) 08/13/16 00:08 Total Bilirubin 0.4 mg/dL (0.3-1.0) 08/13/16 00:08 AST 13 U/L (13-39) 08/13/16 00:08 ALT 11 U/L (7-52) 08/13/16 00:08 Alkaline Phosphatase 40 U/L (34-104) 08/13/16 00:08 Total Protein 6.8 gm/dL (6.0-8.3) 08/13/16 00:08 Albumin 3.8 gm/dL (3.7-5.3) 08/13/16 00:08 Globulin 3.0 gm/dL 08/13/16 00:08 Albumin/Globulin Ratio 1.3 (1.0-1.8) 08/13/16 00:08 Blood Type O POSITIVE 08/13/16 00:08 - Physical Exam Vitals and I&O: Vital Signs Temp 99.1 F 08/14/16 16:00 Pulse 93 08/14/16 16:00 Resp 20 08/14/16 16:00 BP 147/57 08/14/16 16:00 Pulse Ox 100 08/14/16 16:00 Intake & Output 08/13/16 08/14/16 08/14/16 18:59 06:59 18:59 Intake Total 300 Balance 300 Intake: Oral 300 Other: # Voids 2 3 # Bowel Movements 3 Active Medications: Current Medications Acetaminophen (Tylenol) 650 mg PO Q4HR PRN PRN Reason: PAIN (MILD) OR TEMP 100.0 OR > Stop: 10/12/16 01:23 Last Admin: 08/13/16 02:32 Dose: 650 mg Acetaminophen/Hydrocodone Bitart ([place] 5mg/325mg) 1 tab PO Q8HR [facility] Stop: 10/12/16 04:59 Last Admin: 08/14/16 14:40 Dose: 1 tab Albuterol/Ipratropium (Duoneb Neb) 3 ml HHN Q6HR [facility] Stop: 10/12/16 05:59 Last Admin: 08/14/16 13:07 Dose: 3 ml Amlodipine Besylate (Norvasc) 5 mg PO TuThSa@2100 [facility] Stop: 10/12/16 20:59 Last Admin: 08/14/16 07:35 Dose: Not Given Amlodipine Besylate (Norvasc) 5 mg PO SuMoWeFr@0900,2100 [facility] Stop: 10/12/16 08:59 Last Admin: 08/13/16 20:47 Dose: 5 mg Ascorbic Acid (Vitamin C) 500 mg PO 1700 [facility] Stop: 10/12/16 16:59 Last Admin: 08/14/16 16:46 Dose: 500 mg Bisacodyl (Dulcolax 10 Mg Supp) 10 mg RC DAILY PRN PRN Reason: BM MANAGEMENT Stop: 10/12/16 01:23 Budesonide (Pulmicort) 0.5 mg HHN BIDRT [facility] Stop: 10/12/16 06:59 Last Admin: 08/14/16 07:35 Dose: 0.5 mg Clonidine HCl (Catapres) 0.1 mg PO Q4H PRN PRN Reason: SBP ABOVE 160 Stop: 10/12/16 01:23 Dextrose (D50w) 50 ml IVP ACHS PRN PRN Reason: BLOOD SUGAR < 70 Stop: 10/12/16 01:23 Last Admin: 08/13/16 17:44 Dose: 50 ml Docusate Sodium (Colace) 250 mg PO 1700 [facility] Stop: 10/12/16 16:59 Last Admin: 08/14/16 16:46 Dose: Not Given Hydralazine HCl (Apresoline) 50 mg PO SuMoWeFr@0900,2100 [facility] Stop: 10/12/16 08:59 Last Admin: 08/13/16 20:48 Dose: 50 mg Hydralazine HCl (Apresoline) 50 mg PO TuThSa@2100 [facility] Stop: 10/13/16 20:59 Ceftriaxone Sodium 1 gm/ (Sodium Chloride) 50 mls @ 100 mls/hr IV Q24HR [facility] Stop: 10/13/16 14:29 Last Admin: 08/14/16 16:43 Dose: 100 mls/hr Insulin Aspart (Novolog Insulin Sliding Scale) 0 units SUBQ ACHS [facility] PRN Reason: Protocol Stop: 10/12/16 07:29 Last Admin: 08/14/16 17:38 Dose: Not Given Lactulose (Cephulac) 15 gm PO Q8H PRN PRN Reason: BM MANAGEMENT Stop: 10/12/16 01:59 Lidocaine (Lidoderm 5% Patch) 1 patch TD DAILY [facility] Stop: 10/14/16 08:59 Miscellaneous (Clinical Monitoring) 1 ea MC DAILY PRN PRN Reason: RENAL Stop: 10/12/16 06:58 Nifedipine (Procardia) 10 mg PO Q6H PRN PRN Reason: SBP >160 Stop: 10/12/16 01:23 Nitroglycerin (Nitrostat) 0.4 mg SL Q5M PRN PRN Reason: Chest Pain Stop: 10/12/16 01:23 Oxycodone HCl (Oxycodone Ir) 5 mg PO Q6HR PRN PRN Reason: Pain (Severe) Stop: 10/12/16 01:23 Sodium Bicarbonate (Sodium Bicarbonate) 650 mg PO BID [facility] PRN Reason: Protocol Stop: 10/12/16 08:59 Last Admin: 08/14/16 16:46 Dose: 650 mg Sucralfate (Carafate) 1 gm PO SuMoWeFr@ACHS [facility] Stop: 10/12/16 11:29 Last Admin: 08/13/16 20:49 Dose: 1 gm Sucralfate (Carafate) 1 gm PO TuThSa@TID [facility] Stop: 10/12/16 09:29 Last Admin: 08/14/16 14:40 Dose: 1 gm Vitamin B Complex/Vit C/Folic Acid (Vitamin B Complex W/Vitamin C) 1 tab PO 1700 [facility] Stop: 10/12/16 16:59 Last Admin: 08/14/16 16:46 Dose: 1 tab General: Alert, Cooperative, No acute distress HEENT: Atraumatic, EOMI, Mucous membr. moist/pink Neck: Supple, +2 carotid pulse wo bruit Cardiovascular: Regular rate, Normal S1, Normal S2 Lungs: Clear to auscultation Abdomen: Bowel sounds, Soft Extremities: Other (no bleed left avf), no Edema Neurological: Sensation intact Skin: no Rash Psych/Mental Status: Mood NL - Procedures Procedures: Procedures Procedure Code Date PERFORMANCE OF URINARY FILTRATION, MULTIPLE [id number] 06/07/16 PERFORMANCE OF URINARY FILTRATION, SINGLE [id number] 12/29/15 TRANSFUSE NONAUT RED BLOOD CELLS IN PERIPH VEIN, [facility] [id number] 06/07/16 Assessment/Plan - Assessment Assessment: ESRD o HD S/P bleed left AVF Pancytopenia 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 HTN w/ ckd DM 2 w/ ckd dyslipidemia anemia of ckd Lo 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 - Plan Plan: Lab - Result Diagrams 08/14/16 06:11 08/14/16 06:11 Current Medications Acetaminophen (Tylenol) 650 mg PO Q4HR PRN PRN Reason: PAIN (MILD) OR TEMP 100.0 OR > Stop: 10/12/16 01:23 Last Admin: 08/13/16 02:32 Dose: 650 mg Acetaminophen/Hydrocodone Bitart ([place] 5mg/325mg) 1 tab PO Q8HR [facility] Stop: 10/12/16 04:59 Last Admin: 08/14/16 14:40 Dose: 1 tab Albuterol/Ipratropium (Duoneb Neb) 3 ml HHN Q6HR [facility] Stop: 10/12/16 05:59 Last Admin: 08/14/16 13:07 Dose: 3 ml Amlodipine Besylate (Norvasc) 5 mg PO TuThSa@2099 [facility] Stop: 10/12/16 20:59 Last Admin: 08/14/16 07:35 Dose: Not Given Amlodipine Besylate (Norvasc) 5 mg PO SuMoWeFr@899,2099 [facility] Stop: 10/12/16 08:59 Last Admin: 08/13/16 20:47 Dose: 5 mg Ascorbic Acid (Vitamin C) 500 mg PO 1700 [facility] Stop: 10/12/16 16:59 Last Admin: 08/14/16 16:46 Dose: 500 mg Bisacodyl (Dulcolax 10 Mg Supp) 10 mg RC DAILY PRN PRN Reason: BM MANAGEMENT Stop: 10/12/16 01:23 Budesonide (Pulmicort) 0.5 mg HHN BIDRT [facility] Stop: 10/12/16 06:59 Last Admin: 08/14/16 07:35 Dose: 0.5 mg Clonidine HCl (Catapres) 0.1 mg PO Q4H PRN PRN Reason: SBP ABOVE 160 Stop: 10/12/16 01:23 Dextrose (D50w) 50 ml IVP ACHS PRN PRN Reason: BLOOD SUGAR < 70 Stop: 10/12/16 01:23 Last Admin: 08/13/16 17:44 Dose: 50 ml Docusate Sodium (Colace) 250 mg PO 1700 [facility] Stop: 10/12/16 16:59 Last Admin: 08/14/16 16:46 Dose: Not Given Hydralazine HCl (Apresoline) 50 mg PO SuMoWeFr@899,2099 [facility] Stop: 10/12/16 08:59 Last Admin: 08/13/16 20:48 Dose: 50 mg Hydralazine HCl (Apresoline) 50 mg PO TuThSa@2100 [facility] Stop: 10/13/16 20:59 Ceftriaxone Sodium 1 gm/ (Sodium Chloride) 50 mls @ 100 mls/hr IV Q24HR [facility] Stop: 10/13/16 14:29 Last Admin: 08/14/16 16:43 Dose: 100 mls/hr Insulin Aspart (Novolog Insulin Sliding Scale) 0 units SUBQ ACHS [facility] PRN Reason: Protocol Stop: 10/12/16 07:29 Last Admin: 08/14/16 17:38 Dose: Not Given Lactulose (Cephulac) 15 gm PO Q8H PRN PRN Reason: BM MANAGEMENT Stop: 10/12/16 01:59 Lidocaine (Lidoderm 5% Patch) 1 patch TD DAILY [facility] Stop: 10/14/16 08:59 Miscellaneous (Clinical Monitoring) 1 ea MC DAILY PRN PRN Reason: RENAL Stop: 10/12/16 06:58 Nifedipine (Procardia) 10 mg PO Q6H PRN PRN Reason: SBP >160 Stop: 10/12/16 01:23 Nitroglycerin (Nitrostat) 0.4 mg SL Q5M PRN PRN Reason: Chest Pain Stop: 10/12/16 01:23 Oxycodone HCl (Oxycodone Ir) 5 mg PO Q6HR PRN PRN Reason: Pain (Severe) Stop: 10/12/16 01:23 Sodium Bicarbonate (Sodium Bicarbonate) 650 mg PO BID [facility] PRN Reason: Protocol Stop: 10/12/16 08:59 Last Admin: 08/14/16 16:46 Dose: 650 mg Sucralfate (Carafate) 1 gm PO SuMoWeFr@ACHS [facility] Stop: 10/12/16 11:29 Last Admin: 08/13/16 20:49 Dose: 1 gm Sucralfate (Carafate) 1 gm PO TuThSa@TID [facility] Stop: 10/12/16 09:29 Last Admin: 08/14/16 14:40 Dose: 1 gm Vitamin B Complex/Vit C/Folic Acid (Vitamin B Complex W/Vitamin C) 1 tab PO 1700 [facility] Stop: 10/12/16 16:59 Last Admin: 08/14/16 16:46 Dose: 1 tab scheduled for HD today, no heparin P04 will increase off binders monitor plts closely
--- NOTE | 2016-08-14 18:48 | Consultation ---
DATE OF CONSULTATION: 08/14/2016 REFERRING PHYSICIAN: Dr. Stephenson. REASON FOR CONSULTATION: Pancytopenia. HISTORY OF PRESENT ILLNESS: The patient is an 86-year-old female who was admitted with a bleeding from the dialysis fistula site. The patient was found to have pancytopenia; therefore, I was asked to evaluate. PAST MEDICAL HISTORY: Hypertension, diabetes, COPD, chronic thrombocytopenia. PAST SURGICAL HISTORY: Right above-knee amputation and left AV shunt. MEDICATIONS: Reviewed including clonidine, lisinopril, nifedipine, oxycodone, hydrocodone, acetaminophen, verapamil. PHYSICAL EXAMINATION: GENERAL: The patient is awake, not in a respiratory distress. EXTREMITIES: Stable, no active bleeding from any site. ABDOMEN: Soft. EXTREMITIES: Right above-knee amputation. CHEST: Equal air entry, scattered rhonchi. LABORATORY DATA: White count 3.9, hemoglobin 8.1, platelets 44, creatinine 4.6 from April, B12 and folate level were normal. ASSESSMENT AND PLAN: Pancytopenia, differential diagnosis drug-induced by clonidine or lisinopril for myelodysplastic syndrome or splenic sequestration ____ consumption. I will obtain DIC panel, abdominal ultrasound, B12 and folate level. I will ____ suspect some drugs, lisinopril initially. If all workup and intervention is nonrevealing, then MDS is a likely diagnosis and confirmation with bone marrow biopsy would be considered. Thank you, Dr. Stephenson, for the opportunity to participate in the care of this interesting case with you. JOB# [id number]
[2016-08-14 20:47] LABS: PROTHROMBIN TIME (TEST) 10.4 SECONDS (9.5-11.5)
[2016-08-15] MEDS: oxyCODONE 5 mg IR Tab PO PRN (02:25)
[2016-08-15] MEDS: Albuterol/Ipratropium Neb 3 ML AERS HHN SCH ×4 (03:16→19:20)
--- NOTE | 2016-08-15 05:10 | Consultation ---
DATE OF CONSULTATION: 08/14/2016 Thank you very much, Dr. Stephenson for this consultation. HISTORY OF PRESENT ILLNESS: This is an 86-year-old female with history of end-stage renal disease, presented with some cough and congestion and some shortness of breath. The patient was admitted with some bleeding from the AV fistula. She has been on dialysis now. Her breathing has improved, placed on oxygen and nebulized treatment. The patient still has some cough and some congestion. PAST MEDICAL HISTORY: As above. In addition, hypertension and diabetes mellitus. SOCIAL HISTORY: No history of smoking. PHYSICAL EXAMINATION: GENERAL: Awake, alert, not in acute distress. VITAL SIGNS: Temperature 98.7, pulse 80, respirations 19, blood pressure 141/69, and saturation 100%. HEENT: Head is atraumatic and normocephalic. Pupils react to light and accommodation. Ears, nose, and throat normal. NECK: Supple. CHEST: There are a few rhonchi in bases, no crackles or wheezing. HEART: Regular rate and rhythm. ABDOMEN: Soft. EXTREMITIES: No edema. LABORATORY DATA: WBC is 9.3, hemoglobin 8.1, and platelets 44,000. Sodium is 131, potassium 3.9, BUN is 52, and creatinine 0.6. I did not see her chest x-ray. IMPRESSION: This is an 86-year-old female with bleeding AV fistula, controlled on hemodialysis, now with some shortness of breath. Need to rule out any pneumonia, especially with the presence of cough. PLAN: 1. We will start IV antibiotics. 2. Continue with nebulizer treatment and followup chest x-ray. Thank you very much, Dr. Stephenson for this consultation. I will follow the patient with you. JOB# [id number]
[2016-08-15] MEDS: Hydrocodone/APAP 5mg/325mg Tab PO SCH ×3 (05:22→21:56)
[2016-08-15 06:36] LABS: HEMATOCRIT 26.1 % (35.0-45.0); HEMOGLOBIN 8.3 gm/dL (11.7-16.1); MEAN CELL VOLUME 80.5 fl (81-100); MEAN CORPUSCULAR HEMOGLOBIN 25.5 pg (27.0-31.0); MEAN CORPUSCULAR HGB CONC 31.7 pg (28.0-36.0); MEAN PLATELET VOLUME 8.5 fl; PLATELET COUNT 39 Th/cmm (150-400); RED BLOOD COUNT 3.24 Mil/cmm (3.80-5.20); RED CELL DISTRIBUTION WIDTH 18.6 % (11.5-20.0)
[2016-08-15] MEDS: INSULIN ASPART SLIDING SCALE 100 UNITS/ML UNIT SUBQ SCH ×4 (06:59→22:14)
[2016-08-15 07:03] LABS: ANION GAP 11.8 (7.0-16.0); BUN - UREA NITROGEN 27 mg/dL (7-25); BUN/CREATININE RATIO 9.3; CALCIUM SERUM 8.6 mg/dL (8.6-10.3); CHLORIDE 98 mEq/L (98-107); CREATININE - SERUM 2.9 mg/dL (0.6-1.2); GLUCOSE 129 mg/dL (70-105); POTASSIUM SERUM 3.8 mEq/L (3.5-5.1); SODIUM SERUM 134 mEq/L (136-145)
[2016-08-15] MEDS: Budesonide 0.5 Mg/2 mL Ud HHN SCH ×2 (07:42→19:20)
--- NOTE | 2016-08-15 08:48 | General Progress Note ---
Objective - Results Result Diagrams: 08/15/16 06:10 08/15/16 06:10 Recent Labs: Laboratory Last Values WBC 4.0 Th/cmm (4.8-10.8) L 08/15/16 06:10 RBC 3.24 Mil/cmm (3.80-5.20) L 08/15/16 06:10 Hgb 8.3 gm/dL (11.7-16.1) L 08/15/16 06:10 Hct 26.1 % (35.0-45.0) L 08/15/16 06:10 MCV 80.5 fl (81-100) L 08/15/16 06:10 MCH 25.5 pg (27.0-31.0) L 08/15/16 06:10 MCHC Differential 31.7 pg (28.0-36.0) 08/15/16 06:10 RDW 18.6 % (11.5-20.0) 08/15/16 06:10 Plt Count 39 Th/cmm (150-400) L 08/15/16 06:10 MPV 8.5 fl 08/15/16 06:10 Band Neutrophils % 0 % (0-10) 08/13/16 06:22 Neutrophils (Manual) 61 % (40-80) 08/14/16 06:11 Lymphocytes 24 % (20-50) 08/14/16 06:11 Monocytes 12 % (2-10) H 08/14/16 06:11 Eosinophils 1 % (0-5) 08/14/16 06:11 Metamyelocytes 2 % (0-0) H 08/14/16 06:11 Nucleated RBCs 1.0 % (0-0) H 08/14/16 06:11 Hypochromia 2+ 08/13/16 00:08 Platelet Estimate DECREASED PLATELETS (NORMAL) 08/14/16 06:11 Platelet Morphology NORMAL (NORMAL) 08/14/16 06:11 Polychromasia 1+ 08/13/16 00:08 Anisocytosis 1+ 08/14/16 06:11 Microcytosis 1+ 08/14/16 06:11 RBC Morph Micro Appear ABNORMAL (NORMAL) 08/14/16 06:11 Plt Count 44 Th/cmm (150-750) L 08/14/16 20:00 PT 10.4 SECONDS (9.5-11.5) 08/14/16 20:00 INR 1.00 (0.5-1.4) 08/14/16 20:00 PTT (Actin FS) 30.2 SECONDS (26.0-38.0) 08/14/16 20:00 Fibrinogen 206.0 mg/dL (200.0-400.0) 08/14/16 20:00 D-Dimer 665 ng/mL (100-400) H 08/14/16 20:00 Sodium 134 mEq/L (136-145) L 08/15/16 06:10 Potassium 3.8 mEq/L (3.5-5.1) 08/15/16 06:10 Chloride 98 mEq/L (98-107) 08/15/16 06:10 Carbon Dioxide 28.0 mEq/L (21.0-31.0) 08/15/16 06:10 Anion Gap 11.8 (7.0-16.0) 08/15/16 06:10 BUN 27 mg/dL (7-25) H 08/15/16 06:10 Creatinine 2.9 mg/dL (0.6-1.2) H 08/15/16 06:10 Est GFR ( Amer) TNP 08/15/16 06:10 Est GFR (Non-Af Amer) TNP 08/15/16 06:10 BUN/Creatinine Ratio 9.3 08/15/16 06:10 Glucose 129 mg/dL (70-105) H 08/15/16 06:10 POC Glucose 129 MG/DL (70 - 105) H 08/15/16 06:46 Whole Bld Lactic Acid 0.59 mmol/L (0.60-1.99) L 08/13/16 00:08 Calcium 8.6 mg/dL (8.6-10.3) 08/15/16 06:10 Phosphorus 1.9 mg/dL (2.5-5.0) L 08/14/16 06:11 Magnesium 2.2 mg/dL (1.9-2.7) 08/13/16 00:08 Total Bilirubin 0.4 mg/dL (0.3-1.0) 08/13/16 00:08 AST 13 U/L (13-39) 08/13/16 00:08 ALT 11 U/L (7-52) 08/13/16 00:08 Alkaline Phosphatase 40 U/L (34-104) 08/13/16 00:08 Total Protein 6.8 gm/dL (6.0-8.3) 08/13/16 00:08 Albumin 3.8 gm/dL (3.7-5.3) 08/13/16 00:08 Globulin 3.0 gm/dL 08/13/16 00:08 Albumin/Globulin Ratio 1.3 (1.0-1.8) 08/13/16 00:08 Blood Type O POSITIVE 08/13/16 00:08 - Physical Exam Vitals and I&O: Vital Signs Temp 99.5 F 08/15/16 04:00 Pulse 75 08/15/16 08:05 Resp 18 08/15/16 08:05 BP 126/50 08/15/16 04:00 Pulse Ox 98 08/15/16 08:05 Intake & Output 08/14/16 08/15/16 08/15/16 18:59 06:59 18:59 Other: # Voids 3 # Bowel Movements 3 Active Medications: Current Medications Acetaminophen (Tylenol) 650 mg PO Q4HR PRN PRN Reason: PAIN (MILD) OR TEMP 100.0 OR > Stop: 10/12/16 01:23 Last Admin: 08/13/16 02:32 Dose: 650 mg Acetaminophen/Hydrocodone Bitart ([place] 5mg/325mg) 1 tab PO Q8HR [facility] Stop: 10/12/16 04:59 Last Admin: 08/15/16 05:22 Dose: 1 tab Albuterol/Ipratropium (Duoneb Neb) 3 ml HHN Q6HR [facility] Stop: 10/12/16 05:59 Last Admin: 08/15/16 07:42 Dose: 3 ml Amlodipine Besylate (Norvasc) 5 mg PO TuThSa@2100 [facility] Stop: 10/12/16 20:59 Last Admin: 08/14/16 20:44 Dose: 5 mg Amlodipine Besylate (Norvasc) 5 mg PO SuMoWeFr@0900,2100 [facility] Stop: 10/12/16 08:59 Last Admin: 08/13/16 20:47 Dose: 5 mg Ascorbic Acid (Vitamin C) 500 mg PO 1700 [facility] Stop: 10/12/16 16:59 Last Admin: 08/14/16 16:46 Dose: 500 mg Bisacodyl (Dulcolax 10 Mg Supp) 10 mg RC DAILY PRN PRN Reason: BM MANAGEMENT Stop: 10/12/16 01:23 Budesonide (Pulmicort) 0.5 mg HHN BIDRT [facility] Stop: 10/12/16 06:59 Last Admin: 08/15/16 07:42 Dose: 0.5 mg Clonidine HCl (Catapres) 0.1 mg PO Q4H PRN PRN Reason: SBP ABOVE 160 Stop: 10/12/16 01:23 Dextrose (D50w) 50 ml IVP ACHS PRN PRN Reason: BLOOD SUGAR < 70 Stop: 10/12/16 01:23 Last Admin: 08/13/16 17:44 Dose: 50 ml Docusate Sodium (Colace) 250 mg PO 1700 [facility] Stop: 10/12/16 16:59 Last Admin: 08/14/16 16:46 Dose: Not Given Hydralazine HCl (Apresoline) 50 mg PO SuMoWeFr@0900,2100 [facility] Stop: 10/12/16 08:59 Last Admin: 08/13/16 20:48 Dose: 50 mg Hydralazine HCl (Apresoline) 50 mg PO TuThSa@2100 [facility] Stop: 10/13/16 20:59 Last Admin: 08/14/16 20:44 Dose: 50 mg Ceftriaxone Sodium 1 gm/ (Sodium Chloride) 50 mls @ 100 mls/hr IV Q24HR [facility] Stop: 10/13/16 14:29 Last Admin: 08/14/16 16:43 Dose: 100 mls/hr Insulin Aspart (Novolog Insulin Sliding Scale) 0 units SUBQ ACHS [facility] PRN Reason: Protocol Stop: 10/12/16 07:29 Last Admin: 08/15/16 06:59 Dose: Not Given Lactulose (Cephulac) 15 gm PO Q8H PRN PRN Reason: BM MANAGEMENT Stop: 10/12/16 01:59 Lidocaine (Lidoderm 5% Patch) 1 patch TD DAILY [facility] Stop: 10/14/16 08:59 Miscellaneous (Clinical Monitoring) 1 ea MC DAILY PRN PRN Reason: RENAL Stop: 10/12/16 06:58 Nifedipine (Procardia) 10 mg PO Q6H PRN PRN Reason: SBP >160 Stop: 10/12/16 01:23 Nitroglycerin (Nitrostat) 0.4 mg SL Q5M PRN PRN Reason: Chest Pain Stop: 10/12/16 01:23 Oxycodone HCl (Oxycodone Ir) 5 mg PO Q6HR PRN PRN Reason: Pain (Severe) Stop: 10/12/16 01:23 Last Admin: 08/15/16 02:25 Dose: 5 mg Sodium Bicarbonate (Sodium Bicarbonate) 650 mg PO BID [facility] PRN Reason: Protocol Stop: 10/12/16 08:59 Last Admin: 08/14/16 16:46 Dose: 650 mg Sucralfate (Carafate) 1 gm PO SuMoWeFr@ACHS [facility] Stop: 10/12/16 11:29 Last Admin: 08/13/16 20:49 Dose: 1 gm Sucralfate (Carafate) 1 gm PO TuThSa@TID [facility] Stop: 10/12/16 09:29 Last Admin: 08/14/16 20:45 Dose: 1 gm Vitamin B Complex/Vit C/Folic Acid (Vitamin B Complex W/Vitamin C) 1 tab PO 1700 [facility] Stop: 10/12/16 16:59 Last Admin: 08/14/16 16:46 Dose: 1 tab - Procedures Procedures: Procedures Procedure Code Date PERFORMANCE OF URINARY FILTRATION, MULTIPLE 0F7B58J 06/07/16 PERFORMANCE OF URINARY FILTRATION, SINGLE [id number] 12/29/15 TRANSFUSE NONAUT RED BLOOD CELLS IN PERIPH VEIN, [facility] [id number] 06/07/16
[2016-08-15] MEDS: Lidocaine 5% Patch TD SCH (09:15)
[2016-08-15 09:23] LABS: EOSINOPHIL 3 % (0-5); NEUTROPHILS 61 % (40-80); TOTAL CELLS COUNTED 100
[2016-08-15 09:24] LABS: ANISOCYTOSIS 1+; PLATELET ESTIMATE DECREASED PLATELETS (NORMAL); PLATELET MORPHOLOGY GIANT PLATELETS SEEN (NORMAL)
--- NOTE | 2016-08-15 10:48 | Diagnostic Imaging Report ---
Portable chest x-ray HISTORY: Shortness of breath There is a poor inspiration. The heart is enlarged. Extensive atherosclerotic vascular calcination seen throughout the aorta. Density is noted in the right lower hemithorax consistent with a pleural effusion. Underlying infiltrate/pneumonia cannot be excluded. Dilated stool-filled large bowel is seen within the abdomen. IMPRESSION: 1. Cardiomegaly with extensive atherosclerotic vascular changes 2. Evidence of a right pleural effusion. Underlying pneumonia and/or atelectasis cannot be excluded. 3. Partial visualization of stool-filled dilated large bowel.
[2016-08-15] MEDS: cefTRIAXone 1 GM in Sodium Chloride 0.9% 50 ML IV SCH (13:41)
--- NOTE | 2016-08-15 14:57 | General Progress Note ---
Subjective - Review of Systems Service Date: 08/15/16 Subjective: alert, comfortable, verbal, upright Objective - Results Result Diagrams: 08/15/16 06:10 08/15/16 06:10 Recent Labs: Laboratory Last Values WBC 4.0 Th/cmm (4.8-10.8) L 08/15/16 06:10 RBC 3.24 Mil/cmm (3.80-5.20) L 08/15/16 06:10 Hgb 8.3 gm/dL (11.7-16.1) L 08/15/16 06:10 Hct 26.1 % (35.0-45.0) L 08/15/16 06:10 MCV 80.5 fl (81-100) L 08/15/16 06:10 MCH 25.5 pg (27.0-31.0) L 08/15/16 06:10 MCHC Differential 31.7 pg (28.0-36.0) 08/15/16 06:10 RDW 18.6 % (11.5-20.0) 08/15/16 06:10 Plt Count 39 Th/cmm (150-400) L 08/15/16 06:10 MPV 8.5 fl 08/15/16 06:10 Band Neutrophils % 0 % (0-10) 08/13/16 06:22 Neutrophils (Manual) 61 % (40-80) 08/15/16 06:10 Lymphocytes 23 % (20-50) 08/15/16 06:10 Monocytes 13 % (2-10) H 08/15/16 06:10 Eosinophils 3 % (0-5) 08/15/16 06:10 Metamyelocytes 2 % (0-0) H 08/14/16 06:11 Nucleated RBCs 1.0 % (0-0) H 08/15/16 06:10 Hypochromia 2+ 08/13/16 00:08 Platelet Estimate DECREASED PLATELETS (NORMAL) 08/15/16 06:10 Platelet Morphology GIANT PLATELETS SEEN (NORMAL) 08/15/16 06:10 Polychromasia 1+ 08/13/16 00:08 Anisocytosis 1+ 08/15/16 06:10 Microcytosis 1+ 08/14/16 06:11 RBC Morph Micro Appear ABNORMAL (NORMAL) 08/15/16 06:10 Plt Count 44 Th/cmm (150-750) L 08/14/16 20:00 PT 10.4 SECONDS (9.5-11.5) 08/14/16 20:00 INR 1.00 (0.5-1.4) 08/14/16 20:00 PTT (Actin FS) 30.2 SECONDS (26.0-38.0) 08/14/16 20:00 Fibrinogen 206.0 mg/dL (200.0-400.0) 08/14/16 20:00 D-Dimer 665 ng/mL (100-400) H 08/14/16 20:00 Sodium 134 mEq/L (136-145) L 08/15/16 06:10 Potassium 3.8 mEq/L (3.5-5.1) 08/15/16 06:10 Chloride 98 mEq/L (98-107) 08/15/16 06:10 Carbon Dioxide 28.0 mEq/L (21.0-31.0) 08/15/16 06:10 Anion Gap 11.8 (7.0-16.0) 08/15/16 06:10 BUN 27 mg/dL (7-25) H 08/15/16 06:10 Creatinine 2.9 mg/dL (0.6-1.2) H 08/15/16 06:10 Est GFR ( Amer) TNP 08/15/16 06:10 Est GFR (Non-Af Amer) TNP 08/15/16 06:10 BUN/Creatinine Ratio 9.3 08/15/16 06:10 Glucose 129 mg/dL (70-105) H 08/15/16 06:10 POC Glucose 126 MG/DL (70 - 105) H 08/15/16 11:45 Whole Bld Lactic Acid 0.59 mmol/L (0.60-1.99) L 08/13/16 00:08 Calcium 8.6 mg/dL (8.6-10.3) 08/15/16 06:10 Phosphorus 1.9 mg/dL (2.5-5.0) L 08/14/16 06:11 Magnesium 2.2 mg/dL (1.9-2.7) 08/13/16 00:08 Total Bilirubin 0.4 mg/dL (0.3-1.0) 08/13/16 00:08 AST 13 U/L (13-39) 08/13/16 00:08 ALT 11 U/L (7-52) 08/13/16 00:08 Alkaline Phosphatase 40 U/L (34-104) 08/13/16 00:08 Total Protein 6.8 gm/dL (6.0-8.3) 08/13/16 00:08 Albumin 3.8 gm/dL (3.7-5.3) 08/13/16 00:08 Globulin 3.0 gm/dL 08/13/16 00:08 Albumin/Globulin Ratio 1.3 (1.0-1.8) 08/13/16 00:08 Hepatitis C Antibody <0.1 s/co ratio (0.0-0.9) 08/14/16 06:11 Blood Type O POSITIVE 08/13/16 00:08 - Physical Exam Vitals and I&O: Vital Signs Temp 98.8 F 08/15/16 11:38 Pulse 80 08/15/16 11:38 Resp 18 08/15/16 11:38 BP 135/59 08/15/16 11:38 Pulse Ox 99 08/15/16 11:38 Intake & Output 08/14/16 08/15/16 08/15/16 18:59 06:59 18:59 Intake Total 50 Balance 50 Intake: Intake, IV Amount 50 [id number] 1 gm In 50 Sodium Chloride 0.9% 50 ml @ 100 mls/hr IV Q24HR [facility] Rx#:[id number] Other: # Voids 3 # Bowel Movements 3 Active Medications: Current Medications Acetaminophen (Tylenol) 650 mg PO Q4HR PRN PRN Reason: PAIN (MILD) OR TEMP 100.0 OR > Stop: 10/12/16 01:23 Last Admin: 08/13/16 02:32 Dose: 650 mg Acetaminophen/Hydrocodone Bitart ([place] 5mg/325mg) 1 tab PO Q8HR [facility] Stop: 10/12/16 04:59 Last Admin: 08/15/16 12:22 Dose: 1 tab Albuterol/Ipratropium (Duoneb Neb) 3 ml HHN Q6HR [facility] Stop: 10/12/16 05:59 Last Admin: 08/15/16 12:15 Dose: 3 ml Amlodipine Besylate (Norvasc) 5 mg PO TuThSa@2100 [facility] Stop: 10/12/16 20:59 Last Admin: 08/14/16 20:44 Dose: 5 mg Amlodipine Besylate (Norvasc) 5 mg PO SuMoWeFr@ [facility] Stop: 10/12/16 08:59 Last Admin: 08/15/16 09:14 Dose: 5 mg Ascorbic Acid (Vitamin C) 500 mg PO 1700 [facility] Stop: 10/12/16 16:59 Last Admin: 08/14/16 16:46 Dose: 500 mg Bisacodyl (Dulcolax 10 Mg Supp) 10 mg RC DAILY PRN PRN Reason: BM MANAGEMENT Stop: 10/12/16 01:23 Budesonide (Pulmicort) 0.5 mg HHN BIDRT [facility] Stop: 10/12/16 06:59 Last Admin: 08/15/16 07:42 Dose: 0.5 mg Clonidine HCl (Catapres) 0.1 mg PO Q4H PRN PRN Reason: SBP ABOVE 160 Stop: 10/12/16 01:23 Dextrose (D50w) 50 ml IVP ACHS PRN PRN Reason: BLOOD SUGAR < 70 Stop: 10/12/16 01:23 Last Admin: 08/13/16 17:44 Dose: 50 ml Docusate Sodium (Colace) 250 mg PO 170 [facility] Stop: 10/12/16 16:59 Last Admin: 08/14/16 16:46 Dose: Not Given Hydralazine HCl (Apresoline) 50 mg PO SuMoWeFr@ [facility] Stop: 10/12/16 08:59 Last Admin: 08/15/16 09:13 Dose: 50 mg Hydralazine HCl (Apresoline) 50 mg PO TuThSa@2099 [facility] Stop: 10/13/16 20:59 Last Admin: 08/14/16 20:44 Dose: 50 mg Ceftriaxone Sodium 1 gm/ (Sodium Chloride) 50 mls @ 100 mls/hr IV Q24HR [facility] Stop: 10/13/16 14:29 Last Admin: 08/15/16 13:41 Dose: 100 mls/hr Insulin Aspart (Novolog Insulin Sliding Scale) 0 units SUBQ ACHS [facility] PRN Reason: Protocol Stop: 10/12/16 07:29 Last Admin: 08/15/16 12:20 Dose: Not Given Lactulose (Cephulac) 15 gm PO Q8H PRN PRN Reason: BM MANAGEMENT Stop: 10/12/16 01:59 Lidocaine (Lidoderm 5% Patch) 1 patch TD DAILY [facility] Stop: 10/14/16 08:59 Last Admin: 08/15/16 09:15 Dose: 1 patch Miscellaneous (Clinical Monitoring) 1 ea MC DAILY PRN PRN Reason: RENAL Stop: 10/12/16 06:58 Nifedipine (Procardia) 10 mg PO Q6H PRN PRN Reason: SBP >160 Stop: 10/12/16 01:23 Nitroglycerin (Nitrostat) 0.4 mg SL Q5M PRN PRN Reason: Chest Pain Stop: 10/12/16 01:23 Oxycodone HCl (Oxycodone Ir) 5 mg PO Q6HR PRN PRN Reason: Pain (Severe) Stop: 10/12/16 01:23 Last Admin: 08/15/16 02:25 Dose: 5 mg Sodium Bicarbonate (Sodium Bicarbonate) 650 mg PO BID [facility] PRN Reason: Protocol Stop: 10/12/16 08:59 Last Admin: 08/15/16 09:13 Dose: 650 mg Sucralfate (Carafate) 1 gm PO SuMoWeFr@ACHS [facility] Stop: 10/12/16 11:29 Last Admin: 08/15/16 12:22 Dose: 1 gm Sucralfate (Carafate) 1 gm PO TuThSa@TID [facility] Stop: 10/12/16 09:29 Last Admin: 08/14/16 20:45 Dose: 1 gm Vitamin B Complex/Vit C/Folic Acid (Vitamin B Complex W/Vitamin C) 1 tab PO 1700 [facility] Stop: 10/12/16 16:59 Last Admin: 08/14/16 16:46 Dose: 1 tab General: Alert, No acute distress HEENT: Atraumatic, EOMI, Mucous membr. moist/pink Neck: Supple, +2 carotid pulse wo bruit Cardiovascular: Regular rate, Normal S1, Normal S2 Lungs: Other (rhonchi w/ some rales, crepitations) Abdomen: Bowel sounds, Soft Extremities: no Edema Neurological: Sensation intact Skin: no Rash Psych/Mental Status: Mood NL - Procedures Procedures: Procedures Procedure Code Date PERFORMANCE OF URINARY FILTRATION, MULTIPLE 7U1F42E 06/07/16 PERFORMANCE OF URINARY FILTRATION, SINGLE [id number] 12/29/15 TRANSFUSE NONAUT RED BLOOD CELLS IN PERIPH VEIN, [facility] [id number] 06/07/16 Assessment/Plan - Assessment Assessment: ESRD o HD S/P bleed left AVF Pancytopenia 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 HTN w/ ckd DM 2 w/ ckd dyslipidemia anemia of ckd Lo 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 - Plan Plan: Lab - Result Diagrams 08/14/16 06:11 08/14/16 06:11 Current Medications Acetaminophen (Tylenol) 650 mg PO Q4HR PRN PRN Reason: PAIN (MILD) OR TEMP 100.0 OR > Stop: 10/12/16 01:23 Last Admin: 08/13/16 02:32 Dose: 650 mg Acetaminophen/Hydrocodone Bitart ([place] 5mg/325mg) 1 tab PO Q8HR [facility] Stop: 10/12/16 04:59 Last Admin: 08/14/16 14:40 Dose: 1 tab Albuterol/Ipratropium (Duoneb Neb) 3 ml HHN Q6HR [facility] Stop: 10/12/16 05:59 Last Admin: 08/14/16 13:07 Dose: 3 ml Amlodipine Besylate (Norvasc) 5 mg PO TuThSa@2100 [facility] Stop: 10/12/16 20:59 Last Admin: 08/14/16 07:35 Dose: Not Given Amlodipine Besylate (Norvasc) 5 mg PO SuMoWeFr@0900,2100 [facility] Stop: 10/12/16 08:59 Last Admin: 08/13/16 20:47 Dose: 5 mg Ascorbic Acid (Vitamin C) 500 mg PO 1700 [facility] Stop: 10/12/16 16:59 Last Admin: 08/14/16 16:46 Dose: 500 mg Bisacodyl (Dulcolax 10 Mg Supp) 10 mg RC DAILY PRN PRN Reason: BM MANAGEMENT Stop: 10/12/16 01:23 Budesonide (Pulmicort) 0.5 mg HHN BIDRT [facility] Stop: 10/12/16 06:59 Last Admin: 08/14/16 07:35 Dose: 0.5 mg Clonidine HCl (Catapres) 0.1 mg PO Q4H PRN PRN Reason: SBP ABOVE 160 Stop: 10/12/16 01:23 Dextrose (D50w) 50 ml IVP [facility] PRN PRN Reason: BLOOD SUGAR < 70 Stop: 10/12/16 01:23 Last Admin: 08/13/16 17:44 Dose: 50 ml Docusate Sodium (Colace) 250 mg PO 1700 [facility] Stop: 10/12/16 16:59 Last Admin: 08/14/16 16:46 Dose: Not Given Hydralazine HCl (Apresoline) 50 mg PO SuMoWeFr@0900,2100 [facility] Stop: 10/12/16 08:59 Last Admin: 08/13/16 20:48 Dose: 50 mg Hydralazine HCl (Apresoline) 50 mg PO TuThSa@2100 [facility] Stop: 10/13/16 20:59 Ceftriaxone Sodium 1 gm/ (Sodium Chloride) 50 mls @ 100 mls/hr IV Q24HR [facility] Stop: 10/13/16 14:29 Last Admin: 08/14/16 16:43 Dose: 100 mls/hr Insulin Aspart (Novolog Insulin Sliding Scale) 0 units SUBQ [facility] PRN Reason: Protocol Stop: 10/12/16 07:29 Last Admin: 08/14/16 17:38 Dose: Not Given Lactulose (Cephulac) 15 gm PO Q8H PRN PRN Reason: BM MANAGEMENT Stop: 10/12/16 01:59 Lidocaine (Lidoderm 5% Patch) 1 patch TD DAILY [facility] Stop: 10/14/16 08:59 Miscellaneous (Clinical Monitoring) 1 ea MC DAILY PRN PRN Reason: RENAL Stop: 10/12/16 06:58 Nifedipine (Procardia) 10 mg PO Q6H PRN PRN Reason: SBP >160 Stop: 10/12/16 01:23 Nitroglycerin (Nitrostat) 0.4 mg SL Q5M PRN PRN Reason: Chest Pain Stop: 10/12/16 01:23 Oxycodone HCl (Oxycodone Ir) 5 mg PO Q6HR PRN PRN Reason: Pain (Severe) Stop: 10/12/16 01:23 Sodium Bicarbonate (Sodium Bicarbonate) 650 mg PO BID [facility] PRN Reason: Protocol Stop: 10/12/16 08:59 Last Admin: 08/14/16 16:46 Dose: 650 mg Sucralfate (Carafate) 1 gm PO [email or web address] [facility] Stop: 10/12/16 11:29 Last Admin: 08/13/16 20:49 Dose: 1 gm Sucralfate (Carafate) 1 gm PO [email or web address] [facility] Stop: 10/12/16 09:29 Last Admin: 08/14/16 14:40 Dose: 1 gm Vitamin B Complex/Vit C/Folic Acid (Vitamin B Complex W/Vitamin C) 1 tab PO 1700 [facility] Stop: 10/12/16 16:59 Last Admin: 08/14/16 16:46 Dose: 1 tab scheduled for HD in am, no heparin P04 lo will maintain off binders monitor plts closely & for bleeding
[2016-08-15] MEDS: Vitamin B Complex w/Vitamin C Tab PO SCH (17:35)
--- NOTE | 2016-08-15 23:58 | Infectious Disease Prog Note ---
Infectious Disease Subjective - Review of Systems Service Date: 08/15/16 Subjective: No new change. Infectious Disease Objective - Results Result Diagrams: 08/15/16 06:10 08/15/16 06:10 Recent Labs: Laboratory Last Values WBC 4.0 Th/cmm (4.8-10.8) L 08/15/16 06:10 RBC 3.24 Mil/cmm (3.80-5.20) L 08/15/16 06:10 Hgb 8.3 gm/dL (11.7-16.1) L 08/15/16 06:10 Hct 26.1 % (35.0-45.0) L 08/15/16 06:10 MCV 80.5 fl (81-100) L 08/15/16 06:10 MCH 25.5 pg (27.0-31.0) L 08/15/16 06:10 MCHC Differential 31.7 pg (28.0-36.0) 08/15/16 06:10 RDW 18.6 % (11.5-20.0) 08/15/16 06:10 Plt Count 39 Th/cmm (150-400) L 08/15/16 06:10 MPV 8.5 fl 08/15/16 06:10 Band Neutrophils % 0 % (0-10) 08/13/16 06:22 Neutrophils (Manual) 61 % (40-80) 08/15/16 06:10 Lymphocytes 23 % (20-50) 08/15/16 06:10 Monocytes 13 % (2-10) H 08/15/16 06:10 Eosinophils 3 % (0-5) 08/15/16 06:10 Metamyelocytes 2 % (0-0) H 08/14/16 06:11 Nucleated RBCs 1.0 % (0-0) H 08/15/16 06:10 Hypochromia 2+ 08/13/16 00:08 Platelet Estimate DECREASED PLATELETS (NORMAL) 08/15/16 06:10 Platelet Morphology GIANT PLATELETS SEEN (NORMAL) 08/15/16 06:10 Polychromasia 1+ 08/13/16 00:08 Anisocytosis 1+ 08/15/16 06:10 Microcytosis 1+ 08/14/16 06:11 RBC Morph Micro Appear ABNORMAL (NORMAL) 08/15/16 06:10 Plt Count 44 Th/cmm (150-750) L 08/14/16 20:00 PT 10.4 SECONDS (9.5-11.5) 08/14/16 20:00 INR 1.00 (0.5-1.4) 08/14/16 20:00 PTT (Actin FS) 30.2 SECONDS (26.0-38.0) 08/14/16 20:00 Fibrinogen 206.0 mg/dL (200.0-400.0) 08/14/16 20:00 D-Dimer 665 ng/mL (100-400) H 08/14/16 20:00 Sodium 134 mEq/L (136-145) L 08/15/16 06:10 Potassium 3.8 mEq/L (3.5-5.1) 08/15/16 06:10 Chloride 98 mEq/L (98-107) 08/15/16 06:10 Carbon Dioxide 28.0 mEq/L (21.0-31.0) 08/15/16 06:10 Anion Gap 11.8 (7.0-16.0) 08/15/16 06:10 BUN 27 mg/dL (7-25) H 08/15/16 06:10 Creatinine 2.9 mg/dL (0.6-1.2) H 08/15/16 06:10 Est GFR ( Amer) TNP 08/15/16 06:10 Est GFR (Non-Af Amer) TNP 08/15/16 06:10 BUN/Creatinine Ratio 9.3 08/15/16 06:10 Glucose 129 mg/dL (70-105) H 08/15/16 06:10 POC Glucose 167 MG/DL (70 - 105) H 08/15/16 22:03 Whole Bld Lactic Acid 0.59 mmol/L (0.60-1.99) L 08/13/16 00:08 Calcium 8.6 mg/dL (8.6-10.3) 08/15/16 06:10 Phosphorus 1.9 mg/dL (2.5-5.0) L 08/14/16 06:11 Magnesium 2.2 mg/dL (1.9-2.7) 08/13/16 00:08 Total Bilirubin 0.4 mg/dL (0.3-1.0) 08/13/16 00:08 AST 13 U/L (13-39) 08/13/16 00:08 ALT 11 U/L (7-52) 08/13/16 00:08 Alkaline Phosphatase 40 U/L (34-104) 08/13/16 00:08 Total Protein 6.8 gm/dL (6.0-8.3) 08/13/16 00:08 Albumin 3.8 gm/dL (3.7-5.3) 08/13/16 00:08 Globulin 3.0 gm/dL 08/13/16 00:08 Albumin/Globulin Ratio 1.3 (1.0-1.8) 08/13/16 00:08 Hepatitis C Antibody <0.1 s/co ratio (0.0-0.9) 08/14/16 06:11 Blood Type O POSITIVE 08/13/16 00:08 - Physical Exam Vitals and I&O: Vital Signs Temp 97.1 F 08/15/16 20:00 Pulse 85 08/15/16 21:57 Resp 18 08/15/16 20:00 BP 156/64 08/15/16 21:57 Pulse Ox 99 08/15/16 20:00 Intake & Output 08/15/16 08/15/16 08/16/16 06:59 18:59 06:59 Intake Total 800 Output Total 1 Balance 799 Intake: Oral 800 Output: Stool 1 Other: # Voids 2 Active Medications: Current Medications Acetaminophen (Tylenol) 650 mg PO Q4HR PRN PRN Reason: PAIN (MILD) OR TEMP 100.0 OR > Stop: 10/12/16 01:23 Last Admin: 08/13/16 02:32 Dose: 650 mg Acetaminophen/Hydrocodone Bitart ([place] 5mg/325mg) 1 tab PO Q8HR [facility] Stop: 10/12/16 04:59 Last Admin: 08/15/16 21:56 Dose: 1 tab Albuterol/Ipratropium (Duoneb Neb) 3 ml HHN Q6HR [facility] Stop: 10/12/16 05:59 Last Admin: 08/15/16 19:20 Dose: 3 ml Amlodipine Besylate (Norvasc) 5 mg PO TuThSa@2100 [facility] Stop: 10/12/16 20:59 Last Admin: 08/14/16 20:44 Dose: 5 mg Amlodipine Besylate (Norvasc) 5 mg PO SuMoWeFr@0900,2100 [facility] Stop: 10/12/16 08:59 Last Admin: 08/15/16 21:57 Dose: 5 mg Ascorbic Acid (Vitamin C) 500 mg PO 1700 [facility] Stop: 10/12/16 16:59 Last Admin: 08/15/16 17:35 Dose: 500 mg Bisacodyl (Dulcolax 10 Mg Supp) 10 mg RC DAILY PRN PRN Reason: BM MANAGEMENT Stop: 10/12/16 01:23 Budesonide (Pulmicort) 0.5 mg HHN BIDRT [facility] Stop: 10/12/16 06:59 Last Admin: 08/15/16 19:20 Dose: 0.5 mg Clonidine HCl (Catapres) 0.1 mg PO Q4H PRN PRN Reason: SBP ABOVE 160 Stop: 10/12/16 01:23 Dextrose (D50w) 50 ml IVP ACHS PRN PRN Reason: BLOOD SUGAR < 70 Stop: 10/12/16 01:23 Last Admin: 08/13/16 17:44 Dose: 50 ml Docusate Sodium (Colace) 250 mg PO 1700 [facility] Stop: 10/12/16 16:59 Last Admin: 08/15/16 17:35 Dose: 250 mg Hydralazine HCl (Apresoline) 50 mg PO SuMoWeFr@0900,2100 [facility] Stop: 10/12/16 08:59 Last Admin: 08/15/16 21:56 Dose: 50 mg Hydralazine HCl (Apresoline) 50 mg PO TuThSa@2100 [facility] Stop: 10/13/16 20:59 Last Admin: 08/14/16 20:44 Dose: 50 mg Ceftriaxone Sodium 1 gm/ (Sodium Chloride) 50 mls @ 100 mls/hr IV Q24HR [facility] Stop: 10/13/16 14:29 Last Admin: 08/15/16 13:41 Dose: 100 mls/hr Insulin Aspart (Novolog Insulin Sliding Scale) 0 units SUBQ ACHS [facility] PRN Reason: Protocol Stop: 10/12/16 07:29 Last Admin: 08/15/16 22:14 Dose: 4 units Lactulose (Cephulac) 15 gm PO Q8H PRN PRN Reason: BM MANAGEMENT Stop: 10/12/16 01:59 Lidocaine (Lidoderm 5% Patch) 1 patch TD DAILY [facility] Stop: 10/14/16 08:59 Last Admin: 08/15/16 09:15 Dose: 1 patch Miscellaneous (Clinical Monitoring) 1 ea MC DAILY PRN PRN Reason: RENAL Stop: 10/12/16 06:58 Nifedipine (Procardia) 10 mg PO Q6H PRN PRN Reason: SBP >160 Stop: 10/12/16 01:23 Nitroglycerin (Nitrostat) 0.4 mg SL Q5M PRN PRN Reason: Chest Pain Stop: 10/12/16 01:23 Oxycodone HCl (Oxycodone Ir) 5 mg PO Q6HR PRN PRN Reason: Pain (Severe) Stop: 10/12/16 01:23 Last Admin: 08/15/16 02:25 Dose: 5 mg Sodium Bicarbonate (Sodium Bicarbonate) 650 mg PO BID [facility] PRN Reason: Protocol Stop: 10/12/16 08:59 Last Admin: 08/15/16 17:35 Dose: 650 mg Sucralfate (Carafate) 1 gm PO SuMoWeFr@ACHS [facility] Stop: 10/12/16 11:29 Last Admin: 08/15/16 21:56 Dose: 1 gm Sucralfate (Carafate) 1 gm PO TuThSa@TID [facility] Stop: 10/12/16 09:29 Last Admin: 08/14/16 20:45 Dose: 1 gm Vitamin B Complex/Vit C/Folic Acid (Vitamin B Complex W/Vitamin C) 1 tab PO 1700 [facility] Stop: 10/12/16 16:59 Last Admin: 08/15/16 17:35 Dose: 1 tab General: no acute distress, well developed, well nourished HEENT: atraumatic, normocephalic, PERRLA, EOMI, moist mucous membrane Neck: supple Cardiovascular: S1S2, regular Lungs: clear to auscultation bilaterally, clear to percussion Abdomen: soft, no tender, no distended Extremities: no cyanosis, no clubbing, no edema Neurological: awake, alert - Procedures Procedures: Procedures Procedure Code Date PERFORMANCE OF URINARY FILTRATION, MULTIPLE [id number] 06/07/16 PERFORMANCE OF URINARY FILTRATION, SINGLE [id number] 12/29/15 TRANSFUSE NONAUT RED BLOOD CELLS IN PERIPH VEIN, [facility] [id number] 06/07/16 Infectious Disease Assmt/Plan - Assessment Assessment: IMPRESSION: 1. Pancytopenia. 2. Congestive heart failure. Chest x-ray shows congestive heart failure. 3. Diabetes mellitus type 2. 4. Hypertension. 5. Hyperlipidemia. 6. Obesity. 7. Anemia of chronic disease. 8. Chronic kidney disease stage V, on hemodialysis. 9. Bleeding from AV shunt on the left side, which has improved. RECOMMENDATIONS: Will monitor off antibiotics.
[2016-08-16] MEDS: Albuterol/Ipratropium Neb 3 ML AERS HHN SCH ×3 (01:48→13:56)
[2016-08-16] MEDS: oxyCODONE 5 mg IR Tab PO PRN ×2 (02:10→09:09)
[2016-08-16 05:25] LABS: HEMOGLOBIN 8.2 gm/dL (11.7-16.1)
[2016-08-16 05:41] LABS: HEMATOCRIT 26.2 % (35.0-45.0); MEAN CELL VOLUME 80.9 fl (81-100); MEAN CORPUSCULAR HEMOGLOBIN 25.4 pg (27.0-31.0); MEAN CORPUSCULAR HGB CONC 31.3 pg (28.0-36.0); PLATELET COUNT 40 Th/cmm (150-400); RED BLOOD COUNT 3.23 Mil/cmm (3.80-5.20); RED CELL DISTRIBUTION WIDTH 18.5 % (11.5-20.0); WHITE BLOOD COUNT 5.2 Th/cmm (4.8-10.8)
[2016-08-16 06:09] LABS: FOLIC ACID >20.0 ng/mL (>3.0)
[2016-08-16] MEDS: Hydrocodone/APAP 5mg/325mg Tab PO SCH ×2 (06:50→14:12)
[2016-08-16] MEDS: INSULIN ASPART SLIDING SCALE 100 UNITS/ML UNIT SUBQ SCH ×2 (06:50→11:58)
[2016-08-16] MEDS: Budesonide 0.5 Mg/2 mL Ud HHN SCH (07:25)
[2016-08-16 07:53] LABS: TOTAL CELLS COUNTED 100
[2016-08-16 07:54] LABS: BAND NEUTROPHILE 3 % (0-10); NEUTROPHILS 55 % (40-80)
[2016-08-16 07:55] LABS: PLATELET ESTIMATE DECREASED PLATELETS (NORMAL)
[2016-08-16 08:11] LABS: IRON SATURATION 24 % (15-55); TIBC (LCI) 111 ug/dL (250-450); UIBC 84 ug/dL (118-369)
--- NOTE | 2016-08-16 08:23 | General Progress Note ---
Subjective - Review of Systems Events since last encounter: no distress Objective - Results Result Diagrams: 08/16/16 05:20 08/15/16 06:10 Recent Labs: Laboratory Last Values WBC 5.2 Th/cmm (4.8-10.8) D 08/16/16 05:20 RBC 3.23 Mil/cmm (3.80-5.20) L 08/16/16 05:20 Hgb 8.2 gm/dL (11.7-16.1) L 08/16/16 05:20 Hct 26.2 % (35.0-45.0) L 08/16/16 05:20 MCV 80.9 fl (81-100) L 08/16/16 05:20 MCH 25.4 pg (27.0-31.0) L 08/16/16 05:20 MCHC Differential 31.3 pg (28.0-36.0) 08/16/16 05:20 RDW 18.5 % (11.5-20.0) 08/16/16 05:20 Plt Count 40 Th/cmm (150-400) L 08/16/16 05:20 MPV 8.0 fl 08/16/16 05:20 Band Neutrophils % 3 % (0-10) 08/16/16 05:20 Neutrophils (Manual) 55 % (40-80) 08/16/16 05:20 Lymphocytes 26 % (20-50) 08/16/16 05:20 Monocytes 16 % (2-10) H 08/16/16 05:20 Eosinophils 3 % (0-5) 08/15/16 06:10 Metamyelocytes 2 % (0-0) H 08/14/16 06:11 Nucleated RBCs 1.0 % (0-0) H 08/15/16 06:10 Hypochromia 2+ 08/13/16 00:08 Platelet Estimate DECREASED PLATELETS (NORMAL) 08/16/16 05:20 Platelet Morphology GIANT PLATELETS SEEN (NORMAL) 08/15/16 06:10 Polychromasia 1+ 08/13/16 00:08 Anisocytosis 1+ 08/15/16 06:10 Microcytosis 1+ 08/14/16 06:11 RBC Morph Micro Appear ABNORMAL (NORMAL) 08/15/16 06:10 Plt Count 44 Th/cmm (150-750) L 08/14/16 20:00 PT 10.4 SECONDS (9.5-11.5) 08/14/16 20:00 INR 1.00 (0.5-1.4) 08/14/16 20:00 PTT (Actin FS) 30.2 SECONDS (26.0-38.0) 08/14/16 20:00 Fibrinogen 206.0 mg/dL (200.0-400.0) 08/14/16 20:00 D-Dimer 665 ng/mL (100-400) H 08/14/16 20:00 Sodium 134 mEq/L (136-145) L 08/15/16 06:10 Potassium 3.8 mEq/L (3.5-5.1) 08/15/16 06:10 Chloride 98 mEq/L (98-107) 08/15/16 06:10 Carbon Dioxide 28.0 mEq/L (21.0-31.0) 08/15/16 06:10 Anion Gap 11.8 (7.0-16.0) 08/15/16 06:10 BUN 27 mg/dL (7-25) H 08/15/16 06:10 Creatinine 2.9 mg/dL (0.6-1.2) H 08/15/16 06:10 Est GFR ( Amer) TNP 08/15/16 06:10 Est GFR (Non-Af Amer) TNP 08/15/16 06:10 BUN/Creatinine Ratio 9.3 08/15/16 06:10 Glucose 129 mg/dL (70-105) H 08/15/16 06:10 POC Glucose 121 MG/DL (70 - 105) H 08/16/16 06:39 Whole Bld Lactic Acid 0.59 mmol/L (0.60-1.99) L 08/13/16 00:08 Calcium 8.6 mg/dL (8.6-10.3) 08/15/16 06:10 Phosphorus 1.9 mg/dL (2.5-5.0) L 08/14/16 06:11 Magnesium 2.2 mg/dL (1.9-2.7) 08/13/16 00:08 Iron 27 ug/dL (27-139) 08/15/16 06:10 TIBC 111 ug/dL (250-450) L 08/15/16 06:10 Iron Saturation 24 % (15-55) 08/15/16 06:10 Unsaturated IBC 84 ug/dL (118-369) L 08/15/16 06:10 Total Bilirubin 0.4 mg/dL (0.3-1.0) 08/13/16 00:08 AST 13 U/L (13-39) 08/13/16 00:08 ALT 11 U/L (7-52) 08/13/16 00:08 Alkaline Phosphatase 40 U/L (34-104) 08/13/16 00:08 Total Protein 6.8 gm/dL (6.0-8.3) 08/13/16 00:08 Albumin 3.8 gm/dL (3.7-5.3) 08/13/16 00:08 Globulin 3.0 gm/dL 08/13/16 00:08 Albumin/Globulin Ratio 1.3 (1.0-1.8) 08/13/16 00:08 Vitamin B12 562 pg/mL (211-946) 08/14/16 20:00 Folic Acid >20.0 ng/mL (>3.0) 08/14/16 20:00 Hepatitis C Antibody <0.1 s/co ratio (0.0-0.9) 08/14/16 06:11 Blood Type O POSITIVE 08/13/16 00:08 - Physical Exam Vitals and I&O: Vital Signs Temp 98.6 F 08/16/16 04:00 Pulse 85 08/16/16 07:26 Resp 18 08/16/16 07:26 BP 143/61 08/16/16 04:00 Pulse Ox 98 08/16/16 07:26 Intake & Output 08/15/16 08/16/16 08/16/16 18:59 06:59 18:59 Intake Total 850 200 Output Total 1 0 Balance 849 200 Intake: Intake, IV Amount 50 [id number] 1 gm In 50 Sodium Chloride 0.9% 50 ml @ 100 mls/hr IV Q24HR [facility] Rx#:[id number] Oral 800 200 Output: Stool 1 0 Other: # Voids 2 Active Medications: Current Medications Acetaminophen (Tylenol) 650 mg PO Q4HR PRN PRN Reason: PAIN (MILD) OR TEMP 100.0 OR > Stop: 10/12/16 01:23 Last Admin: 08/13/16 02:32 Dose: 650 mg Acetaminophen/Hydrocodone Bitart ([place] 5mg/325mg) 1 tab PO Q8HR [facility] Stop: 10/12/16 04:59 Last Admin: 08/16/16 06:50 Dose: Not Given Albuterol/Ipratropium (Duoneb Neb) 3 ml HHN Q6HR [facility] Stop: 10/12/16 05:59 Last Admin: 08/16/16 07:25 Dose: 3 ml Amlodipine Besylate (Norvasc) 5 mg PO TuThSa@2100 [facility] Stop: 10/12/16 20:59 Last Admin: 08/14/16 20:44 Dose: 5 mg Amlodipine Besylate (Norvasc) 5 mg PO SuMoWeFr@899,2099 [facility] Stop: 10/12/16 08:59 Last Admin: 08/15/16 21:57 Dose: 5 mg Ascorbic Acid (Vitamin C) 500 mg PO 1700 [facility] Stop: 10/12/16 16:59 Last Admin: 08/15/16 17:35 Dose: 500 mg Bisacodyl (Dulcolax 10 Mg Supp) 10 mg RC DAILY PRN PRN Reason: BM MANAGEMENT Stop: 10/12/16 01:23 Budesonide (Pulmicort) 0.5 mg HHN BIDRT [facility] Stop: 10/12/16 06:59 Last Admin: 08/16/16 07:25 Dose: 0.5 mg Clonidine HCl (Catapres) 0.1 mg PO Q4H PRN PRN Reason: SBP ABOVE 160 Stop: 10/12/16 01:23 Dextrose (D50w) 50 ml IVP ACHS PRN PRN Reason: BLOOD SUGAR < 70 Stop: 10/12/16 01:23 Last Admin: 08/13/16 17:44 Dose: 50 ml Docusate Sodium (Colace) 250 mg PO 1700 [facility] Stop: 10/12/16 16:59 Last Admin: 08/15/16 17:35 Dose: 250 mg Hydralazine HCl (Apresoline) 50 mg PO SuMoWeFr@00,2100 [facility] Stop: 10/12/16 08:59 Last Admin: 08/15/16 21:56 Dose: 50 mg Hydralazine HCl (Apresoline) 50 mg PO TuThSa@2100 [facility] Stop: 10/13/16 20:59 Last Admin: 08/14/16 20:44 Dose: 50 mg Ceftriaxone Sodium 1 gm/ (Sodium Chloride) 50 mls @ 100 mls/hr IV Q24HR [facility] Stop: 10/13/16 14:29 Last Infusion: 08/15/16 14:11 Dose: Infused Insulin Aspart (Novolog Insulin Sliding Scale) 0 units SUBQ ACHS [facility] PRN Reason: Protocol Stop: 10/12/16 07:29 Last Admin: 08/16/16 06:50 Dose: Not Given Lactulose (Cephulac) 15 gm PO Q8H PRN PRN Reason: BM MANAGEMENT Stop: 10/12/16 01:59 Lidocaine (Lidoderm 5% Patch) 1 patch TD DAILY [facility] Stop: 10/14/16 08:59 Last Admin: 08/15/16 09:15 Dose: 1 patch Miscellaneous (Clinical Monitoring) 1 ea MC DAILY PRN PRN Reason: RENAL Stop: 10/12/16 06:58 Nifedipine (Procardia) 10 mg PO Q6H PRN PRN Reason: SBP >160 Stop: 10/12/16 01:23 Nitroglycerin (Nitrostat) 0.4 mg SL Q5M PRN PRN Reason: Chest Pain Stop: 10/12/16 01:23 Oxycodone HCl (Oxycodone Ir) 5 mg PO Q6HR PRN PRN Reason: Pain (Severe) Stop: 10/12/16 01:23 Last Admin: 08/16/16 02:10 Dose: 5 mg Sodium Bicarbonate (Sodium Bicarbonate) 650 mg PO BID [facility] PRN Reason: Protocol Stop: 10/12/16 08:59 Last Admin: 08/15/16 17:35 Dose: 650 mg Sucralfate (Carafate) 1 gm PO SuMoWeFr@ACHS [facility] Stop: 10/12/16 11:29 Last Admin: 08/15/16 21:56 Dose: 1 gm Sucralfate (Carafate) 1 gm PO TuThSa@TID [facility] Stop: 10/12/16 09:29 Last Admin: 08/14/16 20:45 Dose: 1 gm Vitamin B Complex/Vit C/Folic Acid (Vitamin B Complex W/Vitamin C) 1 tab PO 1700 [facility] Stop: 10/12/16 16:59 Last Admin: 08/15/16 17:35 Dose: 1 tab - Procedures Procedures: Procedures Procedure Code Date PERFORMANCE OF URINARY FILTRATION, MULTIPLE [id number] 06/07/16 PERFORMANCE OF URINARY FILTRATION, SINGLE [id number] 12/29/15 TRANSFUSE NONAUT RED BLOOD CELLS IN PERIPH VEIN, [facility] [id number] 06/07/16
[2016-08-16] MEDS: Lidocaine 5% Patch TD SCH (09:00)
--- NOTE | 2016-08-16 09:26 | Diagnostic Imaging Report ---
Portable chest x-ray HISTORY: Shortness of breath Compared with the prior exam of 08/14/2016, the heart is enlarged. Atherosclerotic calcification seen in the aorta. Persistent elevation of the right hemidiaphragm with question of a small right pleural effusion. IMPRESSION: 1. No change in the cardiopulmonary status as noted above.
--- NOTE | 2016-08-16 09:41 | Consultation ---
DATE OF CONSULTATION: 08/13/2016 ATTENDING DOCTOR: Dr. Kyler Stephenson. [employer] OPERATOR: Dr. Francisco Porras. REASON FOR CONSULTATION: Electrolyte imbalance and fluid management. HISTORY OF PRESENT ILLNESS: This is an 86-year-old female with past medical history of end-stage renal disease, on hemodialysis, who came in because of recurrent bleeding of her left AV fistula. The patient has had history of multiple sites of hematoma and bleeding especially from her AV fistula in the past. This has been attributed to her persistent thrombocytopenia. The patient was dialyzed Saturday as scheduled was Saturday, and Saturday. A few hours prior to admission, she noticed recurrent bleeding of her left AV fistula. She could not control her bleeding. Paramedics were notified and she was brought to the Emergency Room. ____ that her platelets was only 25. She was subsequently admitted to control her bleeding as well as to transfuse platelets. Her hemoglobin/hematocrit remains stable at 9.2/28.2. PAST MEDICAL HISTORY: 1. End-stage renal disease, on hemodialysis. 2. Chronic pancytopenia. 3. Essential hypertension. 4. Chronic obstructive pulmonary disease. 5. Type 2 diabetes mellitus. PAST SURGICAL HISTORY: Status post creation of left AV fistula. CURRENT MEDICATIONS: She is currently on acetaminophen, ascorbic acid, bisacodyl, ____, docusate sodium, hydralazine, hydrocodone/APAP, aspart, lactulose, lisinopril, nifedipine, nitroglycerin, ondansetron, sodium bicarbonate, sucralfate, amlodipine, ceftriaxone, oxycodone, clonidine. ALLERGIES: No known drug allergies. SOCIAL HISTORY: No history of alcohol or tobacco use. Currently, resides at the [facility]. FAMILY HISTORY: Noncontributory to present illness. REVIEW OF SYSTEMS: CONSTITUTIONAL: Her appetite had been fair. No fever, no chills. Continues to have weakness. HEENT: No mention of headaches, no dizziness. Wears glasses due to poor vision. Her acuity has also diminished. CARDIORESPIRATORY: She has a history of hypertension, COPD. At this point, she does not have any chest pain, palpitations, diaphoresis, cough, no shortness of breath. GASTROINTESTINAL: No nausea and vomiting, abdominal pain or cramping, hematemesis, melena, hematochezia, no diarrhea. ENDOCRINE: History of diabetes, no thyroid abnormalities, no dyslipidemia. GENITOURINARY: History of kidney failure, on hemodialysis, no longer urinates. MUSCULOSKELETAL: Multiple joint arthralgias. HEMATOLOGIC: She has chronic pancytopenia with recurring severe thrombocytopenia and bleeding episodes. NEUROPSYCH: No syncopal episode. No seizure activity. She has some form of neuropathy. PHYSICAL EXAMINATION: GENERAL: The patient is sleeping, arousable, not in any form of distress. VITAL SIGNS: Her blood pressure is 143/62, pulse 97, temperature 99.6 degrees. SKIN: Good turgor, warm, no rash, no jaundice appreciated. HEENT: Head normocephalic, atraumatic. EYES: Extraocular muscles intact. Pupils equal, round, reactive to light and accommodate. Anicteric sclerae. Pale conjunctivae. Nose, midline nasal septum. Mouth, moist mucosa with very poor dentition. NECK: Supple, no adenopathy, no thyromegaly. No bruits. Trachea palpated in the midline. CHEST AND CVS: S1, S2. No rub, murmur nor gallop appreciated. Point of maximal impulse, fifth intercostal space, left midclavicular line. No abdominal or femoral bruits appreciated. LUNGS: Equal expansion. No use of accessory muscles. No supraclavicular retractions, decreased breath sounds, clear to auscultation without any wheeze. BREASTS: Symmetrical, without any discharge. ABDOMEN: Flat, soft. Positive for bowel sounds. No bruits either diastolic or systolic. RECTAL: The patient refused. GENITOURINARY: Normal-appearing female genitalia. MUSCULOSKELETAL: No effusions present in her joints with adequate range of motion. No evidence of edema, cyanosis nor clubbing. She has a very good bruit nor thrill on her left AV fistula. NEUROLOGIC: The patient is alert, verbal, motor is 5/5. Cranial nerves 3-12 intact. Sensory intact. LABORATORY DATA: Revealed sodium 134, potassium 3.3, chloride 96, bicarb 23, BUN 43, creatinine 3.9, glucose 143, calcium 9.2. White count 4.7, hemoglobin 9.2, hematocrit 28.3, platelets 60. IMPRESSION: 1. End-stage renal disease, on hemodialysis. 2. Chronic pancytopenia with recurrent severe thrombocytopenia leading to bleeding episodes, possible myelodysplastic syndrome, or chronic ____. 3. Essential hypertension with chronic kidney disease. 4. Type 2 diabetes mellitus with chronic kidney disease. 5. Chronic obstructive pulmonary disease. 6. Anemia of chronic kidney disease. 7. Low potassium, likely due to recent dialysis treatment. PLAN: 1. Hemodialysis as scheduled. 2. No heparin. 3. Transfuse as necessary. 4. Hematology consult. 5. Start the patient on Epogen. 6. Monitor CBC. Thank you, Dr. Stephenson, for this consult and we will follow the patient closely with you. JOB# [id number]
[2016-08-16] MEDS ORDERED: Epoetin Alfa 20000 Units/mL Vial SUBQ SCH (10:00)
--- NOTE | 2016-08-16 11:05 | Diagnostic Imaging Report ---
Abdominal 10 HISTORY: Pain, splenomegaly The spleen is normal in size (8.5 x 4.0 x 3.3 cm). The liver is enlarged. No focal lesions. The exam of the gallbladder demonstrates an approximate 1. 5.2 cm intraluminal echogenic density in the dependent region. No acoustic shadowing. Suggestion of additional smaller foci. Despite the absence acoustic shadowing, findings are most likely associated with cholelithiasis. Low-level intraluminal echoes suggests "sludge". Common bile duct cannot be well visualized. No intrahepatic biliary dilatation. Pancreas deftly seen due to bowel gas. The right kidney is decreased in size (8.2 x 3.8 x 4.2 cm). No focal lesions. No hydronephrosis. The left kidney is also decreased in size (7.9 x 4.0 x 3.6 cm). No focal lesions. No hydronephrosis. No other retroperitoneal or intra-abdominal abnormalities. IMPRESSION: 1. Limited exam due to patient's size and body habitus 2. Diminished renal size is bilaterally. No hydronephrosis 3. Hepatomegaly
--- NOTE | 2016-08-16 14:47 | Infectious Disease Prog Note ---
Infectious Disease Subjective - Review of Systems Service Date: 08/16/16 Subjective: No new change. Infectious Disease Objective - Results Result Diagrams: 08/16/16 05:20 08/15/16 06:10 Recent Labs: Laboratory Last Values WBC 5.2 Th/cmm (4.8-10.8) D 08/16/16 05:20 RBC 3.23 Mil/cmm (3.80-5.20) L 08/16/16 05:20 Hgb 8.2 gm/dL (11.7-16.1) L 08/16/16 05:20 Hct 26.2 % (35.0-45.0) L 08/16/16 05:20 MCV 80.9 fl (81-100) L 08/16/16 05:20 MCH 25.4 pg (27.0-31.0) L 08/16/16 05:20 MCHC Differential 31.3 pg (28.0-36.0) 08/16/16 05:20 RDW 18.5 % (11.5-20.0) 08/16/16 05:20 Plt Count 40 Th/cmm (150-400) L 08/16/16 05:20 MPV 8.0 fl 08/16/16 05:20 Band Neutrophils % 3 % (0-10) 08/16/16 05:20 Neutrophils (Manual) 55 % (40-80) 08/16/16 05:20 Lymphocytes 26 % (20-50) 08/16/16 05:20 Monocytes 16 % (2-10) H 08/16/16 05:20 Eosinophils 3 % (0-5) 08/15/16 06:10 Metamyelocytes 2 % (0-0) H 08/14/16 06:11 Nucleated RBCs 1.0 % (0-0) H 08/15/16 06:10 Hypochromia 2+ 08/13/16 00:08 Platelet Estimate DECREASED PLATELETS (NORMAL) 08/16/16 05:20 Platelet Morphology GIANT PLATELETS SEEN (NORMAL) 08/15/16 06:10 Polychromasia 1+ 08/13/16 00:08 Anisocytosis 1+ 08/15/16 06:10 Microcytosis 1+ 08/14/16 06:11 RBC Morph Micro Appear ABNORMAL (NORMAL) 08/15/16 06:10 Plt Count 44 Th/cmm (150-750) L 08/14/16 20:00 PT 10.4 SECONDS (9.5-11.5) 08/14/16 20:00 INR 1.00 (0.5-1.4) 08/14/16 20:00 PTT (Actin FS) 30.2 SECONDS (26.0-38.0) 08/14/16 20:00 Fibrinogen 206.0 mg/dL (200.0-400.0) 08/14/16 20:00 D-Dimer 665 ng/mL (100-400) H 08/14/16 20:00 Sodium 134 mEq/L (136-145) L 08/15/16 06:10 Potassium 3.8 mEq/L (3.5-5.1) 08/15/16 06:10 Chloride 98 mEq/L (98-107) 08/15/16 06:10 Carbon Dioxide 28.0 mEq/L (21.0-31.0) 08/15/16 06:10 Anion Gap 11.8 (7.0-16.0) 08/15/16 06:10 BUN 27 mg/dL (7-25) H 08/15/16 06:10 Creatinine 2.9 mg/dL (0.6-1.2) H 08/15/16 06:10 Est GFR ( Amer) TNP 08/15/16 06:10 Est GFR (Non-Af Amer) TNP 08/15/16 06:10 BUN/Creatinine Ratio 9.3 08/15/16 06:10 Glucose 129 mg/dL (70-105) H 08/15/16 06:10 POC Glucose 150 MG/DL (70 - 105) H 08/16/16 11:19 Whole Bld Lactic Acid 0.59 mmol/L (0.60-1.99) L 08/13/16 00:08 Calcium 8.6 mg/dL (8.6-10.3) 08/15/16 06:10 Phosphorus 1.9 mg/dL (2.5-5.0) L 08/14/16 06:11 Magnesium 2.2 mg/dL (1.9-2.7) 08/13/16 00:08 Iron 27 ug/dL (27-139) 08/15/16 06:10 TIBC 111 ug/dL (250-450) L 08/15/16 06:10 Iron Saturation 24 % (15-55) 08/15/16 06:10 Unsaturated IBC 84 ug/dL (118-369) L 08/15/16 06:10 Total Bilirubin 0.4 mg/dL (0.3-1.0) 08/13/16 00:08 AST 13 U/L (13-39) 08/13/16 00:08 ALT 11 U/L (7-52) 08/13/16 00:08 Alkaline Phosphatase 40 U/L (34-104) 08/13/16 00:08 Total Protein 6.8 gm/dL (6.0-8.3) 08/13/16 00:08 Albumin 3.8 gm/dL (3.7-5.3) 08/13/16 00:08 Globulin 3.0 gm/dL 08/13/16 00:08 Albumin/Globulin Ratio 1.3 (1.0-1.8) 08/13/16 00:08 Vitamin B12 562 pg/mL (211-946) 08/14/16 20:00 Folic Acid >20.0 ng/mL (>3.0) 08/14/16 20:00 Hepatitis C Antibody <0.1 s/co ratio (0.0-0.9) 08/14/16 06:11 Blood Type O POSITIVE 08/13/16 00:08 - Physical Exam Vitals and I&O: Vital Signs Temp 98.8 F 08/16/16 13:18 Pulse 86 08/16/16 13:56 Resp 18 08/16/16 13:56 BP 139/69 08/16/16 13:18 Pulse Ox 98 08/16/16 13:56 Intake & Output 08/15/16 08/16/16 08/16/16 18:59 06:59 18:59 Intake Total 850 200 Output Total 1 0 Balance 849 200 Intake: Intake, IV Amount 50 cefTRIAXone 1 gm In 50 Sodium Chloride 0.9% 50 ml @ 100 mls/hr IV Q24HR [facility] Rx#:[id number] Oral 800 200 Output: Stool 1 0 Other: # Voids 2 Active Medications: Current Medications Acetaminophen (Tylenol) 650 mg PO Q4HR PRN PRN Reason: PAIN (MILD) OR TEMP 100.0 OR > Stop: 10/12/16 01:23 Last Admin: 08/13/16 02:32 Dose: 650 mg Acetaminophen/Hydrocodone Bitart ([place] 5mg/325mg) 1 tab PO Q8HR [facility] Stop: 10/12/16 04:59 Last Admin: 08/16/16 14:12 Dose: 1 tab Albuterol/Ipratropium (Duoneb Neb) 3 ml HHN Q6HR [facility] Stop: 10/12/16 05:59 Last Admin: 08/16/16 13:56 Dose: 3 ml Amlodipine Besylate (Norvasc) 5 mg PO TuThSa@2100 [facility] Stop: 10/12/16 20:59 Last Admin: 08/14/16 20:44 Dose: 5 mg Amlodipine Besylate (Norvasc) 5 mg PO SuMoWeFr@0900,2100 [facility] Stop: 10/12/16 08:59 Last Admin: 08/15/16 21:57 Dose: 5 mg Ascorbic Acid (Vitamin C) 500 mg PO 1700 [facility] Stop: 10/12/16 16:59 Last Admin: 08/15/16 17:35 Dose: 500 mg Bisacodyl (Dulcolax 10 Mg Supp) 10 mg RC DAILY PRN PRN Reason: BM MANAGEMENT Stop: 10/12/16 01:23 Budesonide (Pulmicort) 0.5 mg HHN BIDRT [facility] Stop: 10/12/16 06:59 Last Admin: 08/16/16 07:25 Dose: 0.5 mg Clonidine HCl (Catapres) 0.1 mg PO Q4H PRN PRN Reason: SBP ABOVE 160 Stop: 10/12/16 01:23 Dextrose (D50w) 50 ml IVP ACHS PRN PRN Reason: BLOOD SUGAR < 70 Stop: 10/12/16 01:23 Last Admin: 08/13/16 17:44 Dose: 50 ml Docusate Sodium (Colace) 250 mg PO 1700 [facility] Stop: 10/12/16 16:59 Last Admin: 08/15/16 17:35 Dose: 250 mg Epoetin Scott (Epogen) 5,000 units SUBQ TuThSa [facility] Stop: 10/15/16 09:59 Last Admin: 08/16/16 14:13 Dose: 5,000 units Hydralazine HCl (Apresoline) 50 mg PO SuMoWeFr@0900,2100 [facility] Stop: 10/12/16 08:59 Last Admin: 08/15/16 21:56 Dose: 50 mg Hydralazine HCl (Apresoline) 50 mg PO TuThSa@2100 [facility] Stop: 10/13/16 20:59 Last Admin: 08/14/16 20:44 Dose: 50 mg Insulin Aspart (Novolog Insulin Sliding Scale) 0 units SUBQ ACHS [facility] PRN Reason: Protocol Stop: 10/12/16 07:29 Last Admin: 08/16/16 11:58 Dose: 2 units Lactulose (Cephulac) 15 gm PO Q8H PRN PRN Reason: BM MANAGEMENT Stop: 10/12/16 01:59 Lidocaine (Lidoderm 5% Patch) 1 patch TD DAILY [facility] Stop: 10/14/16 08:59 Last Admin: 08/16/16 09:00 Dose: 1 patch Miscellaneous (Clinical Monitoring) 1 ea MC DAILY PRN PRN Reason: RENAL Stop: 10/12/16 06:58 Nifedipine (Procardia) 10 mg PO Q6H PRN PRN Reason: SBP >160 Stop: 10/12/16 01:23 Nitroglycerin (Nitrostat) 0.4 mg SL Q5M PRN PRN Reason: Chest Pain Stop: 10/12/16 01:23 Oxycodone HCl (Oxycodone Ir) 5 mg PO Q6HR PRN PRN Reason: Pain (Severe) Stop: 10/12/16 01:23 Last Admin: 08/16/16 09:09 Dose: 5 mg Sodium Bicarbonate (Sodium Bicarbonate) 650 mg PO BID [facility] PRN Reason: Protocol Stop: 10/12/16 08:59 Last Admin: 08/16/16 09:12 Dose: Not Given Sucralfate (Carafate) 1 gm PO SuMoWeFr@ACHS [facility] Stop: 10/12/16 11:29 Last Admin: 08/15/16 21:56 Dose: 1 gm Sucralfate (Carafate) 1 gm PO TuThSa@TID [facility] Stop: 10/12/16 09:29 Last Admin: 08/16/16 14:16 Dose: 1 gm Vitamin B Complex/Vit C/Folic Acid (Vitamin B Complex W/Vitamin C) 1 tab PO 1700 [facility] Stop: 10/12/16 16:59 Last Admin: 08/15/16 17:35 Dose: 1 tab General: no acute distress, well developed, well nourished, cachectic HEENT: atraumatic, normocephalic, PERRLA, EOMI Neck: supple Cardiovascular: S1S2, regular Lungs: clear to auscultation bilaterally, clear to percussion Abdomen: soft, no tender, no distended Extremities: no cyanosis, no clubbing, no edema Neurological: awake, alert Skin: intact - Procedures Procedures: Procedures Procedure Code Date PERFORMANCE OF URINARY FILTRATION, MULTIPLE [id number] 06/07/16 PERFORMANCE OF URINARY FILTRATION, SINGLE [id number] 12/29/15 TRANSFUSE NONAUT RED BLOOD CELLS IN PERIPH VEIN, PERC [id number] 06/07/16 Infectious Disease Assmt/Plan - Assessment Assessment: IMPRESSION: 1. Pancytopenia. 2. Congestive heart failure. Chest x-ray shows congestive heart failure. 3. Diabetes mellitus type 2. 4. Hypertension. 5. Hyperlipidemia. 6. Obesity. 7. Anemia of chronic disease. 8. Chronic kidney disease stage V, on hemodialysis. 9. Bleeding from AV shunt on the left side, which has improved. RECOMMENDATIONS: Will monitor off antibiotics. Ok to dc patient to SNf from ID point of view.
[2016-08-17 13:11] LABS: HEP B CORE IGM Negative (Negative); HEP C ANTIBODY <0.1 s/co ratio (0.0-0.9)
--- NOTE | 2016-09-08 15:50 | Discharge Summary ---
DATE OF DISCHARGE: 08/16/2016 The patient was admitted for severe thrombocytopenia and the patient known to have history of thrombocytopenia, anemia, end-stage renal disease, on dialysis, right above-knee amputation and patient was admitted. The patient had a complete workup including Hematology consultation. The patient gradually improved and also an ID consult. The patient was in stable condition on August 16. FINAL DIAGNOSIS: Thrombocytopenia, improved, history of end-stage renal disease, history of hypertension, history of diabetes, history of right above-knee amputation. The patient was discharged back to the [facility] where I will be following the patient. The patient's condition at the time of discharge of stable. MEDICATIONS: See the reconciliation sheet. [facility]# [id number]
== END 2016-08-16 15:30 | DRG 314 ==
LOC: ER 23:05 → TELE 08-13 01:10
PROVIDERS: ADMIT Internal Medicine; ATTEND Internal Medicine
PROC: 30233R1 Transfusion of Nonautologous Platelets into Peripheral Vein, Percutaneous Approach (ICD-10-PCS; 2016-08-13)
PROC: 5A1D60Z (ICD-10-PCS; principal; 2016-08-15)
DX: T82.838A Hemorrhage due to vascular prosthetic devices, implants and grafts, initial encounter (principal); N18.6 End stage renal disease; D61.818 Other pancytopenia; I13.2 Hypertensive heart and chronic kidney disease with heart failure and with stage 5 chronic kidney disease, or end stage renal disease; N18.4 Chronic kidney disease, stage 4 (severe); E11.22 Type 2 diabetes mellitus with diabetic chronic kidney disease; N39.0 Urinary tract infection, site not specified; J44.9 Chronic obstructive pulmonary disease, unspecified; I50.9 Heart failure, unspecified; D64.9 Anemia, unspecified; J40 Bronchitis, not specified as acute or chronic; Z66 Do not resuscitate; E78.5 Hyperlipidemia, unspecified; E66.9 Obesity, unspecified; E87.6 Hypokalemia; Z99.2 Dependence on renal dialysis; Z89.611 Acquired absence of right leg above knee; Z68.20 Body mass index [BMI] 20.0-20.9, adult
CPT/HCPCS: 36415-UA; 71010-TC; 76700-TC; 80048-TC; 80053-TC; 80074-90; 82607-90; 82728-90; 82746-90; 82948-90; 83540-90; 83550-90; 83605; 83735-TC; 84100-TC; 85007-TC; 85027-TC; 85049-TC; 85379-TC; 85384-TC; 85610-TC; 85730-TC; 86803-90; 86900-TC; 86901-TC; 90937; 93005; 94640; 94760; 96374; J0696; J0885; J1815; J2405; J7030; J7799; P9035; Z7610

== ENCOUNTER 2016-10-16 18:00 | Inpatient (IN) | payer MEDICARE, MEDICAID ==
--- NOTE | 2016-10-16 18:11 | ED Physician Chart ---
Chief Complaint/HPI - Patient Information Date Seen:: 10/16/16 Time Seen:: 18:04 Chief Complaint:: edema History of Present Illness:: 86-year-old female, end-stage renal disease on dialysis, brought in from nursing facility with acute, worsening, constant, severe, anasarca. Had dialysis today which was thought to have potentially helped but the symptoms continued. Denies shortness of breath, chest pain, palpitations, nausea, vomiting, abdominal pain, numbness, tingling, fevers. Allergies:: Allergies Allergy/AdvReac Type Severity Reaction Status Date / Time No Known Allergies Allergy Verified 08/12/16 23:17 Historian:: Patient, EMS, Family Member (granddaughter) Review:: Nurse's Note Reviewed, EMS run form Reviewed, Transfer documents Reviewed Review of Systems - Review of Systems Other: Complete system review otherwise unremarkable except as noted in history of present illness. Past Medical History - Past Medical History Past Medical History: HTN, DM, ESRD, Other (thrombocytopenia) Family History: None Social History: Non Smoker, No Alcohol, No Drug Use, Care Facility Surgical History: other (right-sided melzg-cpu-dwlb amputation) Psychiatricy History: None Medication: Reviewed Family Medical History - Family Member Father History Unknown: Yes Ethnicity: Living Status: Hx Family Cancer: (UNKNOWN) Hx Family Coronary Artery Disease: (UNKNOWN) Hx Family Congestive Heart Failure: (UNKNOWN) Hx Family Hypertension: (UNKNOWN) Hx Family Stroke: (UNKNOWN) Hx Family Diabetes: (UNKNOWN) Hx Family Seizures: (UNKNOWN) Hx Family Dementia: (UNKNOWN) Hx Family AIDS: (UNKNOWN) Hx Family HIV: No Hx Family COPD: (UNKNOWN) Hx Family Hepatitis: (UNKNOWN) Hx Family Psychiatric Problems: (UNKNOWN) Hx Family Tuberculosis: (UNKNOWN) Physical Exam - Physical Examination Other:: INITIAL VITAL SIGNS: Reviewed by me GENERAL: Alert and interactive. Mild respiratory distress. HEAD: Head is normocephalic and atraumatic EYES: EOMI. PERRL. No scleral icterus. No conjunctival injection ENT: Moist mucous membranes. NECK: Supple. No masses. Full range of motion RESPIRATORY: Tachypneic. Clear breath sounds bilaterally. No wheezing, rales, or rhonchi CV: Regular rate and rhythm. No murmurs, rubs, or gallops ABDOMEN: Soft, non-distended, non-tender. No guarding. No rebound. No masses. EXTREMITIES: Right-sided pydqw-kfh-rgyf amputation. Otherwise No deformity. No cyanosis. The generalized edema of the face and upper extremities and left lower extremity SKIN: Warm and dry. Multiple bruises throughout lower extremity and upper extremities. No obvious rashes. NEUROLOGIC: Alert and oriented. Face is symmetric. Speech is normal. Moves all extremities equally. Motor and sensory distally intact. Labs/Radiology/EKG Results - Lab Results Results: Lab Results 10/16/16 10/16/16 10/16/16 Range/Units 18:27 18:27 18:27 WBC 5.7 (4.8-10.8) Th/cmm RBC 3.75 L (3.80-5.20) Mil/cmm Hgb 9.3 L (11.7-16.1) gm/dL Hct 30.8 L D (35.0-45.0) % MCV 82.3 (81-100) fl MCH 24.8 L (27.0-31.0) pg MCHC Differential 30.2 (28.0-36.0) pg RDW 19.9 (11.5-20.0) % Plt Count 31 L D (150-400) Th/cmm MPV 7.3 fl Neutrophils % 73.9 (40.0-80.0) % Lymphocytes % 10.7 L (20.0-50.0) % Monocytes % 11.5 H (2.0-10.0) % Eosinophils % 1.4 (0.0-5.0) % Basophils % 2.5 H (0.0-2.0) % Sodium 135 L (136-145) mEq/L Potassium 3.4 L (3.5-5.1) mEq/L Chloride 98 (98-107) mEq/L Carbon Dioxide 30.8 (21.0-31.0) mEq/L Anion Gap 9.6 (7.0-16.0) BUN 31 H (7-25) mg/dL Creatinine 2.4 H (0.6-1.2) mg/dL Est GFR ( Amer) TNP Est GFR (Non-Af Amer) TNP BUN/Creatinine Ratio 12.9 Glucose 169 H (70-105) mg/dL Calcium 9.4 (8.6-10.3) mg/dL Total Bilirubin 0.5 (0.3-1.0) mg/dL AST 14 (13-39) U/L ALT 10 (7-52) U/L Alkaline Phosphatase 67 (34-104) U/L B-Natriuretic Peptide 1970.0 H (5.0-100.0) pg/mL Total Protein 7.4 (6.0-8.3) gm/dL Albumin 3.8 (3.7-5.3) gm/dL Globulin 3.6 gm/dL Albumin/Globulin Ratio 1.1 (1.0-1.8) - Radiology Results Results: Single AP VIEW Portable Chest X-ray was interpreted independently and contemporaneously by Christian Ruggiero MD: No cardiomegaly Normal mediastinum No lung infiltrates No pneumothorax No soft tissue or bony abnormalities - EKG Interpretations Comments:: 12-lead EKG Interpretation by Christian Ruggiero MD: Atrial fibrillation with ventricular rate of 72 beats per minute Normal axis Normal intervals No acute ST or T wave changes. No obvious STEMI Assessment - Assessment General Assessment: Critical Care Time: 30 minutes Treatments/Evaluations: Close monitoring and treatment of unstable vital signs, cardiorespiratory, and neurologic status, while maintaining tight balance of fluid, respiratory, and cardiac interventions. This time includes discussing the case with the patient and the patient's family. This time does not include all procedures stated elsewhere in this record. This time also includes reviewing old records, labs and radiological studies. This time includes examining and re-examining the patient. Additionally, this time also includes arranging care with admitting and consulting physicians. Critical Care Time: 30 minutes Excludes all billable procedures: Yes This condition life threatening/high prob of deterioration: Yes ED Septic Shock - . Is Septic Shock (SBP<90, OR Lactate>4 mmol\L) present?: No Reassessment (Disposition) - Reassessment Reassessment:: 86-year-old female end-stage renal disease presents with acute anasarca looks worse over the past 3 days. She is in CHF exacerbation with a BNP almost 2000. We did give IV Lasix, however, she will likely need dialysis to help correct this. She is also in atrial fibrillation. This is not listed in her history is maybe a new diagnosis. Discussed all the findings with the patient, her family physician. Patient further workup and treatment. Reassessment Condition:: Improved - Diagnosis Diagnosis:: Acute anasarca due to acute CHF exacerbation Acute respiratory distress End-stage renal disease Diabetes mellitus - Patient Disposition Discharge/Transfer:: Acute Care w/in this hosp Admitted to:: Telemetry Admitting Medical Physician:: Deepthi Stephenson Time:: 19:16 Condition at Disposition:: Stable
[2016-10-16 18:39] LABS: HEMOGLOBIN 9.3 gm/dL (11.7-16.1); MEAN CELL VOLUME 82.3 fl (81-100); MEAN CORPUSCULAR HEMOGLOBIN 24.8 pg (27.0-31.0); MEAN CORPUSCULAR HGB CONC 30.2 pg (28.0-36.0); MEAN PLATELET VOLUME 7.3 fl; RED BLOOD COUNT 3.75 Mil/cmm (3.80-5.20); RED CELL DISTRIBUTION WIDTH 19.9 % (11.5-20.0); WHITE BLOOD COUNT 5.7 Th/cmm (4.8-10.8)
[2016-10-16 18:51] LABS: ALB/GLOB RATIO 1.1 (1.0-1.8); ALKALINE PHOSPHATASE 67 U/L (34-104); ANION GAP 9.6 (7.0-16.0); BILIRUBIN,TOTAL 0.5 mg/dL (0.3-1.0); BUN - UREA NITROGEN 31 mg/dL (7-25); BUN/CREATININE RATIO 12.9; CALCIUM SERUM 9.4 mg/dL (8.6-10.3); CARBON DIOXIDE 30.8 mEq/L (21.0-31.0); CHLORIDE 98 mEq/L (98-107); CREATININE - SERUM 2.4 mg/dL (0.6-1.2); GLUCOSE 169 mg/dL (70-105); POTASSIUM SERUM 3.4 mEq/L (3.5-5.1); SGOT 14 U/L (13-39); SGPT/ALT 10 U/L (7-52); SODIUM SERUM 135 mEq/L (136-145)
[2016-10-16] MEDS ORDERED: Albuterol/Ipratropium Neb 3 ML AERS HHN ONE ×2 (18:57→19:14)
[2016-10-16 19:03] LABS: HEMATOCRIT 30.8 % (35.0-45.0); PLATELET COUNT 31 Th/cmm (150-400)
[2016-10-16 19:27] LABS: INR 1.01 (0.5-1.4); PROTHROMBIN TIME (TEST) 10.5 SECONDS (9.5-11.5)
[2016-10-16] MEDS ORDERED: Acetaminophen 500 MG TAB PO PRN (22:28)
[2016-10-16] MEDS ORDERED: Lactulose 10 Gm/15 mL 30mL UDC PO PRN (22:28)
[2016-10-16] MEDS ORDERED: Maalox 30 mL Cup PO PRN (22:28)
[2016-10-16] MEDS ORDERED: Dextrose 50% 50 mL Abboject IVP PRN (22:28)
[2016-10-16] MEDS: Hydrocodone/APAP 5mg/325mg Tab PO SCH (23:34)
[2016-10-16] MEDS: Epoetin Alfa 20000 Units/mL Vial SUBQ SCH (23:34)
--- NOTE | 2016-10-16 23:46 | Consultation ---
Consult Note - Consult Note Service Date: 10/16/16 Referring Physician: Deepthi Stephenson Consult Note: PHYSICIAN Consultation Note: Date of Admission: 10/16/16 Purpose of Consultation: Chief Complaint: Patient VIRIDIANA ZARCO was admitted to location Intensive Care Unit with CHF EXACERBATION. History of Present Illness: Patient is 86 y female with history of CHF, A fib, CKD 5 on HD, Dementia. brought from SNF for worseining of mental status and associated swelling of the body. Patient is very confused and unable to give any history. Patient is sitting on the bed with oxygen via NC. On initial evaluation, her temperature was 97.6 degree F and WBC count was 5, 700. ID consult was called of alteration in mental status. Past Medical History: DM2, HTN, CKD 5 on HD, CHF, Atrial fibrillation Allergies: Allergy/AdvReac Type Severity Reaction Status Date / Time No Known Allergies Allergy Verified 08/12/16 23:17 Vital Signs Temp 98.5 F 10/16/16 21:10 Pulse 95 10/16/16 21:10 Resp 21 10/16/16 21:10 BP 114/61 10/16/16 21:10 Pulse Ox 100 10/16/16 21:10 Intake & Output 10/16/16 10/16/16 10/17/16 06:59 18:59 06:59 Weight (lbs) 60.781 kg Other: # Voids 1 Home Medication Medication Instructions Recorded Type amLODIPine Besylate [Norvasc] 5 mg PO Q12HR 12/29/15 History Lactulose 15 gm PO Q8H PRN 05/21/16 History NIFEdipine [Procardia] 10 mg PO Q6H PRN 05/21/16 History Acetaminophen [Pain Reliever] 1,000 mg PO Q6H PRN 06/07/16 History Acetaminophen [Tylenol] 650 mg PO Q4HR PRN #0 tab 06/13/16 Rx Bisacodyl [Dulcolax 10 Mg Supp] 10 mg RC DAILY PRN #0 sup 06/13/16 Rx Budesonide [Pulmicort] 0.5 mg HHN BIDRT #0 ud 06/13/16 Rx Dextrose 50% [D50w] 50 ml IVP ACHS PRN #0 syr 06/13/16 Rx Lisinopril [Zestril] 40 mg PO BID #0 tab 06/13/16 Rx Nitroglycerin [Nitrostat*] 0.4 mg SL Q5M PRN #0 tab 06/13/16 Rx Sodium Bicarbonate 650 mg PO BID #0 tab 06/13/16 Rx Sucralfate [Carafate] 1 gm PO TIDHS #0 tab 06/13/16 Rx cloNIDine HCl [Catapres] 0.1 mg PO Q4H PRN #0 tab 06/13/16 Rx Ascorbic Acid [Vitamin C] 500 mg PO 1700 08/12/16 History Folic Acid/Vit Bcomp,C [Renal 0.8 mg PO 1700 08/12/16 History Vitamin Tablet] Nut.tx.gluc.intoler,Lac-Fr,Soy 237 ml PO BID 08/12/16 History [Glucerna] Albuterol/Ipratropium Neb [Duoneb 3 ml HHN Q6HR 08/13/16 History Neb] Docusate Sodium [Colace] 250 mg PO 1700 08/13/16 History Hydrocodone/APAP 5mg/325mg [[place] 1 tab PO Q8H 08/13/16 History 5mg/325mg] Insulin Aspart Sliding Scale See Protocol SUBQ ACHS 08/13/16 History [NovoLOG INSULIN SLIDING SCALE] Oxycodone HCl 5 mg PO Q6HR PRN 08/13/16 History Sucralfate 1 gm PO TID 08/13/16 History amLODIPine Besylate [Norvasc] 5 mg PO 2100 08/13/16 History Epoetin Scott [Epogen] 5,000 units SUBQ TuThSa #0 ml 08/16/16 Rx Hydralazine [Apresoline*] 50 mg PO SuMoWeFr@0900,2100 #0 tab 08/16/16 Rx Lidocaine 5% Patch [Lidoderm 5% 1 patch TD DAILY #0 tdm 08/16/16 Rx Patch] Al Hyd/Mg Hyd/Simethicone [Maalox] 10/16/16 History Current Medications Generic Name Dose Route Start Last Admin Trade Name Freq PRN Reason Stop Dose Admin Acetaminophen 650 mg 10/16/16 22:28 Tylenol PO 12/15/16 22:27 Q4HR PRN PAIN (MILD) OR TEMP 100.0 OR > Acetaminophen 1,000 mg 10/16/16 22:28 Tylenol Extra Strength PO Q6H PRN Pain (Moderate) Acetaminophen/Hydrocodone Bitart 1 tab 10/16/16 22:30 10/16/16 23:34 [place] 5mg/325mg PO 12/15/16 22:29 1 tab Q8H [facility] Administration Al Hydrox/Mg Hydrox/Simethicone 30 ml 10/16/16 22:28 Maalox PO 12/16/16 00:00 Q6HR PRN GI DISTRESS Albuterol/Ipratropium 3 ml 10/17/16 00:00 Duoneb Neb HHN 12/16/16 00:00 Q6HR [facility] Amlodipine Besylate 5 mg 10/17/16 21:00 Norvasc PO 12/16/16 20:59 2100 [facility] Amlodipine Besylate 5 mg 10/17/16 09:00 Norvasc PO 12/16/16 08:59 Q12HR [facility] Ascorbic Acid 500 mg 10/17/16 17:00 Vitamin C PO 12/16/16 16:59 1700 [facility] Bisacodyl 10 mg 10/16/16 22:28 Dulcolax 10 Mg Supp RC 12/15/16 22:27 DAILY PRN BM MANAGEMENT Budesonide 0.5 mg 10/17/16 07:00 Pulmicort HHN 12/16/16 06:59 BIDRT [facility] Clonidine HCl 0.1 mg 10/16/16 22:28 Catapres PO 12/15/16 22:27 Q4H PRN for SBP>160 or DBP >100 Dextrose 50 ml 10/16/16 22:28 D50w IVP 12/15/16 22:27 ACHS PRN BLOOD SUGAR < 70 Docusate Sodium 250 mg 10/17/16 17:00 Colace PO 12/16/16 16:59 1700 [facility] Epoetin Scott 5,000 units 10/16/16 22:30 10/16/16 23:34 Epogen SUBQ 12/15/16 22:29 Not Given TuThSa [facility] Hydralazine HCl 50 mg 10/17/16 09:00 Apresoline PO 12/16/16 08:59 SuMoWeFr@0900,2100 [facility] Insulin Aspart 0 units 10/17/16 07:30 Novolog Insulin Sliding Scale SUBQ 12/16/16 07:29 ACHS [facility] Protocol Lactulose 15 gm 10/16/16 22:28 Cephulac PO Q8H PRN BM MANAGEMENT Lidocaine 1 patch 10/17/16 09:00 Lidoderm 5% Patch TD 12/16/16 08:59 DAILY [facility] Lisinopril 40 mg 10/17/16 09:00 Zestril PO 12/16/16 08:59 BID [facility] Miscellaneous 237 ml 10/17/16 09:00 Nut.Tx.Gluc.Intoler,Lac-Fr,Soy [Glucerna] PO 12/16/16 08:59 BID [facility] Nifedipine 10 mg 10/16/16 22:28 Procardia PO 12/15/16 22:27 Q6H PRN SBP >160 Nitroglycerin 0.4 mg 10/16/16 22:28 Nitrostat SL 12/15/16 22:27 Q5M PRN Chest Pain Oxycodone HCl 5 mg 10/16/16 22:28 Oxycodone Ir PO 12/15/16 22:27 Q6HR PRN Pain (Severe) Sodium Bicarbonate 650 mg 10/17/16 09:00 Sodium Bicarbonate PO 12/16/16 08:59 BID [facility] Protocol Sucralfate 1 gm 10/17/16 09:00 Carafate PO 12/16/16 08:59 TIDHS [facility] Vitamin B Complex/Vit C/Folic Acid 1 tab 10/17/16 17:00 Vitamin B Complex W/Vitamin C PO 12/16/16 16:59 1700 [facility] Review of Systems: A 12 point ROS was reviewed with the pertinent positive and negatives noted in the HPI. Social History Smoking Status Unknown if ever smoked Drug Use No Alcohol Use No Family Medical History Unknown Physical Exam: General: Comfortable, not in any acute distress, Cachectic. HEENT: EOMI Bilaterally, PERRLA Bilaterally, Head is normocephalic, atraumatic on inspection. Cardio: +S1/S2 Auscultated, RRR, no murmurs/rubs/gallops noted Respiratory: Clear to Auscultate Bilaterally, decreased breath sounds. Abdominal: Soft, Nondistended, Nontender to palpation x 4 quadrants Extremities: Edema of left lower extremity. right AKA. Neurological: Alertn Awake, Confused. Unable to communicate. There is no neck rigidity. Skin: small sacral decubitus. Impression: 1. Altered mental status, rule out sepsis. May have toxic/metabolic encephalopathy. There is no neck rigidity. 2. Anasarca. 3. H/o CHF, may have CHF exacerbation. 4. Dementia. 5. Respiratory insufficiency. 6. DM2 7. Sacral decubitus. Recommendations: Will check U/s of renal. Will wait for above mentioned labs. meanwhile start Rocephin. Wound care. Signed, eTz Esqueda M.D. 10/[id number]
[2016-10-17] MEDS: Albuterol/Ipratropium Neb 3 ML AERS HHN SCH ×4 (00:46→18:44)
[2016-10-17] MEDS ORDERED: Sodium Chloride 0.9% 100 ML IV SCH (01:30)
--- NOTE | 2016-10-17 04:35 | Admit Criteria Form ---
Admit Criteria Forms - Admit Criteria Diagnosis: HEART FAILURE Clinical Indications for Admission to Inpatient Care (Place 'X' for any and all applicable criteria): Admission is indicated by 1 or more of the following(1)(2)(3)(4)(5)(6)(7) [ ]I. Hemodynamic instability(9) [ ]II. Severe electrolyte abnormalities requiring inpatient care [ ]III. Cardiac arrhythmias of immediate concern [ ]IV. Precipitating cause for acute decompensation (eg, pneumonia, pulmonary embolism) requires inpatient care [ ]V. Acute cardiac ischemia causing or associated with failure (Also use Angina or Myocardial Infarction as appropriate) [ ]. Pulmonary edema that is very severe (eg, mechanical ventilation needed, imminent or likely, need for 100% oxygen to keep oxygen saturation above 90%) [X]VII. Massive skin edema (anasarca) with complications (eg tissue breakdown with infection, inability to void due to edema)[A] (15) [ ]VIIl. Inpatient admission required [B]rather than observation care (See Heart Failure: Observation Care as appropriate) because of 1 or more of the following(16)(17): [ ]a) Pulmonary edema that is severe or worsening as indicated by ALL of the following: [ ]1) New need for oxygen therapy to keep oxygen saturation above 90% (or increased FiO2 need from baseline) [ ]2) Has not improved sufficiently with emergency department or observation care IV diuretics or other heart failure treatments[C] [ ]b) Altered mental status that is severe or persistent [ ]c) Increased creatinine (new on laboratory test) with reduction of more than 50% in estimated glomerular filtration rate from baseline. [ ]d) Progressively (ongoing) rising creatinine (known from past laboratory test) with reduction of more than 25% in estimated glomerular filtration rate from baseline [ ]e) Acute renal insufficiency (progressively (ongoing) rising creatinine (known from past laboratory test) with reduction of more than 25% in estimated glomerular filtration rate from baseline. [ ]f) Acute renal failure [ ]g) Acute peripheral ischemia (e.g., examination shows pulseless, cool, mottled, or cyanotic extremity) [ ]h) Oyxgen administration or respiratory treatments have been needed for over 24 hours that are performable only in acute inpatient setting [ ]i) Pulmonary artery catheter monitoring [ ]j) Other condition, treatment or monitoring requiring inpatient admission Extended stay beyond goal length of stay may be needed for(1)(14)(38)(42)(45) [ ]a) Cardiac ischemia, confirmed or suspected as precipitant (1) [ ]b) Cardiogenic shock (2)(46)(47)(48)(49) [ ]c) Acute renal failure [ ]d) Stage IV chronic kidney disease (estimated glomerular filtration rate of less than 30 mL/min/1.73m2 (0.50 mL/sec/1.73m2), and not previously on chronic dialysis [ ]e) Respiratory failure (eg, need for noninvasive or invasive ventilation) ( 50) [ ]f) Concomitant pneumonia or significant electrolyte abnormality (eg, severe hyponatremia) (51) [ ]g) Newly diagnosed (new onset) atrial fibrillation (52)(53) The original [employer] [email or web address] content created by [employer] has been revised. The portions of the content which have been revised are identified through the use of italic text or in bold, and [facility] has neither reviewed nor approved the modified material. All other unmodified content is copyright [employer] [facility]. Please see references footnoted in the original [employer] edition 2017
[2016-10-17] MEDS: Hydrocodone/APAP 5mg/325mg Tab PO SCH ×3 (06:34→22:00)
[2016-10-17] MEDS: INSULIN ASPART SLIDING SCALE 100 UNITS/ML UNIT SUBQ SCH ×5 (06:35→21:23)
[2016-10-17] MEDS: Budesonide 0.5 Mg/2 mL Ud HHN SCH ×2 (07:11→18:44)
[2016-10-17] MEDS ORDERED: INSULIN ASPART SLIDING SCALE 100 UNITS/ML UNIT SUBQ SCH (07:30)
[2016-10-17 07:43] LABS: HEMATOCRIT 29.9 % (35.0-45.0); HEMOGLOBIN 8.9 gm/dL (11.7-16.1); MEAN CELL VOLUME 82.5 fl (81-100); MEAN CORPUSCULAR HEMOGLOBIN 24.6 pg (27.0-31.0); MEAN CORPUSCULAR HGB CONC 29.8 pg (28.0-36.0); MEAN PLATELET VOLUME 8.5 fl; RED BLOOD COUNT 3.62 Mil/cmm (3.80-5.20); RED CELL DISTRIBUTION WIDTH 19.7 % (11.5-20.0)
[2016-10-17 08:36] LABS: PLATELET COUNT 25 Th/cmm (150-400); WHITE BLOOD COUNT 3.2 Th/cmm (4.8-10.8)
[2016-10-17 08:39] LABS: BAND NEUTROPHILE 0 % (0-10); NEUTROPHILS 84 % (40-80); TOTAL CELLS COUNTED 100
[2016-10-17 08:40] LABS: PLATELET ESTIMATE DECREASED PLATELETS (NORMAL)
[2016-10-17 08:50] LABS: BUN - UREA NITROGEN 39 mg/dL (7-25); BUN/CREATININE RATIO 13.9; CALCIUM SERUM 9.1 mg/dL (8.6-10.3); CARBON DIOXIDE 26.4 mEq/L (21.0-31.0); CHLORIDE 98 mEq/L (98-107); CREATININE - SERUM 2.8 mg/dL (0.6-1.2); GLUCOSE 185 mg/dL (70-105); POTASSIUM SERUM 3.4 mEq/L (3.5-5.1); SODIUM SERUM 136 mEq/L (136-145)
[2016-10-17] MEDS: Lidocaine 5% Patch TD SCH (08:53)
[2016-10-17] MEDS ORDERED: NUT TX GLUC INTOLER LAC FR SOY PO SCH (09:00)
--- NOTE | 2016-10-17 10:24 | Diagnostic Imaging Report ---
CHEST X-RAY: AP view INDICATION: pain COMPARISON: Chest x-ray 08/16/2016 FINDINGS: Low lung volumes are noted. There may be a mild degree of congestion. Small effusions are suspected. No focal consolidation. Cardiomegaly is noted. IMPRESSION: Low lung volumes. There may be a mild degree of congestion. Small bilateral pleural effusions are also suspected.
[2016-10-17] MEDS ORDERED: Potassium Chloride 20 mEq ER Tab PO ONE (15:23)
[2016-10-17 15:49] LABS: BAND NEUTROPHILE 0 % (0-10); BASOPHIL 0 % (0-3); EOSINOPHIL 2 % (0-5); NEUTROPHILS 71 % (40-80); TOTAL CELLS COUNTED 100
[2016-10-17 15:50] LABS: PLATELET ESTIMATE DECREASED PLATELETS (NORMAL)
[2016-10-17 15:51] LABS: HYPOCHROMIA 1+; MICROCYTOSIS 1+; PLATELET MORPHOLOGY NORMAL (NORMAL)
[2016-10-17] MEDS: Vitamin B Complex w/Vitamin C Tab PO SCH (16:25)
[2016-10-18] MEDS: Albuterol/Ipratropium Neb 3 ML AERS HHN SCH ×4 (00:36→18:33)
[2016-10-18] MEDS: oxyCODONE 5 mg IR Tab PO PRN (04:56)
[2016-10-18 05:23] LABS: HEMATOCRIT 30.8 % (35.0-45.0); MEAN CELL VOLUME 83.1 fl (81-100); MEAN CORPUSCULAR HEMOGLOBIN 24.3 pg (27.0-31.0); MEAN CORPUSCULAR HGB CONC 29.2 pg (28.0-36.0); MEAN PLATELET VOLUME 8.2 fl; RED BLOOD COUNT 3.71 Mil/cmm (3.80-5.20); RED CELL DISTRIBUTION WIDTH 19.3 % (11.5-20.0); WHITE BLOOD COUNT 4.1 Th/cmm (4.8-10.8)
[2016-10-18 05:30] LABS: ALB/GLOB RATIO 1.1 (1.0-1.8); ALKALINE PHOSPHATASE 63 U/L (34-104); ANION GAP 9.3 (7.0-16.0); BILIRUBIN,TOTAL 0.4 mg/dL (0.3-1.0); BUN - UREA NITROGEN 25 mg/dL (7-25); BUN/CREATININE RATIO 12.5; CALCIUM SERUM 9.1 mg/dL (8.6-10.3); CARBON DIOXIDE 31.2 mEq/L (21.0-31.0); CHLORIDE 100 mEq/L (98-107); GLUCOSE 126 mg/dL (70-105); POTASSIUM SERUM 3.5 mEq/L (3.5-5.1); SGOT 12 U/L (13-39); SGPT/ALT 11 U/L (7-52); SODIUM SERUM 137 mEq/L (136-145)
[2016-10-18 05:35] LABS: PLATELET COUNT 27 Th/cmm (150-400)
[2016-10-18] MEDS: Hydrocodone/APAP 5mg/325mg Tab PO SCH ×3 (06:05→22:30)
[2016-10-18 06:29] LABS: EOSINOPHIL 3 % (0-5); NEUTROPHILS 46 % (40-80); TOTAL CELLS COUNTED 100
[2016-10-18 06:30] LABS: PLATELET ESTIMATE DECREASED PLATELETS (NORMAL)
[2016-10-18] MEDS: INSULIN ASPART SLIDING SCALE 100 UNITS/ML UNIT SUBQ SCH ×4 (06:30→21:09)
[2016-10-18] MEDS: Budesonide 0.5 Mg/2 mL Ud HHN SCH ×2 (06:57→18:33)
[2016-10-18] MEDS: Lidocaine 5% Patch TD SCH (08:26)
[2016-10-18] MEDS ORDERED: Probiotic Screen MC PRN (09:49)
--- NOTE | 2016-10-18 10:13 | Consultation ---
Consult Note - Consult Note Service Date: 10/18/16 Referring Physician: Deepthi Stephenson Consult Note: PHYSICIAN Consultation Note: Date of Admission: 10/16/16 Purpose of Consultation:thrombocytopenia Chief Complaint: History of Present Illness: Patient VIRIDIANA ZARCO was admitted to location Intensive Care Unit with CHF EXACERBATION. Patient found to have low platelets and no bleeding reported. Her old records were reviewed revealing low platelet since last year. The patient was seen in July for same problem and I recommended discontinuing lisinopril. 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 (10/16/16) HEART FAILURE, UNSPECIFIED (10/16/16) ACUTE RESPIRATORY DISTRESS SYNDROME (10/16/16) END STAGE RENAL DISEASE (10/16/16) GENERALIZED EDEMA (10/16/16) DEPENDENCE ON RENAL DIALYSIS (10/16/16) Allergies Allergy/AdvReac Type Severity Reaction Status Date / Time No Known Allergies Allergy Verified 08/12/16 23:17 Vital Signs Temp 97.9 F 10/18/16 09:00 Pulse 82 10/18/16 09:00 Resp 13 10/18/16 09:00 BP 151/52 10/18/16 09:00 Pulse Ox 100 10/18/16 09:00 Intake & Output 10/17/16 10/18/16 10/18/16 18:59 06:59 18:59 Intake Total 1070 100 350 Output Total 0 3000 Balance 1070 -2900 350 Weight (lbs) 60.781 kg 61.915 kg 61.915 kg Intake: Oral 1070 100 350 Output: Urine 0 0 Hemodialysis 3000 Other: # Bowel Movements 1 1 0 Stool Characteristics Foamy Foamy Brown Brown Laboratory Results - last 24 hr 10/17/16 10/17/16 10/17/16 11:42 14:44 16:21 WBC RBC Hgb Hct MCV MCH MCHC Differential RDW Plt Count MPV Neutrophils (Manual) Lymphocytes Monocytes Eosinophils Platelet Estimate Sodium Potassium Chloride Carbon Dioxide Anion Gap BUN Creatinine Est GFR ( Amer) Est GFR (Non-Af Amer) BUN/Creatinine Ratio Glucose POC Glucose 166 H 121 H Calcium Total Bilirubin AST ALT Alkaline Phosphatase Troponin I 0.03 Total Protein Albumin Globulin Albumin/Globulin Ratio 10/17/16 10/18/16 10/18/16 21:15 04:37 04:37 WBC 4.1 L D RBC 3.71 L Hgb 9.0 L Hct 30.8 L MCV 83.1 MCH 24.3 L MCHC Differential 29.2 RDW 19.3 Plt Count 27 L* MPV 8.2 Neutrophils (Manual) 46 Lymphocytes 32 Monocytes 19 H Eosinophils 3 Platelet Estimate DECREASED PLATELETS Sodium 137 Potassium 3.5 Chloride 100 Carbon Dioxide 31.2 H Anion Gap 9.3 BUN 25 Creatinine 2.0 H Est GFR ( Amer) TNP Est GFR (Non-Af Amer) TNP BUN/Creatinine Ratio 12.5 Glucose 126 H POC Glucose 157 H Calcium 9.1 Total Bilirubin 0.4 AST 12 L ALT 11 Alkaline Phosphatase 63 Troponin I Total Protein 7.0 Albumin 3.6 L Globulin 3.4 Albumin/Globulin Ratio 1.1 Home Medication Medication Instructions Recorded Type amLODIPine Besylate [Norvasc] 5 mg PO Q12HR 12/29/15 History Lactulose 15 gm PO Q8H PRN 05/21/16 History NIFEdipine [Procardia] 10 mg PO Q6H PRN 05/21/16 History Acetaminophen [Pain Reliever] 1,000 mg PO Q6H PRN 06/07/16 History Acetaminophen [Tylenol] 650 mg PO Q4HR PRN #0 tab 06/13/16 Rx Bisacodyl [Dulcolax 10 Mg Supp] 10 mg RC DAILY PRN #0 sup 06/13/16 Rx Budesonide [Pulmicort] 0.5 mg HHN BIDRT #0 ud 06/13/16 Rx Dextrose 50% [D50w] 50 ml IVP ACHS PRN #0 syr 06/13/16 Rx Lisinopril [Zestril] 40 mg PO BID #0 tab 06/13/16 Rx Nitroglycerin [Nitrostat*] 0.4 mg SL Q5M PRN #0 tab 06/13/16 Rx Sodium Bicarbonate 650 mg PO BID #0 tab 06/13/16 Rx Sucralfate [Carafate] 1 gm PO TIDHS #0 tab 06/13/16 Rx cloNIDine HCl [Catapres] 0.1 mg PO Q4H PRN #0 tab 06/13/16 Rx Ascorbic Acid [Vitamin C] 500 mg PO 1700 08/12/16 History Folic Acid/Vit Bcomp,C [Renal 0.8 mg PO 1700 08/12/16 History Vitamin Tablet] Nut.tx.gluc.intoler,Lac-Fr,Soy 237 ml PO BID 08/12/16 History [Glucerna] Albuterol/Ipratropium Neb [Duoneb 3 ml HHN Q6HR 08/13/16 History Neb] Docusate Sodium [Colace] 250 mg PO 1700 08/13/16 History Hydrocodone/APAP 5mg/325mg [Larimore 1 tab PO Q8H 08/13/16 History 5mg/325mg] Insulin Aspart Sliding Scale See Protocol SUBQ ACHS 08/13/16 History [NovoLOG INSULIN SLIDING SCALE] Oxycodone HCl 5 mg PO Q6HR PRN 08/13/16 History Sucralfate 1 gm PO TID 08/13/16 History amLODIPine Besylate [Norvasc] 5 mg PO 2100 08/13/16 History Epoetin Scott [Epogen] 5,000 units SUBQ TuThSa #0 ml 08/16/16 Rx Hydralazine [Apresoline*] 50 mg PO SuMoWeFr@0900,2100 #0 tab 08/16/16 Rx Lidocaine 5% Patch [Lidoderm 5% 1 patch TD DAILY #0 tdm 08/16/16 Rx Patch] Al Hyd/Mg Hyd/Simethicone [Maalox] 10/16/16 History Current Medications Generic Name Dose Route Start Last Admin Trade Name Freq PRN Reason Stop Dose Admin Acetaminophen 650 mg 10/16/16 22:28 Tylenol PO 12/15/16 22:27 Q4HR PRN PAIN (MILD) OR TEMP 100.0 OR > Acetaminophen 1,000 mg 10/16/16 22:28 10/17/16 11:35 Tylenol Extra Strength PO 1,000 mg Q6H PRN Administration Pain (Moderate) Acetaminophen/Hydrocodone Bitart 1 tab 10/16/16 22:30 10/18/16 06:05 Larimore 5mg/325mg PO 12/15/16 22:29 Not Given Q8H [facility] Al Hydrox/Mg Hydrox/Simethicone 30 ml 10/16/16 22:28 Maalox PO 12/16/16 00:00 Q6HR PRN GI DISTRESS Albuterol/Ipratropium 3 ml 10/17/16 13:00 10/18/16 06:57 Duoneb Neb HHN 12/16/16 12:59 3 ml Q6HRT [facility] Administration Amlodipine Besylate 5 mg 10/18/16 21:00 Norvasc PO 12/17/16 20:59 TuThSa@2100 [facility] Amlodipine Besylate 5 mg 10/17/16 09:00 10/17/16 20:34 Norvasc PO 12/16/16 08:59 Not Given SuMoWeFr@0900,2100 [facility] Ascorbic Acid 500 mg 10/17/16 17:00 10/17/16 16:25 Vitamin C PO 12/16/16 16:59 500 mg 1700 [facility] Administration Bisacodyl 10 mg 10/16/16 22:28 Dulcolax 10 Mg Supp RC 12/15/16 22:27 DAILY PRN BM MANAGEMENT Budesonide 0.5 mg 10/17/16 07:00 10/18/16 06:57 Pulmicort HHN 12/16/16 06:59 0.5 mg BIDRT [facility] Administration Clonidine HCl 0.1 mg 10/16/16 22:28 Catapres PO 12/15/16 22:27 Q4H PRN for SBP>160 or DBP >100 Dextrose 50 ml 10/16/16 22:28 D50w IVP 12/15/16 22:27 ACHS PRN BLOOD SUGAR < 70 Docusate Sodium 250 mg 10/17/16 17:00 10/17/16 16:25 Colace PO 12/16/16 16:59 250 mg 1700 [facility] Administration Epoetin Scott 5,000 units 10/16/16 22:30 10/16/16 23:34 Epogen SUBQ 12/15/16 22:29 Not Given TuThSa [facility] Hydralazine HCl 50 mg 10/17/16 09:00 10/17/16 20:35 Apresoline PO 12/16/16 08:59 Not Given SuMoWeFr@0900,2100 [facility] Ceftriaxone Sodium 1 gm/ 50 mls @ 100 mls/hr 10/17/16 21:00 10/17/16 20:33 Dextrose IV 12/16/16 20:59 Not Given Q24H [facility] Sodium Chloride 100 mls @ 0 mls/hr 10/17/16 01:30 Nacl 0.9% IV 12/16/16 01:29 .Q0M [facility] TKO Insulin Aspart 0 units 10/17/16 07:30 10/18/16 06:30 Novolog Insulin Sliding Scale SUBQ 12/16/16 07:29 2 units ACHS [facility] Administration Protocol Lactobacillus Rhamnosus 1 each 10/19/16 09:00 Culturelle PO 12/18/16 08:59 DAILY [facility] Lactulose 15 gm 10/16/16 22:28 Cephulac PO Q8H PRN BM MANAGEMENT Lidocaine 1 patch 10/17/16 09:00 10/18/16 08:26 Lidoderm 5% Patch TD 12/16/16 08:59 1 patch DAILY [facility] Administration Lisinopril 40 mg 10/17/16 09:00 10/18/16 08:28 Zestril PO 12/16/16 08:59 40 mg BID [facility] Administration Miscellaneous 1 10/17/16 09:06 Clinical Monitoring 12/16/16 09:05 DAILY PRN RENAL Miscellaneous 1 10/18/16 09:49 Probiotic Screen 12/17/16 09:48 PRN PRN PROTOCOL Nifedipine 10 mg 10/16/16 22:28 Procardia PO 12/15/16 22:27 Q6H PRN SBP >160 Nitroglycerin 0.4 mg 10/16/16 22:28 Nitrostat SL 12/15/16 22:27 Q5M PRN Chest Pain Oxycodone HCl 5 mg 10/16/16 22:28 10/18/16 04:56 Oxycodone Ir PO 12/15/16 22:27 5 mg Q6HR PRN Administration Pain (Severe) Sodium Bicarbonate 650 mg 10/17/16 09:00 10/18/16 08:28 Sodium Bicarbonate PO 12/16/16 08:59 650 mg BID [facility] Administration Protocol Sucralfate 1 gm 10/17/16 09:00 10/18/16 08:29 Carafate PO 12/16/16 08:59 1 gm TIDHS [facility] Administration Vitamin B Complex/Vit C/Folic Acid 1 tab 10/17/16 17:00 10/17/16 16:25 Vitamin B Complex W/Vitamin C PO 12/16/16 16:59 1 tab 1700 [facility] Administration Review of Systems: A 12 point ROS was reviewed with the pertinent positive and negatives noted in the HPI. Social History Smoking Status Unknown if ever smoked Drug Use No Alcohol Use No Family Medical History Family Medical History Start: 10/16/16 21: 09 Freq: ONCE Status: Active Document [facility]16/16 21:[facility] (Rec: 10/16/16 22:17 [facility] [id number]) Family Medical History Father History Unknown Yes Physical Exam: General: Alert and Oriented x3, No Acute Distress HEENT: EOMI Bilaterally, PERRLA Bilaterally, Head is normocephalic, atraumatic on inspection. Cardio: +S1/S2 Auscultated, RRR, no murmurs/rubs/gallops noted Respiratory: Clear to Auscultate Bilaterally Abdominal: Soft, Nondistended, Nontender to palpation x 4 quadrants Genital/Urinary: Extremities: No Edema noted in the lower extremities. Right above knee amputation. left arm AV fustula Neurological: Cranial Nerves II-XII intact bilaterally, Gait Steady, No Focal Deficits noted. Assessment/Plan: Chronic thrombocytopenia, DD includes MDS, Drug induced or hyperspenism. Recommend discontinuing lisinopril and obtaining nuclear medicine spleen scan . If non diagnostic, bone marrow biopsy will be recommended. No need for transfusion unless bleeding. Thank you, Signed, Osiel Collazo [id number]
--- NOTE | 2016-10-18 10:41 | Diagnostic Imaging Report ---
Portable chest x-ray HISTORY: Shortness of breath Compared with prior exam of October 16, 2016, the heart is enlarged. Atherosclerotic calcification seen in the aorta. Suggestion of a small right pleural effusion. Accentuation of interstitial markings in the right lung base that may be related to poor inspiration. IMPRESSION: 1. Cardiomegaly with atherosclerotic vascular changes and a small right pleural effusion. A degree of congestive heart failure cannot be excluded. Clinical correlation needed.
--- NOTE | 2016-10-18 14:13 | General Progress Note ---
Subjective - Review of Systems Service Date: 10/18/16 Subjective: alert, less posadas, comfortable Objective - Results Result Diagrams: 10/18/16 04:37 10/18/16 04:37 Recent Labs: Laboratory Last Values WBC 4.1 Th/cmm (4.8-10.8) L D 10/18/16 04:37 RBC 3.71 Mil/cmm (3.80-5.20) L 10/18/16 04:37 Hgb 9.0 gm/dL (11.7-16.1) L 10/18/16 04:37 Hct 30.8 % (35.0-45.0) L 10/18/16 04:37 MCV 83.1 fl (81-100) 10/18/16 04:37 MCH 24.3 pg (27.0-31.0) L 10/18/16 04:37 MCHC Differential 29.2 pg (28.0-36.0) 10/18/16 04:37 RDW 19.3 % (11.5-20.0) 10/18/16 04:37 Plt Count 27 Th/cmm (150-400) L* 10/18/16 04:37 MPV 8.2 fl 10/18/16 04:37 Neutrophils % [employer] 10/16/16 18:27 Band Neutrophils % 0 % (0-10) 10/17/16 06:45 Lymphocytes % [employer] 10/16/16 18:27 Monocytes % [employer] 10/16/16 18:27 Eosinophils % [employer] 10/16/16 18:27 Basophils % [employer] 10/16/16 18:27 Neutrophils (Manual) 46 % (40-80) 10/18/16 04:37 Lymphocytes 32 % (20-50) 10/18/16 04:37 Monocytes 19 % (2-10) H 10/18/16 04:37 Eosinophils 3 % (0-5) 10/18/16 04:37 Basophils 0 % (0-3) 10/16/16 18:27 Hypochromia 1+ 10/16/16 18:27 Platelet Estimate DECREASED PLATELETS (NORMAL) 10/18/16 04:37 Platelet Morphology NORMAL (NORMAL) 10/16/16 18:27 Microcytosis 1+ 10/16/16 18:27 RBC Morph Micro Appear ABNORMAL (NORMAL) 10/16/16 18:27 PT 10.5 SECONDS (9.5-11.5) 10/16/16 18:27 INR 1.01 (0.5-1.4) 10/16/16 18:27 PTT (Actin FS) 33.4 SECONDS (26.0-38.0) 10/16/16 18:27 Sodium 137 mEq/L (136-145) 10/18/16 04:37 Potassium 3.5 mEq/L (3.5-5.1) 10/18/16 04:37 Chloride 100 mEq/L (98-107) 10/18/16 04:37 Carbon Dioxide 31.2 mEq/L (21.0-31.0) H 10/18/16 04:37 Anion Gap 9.3 (7.0-16.0) 10/18/16 04:37 BUN 25 mg/dL (7-25) 10/18/16 04:37 Creatinine 2.0 mg/dL (0.6-1.2) H 10/18/16 04:37 Est GFR ( Amer) TNP 10/18/16 04:37 Est GFR (Non-Af Amer) TNP 10/18/16 04:37 BUN/Creatinine Ratio 12.5 10/18/16 04:37 Glucose 126 mg/dL (70-105) H 10/18/16 04:37 POC Glucose 150 MG/DL (70 - 105) H 10/18/16 11:38 Hemoglobin A1c 5.3 10/17/16 06:45 Calcium 9.1 mg/dL (8.6-10.3) 10/18/16 04:37 Total Bilirubin 0.4 mg/dL (0.3-1.0) 10/18/16 04:37 AST 12 U/L (13-39) L 10/18/16 04:37 ALT 11 U/L (7-52) 10/18/16 04:37 Alkaline Phosphatase 63 U/L (34-104) 10/18/16 04:37 Troponin I 0.03 ng/mL (0.01-0.05) 10/17/16 14:44 B-Natriuretic Peptide 1970.0 pg/mL (5.0-100.0) H 10/16/16 18:27 Total Protein 7.0 gm/dL (6.0-8.3) 10/18/16 04:37 Albumin 3.6 gm/dL (3.7-5.3) L 10/18/16 04:37 Globulin 3.4 gm/dL 10/18/16 04:37 Albumin/Globulin Ratio 1.1 (1.0-1.8) 10/18/16 04:37 Blood Type O POSITIVE 10/16/16 18:27 Antibody Screen NEGATIVE 10/16/16 18:27 - Physical Exam Vitals and I&O: Vital Signs Temp 99.2 F 10/18/16 13:14 Pulse 88 10/18/16 13:14 Resp 21 10/18/16 13:14 BP 142/32 10/18/16 13:14 Pulse Ox 100 10/18/16 13:14 Intake & Output 10/17/16 10/18/16 10/18/16 18:59 06:59 18:59 Intake Total 1070 100 350 Output Total 0 3000 Balance 1070 -2900 350 Weight (lbs) 60.781 kg 61.915 kg 61.915 kg Intake: Oral 1070 100 350 Output: Urine 0 0 Hemodialysis 3000 Other: # Bowel Movements 1 1 0 Stool Characteristics Foamy Soft Brown Foamy Brown Active Medications: Current Medications Acetaminophen (Tylenol) 650 mg PO Q4HR PRN PRN Reason: PAIN (MILD) OR TEMP 100.0 OR > Stop: 12/15/16 22:27 Acetaminophen (Tylenol Extra Strength) 1,000 mg PO Q6H PRN PRN Reason: Pain (Moderate) Last Admin: 10/17/16 11:35 Dose: 1,000 mg Acetaminophen/Hydrocodone Bitart (Homer 5mg/325mg) 1 tab PO Q8H [facility] Stop: 12/15/16 22:29 Last Admin: 10/18/16 06:05 Dose: Not Given Al Hydrox/Mg Hydrox/Simethicone (Maalox) 30 ml PO Q6HR PRN PRN Reason: GI DISTRESS Stop: 12/16/16 00:00 Albuterol/Ipratropium (Duoneb Neb) 3 ml HHN Q6HRT [facility] Stop: 12/16/16 12:59 Last Admin: 10/18/16 06:57 Dose: 3 ml Amlodipine Besylate (Norvasc) 5 mg PO TuThSa@2100 [facility] Stop: 12/17/16 20:59 Amlodipine Besylate (Norvasc) 5 mg PO SuMoWeFr@0900,2100 [facility] Stop: 12/16/16 08:59 Last Admin: 10/17/16 20:34 Dose: Not Given Ascorbic Acid (Vitamin C) 500 mg PO 1700 [facility] Stop: 12/16/16 16:59 Last Admin: 10/17/16 16:25 Dose: 500 mg Bisacodyl (Dulcolax 10 Mg Supp) 10 mg RC DAILY PRN PRN Reason: BM MANAGEMENT Stop: 12/15/16 22:27 Budesonide (Pulmicort) 0.5 mg HHN BIDRT [facility] Stop: 12/16/16 06:59 Last Admin: 10/18/16 06:57 Dose: 0.5 mg Clonidine HCl (Catapres) 0.1 mg PO Q4H PRN PRN Reason: for SBP>160 or DBP >100 Stop: 12/15/16 22:27 Dextrose (D50w) 50 ml IVP [facility] PRN PRN Reason: BLOOD SUGAR < 70 Stop: 12/15/16 22:27 Docusate Sodium (Colace) 250 mg PO 1700 [facility] Stop: 12/16/16 16:59 Last Admin: 10/17/16 16:25 Dose: 250 mg Epoetin Scott (Epogen) 5,000 units SUBQ TuThSa [facility] Stop: 12/15/16 22:29 Last Admin: 10/16/16 23:34 Dose: Not Given Hydralazine HCl (Apresoline) 50 mg PO SuMoWeFr@0900,2100 [facility] Stop: 12/16/16 08:59 Last Admin: 10/17/16 20:35 Dose: Not Given Ceftriaxone Sodium 1 gm/ (Dextrose) 50 mls @ 100 mls/hr IV Q24H [facility] Stop: 12/16/16 20:59 Last Admin: 10/17/16 20:33 Dose: Not Given Sodium Chloride (Nacl 0.9%) 100 mls @ 0 mls/hr IV .Q0M [facility] PRN Reason: TKO Stop: 12/16/16 01:29 Insulin Aspart (Novolog Insulin Sliding Scale) 0 units SUBQ ACHS [facility] PRN Reason: Protocol Stop: 12/16/16 07:29 Last Admin: 10/18/16 11:38 Dose: 2 units Lactobacillus Rhamnosus (Culturelle) 1 each PO DAILY [facility] Stop: 12/18/16 08:59 Lactulose (Cephulac) 15 gm PO Q8H PRN PRN Reason: BM MANAGEMENT Lidocaine (Lidoderm 5% Patch) 1 patch TD DAILY [facility] Stop: 12/16/16 08:59 Last Admin: 10/18/16 08:26 Dose: 1 patch Miscellaneous (Clinical Monitoring) 1 ea MC DAILY PRN PRN Reason: RENAL Stop: 12/16/16 09:05 Miscellaneous (Probiotic Screen) 1 ea MC PRN PRN PRN Reason: PROTOCOL Stop: 12/17/16 09:48 Nifedipine (Procardia) 10 mg PO Q6H PRN PRN Reason: SBP >160 Stop: 12/15/16 22:27 Nitroglycerin (Nitrostat) 0.4 mg SL Q5M PRN PRN Reason: Chest Pain Stop: 12/15/16 22:27 Oxycodone HCl (Oxycodone Ir) 5 mg PO Q6HR PRN PRN Reason: Pain (Severe) Stop: 12/15/16 22:27 Last Admin: 10/18/16 04:56 Dose: 5 mg Sodium Bicarbonate (Sodium Bicarbonate) 650 mg PO BID [facility] PRN Reason: Protocol Stop: 12/16/16 08:59 Last Admin: 10/18/16 08:28 Dose: 650 mg Sucralfate (Carafate) 1 gm PO TIDHS [facility] Stop: 12/16/16 08:59 Last Admin: 10/18/16 12:16 Dose: 1 gm Vitamin B Complex/Vit C/Folic Acid (Vitamin B Complex W/Vitamin C) 1 tab PO 1700 [facility] Stop: 12/16/16 16:59 Last Admin: 10/17/16 16:25 Dose: 1 tab General: Alert, No acute distress HEENT: Atraumatic, EOMI, Mucous membr. moist/pink, Other (min periorbital edema left > right) Neck: Supple, +2 carotid pulse wo bruit Cardiovascular: Normal S1, Normal S2 (irregular), Other Lungs: Other (scattered rhonchi) Abdomen: Bowel sounds, Soft Extremities: Other (left BKA), no Edema Neurological: Sensation intact Skin: no Rash - Procedures Procedures: Procedures Procedure Code Date PERFORMANCE OF URINARY FILTRATION, MULTIPLE [id number] 08/13/16 PERFORMANCE OF URINARY FILTRATION, SINGLE [id number] 12/29/15 TRANSFUSE NONAUT PLATELETS IN PERIPH VEIN, PERC 61342D4 08/13/16 TRANSFUSE NONAUT RED BLOOD CELLS IN PERIPH VEIN, [facility] 12764I5 06/07/16 Assessment/Plan - Assessment Assessment: Acute decomp CHF ESRD on HD Chronic Thrombocytopenia Anemia of CKD PAD Type 2 DM Ess HTN Left BKA Hx of A. fib - Plan Plan: Lab - Result Diagrams 10/18/16 04:37 10/18/16 04:37 Current Medications Acetaminophen (Tylenol) 650 mg PO Q4HR PRN PRN Reason: PAIN (MILD) OR TEMP 100.0 OR > Stop: 12/15/16 22:27 Acetaminophen (Tylenol Extra Strength) 1,000 mg PO Q6H PRN PRN Reason: Pain (Moderate) Last Admin: 10/17/16 11:35 Dose: 1,000 mg Acetaminophen/Hydrocodone Bitart (Homer 5mg/325mg) 1 tab PO Q8H [facility] Stop: 12/15/16 22:29 Last Admin: 10/18/16 06:05 Dose: Not Given Al Hydrox/Mg Hydrox/Simethicone (Maalox) 30 ml PO Q6HR PRN PRN Reason: GI DISTRESS Stop: 12/16/16 00:00 Albuterol/Ipratropium (Duoneb Neb) 3 ml HHN Q6HRT [facility] Stop: 12/16/16 12:59 Last Admin: 10/18/16 06:57 Dose: 3 ml Amlodipine Besylate (Norvasc) 5 mg PO TuThSa@2100 [facility] Stop: 12/17/16 20:59 Amlodipine Besylate (Norvasc) 5 mg PO SuMoWeFr@0900,2100 [facility] Stop: 12/16/16 08:59 Last Admin: 10/17/16 20:34 Dose: Not Given Ascorbic Acid (Vitamin C) 500 mg PO 1700 [facility] Stop: 12/16/16 16:59 Last Admin: 10/17/16 16:25 Dose: 500 mg Bisacodyl (Dulcolax 10 Mg Supp) 10 mg RC DAILY PRN PRN Reason: BM MANAGEMENT Stop: 12/15/16 22:27 Budesonide (Pulmicort) 0.5 mg HHN BIDRT [facility] Stop: 12/16/16 06:59 Last Admin: 10/18/16 06:57 Dose: 0.5 mg Clonidine HCl (Catapres) 0.1 mg PO Q4H PRN PRN Reason: for SBP>160 or DBP >100 Stop: 12/15/16 22:27 Dextrose (D50w) 50 ml IVP ACHS PRN PRN Reason: BLOOD SUGAR < 70 Stop: 12/15/16 22:27 Docusate Sodium (Colace) 250 mg PO 1700 [facility] Stop: 12/16/16 16:59 Last Admin: 10/17/16 16:25 Dose: 250 mg Epoetin Scott (Epogen) 5,000 units SUBQ TuThSa [facility] Stop: 12/15/16 22:29 Last Admin: 10/16/16 23:34 Dose: Not Given Hydralazine HCl (Apresoline) 50 mg PO SuMoWeFr@0900,2100 [facility] Stop: 12/16/16 08:59 Last Admin: 10/17/16 20:35 Dose: Not Given Ceftriaxone Sodium 1 gm/ (Dextrose) 50 mls @ 100 mls/hr IV Q24H [facility] Stop: 12/16/16 20:59 Last Admin: 10/17/16 20:33 Dose: Not Given Sodium Chloride (Nacl 0.9%) 100 mls @ 0 mls/hr IV .Q0M [facility] PRN Reason: TKO Stop: 12/16/16 01:29 Insulin Aspart (Novolog Insulin Sliding Scale) 0 units SUBQ ACHS [facility] PRN Reason: Protocol Stop: 12/16/16 07:29 Last Admin: 10/18/16 11:38 Dose: 2 units Lactobacillus Rhamnosus (Culturelle) 1 each PO DAILY [facility] Stop: 12/18/16 08:59 Lactulose (Cephulac) 15 gm PO Q8H PRN PRN Reason: BM MANAGEMENT Lidocaine (Lidoderm 5% Patch) 1 patch TD DAILY [facility] Stop: 12/16/16 08:59 Last Admin: 10/18/16 08:26 Dose: 1 patch Miscellaneous (Clinical Monitoring) 1 ea MC DAILY PRN PRN Reason: RENAL Stop: 12/16/16 09:05 Miscellaneous (Probiotic Screen) 1 ea MC PRN PRN PRN Reason: PROTOCOL Stop: 12/17/16 09:48 Nifedipine (Procardia) 10 mg PO Q6H PRN PRN Reason: SBP >160 Stop: 12/15/16 22:27 Nitroglycerin (Nitrostat) 0.4 mg SL Q5M PRN PRN Reason: Chest Pain Stop: 12/15/16 22:27 Oxycodone HCl (Oxycodone Ir) 5 mg PO Q6HR PRN PRN Reason: Pain (Severe) Stop: 12/15/16 22:27 Last Admin: 10/18/16 04:56 Dose: 5 mg Sodium Bicarbonate (Sodium Bicarbonate) 650 mg PO BID [facility] PRN Reason: Protocol Stop: 12/16/16 08:59 Last Admin: 10/18/16 08:28 Dose: 650 mg Sucralfate (Carafate) 1 gm PO TIDHS [facility] Stop: 12/16/16 08:59 Last Admin: 10/18/16 12:16 Dose: 1 gm Vitamin B Complex/Vit C/Folic Acid (Vitamin B Complex W/Vitamin C) 1 tab PO 1700 [facility] Stop: 12/16/16 16:59 Last Admin: 10/17/16 16:25 Dose: 1 tab Pt. was dialyzed yesterday & tolerated it well resp status better cxr showed improvement of b/l effusions for HD in am Nutritional Asmnt/Malnutr-PDOC - Dietary Evaluation Malnutrition Findings (Please click <Entered> for more info): Nutritional Asmnt/Malnutrition Start: 10/17/16 14: 28 Text: Status: Active Freq: Document 10/17/16 14:28 GSUN (Rec: 10/17/16 14:47 GSUN [id number]) Nutritional Asmnt/Malnutrition Patient General Information Nutritional Screening Consult Diagnosis ER: acute anasarca due to acute CHF exacerbation, ESRD, acute resp, DM Pertinent Medical Hx/Surgical Hx ER note: HTN, DM, ESRD on dialysis, thrombocytopenia, right above the knee amputation Subjective Information 86 year old male from SNF. RD consult for [place] 11 and active wound. Pt is ESRD on HD , received HD yesterday 10/16. Visited pt after lunch time with family members at bedside . Pt was asleep, observed lunch tray 75% consumed at bedside. Per EMR, 90% breakfast this AM. Spoke to family, pt is edentulous without difficulties with current order, pt usually has good appetite, no nutritional concerns at this time. RD explained diet order to family , family understood. CBW 149. 7lb via bedscale with equipment removed, family report CBW should be around 140lb. Mild to moderate wasting to chest noted. 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 Usual diet at home [facility]: mech soft, ZIYAD, CCHO, 80g prot, 2.5g K+, renal, thin liqui Skin Integrity/Comment: Alton Brown. RN: sacrum decubitus ulcer, left forearm skin tear, BUE's bruise Current %PO Good (75-100%) Estimated Nutritional Goals BEE in Kcals: Using Current wt Calories/Kcals/Kg CBW 149.7lb/68kg Kcals Calculated 2039-2380kcal (30-35kcal/kg, ESRD on HD, ?ulcerations) Protein: Using Current wt Protein g/kg: CBW Protein Calculated 95-109g (1.4-1.6g/kg, ESRD on HD, ?ulcerations) Fluid: ml Per MD (dx. ESRD on HD) Nutritional Problem 1. Problem Problem Increased kcal and prot needs related to Etiology hypermetabolic state, skin integrity aeb Signs/Symptoms: pt is on HD, ulcerations noted (H&P decubitus stage III), wound care consult pending Intervention/Recommendation Comments 1. Continue with current diet order. Pt noted with good appetite. Explained diet order to family. 2. Recommend [place]ot Glucose Control BID for additional kcal and prot during hypermetabolic state. Encourage PO intake. Expected Outcomes/Goals Expected Outcomes/Goals 1. PO intake to meet at least 75% fo estimated nutritional needs.
--- NOTE | 2016-10-18 15:28 | Diagnostic Imaging Report ---
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 The liver exhibits a somewhat generous size. No focal abnormalities. The spleen is normal in size. Hepatic activity is greater than and splenic activity. Abnormal activity is noted within the bone marrow of the spine and ribs. Findings are consistent with hepatic dysfunction. Correlation with liver function tests recommended. IMPRESSION: 1. Increased bone marrow activity. The finding is consistent with hepatic dysfunction and should be correlated with liver function tests. 2. Normal splenic size and activity 3. Increased overall hepatic size.
[2016-10-18] MEDS: Vitamin B Complex w/Vitamin C Tab PO SCH (16:32)
--- NOTE | 2016-10-18 19:38 | General Progress Note ---
Subjective - Review of Systems Service Date: 10/18/16 Objective - Results Result Diagrams: 10/18/16 04:37 10/18/16 04:37 Recent Labs: Laboratory Last Values WBC 4.1 Th/cmm (4.8-10.8) L D 10/18/16 04:37 RBC 3.71 Mil/cmm (3.80-5.20) L 10/18/16 04:37 Hgb 9.0 gm/dL (11.7-16.1) L 10/18/16 04:37 Hct 30.8 % (35.0-45.0) L 10/18/16 04:37 MCV 83.1 fl (81-100) 10/18/16 04:37 MCH 24.3 pg (27.0-31.0) L 10/18/16 04:37 MCHC Differential 29.2 pg (28.0-36.0) 10/18/16 04:37 RDW 19.3 % (11.5-20.0) 10/18/16 04:37 Plt Count 27 Th/cmm (150-400) L* 10/18/16 04:37 MPV 8.2 fl 10/18/16 04:37 Neutrophils % SECURITIES COMPLIANCE EXAMINER 10/16/16 18:27 Band Neutrophils % 0 % (0-10) 10/17/16 06:45 Lymphocytes % SECURITIES COMPLIANCE EXAMINER 10/16/16 18:27 Monocytes % SECURITIES COMPLIANCE EXAMINER 10/16/16 18:27 Eosinophils % SECURITIES COMPLIANCE EXAMINER 10/16/16 18:27 Basophils % SECURITIES COMPLIANCE EXAMINER 10/16/16 18:27 Neutrophils (Manual) 46 % (40-80) 10/18/16 04:37 Lymphocytes 32 % (20-50) 10/18/16 04:37 Monocytes 19 % (2-10) H 10/18/16 04:37 Eosinophils 3 % (0-5) 10/18/16 04:37 Basophils 0 % (0-3) 10/16/16 18:27 Hypochromia 1+ 10/16/16 18:27 Platelet Estimate DECREASED PLATELETS (NORMAL) 10/18/16 04:37 Platelet Morphology NORMAL (NORMAL) 10/16/16 18:27 Microcytosis 1+ 10/16/16 18:27 RBC Morph Micro Appear ABNORMAL (NORMAL) 10/16/16 18:27 PT 10.5 SECONDS (9.5-11.5) 10/16/16 18:27 INR 1.01 (0.5-1.4) 10/16/16 18:27 PTT (Actin FS) 33.4 SECONDS (26.0-38.0) 10/16/16 18:27 Sodium 137 mEq/L (136-145) 10/18/16 04:37 Potassium 3.5 mEq/L (3.5-5.1) 10/18/16 04:37 Chloride 100 mEq/L (98-107) 10/18/16 04:37 Carbon Dioxide 31.2 mEq/L (21.0-31.0) H 10/18/16 04:37 Anion Gap 9.3 (7.0-16.0) 10/18/16 04:37 BUN 25 mg/dL (7-25) 10/18/16 04:37 Creatinine 2.0 mg/dL (0.6-1.2) H 10/18/16 04:37 Est GFR ( Amer) TNP 10/18/16 04:37 Est GFR (Non-Af Amer) TNP 10/18/16 04:37 BUN/Creatinine Ratio 12.5 10/18/16 04:37 Glucose 126 mg/dL (70-105) H 10/18/16 04:37 POC Glucose 91 MG/DL (70 - 105) 10/18/16 16:29 Hemoglobin A1c 5.3 10/17/16 06:45 Calcium 9.1 mg/dL (8.6-10.3) 10/18/16 04:37 Total Bilirubin 0.4 mg/dL (0.3-1.0) 10/18/16 04:37 AST 12 U/L (13-39) L 10/18/16 04:37 ALT 11 U/L (7-52) 10/18/16 04:37 Alkaline Phosphatase 63 U/L (34-104) 10/18/16 04:37 Troponin I 0.03 ng/mL (0.01-0.05) 10/17/16 14:44 B-Natriuretic Peptide 1970.0 pg/mL (5.0-100.0) H 10/16/16 18:27 Total Protein 7.0 gm/dL (6.0-8.3) 10/18/16 04:37 Albumin 3.6 gm/dL (3.7-5.3) L 10/18/16 04:37 Globulin 3.4 gm/dL 10/18/16 04:37 Albumin/Globulin Ratio 1.1 (1.0-1.8) 10/18/16 04:37 Blood Type O POSITIVE 10/16/16 18:27 Antibody Screen NEGATIVE 10/16/16 18:27 - Physical Exam Vitals and I&O: Vital Signs Temp 98.4 F 10/18/16 16:00 Pulse 91 10/18/16 18:48 Resp 20 10/18/16 18:48 BP 142/32 10/18/16 16:00 Pulse Ox 100 10/18/16 18:48 Intake & Output 10/18/16 10/18/16 10/19/16 06:59 18:59 06:59 Intake Total 100 1110 Output Total 3000 Balance -2900 1110 Weight (lbs) 61.915 kg 61.915 kg Intake: Oral 100 1110 Output: Urine 0 Hemodialysis 3000 Other: # Bowel Movements 1 0 Stool Characteristics Soft Foamy Brown Active Medications: Current Medications Acetaminophen (Tylenol) 650 mg PO Q4HR PRN PRN Reason: PAIN (MILD) OR TEMP 100.0 OR > Stop: 12/15/16 22:27 Acetaminophen (Tylenol Extra Strength) 1,000 mg PO Q6H PRN PRN Reason: Pain (Moderate) Last Admin: 10/17/16 11:35 Dose: 1,000 mg Acetaminophen/Hydrocodone Bitart ([place] 5mg/325mg) 1 tab PO Q8H [facility] Stop: 12/15/16 22:29 Last Admin: 10/18/16 14:42 Dose: 1 tab Al Hydrox/Mg Hydrox/Simethicone (Maalox) 30 ml PO Q6HR PRN PRN Reason: GI DISTRESS Stop: 12/16/16 00:00 Albuterol/Ipratropium (Duoneb Neb) 3 ml HHN Q6HRT [facility] Stop: 12/16/16 12:59 Last Admin: 10/18/16 18:33 Dose: 3 ml Amlodipine Besylate (Norvasc) 5 mg PO TuThSa@2100 [facility] Stop: 12/17/16 20:59 Amlodipine Besylate (Norvasc) 5 mg PO SuMoWeFr@0900,2100 [facility] Stop: 12/16/16 08:59 Last Admin: 10/17/16 20:34 Dose: Not Given Ascorbic Acid (Vitamin C) 500 mg PO 1700 [facility] Stop: 12/16/16 16:59 Last Admin: 10/18/16 16:31 Dose: 500 mg Bisacodyl (Dulcolax 10 Mg Supp) 10 mg RC DAILY PRN PRN Reason: BM MANAGEMENT Stop: 12/15/16 22:27 Budesonide (Pulmicort) 0.5 mg HHN BIDRT [facility] Stop: 12/16/16 06:59 Last Admin: 10/18/16 18:33 Dose: 0.5 mg Clonidine HCl (Catapres) 0.1 mg PO Q4H PRN PRN Reason: for SBP>160 or DBP >100 Stop: 12/15/16 22:27 Dextrose (D50w) 50 ml IVP ACHS PRN PRN Reason: BLOOD SUGAR < 70 Stop: 12/15/16 22:27 Docusate Sodium (Colace) 250 mg PO 1700 [facility] Stop: 12/16/16 16:59 Last Admin: 10/18/16 16:31 Dose: 250 mg Epoetin Scott (Epogen) 5,000 units SUBQ TuThSa [facility] Stop: 12/15/16 22:29 Last Admin: 10/16/16 23:34 Dose: Not Given Hydralazine HCl (Apresoline) 50 mg PO SuMoWeFr@0900,2100 [facility] Stop: 12/16/16 08:59 Last Admin: 10/17/16 20:35 Dose: Not Given Ceftriaxone Sodium 1 gm/ (Dextrose) 50 mls @ 100 mls/hr IV Q24H [facility] Stop: 12/16/16 20:59 Last Admin: 10/17/16 20:33 Dose: Not Given Sodium Chloride (Nacl 0.9%) 100 mls @ 0 mls/hr IV .Q0M [facility] PRN Reason: TKO Stop: 12/16/16 01:29 Insulin Aspart (Novolog Insulin Sliding Scale) 0 units SUBQ ACHS [facility] PRN Reason: Protocol Stop: 12/16/16 07:29 Last Admin: 10/18/16 16:29 Dose: Not Given Lactobacillus Rhamnosus (Culturelle) 1 each PO DAILY [facility] Stop: 12/18/16 08:59 Lactulose (Cephulac) 15 gm PO Q8H PRN PRN Reason: BM MANAGEMENT Lidocaine (Lidoderm 5% Patch) 1 patch TD DAILY [facility] Stop: 12/16/16 08:59 Last Admin: 10/18/16 08:26 Dose: 1 patch Miscellaneous (Clinical Monitoring) 1 ea MC DAILY PRN PRN Reason: RENAL Stop: 12/16/16 09:05 Miscellaneous (Probiotic Screen) 1 ea MC PRN PRN PRN Reason: PROTOCOL Stop: 12/17/16 09:48 Nifedipine (Procardia) 10 mg PO Q6H PRN PRN Reason: SBP >160 Stop: 12/15/16 22:27 Nitroglycerin (Nitrostat) 0.4 mg SL Q5M PRN PRN Reason: Chest Pain Stop: 12/15/16 22:27 Oxycodone HCl (Oxycodone Ir) 5 mg PO Q6HR PRN PRN Reason: Pain (Severe) Stop: 12/15/16 22:27 Last Admin: 10/18/16 04:56 Dose: 5 mg Sodium Bicarbonate (Sodium Bicarbonate) 650 mg PO BID [facility] PRN Reason: Protocol Stop: 12/16/16 08:59 Last Admin: 10/18/16 16:31 Dose: 650 mg Sucralfate (Carafate) 1 gm PO TIDHS [facility] Stop: 12/16/16 08:59 Last Admin: 10/18/16 16:31 Dose: 1 gm Vitamin B Complex/Vit C/Folic Acid (Vitamin B Complex W/Vitamin C) 1 tab PO 1700 [facility] Stop: 12/16/16 16:59 Last Admin: 10/18/16 16:32 Dose: 1 tab - Procedures Procedures: Procedures Procedure Code Date PERFORMANCE OF URINARY FILTRATION, MULTIPLE [id number] 08/13/16 PERFORMANCE OF URINARY FILTRATION, SINGLE [id number] 12/29/15 TRANSFUSE NONAUT PLATELETS IN PERIPH VEIN, [facility] [id number] 08/13/16 TRANSFUSE NONAUT RED BLOOD CELLS IN PERIPH VEIN, [facility] [id number] 06/07/16 Nutritional Asmnt/Malnutr-PDOC - Dietary Evaluation Malnutrition Findings (Please click <Entered> for more info): Nutritional Asmnt/Malnutrition Start: 10/17/16 14: 28 Text: Status: Active Freq: Document 10/17/16 14:28 GSUN (Rec: 06/28/17 14:47 [facility] [id number]) Nutritional Asmnt/Malnutrition Patient General Information Nutritional Screening Consult Diagnosis ER: acute anasarca due to acute CHF exacerbation, ESRD, acute resp, DM Pertinent Medical Hx/Surgical Hx ER note: HTN, DM, ESRD on dialysis, thrombocytopenia, right above the knee amputation Subjective Information 86 year old male from SNF. RD consult for [place] 11 and active wound. Pt is ESRD on HD , received HD yesterday 10/16. Visited pt after lunch time with family members at bedside . Pt was asleep, observed lunch tray 75% consumed at bedside. Per EMR, 90% breakfast this AM. Spoke to family, pt is edentulous without difficulties with current order, pt usually has good appetite, no nutritional concerns at this time. RD explained diet order to family , family understood. CBW 149. 7lb via bedscale with equipment removed, family report CBW should be around 140lb. Mild to moderate wasting to chest noted. Current Diet Order/ Nutrition Support Renal, [id number] Pertinent Medications Vitamin C, Dulcolax, Maalox, D50w, Colace, Epogen, Novolog, Cephulac, Nacl 0.9%, Vitamin B Complex W/ Vitamin C Pertinent Labs 10/16: potassium 3.4L, BUN 31H, creatinine 2.4H, glucose 169H 10/17: potassium 3.4L, BUN 39H, creatinine 2.8H, glucose 185H Nutritional Hx/Data Height 1.65 m Height (Calculated Centimeters) 165.1 Current Weight (lbs) 67.903 kg Weight (Calculated Kilograms) 67.9 Weight (Calculated Grams) 45876.8 Usual body Weight (lbs) 140 [place] Body Weight 125 Weight Status Approriate GI Symptoms Cultural/Ethnic/Taoist Belief Family deneid allergies. Usual diet at home [facility]: mech soft, ZIYAD, CCHO, 80g prot, 2.5g K+, renal, thin liqui Skin Integrity/Comment: Alton Brwon. RN: sacrum decubitus ulcer, left forearm skin tear, BUE's bruise Current %PO Good (75-100%) Estimated Nutritional Goals BEE in Kcals: Using Current wt Calories/Kcals/Kg CBW 149.7lb/68kg Kcals Calculated 2039-2379kcal (30-35kcal/kg, ESRD on HD, ?ulcerations) Protein: Using Current wt Protein g/kg: CBW Protein Calculated 95-109g (1.4-1.6g/kg, ESRD on HD, ?ulcerations) Fluid: ml Per MD (dx. ESRD on HD) Nutritional Problem 1. Problem Problem Increased kcal and prot needs related to Etiology hypermetabolic state, skin integrity aeb Signs/Symptoms: pt is on HD, ulcerations noted (H&P decubitus stage III), wound care consult pending Intervention/Recommendation Comments 1. Continue with current diet order. Pt noted with good appetite. Explained diet order to family. 2. Recommend Bosot Glucose Control BID for additional kcal and prot during hypermetabolic state. Encourage PO intake. Expected Outcomes/Goals Expected Outcomes/Goals 1. PO intake to meet at least 75% fo estimated nutritional needs.
[2016-10-18] MEDS: Epoetin Alfa 20000 Units/mL Vial SUBQ SCH (23:50)
[2016-10-19] MEDS: Albuterol/Ipratropium Neb 3 ML AERS HHN SCH ×4 (00:24→19:43)
[2016-10-19 05:49] LABS: ANION GAP 8.9 (7.0-16.0); BUN - UREA NITROGEN 40 mg/dL (7-25); BUN/CREATININE RATIO 14.3; CALCIUM SERUM 8.9 mg/dL (8.6-10.3); CARBON DIOXIDE 30.1 mEq/L (21.0-31.0); CHLORIDE 99 mEq/L (98-107); CREATININE - SERUM 2.8 mg/dL (0.6-1.2); GLUCOSE 120 mg/dL (70-105); SODIUM SERUM 134 mEq/L (136-145)
[2016-10-19 06:04] LABS: HEMATOCRIT 29.2 % (35.0-45.0); HEMOGLOBIN 8.7 gm/dL (11.7-16.1); MEAN CELL VOLUME 83.1 fl (81-100); MEAN CORPUSCULAR HEMOGLOBIN 24.7 pg (27.0-31.0); MEAN CORPUSCULAR HGB CONC 29.7 pg (28.0-36.0); MEAN PLATELET VOLUME 8.7 fl; RED BLOOD COUNT 3.51 Mil/cmm (3.80-5.20); RED CELL DISTRIBUTION WIDTH 19.2 % (11.5-20.0)
[2016-10-19 06:24] LABS: PLATELET COUNT 23 Th/cmm (150-400)
[2016-10-19] MEDS: Hydrocodone/APAP 5mg/325mg Tab PO SCH ×3 (06:37→22:41)
[2016-10-19 06:39] LABS: BAND NEUTROPHILE 3 % (0-10); EOSINOPHIL 1 % (0-5); NEUTROPHILS 59 % (40-80); PLATELET ESTIMATE DECREASED PLATELETS (NORMAL); TOTAL CELLS COUNTED 100
[2016-10-19 06:40] LABS: PLATELET MORPHOLOGY NORMAL (NORMAL)
[2016-10-19] MEDS: INSULIN ASPART SLIDING SCALE 100 UNITS/ML UNIT SUBQ SCH ×2 (06:45→11:30)
[2016-10-19] MEDS: Budesonide 0.5 Mg/2 mL Ud HHN SCH ×2 (07:34→19:43)
[2016-10-19] MEDS: Lactobacillus Rhamnosus 10 Billion CFU Capsule PO SCH (09:09)
--- NOTE | 2016-10-19 10:00 | General Progress Note ---
Subjective - Review of Systems Events since last encounter: no distress Objective - Results Result Diagrams: 10/19/16 05:10 10/19/16 05:10 Recent Labs: Laboratory Last Values WBC 7.0 Th/cmm (4.8-10.8) D 10/19/16 05:10 RBC 3.51 Mil/cmm (3.80-5.20) L 10/19/16 05:10 Hgb 8.7 gm/dL (11.7-16.1) L 10/19/16 05:10 Hct 29.2 % (35.0-45.0) L 10/19/16 05:10 MCV 83.1 fl (81-100) 10/19/16 05:10 MCH 24.7 pg (27.0-31.0) L 10/19/16 05:10 MCHC Differential 29.7 pg (28.0-36.0) 10/19/16 05:10 RDW 19.2 % (11.5-20.0) 10/19/16 05:10 Plt Count 23 Th/cmm (150-400) L* 10/19/16 05:10 MPV 8.7 fl 10/19/16 05:10 Neutrophils % RESEARCH AND DEVELOPMENT ENGINEER 10/16/16 18:27 Band Neutrophils % 3 % (0-10) 10/19/16 05:10 Lymphocytes % RESEARCH AND DEVELOPMENT ENGINEER 10/16/16 18:27 Monocytes % RESEARCH AND DEVELOPMENT ENGINEER 10/16/16 18:27 Eosinophils % RESEARCH AND DEVELOPMENT ENGINEER 10/16/16 18:27 Basophils % RESEARCH AND DEVELOPMENT ENGINEER 10/16/16 18:27 Neutrophils (Manual) 59 % (40-80) 10/19/16 05:10 Lymphocytes 20 % (20-50) 10/19/16 05:10 Monocytes 17 % (2-10) H 10/19/16 05:10 Eosinophils 1 % (0-5) 10/19/16 05:10 Basophils 0 % (0-3) 10/16/16 18:27 Nucleated RBCs 2.0 % (0-0) H 10/19/16 05:10 Hypochromia 1+ 10/16/16 18:27 Platelet Estimate DECREASED PLATELETS (NORMAL) 10/19/16 05:10 Platelet Morphology NORMAL (NORMAL) 10/19/16 05:10 Microcytosis 1+ 10/16/16 18:27 RBC Morph Micro Appear ABNORMAL (NORMAL) 10/16/16 18:27 PT 10.5 SECONDS (9.5-11.5) 10/16/16 18:27 INR 1.01 (0.5-1.4) 10/16/16 18:27 PTT (Actin FS) 33.4 SECONDS (26.0-38.0) 10/16/16 18:27 Sodium 134 mEq/L (136-145) L 10/19/16 05:10 Potassium 4.0 mEq/L (3.5-5.1) 10/19/16 05:10 Chloride 99 mEq/L (98-107) 10/19/16 05:10 Carbon Dioxide 30.1 mEq/L (21.0-31.0) 10/19/16 05:10 Anion Gap 8.9 (7.0-16.0) 10/19/16 05:10 BUN 40 mg/dL (7-25) H 10/19/16 05:10 Creatinine 2.8 mg/dL (0.6-1.2) H 10/19/16 05:10 Est GFR ( Amer) TNP 10/19/16 05:10 Est GFR (Non-Af Amer) TNP 10/19/16 05:10 BUN/Creatinine Ratio 14.3 10/19/16 05:10 Glucose 120 mg/dL (70-105) H 10/19/16 05:10 POC Glucose 128 MG/DL (70 - 105) H 10/19/16 06:26 Hemoglobin A1c 5.3 10/17/16 06:45 Calcium 8.9 mg/dL (8.6-10.3) 10/19/16 05:10 Total Bilirubin 0.4 mg/dL (0.3-1.0) 10/18/16 04:37 AST 12 U/L (13-39) L 10/18/16 04:37 ALT 11 U/L (7-52) 10/18/16 04:37 Alkaline Phosphatase 63 U/L (34-104) 10/18/16 04:37 Troponin I 0.03 ng/mL (0.01-0.05) 10/17/16 14:44 B-Natriuretic Peptide 1970.0 pg/mL (5.0-100.0) H 10/16/16 18:27 Total Protein 7.0 gm/dL (6.0-8.3) 10/18/16 04:37 Albumin 3.6 gm/dL (3.7-5.3) L 10/18/16 04:37 Globulin 3.4 gm/dL 10/18/16 04:37 Albumin/Globulin Ratio 1.1 (1.0-1.8) 10/18/16 04:37 Blood Type O POSITIVE 10/16/16 18:27 Antibody Screen NEGATIVE 10/16/16 18:27 - Physical Exam Vitals and I&O: Vital Signs Temp 99.0 F 10/19/16 04:00 Pulse 91 10/19/16 09:11 Resp 20 10/19/16 07:46 BP 115/84 10/19/16 09:11 Pulse Ox 100 10/19/16 07:46 Intake & Output 10/18/16 10/19/16 10/19/16 18:59 06:59 18:59 Intake Total 1110 60 Balance 1110 60 Weight (lbs) 61.915 kg 61.689 kg Intake: Oral 1110 60 Other: # Bowel Movements 0 Stool Characteristics Soft Foamy Brown Active Medications: Current Medications Acetaminophen (Tylenol) 650 mg PO Q4HR PRN PRN Reason: PAIN (MILD) OR TEMP 100.0 OR > Stop: 12/15/16 22:27 Acetaminophen (Tylenol Extra Strength) 1,000 mg PO Q6H PRN PRN Reason: Pain (Moderate) Last Admin: 10/17/16 11:35 Dose: 1,000 mg Acetaminophen/Hydrocodone Bitart ([place] 5mg/325mg) 1 tab PO Q8H [facility] Stop: 12/15/16 22:29 Last Admin: 10/19/16 06:37 Dose: Not Given Al Hydrox/Mg Hydrox/Simethicone (Maalox) 30 ml PO Q6HR PRN PRN Reason: GI DISTRESS Stop: 12/16/16 00:00 Albuterol/Ipratropium (Duoneb Neb) 3 ml HHN Q6HRT [facility] Stop: 12/16/16 12:59 Last Admin: 10/19/16 07:34 Dose: 3 ml Amlodipine Besylate (Norvasc) 5 mg PO TuThSa@2100 [facility] Stop: 12/17/16 20:59 Last Admin: 10/18/16 21:09 Dose: 5 mg Amlodipine Besylate (Norvasc) 5 mg PO SuMoWeFr@0900,2100 [facility] Stop: 12/16/16 08:59 Last Admin: 10/17/16 20:34 Dose: Not Given Ascorbic Acid (Vitamin C) 500 mg PO 1700 [facility] Stop: 12/16/16 16:59 Last Admin: 10/18/16 16:31 Dose: 500 mg Bisacodyl (Dulcolax 10 Mg Supp) 10 mg RC DAILY PRN PRN Reason: BM MANAGEMENT Stop: 12/15/16 22:27 Budesonide (Pulmicort) 0.5 mg HHN BIDRT [facility] Stop: 12/16/16 06:59 Last Admin: 10/19/16 07:34 Dose: 0.5 mg Clonidine HCl (Catapres) 0.1 mg PO Q4H PRN PRN Reason: for SBP>160 or DBP >100 Stop: 12/15/16 22:27 Dextrose (D50w) 50 ml IVP ACHS PRN PRN Reason: BLOOD SUGAR < 70 Stop: 12/15/16 22:27 Docusate Sodium (Colace) 250 mg PO 1700 [facility] Stop: 12/16/16 16:59 Last Admin: 10/18/16 16:31 Dose: 250 mg Epoetin Scott (Epogen) 5,000 units SUBQ TuThSa [facility] Stop: 12/15/16 22:29 Last Admin: 10/18/16 23:50 Dose: 5,000 units Hydralazine HCl (Apresoline) 50 mg PO SuMoWeFr@0900,2100 [facility] Stop: 12/16/16 08:59 Last Admin: 10/19/16 09:11 Dose: 50 mg Ceftriaxone Sodium 1 gm/ (Dextrose) 50 mls @ 100 mls/hr IV Q24H [facility] Stop: 12/16/16 20:59 Last Admin: 10/18/16 21:25 Dose: 100 mls/hr Sodium Chloride (Nacl 0.9%) 100 mls @ 0 mls/hr IV .Q0M [facility] PRN Reason: TKO Stop: 12/16/16 01:29 Insulin Aspart (Novolog Insulin Sliding Scale) 0 units SUBQ ACHS [facility] PRN Reason: Protocol Stop: 12/16/16 07:29 Last Admin: 10/19/16 06:45 Dose: 2 units Lactobacillus Rhamnosus (Culturelle) 1 each PO DAILY [facility] Stop: 12/18/16 08:59 Last Admin: 10/19/16 09:09 Dose: 1 each Lactulose (Cephulac) 15 gm PO Q8H PRN PRN Reason: BM MANAGEMENT Lidocaine (Lidoderm 5% Patch) 1 patch TD DAILY [facility] Stop: 12/16/16 08:59 Last Admin: 10/18/16 08:26 Dose: 1 patch Miscellaneous (Clinical Monitoring) 1 ea MC DAILY PRN PRN Reason: RENAL Stop: 12/16/16 09:05 Miscellaneous (Probiotic Screen) 1 ea MC PRN PRN PRN Reason: PROTOCOL Stop: 12/17/16 09:48 Nifedipine (Procardia) 10 mg PO Q6H PRN PRN Reason: SBP >160 Stop: 12/15/16 22:27 Nitroglycerin (Nitrostat) 0.4 mg SL Q5M PRN PRN Reason: Chest Pain Stop: 12/15/16 22:27 Oxycodone HCl (Oxycodone Ir) 5 mg PO Q6HR PRN PRN Reason: Pain (Severe) Stop: 12/15/16 22:27 Last Admin: 10/18/16 04:56 Dose: 5 mg Sodium Bicarbonate (Sodium Bicarbonate) 650 mg PO BID [facility] PRN Reason: Protocol Stop: 12/16/16 08:59 Last Admin: 10/19/16 09:09 Dose: 650 mg Sucralfate (Carafate) 1 gm PO TIDHS [facility] Stop: 12/16/16 08:59 Last Admin: 10/19/16 09:09 Dose: 1 gm Vitamin B Complex/Vit C/Folic Acid (Vitamin B Complex W/Vitamin C) 1 tab PO 1700 [facility] Stop: 12/16/16 16:59 Last Admin: 10/18/16 16:32 Dose: 1 tab - Procedures Procedures: Procedures Procedure Code Date PERFORMANCE OF URINARY FILTRATION, MULTIPLE [id number] 08/13/16 PERFORMANCE OF URINARY FILTRATION, SINGLE [id number] 12/29/15 TRANSFUSE NONAUT PLATELETS IN PERIPH VEIN, [facility] [id number] 08/13/16 TRANSFUSE NONAUT RED BLOOD CELLS IN PERIPH VEIN, [facility] [id number] 06/07/16 Nutritional Asmnt/Malnutr-PDOC - Dietary Evaluation Malnutrition Findings (Please click <Entered> for more info): Nutritional Asmnt/Malnutrition Start: 10/17/16 14: 28 Text: Status: Active Freq: Document 10/17/16 14:28 GREGORIO (Rec: 10/17/16 14:47 GSMARIA G [id number]) Nutritional Asmnt/Malnutrition Patient General Information Nutritional Screening Consult Diagnosis ER: acute anasarca due to acute CHF exacerbation, ESRD, acute resp, DM Pertinent Medical Hx/Surgical Hx ER note: HTN, DM, ESRD on dialysis, thrombocytopenia, right above the knee amputation Subjective Information 86 year old male from SNF. RD consult for [place] 11 and active wound. Pt is ESRD on HD , received HD yesterday 10/16. Visited pt after lunch time with family members at bedside . Pt was asleep, observed lunch tray 75% consumed at bedside. Per EMR, 90% breakfast this AM. Spoke to family, pt is edentulous without difficulties with current order, pt usually has good appetite, no nutritional concerns at this time. RD explained diet order to family , family understood. CBW 149. 7lb via bedscale with equipment removed, family report CBW should be around 140lb. Mild to moderate wasting to chest noted. Current Diet Order/ Nutrition Support Renal, [id number] Pertinent Medications Vitamin C, Dulcolax, Maalox, D50w, Colace, Epogen, Novolog, Cephulac, Nacl 0.9%, Vitamin B Complex W/ Vitamin C Pertinent Labs 10/16: potassium 3.4L, BUN 31H, creatinine 2.4H, glucose 169H 10/17: potassium 3.4L, BUN 39H, creatinine 2.8H, glucose 185H Nutritional Hx/Data Height 1.65 m Height (Calculated Centimeters) 165.1 Current Weight (lbs) 67.903 kg Weight (Calculated Kilograms) 67.9 Weight (Calculated Grams) 91429.8 Usual body Weight (lbs) 140 [place] Body Weight 125 Weight Status Approriate GI Symptoms Cultural/Ethnic/Catholic Belief Family deneid allergies. Usual diet at home [place] [facility]: mech soft, ZIYAD, CCHO, 80g prot, 2.5g K+, renal, thin liqui Skin Integrity/Comment: [place] Brown. RN: sacrum decubitus ulcer, left forearm skin tear, BUE's bruise Current %PO Good (75-100%) Estimated Nutritional Goals BEE in Kcals: Using Current wt Calories/Kcals/Kg CBW 149.7lb/68kg Kcals Calculated 2039-2379kcal (30-35kcal/kg, ESRD on HD, ?ulcerations) Protein: Using Current wt Protein g/kg: CBW Protein Calculated 95-109g (1.4-1.6g/kg, ESRD on HD, ?ulcerations) Fluid: ml Per MD (dx. ESRD on HD) Nutritional Problem 1. Problem Problem Increased kcal and prot needs related to Etiology hypermetabolic state, skin integrity aeb Signs/Symptoms: pt is on HD, ulcerations noted (H&P decubitus stage III), wound care consult pending Intervention/Recommendation Comments 1. Continue with current diet order. Pt noted with good appetite. Explained diet order to family. 2. Recommend Bosot Glucose Control BID for additional kcal and prot during hypermetabolic state. Encourage PO intake. Expected Outcomes/Goals Expected Outcomes/Goals 1. PO intake to meet at least 75% fo estimated nutritional needs.
--- NOTE | 2016-10-19 11:39 | Infectious Disease Prog Note ---
Infectious Disease Subjective - Review of Systems Service Date: 10/18/16 Subjective: cc pn hpi- pt on iv bax transfered to tele ros no fver o/e vsschest vesicular abd softy ext no edema dxx pn plan asrocephin Infectious Disease Objective - Results Result Diagrams: 10/19/16 05:10 10/19/16 05:10 Recent Labs: Laboratory Last Values WBC 7.0 Th/cmm (4.8-10.8) D 10/19/16 05:10 RBC 3.51 Mil/cmm (3.80-5.20) L 10/19/16 05:10 Hgb 8.7 gm/dL (11.7-16.1) L 10/19/16 05:10 Hct 29.2 % (35.0-45.0) L 10/19/16 05:10 MCV 83.1 fl (81-100) 10/19/16 05:10 MCH 24.7 pg (27.0-31.0) L 10/19/16 05:10 MCHC Differential 29.7 pg (28.0-36.0) 10/19/16 05:10 RDW 19.2 % (11.5-20.0) 10/19/16 05:10 Plt Count 23 Th/cmm (150-400) L* 10/19/16 05:10 MPV 8.7 fl 10/19/16 05:10 Neutrophils % UPHOLSTERY TECHNICIAN 10/16/16 18:27 Band Neutrophils % 3 % (0-10) 10/19/16 05:10 Lymphocytes % UPHOLSTERY TECHNICIAN 10/16/16 18:27 Monocytes % UPHOLSTERY TECHNICIAN 10/16/16 18:27 Eosinophils % UPHOLSTERY TECHNICIAN 10/16/16 18:27 Basophils % UPHOLSTERY TECHNICIAN 10/16/16 18:27 Neutrophils (Manual) 59 % (40-80) 10/19/16 05:10 Lymphocytes 20 % (20-50) 10/19/16 05:10 Monocytes 17 % (2-10) H 10/19/16 05:10 Eosinophils 1 % (0-5) 10/19/16 05:10 Basophils 0 % (0-3) 10/16/16 18:27 Nucleated RBCs 2.0 % (0-0) H 10/19/16 05:10 Hypochromia 1+ 10/16/16 18:27 Platelet Estimate DECREASED PLATELETS (NORMAL) 10/19/16 05:10 Platelet Morphology NORMAL (NORMAL) 10/19/16 05:10 Microcytosis 1+ 10/16/16 18:27 RBC Morph Micro Appear ABNORMAL (NORMAL) 10/16/16 18:27 PT 10.5 SECONDS (9.5-11.5) 10/16/16 18:27 INR 1.01 (0.5-1.4) 10/16/16 18:27 PTT (Actin FS) 33.4 SECONDS (26.0-38.0) 10/16/16 18:27 Sodium 134 mEq/L (136-145) L 10/19/16 05:10 Potassium 4.0 mEq/L (3.5-5.1) 10/19/16 05:10 Chloride 99 mEq/L (98-107) 10/19/16 05:10 Carbon Dioxide 30.1 mEq/L (21.0-31.0) 10/19/16 05:10 Anion Gap 8.9 (7.0-16.0) 10/19/16 05:10 BUN 40 mg/dL (7-25) H 10/19/16 05:10 Creatinine 2.8 mg/dL (0.6-1.2) H 10/19/16 05:10 Est GFR ( Amer) TNP 10/19/16 05:10 Est GFR (Non-Af Amer) TNP 10/19/16 05:10 BUN/Creatinine Ratio 14.3 10/19/16 05:10 Glucose 120 mg/dL (70-105) H 10/19/16 05:10 POC Glucose 128 MG/DL (70 - 105) H 10/19/16 06:26 Hemoglobin A1c 5.3 10/17/16 06:45 Calcium 8.9 mg/dL (8.6-10.3) 10/19/16 05:10 Total Bilirubin 0.4 mg/dL (0.3-1.0) 10/18/16 04:37 AST 12 U/L (13-39) L 10/18/16 04:37 ALT 11 U/L (7-52) 10/18/16 04:37 Alkaline Phosphatase 63 U/L (34-104) 10/18/16 04:37 Troponin I 0.03 ng/mL (0.01-0.05) 10/17/16 14:44 B-Natriuretic Peptide 1970.0 pg/mL (5.0-100.0) H 10/16/16 18:27 Total Protein 7.0 gm/dL (6.0-8.3) 10/18/16 04:37 Albumin 3.6 gm/dL (3.7-5.3) L 10/18/16 04:37 Globulin 3.4 gm/dL 10/18/16 04:37 Albumin/Globulin Ratio 1.1 (1.0-1.8) 10/18/16 04:37 Blood Type O POSITIVE 10/16/16 18:27 Antibody Screen NEGATIVE 10/16/16 18:27 - Physical Exam Vitals and I&O: Vital Signs Temp 99.0 F 10/19/16 04:00 Pulse 91 10/19/16 09:11 Resp 20 10/19/16 07:46 BP 115/84 10/19/16 09:11 Pulse Ox 100 10/19/16 07:46 Intake & Output 10/18/16 10/19/16 10/19/16 18:59 06:59 18:59 Intake Total 1110 60 Balance 1110 60 Weight (lbs) 61.915 kg 61.689 kg Intake: Oral 1110 60 Other: # Bowel Movements 0 Stool Characteristics Soft Foamy Brown Active Medications: Current Medications Acetaminophen (Tylenol) 650 mg PO Q4HR PRN PRN Reason: PAIN (MILD) OR TEMP 100.0 OR > Stop: 12/15/16 22:27 Acetaminophen (Tylenol Extra Strength) 1,000 mg PO Q6H PRN PRN Reason: Pain (Moderate) Last Admin: 10/17/16 11:35 Dose: 1,000 mg Acetaminophen/Hydrocodone Bitart ([place] 5mg/325mg) 1 tab PO Q8H [facility] Stop: 12/15/16 22:29 Last Admin: 10/19/16 06:37 Dose: Not Given Al Hydrox/Mg Hydrox/Simethicone (Maalox) 30 ml PO Q6HR PRN PRN Reason: GI DISTRESS Stop: 12/16/16 00:00 Albuterol/Ipratropium (Duoneb Neb) 3 ml HHN Q6HRT [facility] Stop: 12/16/16 12:59 Last Admin: 10/19/16 07:34 Dose: 3 ml Amlodipine Besylate (Norvasc) 5 mg PO TuThSa@2100 [facility] Stop: 12/17/16 20:59 Last Admin: 10/18/16 21:09 Dose: 5 mg Amlodipine Besylate (Norvasc) 5 mg PO SuMoWeFr@899,2099 [facility] Stop: 12/16/16 08:59 Last Admin: 10/17/16 20:34 Dose: Not Given Ascorbic Acid (Vitamin C) 500 mg PO 1700 [facility] Stop: 12/16/16 16:59 Last Admin: 10/18/16 16:31 Dose: 500 mg Bisacodyl (Dulcolax 10 Mg Supp) 10 mg RC DAILY PRN PRN Reason: BM MANAGEMENT Stop: 12/15/16 22:27 Budesonide (Pulmicort) 0.5 mg HHN BIDRT [facility] Stop: 12/16/16 06:59 Last Admin: 10/19/16 07:34 Dose: 0.5 mg Clonidine HCl (Catapres) 0.1 mg PO Q4H PRN PRN Reason: for SBP>160 or DBP >100 Stop: 12/15/16 22:27 Dextrose (D50w) 50 ml IVP ACHS PRN PRN Reason: BLOOD SUGAR < 70 Stop: 12/15/16 22:27 Docusate Sodium (Colace) 250 mg PO 1700 [facility] Stop: 12/16/16 16:59 Last Admin: 10/18/16 16:31 Dose: 250 mg Epoetin Scott (Epogen) 5,000 units SUBQ TuThSa [facility] Stop: 12/15/16 22:29 Last Admin: 10/18/16 23:50 Dose: 5,000 units Hydralazine HCl (Apresoline) 50 mg PO SuMoWeFr@899,2099 [facility] Stop: 12/16/16 08:59 Last Admin: 10/19/16 09:11 Dose: 50 mg Ceftriaxone Sodium 1 gm/ (Dextrose) 50 mls @ 100 mls/hr IV Q24H [facility] Stop: 12/16/16 20:59 Last Admin: 10/18/16 21:25 Dose: 100 mls/hr Sodium Chloride (Nacl 0.9%) 100 mls @ 0 mls/hr IV .Q0M [facility] PRN Reason: TKO Stop: 12/16/16 01:29 Insulin Aspart (Novolog Insulin Sliding Scale) 0 units SUBQ ACHS [facility] PRN Reason: Protocol Stop: 12/16/16 07:29 Last Admin: 10/19/16 06:45 Dose: 2 units Lactobacillus Rhamnosus (Culturelle) 1 each PO DAILY [facility] Stop: 12/18/16 08:59 Last Admin: 10/19/16 09:09 Dose: 1 each Lactulose (Cephulac) 15 gm PO Q8H PRN PRN Reason: BM MANAGEMENT Lidocaine (Lidoderm 5% Patch) 1 patch TD DAILY [facility] Stop: 12/16/16 08:59 Last Admin: 10/18/16 08:26 Dose: 1 patch Miscellaneous (Clinical Monitoring) 1 ea MC DAILY PRN PRN Reason: RENAL Stop: 12/16/16 09:05 Miscellaneous (Probiotic Screen) 1 ea MC PRN PRN PRN Reason: PROTOCOL Stop: 12/17/16 09:48 Nifedipine (Procardia) 10 mg PO Q6H PRN PRN Reason: SBP >160 Stop: 12/15/16 22:27 Nitroglycerin (Nitrostat) 0.4 mg SL Q5M PRN PRN Reason: Chest Pain Stop: 12/15/16 22:27 Oxycodone HCl (Oxycodone Ir) 5 mg PO Q6HR PRN PRN Reason: Pain (Severe) Stop: 12/15/16 22:27 Last Admin: 10/18/16 04:56 Dose: 5 mg Sodium Bicarbonate (Sodium Bicarbonate) 650 mg PO BID [facility] PRN Reason: Protocol Stop: 12/16/16 08:59 Last Admin: 10/19/16 09:09 Dose: 650 mg Sucralfate (Carafate) 1 gm PO TIDHS [facility] Stop: 12/16/16 08:59 Last Admin: 10/19/16 09:09 Dose: 1 gm Vitamin B Complex/Vit C/Folic Acid (Vitamin B Complex W/Vitamin C) 1 tab PO 1700 [facility] Stop: 12/16/16 16:59 Last Admin: 10/18/16 16:32 Dose: 1 tab - Procedures Procedures: Procedures Procedure Code Date PERFORMANCE OF URINARY FILTRATION, MULTIPLE [id number] 08/13/16 PERFORMANCE OF URINARY FILTRATION, SINGLE [id number] 12/29/15 TRANSFUSE NONAUT PLATELETS IN PERIPH VEIN, PERC 46039O9 08/13/16 TRANSFUSE NONAUT RED BLOOD CELLS IN PERIPH VEIN, PERC 59918Q6 06/07/16 Nutritional Asmnt/Malnutr-PDOC - Dietary Evaluation Malnutrition Findings (Please click <Entered> for more info): Nutritional Asmnt/Malnutrition Start: 10/17/16 14: 28 Text: Status: Active Freq: Document 10/17/16 14:28 GSUN (Rec: 10/17/16 14:47 GSUN [id number]) Nutritional Asmnt/Malnutrition Patient General Information Nutritional Screening Consult Diagnosis ER: acute anasarca due to acute CHF exacerbation, ESRD, acute resp, DM Pertinent Medical Hx/Surgical Hx ER note: HTN, DM, ESRD on dialysis, thrombocytopenia, right above the knee amputation Subjective Information 86 year old male from SNF. RD consult for [place] 11 and active wound. Pt is ESRD on HD , received HD yesterday 10/16. Visited pt after lunch time with family members at bedside . Pt was asleep, observed lunch tray 75% consumed at bedside. Per EMR, 90% breakfast this AM. Spoke to family, pt is edentulous without difficulties with current order, pt usually has good appetite, no nutritional concerns at this time. RD explained diet order to family , family understood. CBW 149. 7lb via bedscale with equipment removed, family report CBW should be around 140lb. Mild to moderate wasting to chest noted. Current Diet Order/ Nutrition Support Renal, [id number] Pertinent Medications Vitamin C, Dulcolax, Maalox, D50w, Colace, Epogen, Novolog, Cephulac, Nacl 0.9%, Vitamin B Complex W/ Vitamin C Pertinent Labs 10/16: potassium 3.4L, BUN 31H, creatinine 2.4H, glucose 169H 10/17: potassium 3.4L, BUN 39H, creatinine 2.8H, glucose 185H Nutritional Hx/Data Height 1.65 m Height (Calculated Centimeters) 165.1 Current Weight (lbs) 67.903 kg Weight (Calculated Kilograms) 67.9 Weight (Calculated Grams) 53144.8 Usual body Weight (lbs) 140 [place] Body Weight 125 Weight Status Approriate GI Symptoms Cultural/Ethnic/[employer]ehov[employer] Witness Belief Family deneid allergies. Usual diet at home [facility]: mech soft, ZIYAD, CCHO, 80g prot, 2.5g K+, renal, thin liqui Skin Integrity/Comment: [place] 11. RN: sacrum decubitus ulcer, left forearm skin tear, BUE's bruise Current %PO Good (75-100%) Estimated Nutritional Goals BEE in Kcals: Using Current wt Calories/Kcals/Kg CBW 149.7lb/68kg Kcals Calculated 2039-2379kcal (30-35kcal/kg, ESRD on HD, ?ulcerations) Protein: Using Current wt Protein g/kg: CBW Protein Calculated 95-109g (1.4-1.6g/kg, ESRD on HD, ?ulcerations) Fluid: ml Per MD (dx. ESRD on HD) Nutritional Problem 1. Problem Problem Increased kcal and prot needs related to Etiology hypermetabolic state, skin integrity aeb Signs/Symptoms: pt is on HD, ulcerations noted (H&P decubitus stage III), wound care consult pending Intervention/Recommendation Comments 1. Continue with current diet order. Pt noted with good appetite. Explained diet order to family. 2. Recommend [place] Glucose Control BID for additional kcal and prot during hypermetabolic state. Encourage PO intake. Expected Outcomes/Goals Expected Outcomes/Goals 1. PO intake to meet at least 75% fo estimated nutritional needs.
--- NOTE | 2016-10-19 12:38 | General Progress Note ---
Subjective - Review of Systems Service Date: 10/19/16 Subjective: drowsy, less posadas, comfortable Objective - Results Result Diagrams: 10/19/16 05:10 10/19/16 05:10 Recent Labs: Laboratory Last Values WBC 7.0 Th/cmm (4.8-10.8) D 10/19/16 05:10 RBC 3.51 Mil/cmm (3.80-5.20) L 10/19/16 05:10 Hgb 8.7 gm/dL (11.7-16.1) L 10/19/16 05:10 Hct 29.2 % (35.0-45.0) L 10/19/16 05:10 MCV 83.1 fl (81-100) 10/19/16 05:10 MCH 24.7 pg (27.0-31.0) L 10/19/16 05:10 MCHC Differential 29.7 pg (28.0-36.0) 10/19/16 05:10 RDW 19.2 % (11.5-20.0) 10/19/16 05:10 Plt Count 23 Th/cmm (150-400) L* 10/19/16 05:10 MPV 8.7 fl 10/19/16 05:10 Neutrophils % LIMOUSINE RENTAL CLERK 10/16/16 18:27 Band Neutrophils % 3 % (0-10) 10/19/16 05:10 Lymphocytes % LIMOUSINE RENTAL CLERK 10/16/16 18:27 Monocytes % LIMOUSINE RENTAL CLERK 10/16/16 18:27 Eosinophils % LIMOUSINE RENTAL CLERK 10/16/16 18:27 Basophils % LIMOUSINE RENTAL CLERK 10/16/16 18:27 Neutrophils (Manual) 59 % (40-80) 10/19/16 05:10 Lymphocytes 20 % (20-50) 10/19/16 05:10 Monocytes 17 % (2-10) H 10/19/16 05:10 Eosinophils 1 % (0-5) 10/19/16 05:10 Basophils 0 % (0-3) 10/16/16 18:27 Nucleated RBCs 2.0 % (0-0) H 10/19/16 05:10 Hypochromia 1+ 10/16/16 18:27 Platelet Estimate DECREASED PLATELETS (NORMAL) 10/19/16 05:10 Platelet Morphology NORMAL (NORMAL) 10/19/16 05:10 Microcytosis 1+ 10/16/16 18:27 RBC Morph Micro Appear ABNORMAL (NORMAL) 10/16/16 18:27 PT 10.5 SECONDS (9.5-11.5) 10/16/16 18:27 INR 1.01 (0.5-1.4) 10/16/16 18:27 PTT (Actin FS) 33.4 SECONDS (26.0-38.0) 10/16/16 18:27 Sodium 134 mEq/L (136-145) L 10/19/16 05:10 Potassium 4.0 mEq/L (3.5-5.1) 10/19/16 05:10 Chloride 99 mEq/L (98-107) 10/19/16 05:10 Carbon Dioxide 30.1 mEq/L (21.0-31.0) 10/19/16 05:10 Anion Gap 8.9 (7.0-16.0) 10/19/16 05:10 BUN 40 mg/dL (7-25) H 10/19/16 05:10 Creatinine 2.8 mg/dL (0.6-1.2) H 10/19/16 05:10 Est GFR ( Amer) TNP 10/19/16 05:10 Est GFR (Non-Af Amer) TNP 10/19/16 05:10 BUN/Creatinine Ratio 14.3 10/19/16 05:10 Glucose 120 mg/dL (70-105) H 10/19/16 05:10 POC Glucose 128 MG/DL (70 - 105) H 10/19/16 06:26 Hemoglobin A1c 5.3 10/17/16 06:45 Calcium 8.9 mg/dL (8.6-10.3) 10/19/16 05:10 Total Bilirubin 0.4 mg/dL (0.3-1.0) 10/18/16 04:37 AST 12 U/L (13-39) L 10/18/16 04:37 ALT 11 U/L (7-52) 10/18/16 04:37 Alkaline Phosphatase 63 U/L (34-104) 10/18/16 04:37 Troponin I 0.03 ng/mL (0.01-0.05) 10/17/16 14:44 B-Natriuretic Peptide 1970.0 pg/mL (5.0-100.0) H 10/16/16 18:27 Total Protein 7.0 gm/dL (6.0-8.3) 10/18/16 04:37 Albumin 3.6 gm/dL (3.7-5.3) L 10/18/16 04:37 Globulin 3.4 gm/dL 10/18/16 04:37 Albumin/Globulin Ratio 1.1 (1.0-1.8) 10/18/16 04:37 Blood Type O POSITIVE 10/16/16 18:27 Antibody Screen NEGATIVE 10/16/16 18:27 - Physical Exam Vitals and I&O: Vital Signs Temp 99.0 F 10/19/16 04:00 Pulse 91 10/19/16 09:11 Resp 20 10/19/16 07:46 BP 115/84 10/19/16 09:11 Pulse Ox 100 10/19/16 07:46 Intake & Output 10/18/16 10/19/16 10/19/16 18:59 06:59 18:59 Intake Total 1110 60 Balance 1110 60 Weight (lbs) 61.915 kg 61.689 kg Intake: Oral 1110 60 Other: # Bowel Movements 0 Stool Characteristics Soft Foamy Brown Active Medications: Current Medications Acetaminophen (Tylenol) 650 mg PO Q4HR PRN PRN Reason: PAIN (MILD) OR TEMP 100.0 OR > Stop: 12/15/16 22:27 Acetaminophen (Tylenol Extra Strength) 1,000 mg PO Q6H PRN PRN Reason: Pain (Moderate) Last Admin: 10/17/16 11:35 Dose: 1,000 mg Acetaminophen/Hydrocodone Bitart ([place] 5mg/325mg) 1 tab PO Q8H [facility] Stop: 12/15/16 22:29 Last Admin: 10/19/16 06:37 Dose: Not Given Al Hydrox/Mg Hydrox/Simethicone (Maalox) 30 ml PO Q6HR PRN PRN Reason: GI DISTRESS Stop: 12/16/16 00:00 Albuterol/Ipratropium (Duoneb Neb) 3 ml HHN Q6HRT [facility] Stop: 12/16/16 12:59 Last Admin: 10/19/16 07:34 Dose: 3 ml Amlodipine Besylate (Norvasc) 5 mg PO TuThSa@2100 [facility] Stop: 12/17/16 20:59 Last Admin: 10/18/16 21:09 Dose: 5 mg Amlodipine Besylate (Norvasc) 5 mg PO SuMoWeFr@0900,2100 [facility] Stop: 12/16/16 08:59 Last Admin: 10/17/16 20:34 Dose: Not Given Ascorbic Acid (Vitamin C) 500 mg PO 1700 [facility] Stop: 12/16/16 16:59 Last Admin: 10/18/16 16:31 Dose: 500 mg Bisacodyl (Dulcolax 10 Mg Supp) 10 mg RC DAILY PRN PRN Reason: BM MANAGEMENT Stop: 12/15/16 22:27 Budesonide (Pulmicort) 0.5 mg HHN BIDRT [facility] Stop: 12/16/16 06:59 Last Admin: 10/19/16 07:34 Dose: 0.5 mg Clonidine HCl (Catapres) 0.1 mg PO Q4H PRN PRN Reason: for SBP>160 or DBP >100 Stop: 12/15/16 22:27 Dextrose (D50w) 50 ml IVP ACHS PRN PRN Reason: BLOOD SUGAR < 70 Stop: 12/15/16 22:27 Docusate Sodium (Colace) 250 mg PO 1700 [facility] Stop: 12/16/16 16:59 Last Admin: 10/18/16 16:31 Dose: 250 mg Epoetin Scott (Epogen) 5,000 units SUBQ TuThSa [facility] Stop: 12/15/16 22:29 Last Admin: 10/18/16 23:50 Dose: 5,000 units Hydralazine HCl (Apresoline) 50 mg PO SuMoWeFr@0900,2100 [facility] Stop: 12/16/16 08:59 Last Admin: 10/19/16 09:11 Dose: 50 mg Ceftriaxone Sodium 1 gm/ (Dextrose) 50 mls @ 100 mls/hr IV Q24H [facility] Stop: 12/16/16 20:59 Last Admin: 10/18/16 21:25 Dose: 100 mls/hr Sodium Chloride (Nacl 0.9%) 100 mls @ 0 mls/hr IV .Q0M [facility] PRN Reason: TKO Stop: 12/16/16 01:29 Insulin Aspart (Novolog Insulin Sliding Scale) 0 units SUBQ ACHS [facility] PRN Reason: Protocol Stop: 12/16/16 07:29 Last Admin: 10/19/16 06:45 Dose: 2 units Lactobacillus Rhamnosus (Culturelle) 1 each PO DAILY [facility] Stop: 12/18/16 08:59 Last Admin: 10/19/16 09:09 Dose: 1 each Lactulose (Cephulac) 15 gm PO Q8H PRN PRN Reason: BM MANAGEMENT Lidocaine (Lidoderm 5% Patch) 1 patch TD DAILY [facility] Stop: 12/16/16 08:59 Last Admin: 10/18/16 08:26 Dose: 1 patch Miscellaneous (Clinical Monitoring) 1 ea MC DAILY PRN PRN Reason: RENAL Stop: 12/16/16 09:05 Miscellaneous (Probiotic Screen) 1 ea PRN PRN PRN Reason: PROTOCOL Stop: 12/17/16 09:48 Nifedipine (Procardia) 10 mg PO Q6H PRN PRN Reason: SBP >160 Stop: 12/15/16 22:27 Nitroglycerin (Nitrostat) 0.4 mg SL Q5M PRN PRN Reason: Chest Pain Stop: 12/15/16 22:27 Oxycodone HCl (Oxycodone Ir) 5 mg PO Q6HR PRN PRN Reason: Pain (Severe) Stop: 12/15/16 22:27 Last Admin: 10/18/16 04:56 Dose: 5 mg Sodium Bicarbonate (Sodium Bicarbonate) 650 mg PO BID [facility] PRN Reason: Protocol Stop: 12/16/16 08:59 Last Admin: 10/19/16 09:09 Dose: 650 mg Sucralfate (Carafate) 1 gm PO TIDHS [facility] Stop: 12/16/16 08:59 Last Admin: 10/19/16 09:09 Dose: 1 gm Vitamin B Complex/Vit C/Folic Acid (Vitamin B Complex W/Vitamin C) 1 tab PO 1700 [facility] Stop: 12/16/16 16:59 Last Admin: 10/18/16 16:32 Dose: 1 tab General: Mild distress HEENT: Atraumatic, Mucous membr. moist/pink, Other (left eyelid edema) Neck: Supple, +2 carotid pulse wo bruit Cardiovascular: Regular rate, Normal S1, Normal S2 Lungs: Other (rhonchi, few rales) Abdomen: Bowel sounds, Soft Extremities: no Edema Neurological: Sensation intact Skin: no Rash Psych/Mental Status: Mood NL - Procedures Procedures: Procedures Procedure Code Date PERFORMANCE OF URINARY FILTRATION, MULTIPLE [id number] 08/13/16 PERFORMANCE OF URINARY FILTRATION, SINGLE [id number] 12/29/15 TRANSFUSE NONAUT PLATELETS IN PERIPH VEIN, [facility] 63667C5 08/13/16 TRANSFUSE NONAUT RED BLOOD CELLS IN PERIPH VEIN, [facility] 53046Y9 06/07/16 Assessment/Plan - Assessment Assessment: Acute decomp CHF ESRD on HD Chronic Thrombocytopenia Anemia of CKD PAD Type 2 DM Ess HTN Left BKA Hx of A. fib - Plan Plan: Lab - Result Diagrams 10/18/16 04:37 10/18/16 04:37 Current Medications Acetaminophen (Tylenol) 650 mg PO Q4HR PRN PRN Reason: PAIN (MILD) OR TEMP 100.0 OR > Stop: 12/15/16 22:27 Acetaminophen (Tylenol Extra Strength) 1,000 mg PO Q6H PRN PRN Reason: Pain (Moderate) Last Admin: 10/17/16 11:35 Dose: 1,000 mg Acetaminophen/Hydrocodone Bitart ([place] 5mg/325mg) 1 tab PO Q8H [facility] Stop: 12/15/16 22:29 Last Admin: 10/18/16 06:05 Dose: Not Given Al Hydrox/Mg Hydrox/Simethicone (Maalox) 30 ml PO Q6HR PRN PRN Reason: GI DISTRESS Stop: 12/16/16 00:00 Albuterol/Ipratropium (Duoneb Neb) 3 ml HHN Q6HRT [facility] Stop: 12/16/16 12:59 Last Admin: 10/18/16 06:57 Dose: 3 ml Amlodipine Besylate (Norvasc) 5 mg PO TuThSa@2100 [facility] Stop: 12/17/16 20:59 Amlodipine Besylate (Norvasc) 5 mg PO SuMoWeFr@0900,2100 [facility] Stop: 12/16/16 08:59 Last Admin: 10/17/16 20:34 Dose: Not Given Ascorbic Acid (Vitamin C) 500 mg PO 1700 [facility] Stop: 12/16/16 16:59 Last Admin: 10/17/16 16:25 Dose: 500 mg Bisacodyl (Dulcolax 10 Mg Supp) 10 mg RC DAILY PRN PRN Reason: BM MANAGEMENT Stop: 12/15/16 22:27 Budesonide (Pulmicort) 0.5 mg HHN BIDRT [facility] Stop: 12/16/16 06:59 Last Admin: 10/18/16 06:57 Dose: 0.5 mg Clonidine HCl (Catapres) 0.1 mg PO Q4H PRN PRN Reason: for SBP>160 or DBP >100 Stop: 12/15/16 22:27 Dextrose (D50w) 50 ml IVP ACHS PRN PRN Reason: BLOOD SUGAR < 70 Stop: 12/15/16 22:27 Docusate Sodium (Colace) 250 mg PO 1700 [facility] Stop: 12/16/16 16:59 Last Admin: 10/17/16 16:25 Dose: 250 mg Epoetin Scott (Epogen) 5,000 units SUBQ TuThSa [facility] Stop: 12/15/16 22:29 Last Admin: 10/16/16 23:34 Dose: Not Given Hydralazine HCl (Apresoline) 50 mg PO SuMoWeFr@0900,2100 [facility] Stop: 12/16/16 08:59 Last Admin: 10/17/16 20:35 Dose: Not Given Ceftriaxone Sodium 1 gm/ (Dextrose) 50 mls @ 100 mls/hr IV Q24H [facility] Stop: 12/16/16 20:59 Last Admin: 10/17/16 20:33 Dose: Not Given Sodium Chloride (Nacl 0.9%) 100 mls @ 0 mls/hr IV .Q0M [facility] PRN Reason: TKO Stop: 12/16/16 01:29 Insulin Aspart (Novolog Insulin Sliding Scale) 0 units SUBQ ACHS [facility] PRN Reason: Protocol Stop: 12/16/16 07:29 Last Admin: 10/18/16 11:38 Dose: 2 units Lactobacillus Rhamnosus (Culturelle) 1 each PO DAILY [facility] Stop: 12/18/16 08:59 Lactulose (Cephulac) 15 gm PO Q8H PRN PRN Reason: BM MANAGEMENT Lidocaine (Lidoderm 5% Patch) 1 patch TD DAILY [facility] Stop: 12/16/16 08:59 Last Admin: 10/18/16 08:26 Dose: 1 patch Miscellaneous (Clinical Monitoring) 1 ea MC DAILY PRN PRN Reason: RENAL Stop: 12/16/16 09:05 Miscellaneous (Probiotic Screen) 1 ea MC PRN PRN PRN Reason: PROTOCOL Stop: 12/17/16 09:48 Nifedipine (Procardia) 10 mg PO Q6H PRN PRN Reason: SBP >160 Stop: 12/15/16 22:27 Nitroglycerin (Nitrostat) 0.4 mg SL Q5M PRN PRN Reason: Chest Pain Stop: 12/15/16 22:27 Oxycodone HCl (Oxycodone Ir) 5 mg PO Q6HR PRN PRN Reason: Pain (Severe) Stop: 12/15/16 22:27 Last Admin: 10/18/16 04:56 Dose: 5 mg Sodium Bicarbonate (Sodium Bicarbonate) 650 mg PO BID KOSTA PRN Reason: Protocol Stop: 12/16/16 08:59 Last Admin: 10/18/16 08:28 Dose: 650 mg Sucralfate (Carafate) 1 gm PO TIDHS [facility] Stop: 12/16/16 08:59 Last Admin: 10/18/16 12:16 Dose: 1 gm Vitamin B Complex/Vit C/Folic Acid (Vitamin B Complex W/Vitamin C) 1 tab PO 1700 [facility] Stop: 12/16/16 16:59 Last Admin: 10/17/16 16:25 Dose: 1 tab Currently being dialyzed resp status better cxr showed improvement of b/l effusions Plts still low @ 23, no acive bleed Liverspleen scan- normal spleen, increase liver size Nutritional Asmnt/Malnutr-PDOC - Dietary Evaluation Malnutrition Findings (Please click <Entered> for more info): Nutritional Asmnt/Malnutrition Start: 10/17/16 14: 28 Text: Status: Active Freq: Document 10/17/16 14:28 GSUN (Rec: 10/17/16 14:47 GSUN [id number]) Nutritional Asmnt/Malnutrition Patient General Information Nutritional Screening Consult Diagnosis ER: acute anasarca due to acute CHF exacerbation, ESRD, acute resp, DM Pertinent Medical Hx/Surgical Hx ER note: HTN, DM, ESRD on dialysis, thrombocytopenia, right above the knee amputation Subjective Information 86 year old male from SNF. RD consult for [place] 11 and active wound. Pt is ESRD on HD , received HD yesterday 10/16. Visited pt after lunch time with family members at bedside . Pt was asleep, observed lunch tray 75% consumed at bedside. Per EMR, 90% breakfast this AM. Spoke to family, pt is edentulous without difficulties with current order, pt usually has good appetite, no nutritional concerns at this time. RD explained diet order to family , family understood. CBW 149. 7lb via bedscale with equipment removed, family report CBW should be around 140lb. Mild to moderate wasting to chest noted. 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 Usual diet at home [facility]: mech soft, ZIYAD, CCHO, 80g prot, 2.5g K+, renal, thin liqui Skin Integrity/Comment: Alton Brown. RN: sacrum decubitus ulcer, left forearm skin tear, BUE's bruise Current %PO Good (75-100%) Estimated Nutritional Goals BEE in Kcals: Using Current wt Calories/Kcals/Kg CBW 149.7lb/68kg Kcals Calculated 2039-2379kcal (30-35kcal/kg, ESRD on HD, ?ulcerations) Protein: Using Current wt Protein g/kg: CBW Protein Calculated 95-109g (1.4-1.6g/kg, ESRD on HD, ?ulcerations) Fluid: ml Per MD (dx. ESRD on HD) Nutritional Problem 1. Problem Problem Increased kcal and prot needs related to Etiology hypermetabolic state, skin integrity aeb Signs/Symptoms: pt is on HD, ulcerations noted (H&P decubitus stage III), wound care consult pending Intervention/Recommendation Comments 1. Continue with current diet order. Pt noted with good appetite. Explained diet order to family. 2. Recommend [place] Glucose Control BID for additional kcal and prot during hypermetabolic state. Encourage PO intake. Expected Outcomes/Goals Expected Outcomes/Goals 1. PO intake to meet at least 75% fo estimated nutritional needs.
[2016-10-19] MEDS: Lidocaine 5% Patch TD SCH (15:37)
--- NOTE | 2016-10-19 15:53 | History and Physical ---
History of Present Illness - HPI Chief Complaint: Patient VIRIDIANA ZARCO was admitted to location Intensive Care Unit with CHF EXACERBATION. for increse sob HPI: Patient is 86 y female with history of CHF, A fib, CKD 5 on HD, Dementia. brought from SNF for worseining of mental status and associated swelling of the body. Patient is very confused and unable to give any history. Patient is sitting on the bed with oxygen via NC. On initial evaluation, her temperature was 97.6 degree F and WBC count was 5, 700. 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: Dementia, Peripheral neuropathy, Vertigo GI: Report: Hemorrhoids Psych: Report: Anxiety, Depression Musculoskeletal: Report: Low Back Pain Rheumatologic: Report: Vasculitis Renal/: Report: Chronic Renal Insuff Endocrine: Report: Diabetes, Hypothyroidism, Osteoporosis - Past Surgical History Past Surgical History: Other (r aka) Family Medical History - Family Member Father Ethnicity: Living Status: Unknown Hx Family Cancer: No (UNKNOWN) Hx Family Coronary Artery Disease: No (UNKNOWN) Hx Family Congestive Heart Failure: No (UNKNOWN) Hx Family Hypertension: No (UNKNOWN) Hx Family Stroke: No (UNKNOWN) Hx Family Diabetes: No (UNKNOWN) Hx Family Seizures: No (UNKNOWN) Hx Family Dementia: No (UNKNOWN) Hx Family AIDS: No (UNKNOWN) Hx Family HIV: No Hx Family COPD: No (UNKNOWN) Hx Family Hepatitis: No (UNKNOWN) Hx Family Psychiatric Problems: No (UNKNOWN) Hx Family Tuberculosis: No (UNKNOWN) Social History Alcohol: None Drugs: None Lives: [place]way Domestic Violence: Negative Health Maintenance Health Maintenance: Cholesterol - Medications Home Medications: Home Medication Medication Instructions Recorded Type RX: amLODIPine Besylate [Norvasc] 5 mg PO Q12HR 12/29/15 History RX: Lactulose 15 gm PO Q8H PRN 05/21/16 History RX: NIFEdipine [Procardia] 10 mg PO Q6H PRN 05/21/16 History RX: Acetaminophen [Pain Reliever] 1,000 mg PO Q6H PRN 06/07/16 History RX: Acetaminophen [Tylenol] 650 mg PO Q4HR PRN #0 tab 06/13/16 Rx RX: Bisacodyl [Dulcolax 10 Mg Supp] 10 mg RC DAILY PRN #0 sup 06/13/16 Rx RX: Budesonide [Pulmicort] 0.5 mg HHN BIDRT #0 ud 06/13/16 Rx RX: Dextrose 50% [D50w] 50 ml IVP ACHS PRN #0 syr 06/13/16 Rx RX: Lisinopril [Zestril] 40 mg PO BID #0 tab 06/13/16 Rx RX: Nitroglycerin [Nitrostat*] 0.4 mg SL Q5M PRN #0 tab 06/13/16 Rx RX: Sodium Bicarbonate 650 mg PO BID #0 tab 06/13/16 Rx RX: Sucralfate [Carafate] 1 gm PO TIDHS #0 tab 06/13/16 Rx RX: cloNIDine HCl [Catapres] 0.1 mg PO Q4H PRN #0 tab 06/13/16 Rx RX: Ascorbic Acid [Vitamin C] 500 mg PO 1700 08/12/16 History RX: Folic Acid/Vit Bcomp,C [Renal 0.8 mg PO 1700 08/12/16 History Vitamin Tablet] RX: Nut.tx.gluc.intoler,Lac-Fr,Soy 237 ml PO BID 08/12/16 History [Glucerna] RX: Albuterol/Ipratropium Neb 3 ml HHN Q6HR 08/13/16 History [Duoneb Neb] RX: Docusate Sodium [Colace] 250 mg PO 1700 08/13/16 History RX: Hydrocodone/APAP 5mg/325mg 1 tab PO Q8H 08/13/16 History [[place] 5mg/325mg] RX: Insulin Aspart Sliding Scale See Protocol SUBQ ACHS 08/13/16 History [NovoLOG INSULIN SLIDING SCALE] RX: Oxycodone HCl 5 mg PO Q6HR PRN 08/13/16 History RX: Sucralfate 1 gm PO TID 08/13/16 History RX: amLODIPine Besylate [Norvasc] 5 mg PO 2100 08/13/16 History RX: Epoetin Scott [Epogen] 5,000 units SUBQ TuTa #0 ml 08/16/16 Rx RX: Hydralazine [Apresoline*] 50 mg PO SuMoWeFr@0900,2100 #0 tab 08/16/16 Rx RX: Lidocaine 5% Patch [Lidoderm 1 patch TD DAILY #0 tdm 08/16/16 Rx 5% Patch] RX: Al Hyd/Mg Hyd/Simethicone 10/16/16 History [Maalox] - Allergies Allergies/Adverse Reactions: Allergies Allergy/AdvReac Type Severity Reaction Status Date / Time No Known Allergies Allergy Verified 08/12/16 23:17 Review of Systems - Review of Systems Constitutional: Report: Weakness (+) Eyes: Report: Vision Change Cardiovascular: Report: Orthopnea (+), Paroxysmal Noc. Dyspnea (+) Musculoskeletal: Report: Back Pain (+++) Neurological: Report: Weakness (+), Numbness (+) Physical Exam - Physical Exam HEENT: Report: Pharnyx Within Normal Limits Neck: Report: WNL Cardiovascular Systems: Report: +s1/s2 noted Respiratory: Report: Clear to Auscultation of lung renee Abdomen: Report: Non-tender to palpation Back: Report: Inspection of back is within normal limits. Extremities: Report: Non-tender to palpation. (r bka) - Lab Results All Lab Results last 24 hours: Laboratory Last Values WBC 7.0 Th/cmm (4.8-10.8) D 10/19/16 05:10 RBC 3.51 Mil/cmm (3.80-5.20) L 10/19/16 05:10 Hgb 8.7 gm/dL (11.7-16.1) L 10/19/16 05:10 Hct 29.2 % (35.0-45.0) L 10/19/16 05:10 MCV 83.1 fl (81-100) 10/19/16 05:10 MCH 24.7 pg (27.0-31.0) L 10/19/16 05:10 MCHC Differential 29.7 pg (28.0-36.0) 10/19/16 05:10 RDW 19.2 % (11.5-20.0) 10/19/16 05:10 Plt Count 23 Th/cmm (150-400) L* 10/19/16 05:10 MPV 8.7 fl 10/19/16 05:10 Neutrophils % DRY CHAIN OPERATOR 10/16/16 18:27 Band Neutrophils % 3 % (0-10) 10/19/16 05:10 Lymphocytes % DRY CHAIN OPERATOR 10/16/16 18:27 Monocytes % DRY CHAIN OPERATOR 10/16/16 18:27 Eosinophils % DRY CHAIN OPERATOR 10/16/16 18:27 Basophils % DRY CHAIN OPERATOR 10/16/16 18:27 Neutrophils (Manual) 59 % (40-80) 10/19/16 05:10 Lymphocytes 20 % (20-50) 10/19/16 05:10 Monocytes 17 % (2-10) H 10/19/16 05:10 Eosinophils 1 % (0-5) 10/19/16 05:10 Basophils 0 % (0-3) 10/16/16 18: Nucleated RBCs 2.0 % (0-0) H 10/19/16 05:10 Hypochromia 1+ 10/16/16 18:27 Platelet Estimate DECREASED PLATELETS (NORMAL) 10/19/16 05:10 Platelet Morphology NORMAL (NORMAL) 10/19/16 05:10 Microcytosis 1+ 10/16/16 18:27 RBC Morph Micro Appear ABNORMAL (NORMAL) 10/16/16 18:27 PT 10.5 SECONDS (9.5-11.5) 10/16/16 18:27 INR 1.01 (0.5-1.4) 10/16/16 18:27 PTT (Actin FS) 33.4 SECONDS (26.0-38.0) 10/16/16 18:27 Sodium 134 mEq/L (136-145) L 10/19/16 05:10 Potassium 4.0 mEq/L (3.5-5.1) 10/19/16 05:10 Chloride 99 mEq/L (98-107) 10/19/16 05:10 Carbon Dioxide 30.1 mEq/L (21.0-31.0) 10/19/16 05:10 Anion Gap 8.9 (7.0-16.0) 10/19/16 05:10 BUN 40 mg/dL (7-25) H 10/19/16 05:10 Creatinine 2.8 mg/dL (0.6-1.2) H 10/19/16 05:10 Est GFR ( Amer) TNP 10/19/16 05:10 Est GFR (Non-Af Amer) TNP 10/19/16 05:10 BUN/Creatinine Ratio 14.3 10/19/16 05:10 Glucose 120 mg/dL (70-105) H 10/19/16 05:10 POC Glucose 128 MG/DL (70 - 105) H 10/19/16 06:26 Hemoglobin A1c 5.3 10/17/16 06:45 Calcium 8.9 mg/dL (8.6-10.3) 10/19/16 05:10 Total Bilirubin 0.4 mg/dL (0.3-1.0) 10/18/16 04:37 AST 12 U/L (13-39) L 10/18/16 04:37 ALT 11 U/L (7-52) 10/18/16 04:37 Alkaline Phosphatase 63 U/L (34-104) 10/18/16 04:37 Troponin I 0.03 ng/mL (0.01-0.05) 10/17/16 14:44 B-Natriuretic Peptide 1970.0 pg/mL (5.0-100.0) H 10/16/16 18:27 Total Protein 7.0 gm/dL (6.0-8.3) 10/18/16 04:37 Albumin 3.6 gm/dL (3.7-5.3) L 10/18/16 04:37 Globulin 3.4 gm/dL 10/18/16 04:37 Albumin/Globulin Ratio 1.1 (1.0-1.8) 10/18/16 04:37 Blood Type O POSITIVE 10/16/16 18:27 Antibody Screen NEGATIVE 10/16/16 18:27 Laboratory Results - last 24 hr 10/18/16 10/18/16 10/19/16 16:29 20:57 05:10 WBC 7.0 D RBC 3.51 L Hgb 8.7 L Hct 29.2 L MCV 83.1 MCH 24.7 L MCHC Differential 29.7 RDW 19.2 Plt Count 23 L* MPV 8.7 Band Neutrophils % 3 Neutrophils (Manual) 59 Lymphocytes 20 Monocytes 17 H Eosinophils 1 Nucleated RBCs 2.0 H Platelet Estimate DECREASED PLATELETS Platelet Morphology NORMAL Sodium Potassium Chloride Carbon Dioxide Anion Gap BUN Creatinine Est GFR ( Amer) Est GFR (Non-Af Amer) BUN/Creatinine Ratio Glucose POC Glucose 91 132 H Calcium 10/19/16 10/19/16 05:10 06:26 WBC RBC Hgb Hct MCV MCH MCHC Differential RDW Plt Count MPV Band Neutrophils % Neutrophils (Manual) Lymphocytes Monocytes Eosinophils Nucleated RBCs Platelet Estimate Platelet Morphology Sodium 134 L Potassium 4.0 Chloride 99 Carbon Dioxide 30.1 Anion Gap 8.9 BUN 40 H Creatinine 2.8 H Est GFR ( Amer) TNP Est GFR (Non-Af Amer) TNP BUN/Creatinine Ratio 14.3 Glucose 120 H POC Glucose 128 H Calcium 8.9 Microbiology 10/17/16 15:00 - Preliminary Blood NO GROWTH AFTER 48 HOURS 10/17/16 14:44 - Preliminary Blood NO GROWTH AFTER 48 HOURS - Assessment Assessment: increasing chf cardiomyopathy end stage renal disease severe thrombocytopenia dm r bka dementia r/o sepsis aloc toxic metabolic encephalopathy - Plan Plan: as per ordersheet
--- NOTE | 2016-10-19 16:29 | History and Physical ---
History of Present Illness - HPI Chief Complaint: Patient VIRIDIANA ZARCO was admitted to location Intensive Care Unit with CHF EXACERBATION. for increse sob HPI: Patient is 86 y female with history of CHF, A fib, CKD 5 on HD, Dementia. brought from SNF for worseining of mental status and associated swelling of the body. Patient is very confused and unable to give any history. Patient is sitting on the bed with oxygen via NC. On initial evaluation, her temperature was 97.6 degree F and WBC count was 5, 700. 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: Dementia (+) GI: Report: No Pertinent Hx (+) Psych: Report: Anxiety (+), Depression (+) Musculoskeletal: Report: Low Back Pain (+) Rheumatologic: Report: No pertinent Hx Infectious Disease: Report: No Pertinent Hx Renal/: Report: No Pertinent Hx Endocrine: Report: No Pertinent Hx Dermatology: Report: No Pertinent Hx Family Medical History - Family Member Father History Unknown: Yes Ethnicity: Living Status: Hx Family Cancer: (UNKNOWN) Hx Family Coronary Artery Disease: (UNKNOWN) Hx Family Congestive Heart Failure: (UNKNOWN) Hx Family Hypertension: (UNKNOWN) Hx Family Stroke: (UNKNOWN) Hx Family Diabetes: (UNKNOWN) Hx Family Seizures: (UNKNOWN) Hx Family Dementia: (UNKNOWN) Hx Family AIDS: (UNKNOWN) Hx Family HIV: No Hx Family COPD: (UNKNOWN) Hx Family Hepatitis: (UNKNOWN) Hx Family Psychiatric Problems: (UNKNOWN) Hx Family Tuberculosis: (UNKNOWN) Social History Smoke: Quit Alcohol: None Drugs: None Lives: Alone Domestic Violence: Negative - Medications Home Medications: Home Medication Medication Instructions Recorded Type RX: amLODIPine Besylate [Norvasc] 5 mg PO Q12HR 12/29/15 History RX: Lactulose 15 gm PO Q8H PRN 05/21/16 History RX: NIFEdipine [Procardia] 10 mg PO Q6H PRN 05/21/16 History RX: Acetaminophen [Pain Reliever] 1,000 mg PO Q6H PRN 06/07/16 History RX: Acetaminophen [Tylenol] 650 mg PO Q4HR PRN #0 tab 06/13/16 Rx RX: Bisacodyl [Dulcolax 10 Mg Supp] 10 mg RC DAILY PRN #0 sup 06/13/16 Rx RX: Budesonide [Pulmicort] 0.5 mg HHN BIDRT #0 ud 06/13/16 Rx RX: Dextrose 50% [D50w] 50 ml IVP ACHS PRN #0 syr 06/13/16 Rx RX: Lisinopril [Zestril] 40 mg PO BID #0 tab 06/13/16 Rx RX: Nitroglycerin [Nitrostat*] 0.4 mg SL Q5M PRN #0 tab 06/13/16 Rx RX: Sodium Bicarbonate 650 mg PO BID #0 tab 06/13/16 Rx RX: Sucralfate [Carafate] 1 gm PO TIDHS #0 tab 06/13/16 Rx RX: cloNIDine HCl [Catapres] 0.1 mg PO Q4H PRN #0 tab 06/13/16 Rx RX: Ascorbic Acid [Vitamin C] 500 mg PO 1700 08/12/16 History RX: Folic Acid/Vit Bcomp,C [Renal 0.8 mg PO 1700 08/12/16 History Vitamin Tablet] RX: Nut.tx.gluc.intoler,Lac-Fr,Soy 237 ml PO BID 08/12/16 History [Glucerna] RX: Albuterol/Ipratropium Neb 3 ml HHN Q6HR 08/13/16 History [Duoneb Neb] RX: Docusate Sodium [Colace] 250 mg PO 1700 08/13/16 History RX: Hydrocodone/APAP 5mg/325mg 1 tab PO Q8H 08/13/16 History [[place] 5mg/325mg] RX: Insulin Aspart Sliding Scale See Protocol SUBQ ACHS 08/13/16 History [NovoLOG INSULIN SLIDING SCALE] RX: Oxycodone HCl 5 mg PO Q6HR PRN 08/13/16 History RX: Sucralfate 1 gm PO TID 08/13/16 History RX: amLODIPine Besylate [Norvasc] 5 mg PO 2100 08/13/16 History RX: Epoetin Scott [Epogen] 5,000 units SUBQ TuThSa #0 ml 08/16/16 Rx RX: Hydralazine [Apresoline*] 50 mg PO SuMoWeFr@0900,2100 #0 tab 08/16/16 Rx RX: Lidocaine 5% Patch [Lidoderm 1 patch TD DAILY #0 tdm 08/16/16 Rx 5% Patch] RX: Al Hyd/Mg Hyd/Simethicone 10/16/16 History [Maalox] - Allergies Allergies/Adverse Reactions: Allergies Allergy/AdvReac Type Severity Reaction Status Date / Time No Known Allergies Allergy Verified 08/12/16 23:17 Review of Systems - Review of Systems Constitutional: Report: Weakness (+) Eyes: Report: Vision Change (+) ENT: Report: Other (none) Respiratory: Report: Shortness of Breath (na) Cardiovascular: Report: Other (na) Gastrointestinal: Report: Other (na) Genitourinary: Report: Other (na) Musculoskeletal: Report: Back Pain (+) Skin: Report: Other (na) Neurological: Report: Weakness (+), Numbness (+) Physical Exam - Physical Exam HEENT: Report: Ears Nose Throat Within Normal Limits, Pharnyx Within Normal Limits Neck: Report: WNL Cardiovascular Systems: Report: +s1/s2 noted Respiratory: Report: Clear to Auscultation of lung renee Abdomen: Report: Non-tender to palpation Neuro/Psych: Report: Disoriented to name time or place (+) - Lab Results All Lab Results last 24 hours: Laboratory Last Values WBC 7.0 Th/cmm (4.8-10.8) D 10/19/16 05:10 RBC 3.51 Mil/cmm (3.80-5.20) L 10/19/16 05:10 Hgb 8.7 gm/dL (11.7-16.1) L 10/19/16 05:10 Hct 29.2 % (35.0-45.0) L 10/19/16 05:10 MCV 83.1 fl (81-100) 10/19/16 05:10 MCH 24.7 pg (27.0-31.0) L 10/19/16 05:10 MCHC Differential 29.7 pg (28.0-36.0) 10/19/16 05:10 RDW 19.2 % (11.5-20.0) 10/19/16 05:10 Plt Count 23 Th/cmm (150-400) L* 10/19/16 05:10 MPV 8.7 fl 10/19/16 05:10 Neutrophils % BINDERY MACHINE TENDER 10/16/16 18:27 Band Neutrophils % 3 % (0-10) 10/19/16 05:10 Lymphocytes % BINDERY MACHINE TENDER 10/16/16 18:27 Monocytes % BINDERY MACHINE TENDER 10/16/16 18:27 Eosinophils % BINDERY MACHINE TENDER 10/16/16 18:27 Basophils % BINDERY MACHINE TENDER 10/16/16 18:27 Neutrophils (Manual) 59 % (40-80) 10/19/16 05:10 Lymphocytes 20 % (20-50) 10/19/16 05:10 Monocytes 17 % (2-10) H 10/19/16 05:10 Eosinophils 1 % (0-5) 10/19/16 05:10 Basophils 0 % (0-3) 10/16/16 18:27 Nucleated RBCs 2.0 % (0-0) H 10/19/16 05:10 Hypochromia 1+ 10/16/16 18:27 Platelet Estimate DECREASED PLATELETS (NORMAL) 10/19/16 05:10 Platelet Morphology NORMAL (NORMAL) 10/19/16 05:10 Microcytosis 1+ 10/16/16 18:27 RBC Morph Micro Appear ABNORMAL (NORMAL) 10/16/16 18:27 PT 10.5 SECONDS (9.5-11.5) 10/16/16 18:27 INR 1.01 (0.5-1.4) 10/16/16 18:27 PTT (Actin FS) 33.4 SECONDS (26.0-38.0) 10/16/16 18:27 Sodium 134 mEq/L (136-145) L 10/19/16 05:10 Potassium 4.0 mEq/L (3.5-5.1) 10/19/16 05:10 Chloride 99 mEq/L (98-107) 10/19/16 05:10 Carbon Dioxide 30.1 mEq/L (21.0-31.0) 10/19/16 05:10 Anion Gap 8.9 (7.0-16.0) 10/19/16 05:10 BUN 40 mg/dL (7-25) H 10/19/16 05:10 Creatinine 2.8 mg/dL (0.6-1.2) H 10/19/16 05:10 Est GFR ( Amer) TNP 10/19/16 05:10 Est GFR (Non-Af Amer) TNP 10/19/16 05:10 BUN/Creatinine Ratio 14.3 10/19/16 05:10 Glucose 120 mg/dL (70-105) H 10/19/16 05:10 POC Glucose 137 MG/DL (70 - 105) H 10/19/16 16:02 Hemoglobin A1c 5.3 10/17/16 06:45 Calcium 8.9 mg/dL (8.6-10.3) 10/19/16 05:10 Total Bilirubin 0.4 mg/dL (0.3-1.0) 10/18/16 04:37 AST 12 U/L (13-39) L 10/18/16 04:37 ALT 11 U/L (7-52) 10/18/16 04:37 Alkaline Phosphatase 63 U/L (34-104) 10/18/16 04:37 Troponin I 0.03 ng/mL (0.01-0.05) 10/17/16 14:44 B-Natriuretic Peptide 1970.0 pg/mL (5.0-100.0) H 10/16/16 18:27 Total Protein 7.0 gm/dL (6.0-8.3) 10/18/16 04:37 Albumin 3.6 gm/dL (3.7-5.3) L 10/18/16 04:37 Globulin 3.4 gm/dL 10/18/16 04:37 Albumin/Globulin Ratio 1.1 (1.0-1.8) 10/18/16 04:37 Blood Type O POSITIVE 10/16/16 18:27 Antibody Screen NEGATIVE 10/16/16 18:27 Laboratory Results - last 24 hr 10/18/16 10/18/16 10/19/16 16:29 20:57 05:10 WBC 7.0 D RBC 3.51 L Hgb 8.7 L Hct 29.2 L MCV 83.1 MCH 24.7 L MCHC Differential 29.7 RDW 19.2 Plt Count 23 L* MPV 8.7 Band Neutrophils % 3 Neutrophils (Manual) 59 Lymphocytes 20 Monocytes 17 H Eosinophils 1 Nucleated RBCs 2.0 H Platelet Estimate DECREASED PLATELETS Platelet Morphology NORMAL Sodium Potassium Chloride Carbon Dioxide Anion Gap BUN Creatinine Est GFR ( Amer) Est GFR (Non-Af Amer) BUN/Creatinine Ratio Glucose POC Glucose 91 132 H Calcium 10/19/16 10/19/16 10/19/16 05:10 06:26 16:02 WBC RBC Hgb Hct MCV MCH MCHC Differential RDW Plt Count MPV Band Neutrophils % Neutrophils (Manual) Lymphocytes Monocytes Eosinophils Nucleated RBCs Platelet Estimate Platelet Morphology Sodium 134 L Potassium 4.0 Chloride 99 Carbon Dioxide 30.1 Anion Gap 8.9 BUN 40 H Creatinine 2.8 H Est GFR ( Amer) TNP Est GFR (Non-Af Amer) TNP BUN/Creatinine Ratio 14.3 Glucose 120 H POC Glucose 128 H 137 H Calcium 8.9 Microbiology 10/17/16 15:00 - Preliminary Blood NO GROWTH AFTER 48 HOURS 10/17/16 14:44 - Preliminary Blood NO GROWTH AFTER 48 HOURS - Assessment Assessment: Altered mental status rule out sepsis toxic/metabolic encephalopathy CHF, may have CHF exacerbation Dementia Respiratory insufficiency DM2 rt aka - Plan Plan: as per ordersheet
[2016-10-19] MEDS: Vitamin B Complex w/Vitamin C Tab PO SCH (16:50)
[2016-10-20] MEDS: oxyCODONE 5 mg IR Tab PO PRN ×2 (00:08→06:45)
[2016-10-20] MEDS: Albuterol/Ipratropium Neb 3 ML AERS HHN SCH ×4 (01:15→19:34)
[2016-10-20 02:05] VITALS: BP 148/62
[2016-10-20] MEDS: Hydrocodone/APAP 5mg/325mg Tab PO SCH ×3 (06:01→22:30)
[2016-10-20 06:30] LABS: HEMATOCRIT 29.2 % (35.0-45.0); HEMOGLOBIN 8.8 gm/dL (11.7-16.1); MEAN CELL VOLUME 82.4 fl (81-100); MEAN CORPUSCULAR HEMOGLOBIN 24.8 pg (27.0-31.0); MEAN CORPUSCULAR HGB CONC 30.1 pg (28.0-36.0); MEAN PLATELET VOLUME 9.8 fl; RED BLOOD COUNT 3.54 Mil/cmm (3.80-5.20); RED CELL DISTRIBUTION WIDTH 19.5 % (11.5-20.0)
[2016-10-20] MEDS: INSULIN ASPART SLIDING SCALE 100 UNITS/ML UNIT SUBQ SCH ×4 (06:41→20:29)
[2016-10-20] MEDS: Budesonide 0.5 Mg/2 mL Ud HHN SCH ×2 (07:16→19:35)
[2016-10-20 07:55] LABS: PLATELET COUNT 17 Th/cmm (150-400)
[2016-10-20 08:14] LABS: BAND NEUTROPHILE 4 % (0-10); TOTAL CELLS COUNTED 100
[2016-10-20 08:15] LABS: NEUTROPHILS 70 % (40-80)
[2016-10-20 08:16] LABS: PLATELET ESTIMATE DECREASED PLATELETS (NORMAL)
[2016-10-20] MEDS: Lactobacillus Rhamnosus 10 Billion CFU Capsule PO SCH (08:30)
[2016-10-20] MEDS: Lidocaine 5% Patch TD SCH (08:32)
--- NOTE | 2016-10-20 09:47 | Diagnostic Imaging Report ---
CHEST X-RAY: AP view INDICATION: CHF COMPARISON: Chest x-ray 10/18/2016 FINDINGS: Mild increasing congestive changes are noted. Low lung volumes are seen. Small bilateral effusions are noted. Mild cardiomegaly is noted with atherosclerosis.. Distended loops of bowel are seen along the upper abdomen. IMPRESSION: Mildly increasing congestive changes. Low lung volumes with atelectasis versus infiltrates of the lung bases. Small bilateral effusions are noted. Persistent distended loops of bowel possibly due to an ileus. Please correlate clinically. Consider follow-up abdominal series for further assessment.
--- NOTE | 2016-10-20 11:37 | General Progress Note ---
Subjective - Review of Systems Service Date: 10/20/16 Subjective: drowsy, less posadas, comfortable Objective - Results Result Diagrams: 10/20/16 05:00 10/19/16 05:10 Recent Labs: Laboratory Last Values WBC 6.0 Th/cmm (4.8-10.8) 10/20/16 05:00 RBC 3.54 Mil/cmm (3.80-5.20) L 10/20/16 05:00 Hgb 8.8 gm/dL (11.7-16.1) L 10/20/16 05:00 Hct 29.2 % (35.0-45.0) L 10/20/16 05:00 MCV 82.4 fl (81-100) 10/20/16 05:00 MCH 24.8 pg (27.0-31.0) L 10/20/16 05:00 MCHC Differential 30.1 pg (28.0-36.0) 10/20/16 05:00 RDW 19.5 % (11.5-20.0) 10/20/16 05:00 Plt Count 17 Th/cmm (150-400) L* 10/20/16 05:00 MPV 9.8 fl 10/20/16 05:00 Neutrophils % ROD CUP FILLER 10/16/16 18:27 Band Neutrophils % 4 % (0-10) 10/20/16 05:00 Lymphocytes % ROD CUP FILLER 10/16/16 18:27 Monocytes % ROD CUP FILLER 10/16/16 18:27 Eosinophils % ROD CUP FILLER 10/16/16 18:27 Basophils % ROD CUP FILLER 10/16/16 18:27 Neutrophils (Manual) 70 % (40-80) 10/20/16 05:00 Lymphocytes 13 % (20-50) L 10/20/16 05:00 Monocytes 13 % (2-10) H 10/20/16 05:00 Eosinophils 1 % (0-5) 10/19/16 05:10 Basophils 0 % (0-3) 10/16/16 18:27 Nucleated RBCs 2.0 % (0-0) H 10/19/16 05:10 Hypochromia 1+ 10/16/16 18:27 Platelet Estimate DECREASED PLATELETS (NORMAL) 10/20/16 05:00 Platelet Morphology NORMAL (NORMAL) 10/19/16 05:10 Microcytosis 1+ 10/16/16 18:27 RBC Morph Micro Appear ABNORMAL (NORMAL) 10/16/16 18:27 PT 10.5 SECONDS (9.5-11.5) 10/16/16 18:27 INR 1.01 (0.5-1.4) 10/16/16 18:27 PTT (Actin FS) 33.4 SECONDS (26.0-38.0) 10/16/16 18:27 Sodium 134 mEq/L (136-145) L 10/19/16 05:10 Potassium 4.0 mEq/L (3.5-5.1) 10/19/16 05:10 Chloride 99 mEq/L (98-107) 10/19/16 05:10 Carbon Dioxide 30.1 mEq/L (21.0-31.0) 10/19/16 05:10 Anion Gap 8.9 (7.0-16.0) 10/19/16 05:10 BUN 40 mg/dL (7-25) H 10/19/16 05:10 Creatinine 2.8 mg/dL (0.6-1.2) H 10/19/16 05:10 Est GFR ( Amer) TNP 10/19/16 05:10 Est GFR (Non-Af Amer) TNP 10/19/16 05:10 BUN/Creatinine Ratio 14.3 10/19/16 05:10 Glucose 120 mg/dL (70-105) H 10/19/16 05:10 POC Glucose 123 MG/DL (70 - 105) H 10/20/16 06:13 Hemoglobin A1c 5.3 10/17/16 06:45 Calcium 8.9 mg/dL (8.6-10.3) 10/19/16 05:10 Total Bilirubin 0.4 mg/dL (0.3-1.0) 10/18/16 04:37 AST 12 U/L (13-39) L 10/18/16 04:37 ALT 11 U/L (7-52) 10/18/16 04:37 Alkaline Phosphatase 63 U/L (34-104) 10/18/16 04:37 Troponin I 0.03 ng/mL (0.01-0.05) 10/17/16 14:44 B-Natriuretic Peptide 1970.0 pg/mL (5.0-100.0) H 10/16/16 18:27 Total Protein 7.0 gm/dL (6.0-8.3) 10/18/16 04:37 Albumin 3.6 gm/dL (3.7-5.3) L 10/18/16 04:37 Globulin 3.4 gm/dL 10/18/16 04:37 Albumin/Globulin Ratio 1.1 (1.0-1.8) 10/18/16 04:37 Blood Type O POSITIVE 10/16/16 18:27 Antibody Screen NEGATIVE 10/16/16 18:27 - Physical Exam Vitals and I&O: Vital Signs Temp 97.4 F 10/20/16 08:00 Pulse 102 10/20/16 08:00 Resp 16 10/20/16 08:00 BP 125/49 10/20/16 08:00 Pulse Ox 100 10/20/16 07:26 Intake & Output 10/19/16 10/20/16 10/20/16 18:59 06:59 18:59 Intake Total 200 Output Total 3000 Balance -2800 Weight (lbs) 61.689 kg 61.689 kg Intake: Oral 200 Output: Hemodialysis 3000 Active Medications: Current Medications Acetaminophen (Tylenol) 650 mg PO Q4HR PRN PRN Reason: PAIN (MILD) OR TEMP 100.0 OR > Stop: 12/15/16 22:27 Acetaminophen (Tylenol Extra Strength) 1,000 mg PO Q6H PRN PRN Reason: Pain (Moderate) Last Admin: 10/17/16 11:35 Dose: 1,000 mg Acetaminophen/Hydrocodone Bitart ([place] 5mg/325mg) 1 tab PO Q8H [facility] Stop: 12/15/16 22:29 Last Admin: 10/20/16 06:01 Dose: 1 tab Al Hydrox/Mg Hydrox/Simethicone (Maalox) 30 ml PO Q6HR PRN PRN Reason: GI DISTRESS Stop: 12/16/16 00:00 Albuterol/Ipratropium (Duoneb Neb) 3 ml HHN Q6HRT [facility] Stop: 12/16/16 12:59 Last Admin: 10/20/16 07:16 Dose: 3 ml Amlodipine Besylate (Norvasc) 5 mg PO TuThSa@2100 [facility] Stop: 12/17/16 20:59 Last Admin: 10/18/16 21:09 Dose: 5 mg Amlodipine Besylate (Norvasc) 5 mg PO SuMoWeFr@0900,2100 [facility] Stop: 12/16/16 08:59 Last Admin: 10/19/16 22:40 Dose: 5 mg Ascorbic Acid (Vitamin C) 500 mg PO 1700 [facility] Stop: 12/16/16 16:59 Last Admin: 10/19/16 16:49 Dose: 500 mg Bisacodyl (Dulcolax 10 Mg Supp) 10 mg RC DAILY PRN PRN Reason: BM MANAGEMENT Stop: 12/15/16 22:27 Budesonide (Pulmicort) 0.5 mg HHN BIDRT [facility] Stop: 12/16/16 06:59 Last Admin: 10/20/16 07:16 Dose: 0.5 mg Clonidine HCl (Catapres) 0.1 mg PO Q4H PRN PRN Reason: for SBP>160 or DBP >100 Stop: 12/15/16 22:27 Dextrose (D50w) 50 ml IVP ACHS PRN PRN Reason: BLOOD SUGAR < 70 Stop: 12/15/16 22:27 Docusate Sodium (Colace) 250 mg PO 1700 [facility] Stop: 12/16/16 16:59 Last Admin: 10/18/16 16:31 Dose: 250 mg Epoetin Scott (Epogen) 5,000 units SUBQ TuThSa [facility] Stop: 12/15/16 22:29 Last Admin: 10/18/16 23:50 Dose: 5,000 units Hydralazine HCl (Apresoline) 50 mg PO SuMoWeFr@0900,2100 [facility] Stop: 12/16/16 08:59 Last Admin: 10/19/16 22:41 Dose: 50 mg Ceftriaxone Sodium 1 gm/ (Dextrose) 50 mls @ 100 mls/hr IV Q24H [facility] Stop: 12/16/16 20:59 Last Admin: 10/19/16 22:46 Dose: 100 mls/hr Sodium Chloride (Nacl 0.9%) 100 mls @ 0 mls/hr IV .Q0M [facility] PRN Reason: TKO Stop: 12/16/16 01:29 Insulin Aspart (Novolog Insulin Sliding Scale) 0 units SUBQ ACHS [facility] PRN Reason: Protocol Stop: 12/16/16 07:29 Last Admin: 10/20/16 06:41 Dose: Not Given Lactobacillus Rhamnosus (Culturelle) 1 each PO DAILY [facility] Stop: 12/18/16 08:59 Last Admin: 10/20/16 08:30 Dose: 1 each Lactulose (Cephulac) 15 gm PO Q8H PRN PRN Reason: BM MANAGEMENT Lidocaine (Lidoderm 5% Patch) 1 patch TD DAILY [facility] Stop: 12/16/16 08:59 Last Admin: 10/20/16 08:32 Dose: 1 patch Miscellaneous (Clinical Monitoring) 1 ea MC DAILY PRN PRN Reason: RENAL Stop: 12/16/16 09:05 Miscellaneous (Probiotic Screen) 1 ea MC PRN PRN PRN Reason: PROTOCOL Stop: 12/17/16 09:48 Nifedipine (Procardia) 10 mg PO Q6H PRN PRN Reason: SBP >160 Stop: 12/15/16 22:27 Nitroglycerin (Nitrostat) 0.4 mg SL Q5M PRN PRN Reason: Chest Pain Stop: 12/15/16 22:27 Oxycodone HCl (Oxycodone Ir) 5 mg PO Q6HR PRN PRN Reason: Pain (Severe) Stop: 12/15/16 22:27 Last Admin: 10/20/16 06:45 Dose: 5 mg Sodium Bicarbonate (Sodium Bicarbonate) 650 mg PO BID [facility] PRN Reason: Protocol Stop: 12/16/16 08:59 Last Admin: 10/20/16 08:31 Dose: 650 mg Sucralfate (Carafate) 1 gm PO TIDHS [facility] Stop: 12/16/16 08:59 Last Admin: 10/20/16 08:30 Dose: 1 gm Vitamin B Complex/Vit C/Folic Acid (Vitamin B Complex W/Vitamin C) 1 tab PO 1700 [facility] Stop: 12/16/16 16:59 Last Admin: 10/19/16 16:50 Dose: 1 tab General: Mild distress HEENT: Atraumatic, EOMI, Mucous membr. moist/pink Neck: Supple, +2 carotid pulse wo bruit Cardiovascular: Regular rate, Normal S1, Normal S2 Lungs: Other (decrease rhonchi) Abdomen: Bowel sounds, Soft Extremities: Other (right BKA), no Edema Neurological: Sensation intact Skin: no Rash Psych/Mental Status: Mood NL - Procedures Procedures: Procedures Procedure Code Date PERFORMANCE OF URINARY FILTRATION, MULTIPLE [id number] 08/13/16 PERFORMANCE OF URINARY FILTRATION, SINGLE [id number] 12/29/15 TRANSFUSE NONAUT PLATELETS IN PERIPH VEIN, [facility] [id number] 08/13/16 TRANSFUSE NONAUT RED BLOOD CELLS IN PERIPH VEIN, [facility] [id number] 06/07/16 Assessment/Plan - Assessment Assessment: Acute decomp CHF ESRD on HD Chronic Thrombocytopenia Anemia of CKD PAD Type 2 DM Ess HTN Left BKA Hx of A. fib - Plan Plan: Lab - Result Diagrams 10/18/16 04:37 10/18/16 04:37 Current Medications Acetaminophen (Tylenol) 650 mg PO Q4HR PRN PRN Reason: PAIN (MILD) OR TEMP 100.0 OR > Stop: 12/15/16 22:27 Acetaminophen (Tylenol Extra Strength) 1,000 mg PO Q6H PRN PRN Reason: Pain (Moderate) Last Admin: 10/17/16 11:35 Dose: 1,000 mg Acetaminophen/Hydrocodone Bitart ([place] 5mg/325mg) 1 tab PO Q8H [facility] Stop: 12/15/16 22:29 Last Admin: 10/18/16 06:05 Dose: Not Given Al Hydrox/Mg Hydrox/Simethicone (Maalox) 30 ml PO Q6HR PRN PRN Reason: GI DISTRESS Stop: 12/16/16 00:00 Albuterol/Ipratropium (Duoneb Neb) 3 ml HHN Q6HRT [facility] Stop: 12/16/16 12:59 Last Admin: 10/18/16 06:57 Dose: 3 ml Amlodipine Besylate (Norvasc) 5 mg PO TuThSa@2100 [facility] Stop: 12/17/16 20:59 Amlodipine Besylate (Norvasc) 5 mg PO SuMoWeFr@0900,2100 [facility] Stop: 12/16/16 08:59 Last Admin: 10/17/16 20:34 Dose: Not Given Ascorbic Acid (Vitamin C) 500 mg PO 1700 [facility] Stop: 12/16/16 16:59 Last Admin: 10/17/16 16:25 Dose: 500 mg Bisacodyl (Dulcolax 10 Mg Supp) 10 mg RC DAILY PRN PRN Reason: BM MANAGEMENT Stop: 12/15/16 22:27 Budesonide (Pulmicort) 0.5 mg HHN BIDRT [facility] Stop: 12/16/16 06:59 Last Admin: 10/18/16 06:57 Dose: 0.5 mg Clonidine HCl (Catapres) 0.1 mg PO Q4H PRN PRN Reason: for SBP>160 or DBP >100 Stop: 12/15/16 22:27 Dextrose (D50w) 50 ml IVP ACHS PRN PRN Reason: BLOOD SUGAR < 70 Stop: 12/15/16 22:27 Docusate Sodium (Colace) 250 mg PO 1700 [facility] Stop: 12/16/16 16:59 Last Admin: 10/17/16 16:25 Dose: 250 mg Epoetin Scott (Epogen) 5,000 units SUBQ TuThSa [facility] Stop: 12/15/16 22:29 Last Admin: 10/16/16 23:34 Dose: Not Given Hydralazine HCl (Apresoline) 50 mg PO SuMoWeFr@0900,2100 [facility] Stop: 12/16/16 08:59 Last Admin: 10/17/16 20:35 Dose: Not Given Ceftriaxone Sodium 1 gm/ (Dextrose) 50 mls @ 100 mls/hr IV Q24H [facility] Stop: 12/16/16 20:59 Last Admin: 10/17/16 20:33 Dose: Not Given Sodium Chloride (Nacl 0.9%) 100 mls @ 0 mls/hr IV .Q0M [facility] PRN Reason: TKO Stop: 12/16/16 01:29 Insulin Aspart (Novolog Insulin Sliding Scale) 0 units SUBQ ACHS [facility] PRN Reason: Protocol Stop: 12/16/16 07:29 Last Admin: 10/18/16 11:38 Dose: 2 units Lactobacillus Rhamnosus (Culturelle) 1 each PO DAILY [facility] Stop: 12/18/16 08:59 Lactulose (Cephulac) 15 gm PO Q8H PRN PRN Reason: BM MANAGEMENT Lidocaine (Lidoderm 5% Patch) 1 patch TD DAILY [facility] Stop: 12/16/16 08:59 Last Admin: 10/18/16 08:26 Dose: 1 patch Miscellaneous (Clinical Monitoring) 1 ea MC DAILY PRN PRN Reason: RENAL Stop: 12/16/16 09:05 Miscellaneous (Probiotic Screen) 1 ea MC PRN PRN PRN Reason: PROTOCOL Stop: 12/17/16 09:48 Nifedipine (Procardia) 10 mg PO Q6H PRN PRN Reason: SBP >160 Stop: 12/15/16 22:27 Nitroglycerin (Nitrostat) 0.4 mg SL Q5M PRN PRN Reason: Chest Pain Stop: 12/15/16 22:27 Oxycodone HCl (Oxycodone Ir) 5 mg PO Q6HR PRN PRN Reason: Pain (Severe) Stop: 12/15/16 22:27 Last Admin: 10/18/16 04:56 Dose: 5 mg Sodium Bicarbonate (Sodium Bicarbonate) 650 mg PO BID [facility] PRN Reason: Protocol Stop: 12/16/16 08:59 Last Admin: 10/18/16 08:28 Dose: 650 mg Sucralfate (Carafate) 1 gm PO TIDHS [facility] Stop: 12/16/16 08:59 Last Admin: 10/18/16 12:16 Dose: 1 gm Vitamin B Complex/Vit C/Folic Acid (Vitamin B Complex W/Vitamin C) 1 tab PO 1700 [facility] Stop: 12/16/16 16:59 Last Admin: 10/17/16 16:25 Dose: 1 tab Dialyzed yesterday & tolerated it well resp status better cxr showed improvement of b/l effusions Plts still low @ 17, no acive bleed Liverspleen scan- normal spleen, increase liver size f/u cbc Nutritional Asmnt/Malnutr-PDOC - Dietary Evaluation Malnutrition Findings (Please click <Entered> for more info): Nutritional Asmnt/Malnutrition Start: 10/17/16 14: 28 Text: Status: Active Freq: Document 10/17/16 14:28 GSUN (Rec: 10/17/16 14:47 [email or web address] [id number]) Nutritional Asmnt/Malnutrition Patient General Information Nutritional Screening Consult Diagnosis ER: acute anasarca due to acute CHF exacerbation, ESRD, acute resp, DM Pertinent Medical Hx/Surgical Hx ER note: HTN, DM, ESRD on dialysis, thrombocytopenia, right above the knee amputation Subjective Information 86 year old male from SNF. RD consult for [place] 11 and active wound. Pt is ESRD on HD , received HD yesterday 10/16. Visited pt after lunch time with family members at bedside . Pt was asleep, observed lunch tray 75% consumed at bedside. Per EMR, 90% breakfast this AM. Spoke to family, pt is edentulous without difficulties with current order, pt usually has good appetite, no nutritional concerns at this time. RD explained diet order to family , family understood. CBW 149. 7lb via bedscale with equipment removed, family report CBW should be around 140lb. Mild to moderate wasting to chest noted. Current Diet Order/ Nutrition Support Renal, [id number] Pertinent Medications Vitamin C, Dulcolax, Maalox, D50w, Colace, Epogen, Novolog, Cephulac, Nacl 0.9%, Vitamin B Complex W/ Vitamin C Pertinent Labs 10/16: potassium 3.4L, BUN 31H, creatinine 2.4H, glucose 169H 10/17: potassium 3.4L, BUN 39H, creatinine 2.8H, glucose 185H Nutritional Hx/Data Height 1.65 m Height (Calculated Centimeters) 165.1 Current Weight (lbs) 67.903 kg Weight (Calculated Kilograms) 67.9 Weight (Calculated Grams) 16676.8 Usual body Weight (lbs) 140 [place] Body Weight 125 Weight Status Approriate GI Symptoms Cultural/Ethnic/Sikh Belief Family deneid allergies. Usual diet at home [place] [facility]: mech soft, ZIYAD, CCHO, 80g prot, 2.5g K+, renal, thin liqui Skin Integrity/Comment: Alton Brown. RN: sacrum decubitus ulcer, left forearm skin tear, BUE's bruise Current %PO Good (75-100%) Estimated Nutritional Goals BEE in Kcals: Using Current wt Calories/Kcals/Kg CBW 149.7lb/68kg Kcals Calculated 2039-2379kcal (30-35kcal/kg, ESRD on HD, ?ulcerations) Protein: Using Current wt Protein g/kg: CBW Protein Calculated 95-109g (1.4-1.6g/kg, ESRD on HD, ?ulcerations) Fluid: ml Per MD (dx. ESRD on HD) Nutritional Problem 1. Problem Problem Increased kcal and prot needs related to Etiology hypermetabolic state, skin integrity aeb Signs/Symptoms: pt is on HD, ulcerations noted (H&P decubitus stage III), wound care consult pending Intervention/Recommendation Comments 1. Continue with current diet order. Pt noted with good appetite. Explained diet order to family. 2. Recommend [place] Glucose Control BID for additional kcal and prot during hypermetabolic state. Encourage PO intake. Expected Outcomes/Goals Expected Outcomes/Goals 1. PO intake to meet at least 75% fo estimated nutritional needs.
[2016-10-20] MEDS: Vitamin B Complex w/Vitamin C Tab PO SCH (16:07)
--- NOTE | 2016-10-20 16:19 | Infectious Disease Prog Note ---
Infectious Disease Subjective - Review of Systems Service Date: 10/19/16 Subjective: cc pn hpi- pt on iv bax transfered to tele ros no fver o/e vsschest vesicular abd softy ext no edema dxx pn plan asrocephin Infectious Disease Objective - Results Result Diagrams: 10/20/16 05:00 10/19/16 05:10 Recent Labs: Laboratory Last Values WBC 6.0 Th/cmm (4.8-10.8) 10/20/16 05:00 RBC 3.54 Mil/cmm (3.80-5.20) L 10/20/16 05:00 Hgb 8.8 gm/dL (11.7-16.1) L 10/20/16 05:00 Hct 29.2 % (35.0-45.0) L 10/20/16 05:00 MCV 82.4 fl (81-100) 10/20/16 05:00 MCH 24.8 pg (27.0-31.0) L 10/20/16 05:00 MCHC Differential 30.1 pg (28.0-36.0) 10/20/16 05:00 RDW 19.5 % (11.5-20.0) 10/20/16 05:00 Plt Count 17 Th/cmm (150-400) L* 10/20/16 05:00 MPV 9.8 fl 10/20/16 05:00 Neutrophils % REFERENCE LIBRARY ASSISTANT 10/16/16 18:27 Band Neutrophils % 4 % (0-10) 10/20/16 05:00 Lymphocytes % REFERENCE LIBRARY ASSISTANT 10/16/16 18:27 Monocytes % REFERENCE LIBRARY ASSISTANT 10/16/16 18:27 Eosinophils % REFERENCE LIBRARY ASSISTANT 10/16/16 18:27 Basophils % REFERENCE LIBRARY ASSISTANT 10/16/16 18:27 Neutrophils (Manual) 70 % (40-80) 10/20/16 05:00 Lymphocytes 13 % (20-50) L 10/20/16 05:00 Monocytes 13 % (2-10) H 10/20/16 05:00 Eosinophils 1 % (0-5) 10/19/16 05:10 Basophils 0 % (0-3) 10/16/16 18:27 Nucleated RBCs 2.0 % (0-0) H 10/19/16 05:10 Hypochromia 1+ 10/16/16 18:27 Platelet Estimate DECREASED PLATELETS (NORMAL) 10/20/16 05:00 Platelet Morphology NORMAL (NORMAL) 10/19/16 05:10 Microcytosis 1+ 10/16/16 18:27 RBC Morph Micro Appear ABNORMAL (NORMAL) 10/16/16 18:27 PT 10.5 SECONDS (9.5-11.5) 10/16/16 18:27 INR 1.01 (0.5-1.4) 10/16/16 18:27 PTT (Actin FS) 33.4 SECONDS (26.0-38.0) 10/16/16 18:27 Sodium 134 mEq/L (136-145) L 10/19/16 05:10 Potassium 4.0 mEq/L (3.5-5.1) 10/19/16 05:10 Chloride 99 mEq/L (98-107) 10/19/16 05:10 Carbon Dioxide 30.1 mEq/L (21.0-31.0) 10/19/16 05:10 Anion Gap 8.9 (7.0-16.0) 10/19/16 05:10 BUN 40 mg/dL (7-25) H 10/19/16 05:10 Creatinine 2.8 mg/dL (0.6-1.2) H 10/19/16 05:10 Est GFR ( Amer) TNP 10/19/16 05:10 Est GFR (Non-Af Amer) TNP 10/19/16 05:10 BUN/Creatinine Ratio 14.3 10/19/16 05:10 Glucose 120 mg/dL (70-105) H 10/19/16 05:10 POC Glucose 136 MG/DL (70 - 105) H 10/20/16 11:45 Hemoglobin A1c 5.3 10/17/16 06:45 Calcium 8.9 mg/dL (8.6-10.3) 10/19/16 05:10 Total Bilirubin 0.4 mg/dL (0.3-1.0) 10/18/16 04:37 AST 12 U/L (13-39) L 10/18/16 04:37 ALT 11 U/L (7-52) 10/18/16 04:37 Alkaline Phosphatase 63 U/L (34-104) 10/18/16 04:37 Troponin I 0.03 ng/mL (0.01-0.05) 10/17/16 14:44 B-Natriuretic Peptide 1970.0 pg/mL (5.0-100.0) H 10/16/16 18:27 Total Protein 7.0 gm/dL (6.0-8.3) 10/18/16 04:37 Albumin 3.6 gm/dL (3.7-5.3) L 10/18/16 04:37 Globulin 3.4 gm/dL 10/18/16 04:37 Albumin/Globulin Ratio 1.1 (1.0-1.8) 10/18/16 04:37 Blood Type O POSITIVE 10/16/16 18:27 Antibody Screen NEGATIVE 10/16/16 18:27 - Physical Exam Vitals and I&O: Vital Signs Temp 97.8 F 10/20/16 12:00 Pulse 85 10/20/16 12:20 Resp 14 10/20/16 12:20 BP 149/61 10/20/16 12:00 Pulse Ox 100 10/20/16 12:20 Intake & Output 10/19/16 10/20/16 10/20/16 18:59 06:59 18:59 Intake Total 200 Output Total 3000 Balance -2800 Weight (lbs) 61.689 kg 61.689 kg Intake: Oral 200 Output: Hemodialysis 3000 Active Medications: Current Medications Acetaminophen (Tylenol) 650 mg PO Q4HR PRN PRN Reason: PAIN (MILD) OR TEMP 100.0 OR > Stop: 12/15/16 22:27 Acetaminophen (Tylenol Extra Strength) 1,000 mg PO Q6H PRN PRN Reason: Pain (Moderate) Last Admin: 10/17/16 11:35 Dose: 1,000 mg Acetaminophen/Hydrocodone Bitart ([place] 5mg/325mg) 1 tab PO Q8H [facility] Stop: 12/15/16 22:29 Last Admin: 10/20/16 14:01 Dose: 1 tab Al Hydrox/Mg Hydrox/Simethicone (Maalox) 30 ml PO Q6HR PRN PRN Reason: GI DISTRESS Stop: 12/16/16 00:00 Albuterol/Ipratropium (Duoneb Neb) 3 ml HHN Q6HRT [facility] Stop: 12/16/16 12:59 Last Admin: 10/20/16 12:19 Dose: 3 ml Amlodipine Besylate (Norvasc) 5 mg PO TuThSa@2100 [facility] Stop: 12/17/16 20:59 Last Admin: 10/18/16 21:09 Dose: 5 mg Amlodipine Besylate (Norvasc) 5 mg PO SuMoWeFr@ [facility] Stop: 12/16/16 08:59 Last Admin: 10/19/16 22:40 Dose: 5 mg Ascorbic Acid (Vitamin C) 500 mg PO 1700 [facility] Stop: 12/16/16 16:59 Last Admin: 10/20/16 16:08 Dose: 500 mg Bisacodyl (Dulcolax 10 Mg Supp) 10 mg RC DAILY PRN PRN Reason: BM MANAGEMENT Stop: 12/15/16 22:27 Budesonide (Pulmicort) 0.5 mg HHN BIDRT [facility] Stop: 12/16/16 06:59 Last Admin: 10/20/16 07:16 Dose: 0.5 mg Clonidine HCl (Catapres) 0.1 mg PO Q4H PRN PRN Reason: for SBP>160 or DBP >100 Stop: 12/15/16 22:27 Dextrose (D50w) 50 ml IVP ACHS PRN PRN Reason: BLOOD SUGAR < 70 Stop: 12/15/16 22:27 Docusate Sodium (Colace) 250 mg PO 1700 [facility] Stop: 12/16/16 16:59 Last Admin: 10/20/16 16:07 Dose: 250 mg Epoetin Scott (Epogen) 5,000 units SUBQ TuThSa [facility] Stop: 12/15/16 22:29 Last Admin: 10/18/16 23:50 Dose: 5,000 units Hydralazine HCl (Apresoline) 50 mg PO SuMoWeFr@ [facility] Stop: 12/16/16 08:59 Last Admin: 10/19/16 22:41 Dose: 50 mg Ceftriaxone Sodium 1 gm/ (Dextrose) 50 mls @ 100 mls/hr IV Q24H [facility] Stop: 12/16/16 20:59 Last Admin: 10/19/16 22:46 Dose: 100 mls/hr Sodium Chloride (Nacl 0.9%) 100 mls @ 0 mls/hr IV .Q0M [facility] PRN Reason: TKO Stop: 12/16/16 01:29 Insulin Aspart (Novolog Insulin Sliding Scale) 0 units SUBQ ACHS [facility] PRN Reason: Protocol Stop: 12/16/16 07:29 Last Admin: 10/20/16 12:27 Dose: 2 units Lactobacillus Rhamnosus (Culturelle) 1 each PO DAILY [facility] Stop: 12/18/16 08:59 Last Admin: 10/20/16 08:30 Dose: 1 each Lactulose (Cephulac) 15 gm PO Q8H PRN PRN Reason: BM MANAGEMENT Lidocaine (Lidoderm 5% Patch) 1 patch TD DAILY [facility] Stop: 12/16/16 08:59 Last Admin: 10/20/16 08:32 Dose: 1 patch Miscellaneous (Clinical Monitoring) 1 ea MC DAILY PRN PRN Reason: RENAL Stop: 12/16/16 09:05 Miscellaneous (Probiotic Screen) 1 ea MC PRN PRN PRN Reason: PROTOCOL Stop: 12/17/16 09:48 Nifedipine (Procardia) 10 mg PO Q6H PRN PRN Reason: SBP >160 Stop: 12/15/16 22:27 Nitroglycerin (Nitrostat) 0.4 mg SL Q5M PRN PRN Reason: Chest Pain Stop: 12/15/16 22:27 Oxycodone HCl (Oxycodone Ir) 5 mg PO Q6HR PRN PRN Reason: Pain (Severe) Stop: 12/15/16 22:27 Last Admin: 10/20/16 06:45 Dose: 5 mg Sodium Bicarbonate (Sodium Bicarbonate) 650 mg PO BID [facility] PRN Reason: Protocol Stop: 12/16/16 08:59 Last Admin: 10/20/16 16:07 Dose: 650 mg Sucralfate (Carafate) 1 gm PO TIDHS [facility] Stop: 12/16/16 08:59 Last Admin: 10/20/16 16:07 Dose: 1 gm Vitamin B Complex/Vit C/Folic Acid (Vitamin B Complex W/Vitamin C) 1 tab PO 1700 [facility] Stop: 12/16/16 16:59 Last Admin: 10/20/16 16:07 Dose: 1 tab - Procedures Procedures: Procedures Procedure Code Date PERFORMANCE OF URINARY FILTRATION, MULTIPLE [id number] 08/13/16 PERFORMANCE OF URINARY FILTRATION, SINGLE [id number] 12/29/15 TRANSFUSE NONAUT PLATELETS IN PERIPH VEIN, PERC 03852U8 08/13/16 TRANSFUSE NONAUT RED BLOOD CELLS IN PERIPH VEIN, PERC 57140M0 06/07/16 Nutritional Asmnt/Malnutr-PDOC - Dietary Evaluation Malnutrition Findings (Please click <Entered> for more info): Nutritional Asmnt/Malnutrition Start: 10/17/16 14: 28 Text: Status: Active Freq: Document 10/17/16 14:28 GSUN (Rec: 10/17/16 14:47 GSMARIA [id number]) Nutritional Asmnt/Malnutrition Patient General Information Nutritional Screening Consult Diagnosis ER: acute anasarca due to acute CHF exacerbation, ESRD, acute resp, DM Pertinent Medical Hx/Surgical Hx ER note: HTN, DM, ESRD on dialysis, thrombocytopenia, right above the knee amputation Subjective Information 86 year old male from SNF. RD consult for [place] 11 and active wound. Pt is ESRD on HD , received HD yesterday 10/16. Visited pt after lunch time with family members at bedside . Pt was asleep, observed lunch tray 75% consumed at bedside. Per EMR, 90% breakfast this AM. Spoke to family, pt is edentulous without difficulties with current order, pt usually has good appetite, no nutritional concerns at this time. RD explained diet order to family , family understood. CBW 149. 7lb via bedscale with equipment removed, family report CBW should be around 140lb. Mild to moderate wasting to chest noted. 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 Usual diet at home [place] [facility]: [facility] soft, ZIYAD, CCHO, 80g prot, 2.5g K+, renal, thin liqui Skin Integrity/Comment: [place] 11. RN: sacrum decubitus ulcer, left forearm skin tear, BUE's bruise Current %PO Good (75-100%) Estimated Nutritional Goals BEE in Kcals: Using Current wt Calories/Kcals/Kg CBW 149.7lb/68kg Kcals Calculated 2039-2379kcal (30-35kcal/kg, ESRD on HD, ?ulcerations) Protein: Using Current wt Protein g/kg: CBW Protein Calculated 95-109g (1.4-1.6g/kg, ESRD on HD, ?ulcerations) Fluid: ml Per MD (dx. ESRD on HD) Nutritional Problem 1. Problem Problem Increased kcal and prot needs related to Etiology hypermetabolic state, skin integrity aeb Signs/Symptoms: pt is on HD, ulcerations noted (H&P decubitus stage III), wound care consult pending Intervention/Recommendation Comments 1. Continue with current diet order. Pt noted with good appetite. Explained diet order to family. 2. Recommend [place]ot Glucose Control BID for additional kcal and prot during hypermetabolic state. Encourage PO intake. Expected Outcomes/Goals Expected Outcomes/Goals 1. PO intake to meet at least 75% fo estimated nutritional needs.
[2016-10-20] MEDS: Epoetin Alfa 20000 Units/mL Vial SUBQ SCH (22:24)
[2016-10-21] MEDS: Albuterol/Ipratropium Neb 3 ML AERS HHN SCH ×4 (01:06→19:19)
[2016-10-21 06:19] LABS: HEMATOCRIT 27.8 % (35.0-45.0); HEMOGLOBIN 8.4 gm/dL (11.7-16.1); MEAN CELL VOLUME 80.7 fl (81-100); MEAN CORPUSCULAR HEMOGLOBIN 24.5 pg (27.0-31.0); MEAN CORPUSCULAR HGB CONC 30.4 pg (28.0-36.0); MEAN PLATELET VOLUME 9.2 fl; RED BLOOD COUNT 3.44 Mil/cmm (3.80-5.20); RED CELL DISTRIBUTION WIDTH 19.4 % (11.5-20.0); WHITE BLOOD COUNT 5.6 Th/cmm (4.8-10.8)
[2016-10-21 06:28] LABS: PLATELET COUNT 20 Th/cmm (150-400)
[2016-10-21] MEDS: INSULIN ASPART SLIDING SCALE 100 UNITS/ML UNIT SUBQ SCH ×5 (06:38→23:27)
[2016-10-21] MEDS: Hydrocodone/APAP 5mg/325mg Tab PO SCH ×3 (06:39→22:51)
[2016-10-21] MEDS: Budesonide 0.5 Mg/2 mL Ud HHN SCH ×2 (06:49→19:20)
[2016-10-21 07:02] LABS: BAND NEUTROPHILE 3 % (0-10); NEUTROPHILS 60 % (40-80); TOTAL CELLS COUNTED 100
[2016-10-21 07:03] LABS: PLATELET ESTIMATE DECREASED PLATELETS (NORMAL)
[2016-10-21] MEDS: Lidocaine 5% Patch TD SCH (09:45)
[2016-10-21] MEDS: Lactobacillus Rhamnosus 10 Billion CFU Capsule PO SCH (09:45)
--- NOTE | 2016-10-21 13:28 | General Progress Note ---
Subjective - Review of Systems Service Date: 10/21/16 Subjective: more awake today, less posadas, comfortable Objective - Results Result Diagrams: 10/21/16 05:45 10/19/16 05:10 Recent Labs: Laboratory Last Values WBC 5.6 Th/cmm (4.8-10.8) 10/21/16 05:45 RBC 3.44 Mil/cmm (3.80-5.20) L 10/21/16 05:45 Hgb 8.4 gm/dL (11.7-16.1) L 10/21/16 05:45 Hct 27.8 % (35.0-45.0) L 10/21/16 05:45 MCV 80.7 fl (81-100) L 10/21/16 05:45 MCH 24.5 pg (27.0-31.0) L 10/21/16 05:45 MCHC Differential 30.4 pg (28.0-36.0) 10/21/16 05:45 RDW 19.4 % (11.5-20.0) 10/21/16 05:45 Plt Count 20 Th/cmm (150-400) L* 10/21/16 05:45 MPV 9.2 fl 10/21/16 05:45 Neutrophils % [employer] 10/16/16 18:27 Band Neutrophils % 3 % (0-10) 10/21/16 05:45 Lymphocytes % [employer] 10/16/16 18:27 Monocytes % [employer] 10/16/16 18:27 Eosinophils % [employer] 10/16/16 18:27 Basophils % [employer] 10/16/16 18:27 Neutrophils (Manual) 60 % (40-80) 10/21/16 05:45 Lymphocytes 20 % (20-50) 10/21/16 05:45 Monocytes 17 % (2-10) H 10/21/16 05:45 Eosinophils 1 % (0-5) 10/19/16 05:10 Basophils 0 % (0-3) 10/16/16 18:27 Nucleated RBCs 2.0 % (0-0) H 10/19/16 05:10 Hypochromia 1+ 10/16/16 18:27 Platelet Estimate DECREASED PLATELETS (NORMAL) 10/21/16 05:45 Platelet Morphology NORMAL (NORMAL) 10/19/16 05:10 Microcytosis 1+ 10/16/16 18:27 RBC Morph Micro Appear ABNORMAL (NORMAL) 10/16/16 18:27 PT 10.5 SECONDS (9.5-11.5) 10/16/16 18:27 INR 1.01 (0.5-1.4) 10/16/16 18:27 PTT (Actin FS) 33.4 SECONDS (26.0-38.0) 10/16/16 18:27 Sodium 134 mEq/L (136-145) L 10/19/16 05:10 Potassium 4.0 mEq/L (3.5-5.1) 10/19/16 05:10 Chloride 99 mEq/L (98-107) 10/19/16 05:10 Carbon Dioxide 30.1 mEq/L (21.0-31.0) 10/19/16 05:10 Anion Gap 8.9 (7.0-16.0) 10/19/16 05:10 BUN 40 mg/dL (7-25) H 10/19/16 05:10 Creatinine 2.8 mg/dL (0.6-1.2) H 10/19/16 05:10 Est GFR ( Amer) TNP 10/19/16 05:10 Est GFR (Non-Af Amer) TNP 10/19/16 05:10 BUN/Creatinine Ratio 14.3 10/19/16 05:10 Glucose 120 mg/dL (70-105) H 10/19/16 05:10 POC Glucose 180 MG/DL (70 - 105) H 10/21/16 13:19 Hemoglobin A1c 5.3 10/17/16 06:45 Calcium 8.9 mg/dL (8.6-10.3) 10/19/16 05:10 Total Bilirubin 0.4 mg/dL (0.3-1.0) 10/18/16 04:37 AST 12 U/L (13-39) L 10/18/16 04:37 ALT 11 U/L (7-52) 10/18/16 04:37 Alkaline Phosphatase 63 U/L (34-104) 10/18/16 04:37 Troponin I 0.03 ng/mL (0.01-0.05) 10/17/16 14:44 B-Natriuretic Peptide 1970.0 pg/mL (5.0-100.0) H 10/16/16 18:27 Total Protein 7.0 gm/dL (6.0-8.3) 10/18/16 04:37 Albumin 3.6 gm/dL (3.7-5.3) L 10/18/16 04:37 Globulin 3.4 gm/dL 10/18/16 04:37 Albumin/Globulin Ratio 1.1 (1.0-1.8) 10/18/16 04:37 Blood Type O POSITIVE 10/16/16 18:27 Antibody Screen NEGATIVE 10/16/16 18:27 - Physical Exam Vitals and I&O: Vital Signs Temp 98.2 F 10/21/16 12:00 Pulse 90 10/21/16 12:00 Resp 20 10/21/16 12:00 BP 134/64 10/21/16 12:00 Pulse Ox 96 10/21/16 12:00 Intake & Output 10/20/16 10/21/16 10/21/16 18:59 06:59 18:59 Intake Total 450 50 240 Balance 450 50 240 Weight (lbs) 61.689 kg 61.689 kg 61.689 kg Intake: Oral 450 50 240 Other: # Voids 3 2 3 # Bowel Movements 1 0 0 Active Medications: Current Medications Acetaminophen (Tylenol) 650 mg PO Q4HR PRN PRN Reason: PAIN (MILD) OR TEMP 100.0 OR > Stop: 12/15/16 22:27 Acetaminophen (Tylenol Extra Strength) 1,000 mg PO Q6H PRN PRN Reason: Pain (Moderate) Last Admin: 10/17/16 11:35 Dose: 1,000 mg Acetaminophen/Hydrocodone Bitart ([place] 5mg/325mg) 1 tab PO Q8H [facility] Stop: 12/15/16 22:29 Last Admin: 10/21/16 06:39 Dose: 1 tab Al Hydrox/Mg Hydrox/Simethicone (Maalox) 30 ml PO Q6HR PRN PRN Reason: GI DISTRESS Stop: 12/16/16 00:00 Albuterol/Ipratropium (Duoneb Neb) 3 ml HHN Q6HRT [facility] Stop: 12/16/16 12:59 Last Admin: 10/21/16 11:48 Dose: 3 ml Amlodipine Besylate (Norvasc) 5 mg PO TuThSa@2100 [facility] Stop: 12/17/16 20:59 Last Admin: 10/21/16 01:24 Dose: 5 mg Amlodipine Besylate (Norvasc) 5 mg PO SuMoWeFr@ [facility] Stop: 12/16/16 08:59 Last Admin: 10/21/16 09:45 Dose: 5 mg Ascorbic Acid (Vitamin C) 500 mg PO 1700 [facility] Stop: 12/16/16 16:59 Last Admin: 10/20/16 16:08 Dose: 500 mg Bisacodyl (Dulcolax 10 Mg Supp) 10 mg RC DAILY PRN PRN Reason: BM MANAGEMENT Stop: 12/15/16 22:27 Budesonide (Pulmicort) 0.5 mg HHN BIDRT [facility] Stop: 12/16/16 06:59 Last Admin: 10/21/16 06:49 Dose: 0.5 mg Clonidine HCl (Catapres) 0.1 mg PO Q4H PRN PRN Reason: for SBP>160 or DBP >100 Stop: 12/15/16 22:27 Dextrose (D50w) 50 ml IVP ACHS PRN PRN Reason: BLOOD SUGAR < 70 Stop: 12/15/16 22:27 Docusate Sodium (Colace) 250 mg PO 1700 [facility] Stop: 12/16/16 16:59 Last Admin: 10/20/16 16:07 Dose: 250 mg Epoetin Scott (Epogen) 5,000 units SUBQ TuThSa [facility] Stop: 12/15/16 22:29 Last Admin: 10/20/16 22:24 Dose: Not Given Hydralazine HCl (Apresoline) 50 mg PO SuMoWeFr@ [facility] Stop: 12/16/16 08:59 Last Admin: 10/21/16 09:45 Dose: 50 mg Ceftriaxone Sodium 1 gm/ (Dextrose) 50 mls @ 100 mls/hr IV Q24H [facility] Stop: 12/16/16 20:59 Last Admin: 10/20/16 22:30 Dose: 100 mls/hr Sodium Chloride (Nacl 0.9%) 100 mls @ 0 mls/hr IV .Q0M [facility] PRN Reason: TKO Stop: 12/16/16 01:29 Insulin Aspart (Novolog Insulin Sliding Scale) 0 units SUBQ ACHS [facility] PRN Reason: Protocol Stop: 12/16/16 07:29 Last Admin: 10/21/16 06:38 Dose: 2 units Lactobacillus Rhamnosus (Culturelle) 1 each PO DAILY [facility] Stop: 12/18/16 08:59 Last Admin: 10/21/16 09:45 Dose: 1 each Lactulose (Cephulac) 15 gm PO Q8H PRN PRN Reason: BM MANAGEMENT Lidocaine (Lidoderm 5% Patch) 1 patch TD DAILY [facility] Stop: 12/16/16 08:59 Last Admin: 10/21/16 09:45 Dose: 1 patch Miscellaneous (Clinical Monitoring) 1 ea MC DAILY PRN PRN Reason: RENAL Stop: 12/16/16 09:05 Miscellaneous (Probiotic Screen) 1 ea MC PRN PRN PRN Reason: PROTOCOL Stop: 12/17/16 09:48 Nifedipine (Procardia) 10 mg PO Q6H PRN PRN Reason: SBP >160 Stop: 12/15/16 22:27 Nitroglycerin (Nitrostat) 0.4 mg SL Q5M PRN PRN Reason: Chest Pain Stop: 12/15/16 22:27 Oxycodone HCl (Oxycodone Ir) 5 mg PO Q6HR PRN PRN Reason: Pain (Severe) Stop: 12/15/16 22:27 Last Admin: 10/20/16 06:45 Dose: 5 mg Sodium Bicarbonate (Sodium Bicarbonate) 650 mg PO BID [facility] PRN Reason: Protocol Stop: 12/16/16 08:59 Last Admin: 10/21/16 09:45 Dose: 650 mg Sucralfate (Carafate) 1 gm PO TIDHS [facility] Stop: 12/16/16 08:59 Last Admin: 10/21/16 09:45 Dose: 1 gm Vitamin B Complex/Vit C/Folic Acid (Vitamin B Complex W/Vitamin C) 1 tab PO 1700 [facility] Stop: 12/16/16 16:59 Last Admin: 10/20/16 16:07 Dose: 1 tab Physical Exam: drowsy, less posadas, comfortable General: Alert, No acute distress HEENT: Atraumatic, Mucous membr. moist/pink, Other (left eyelid edema) Neck: Supple, +2 carotid pulse wo bruit Cardiovascular: Regular rate, Normal S1, Normal S2 Lungs: Other (less rhonchi) Abdomen: Bowel sounds, Soft Extremities: no Edema Neurological: Sensation intact Skin: no Rash Psych/Mental Status: Mood NL - Procedures Procedures: Procedures Procedure Code Date PERFORMANCE OF URINARY FILTRATION, MULTIPLE [id number] 08/13/16 PERFORMANCE OF URINARY FILTRATION, SINGLE [id number] 12/29/15 TRANSFUSE NONAUT PLATELETS IN PERIPH VEIN, [facility] [id number] 08/13/16 TRANSFUSE NONAUT RED BLOOD CELLS IN PERIPH VEIN, [facility] [id number] 06/07/16 Assessment/Plan - Assessment Assessment: Acute decomp CHF ESRD on HD Chronic Thrombocytopenia Anemia of CKD PAD Type 2 DM Ess HTN Left BKA Hx of A. fib - Plan Plan: Lab - Result Diagrams 10/18/16 04:37 10/18/16 04:37 Current Medications Acetaminophen (Tylenol) 650 mg PO Q4HR PRN PRN Reason: PAIN (MILD) OR TEMP 100.0 OR > Stop: 12/15/16 22:27 Acetaminophen (Tylenol Extra Strength) 1,000 mg PO Q6H PRN PRN Reason: Pain (Moderate) Last Admin: 10/17/16 11:35 Dose: 1,000 mg Acetaminophen/Hydrocodone Bitart ([place] 5mg/325mg) 1 tab PO Q8H [facility] Stop: 12/15/16 22:29 Last Admin: 10/18/16 06:05 Dose: Not Given Al Hydrox/Mg Hydrox/Simethicone (Maalox) 30 ml PO Q6HR PRN PRN Reason: GI DISTRESS Stop: 12/16/16 00:00 Albuterol/Ipratropium (Duoneb Neb) 3 ml HHN Q6HRT [facility] Stop: 12/16/16 12:59 Last Admin: 10/18/16 06:57 Dose: 3 ml Amlodipine Besylate (Norvasc) 5 mg PO TuThSa@2100 [facility] Stop: 12/17/16 20:59 Amlodipine Besylate (Norvasc) 5 mg PO SuMoWeFr@0900,2100 [facility] Stop: 12/16/16 08:59 Last Admin: 10/17/16 20:34 Dose: Not Given Ascorbic Acid (Vitamin C) 500 mg PO 1700 [facility] Stop: 12/16/16 16:59 Last Admin: 10/17/16 16:25 Dose: 500 mg Bisacodyl (Dulcolax 10 Mg Supp) 10 mg RC DAILY PRN PRN Reason: BM MANAGEMENT Stop: 12/15/16 22:27 Budesonide (Pulmicort) 0.5 mg HHN BIDRT [facility] Stop: 12/16/16 06:59 Last Admin: 10/18/16 06:57 Dose: 0.5 mg Clonidine HCl (Catapres) 0.1 mg PO Q4H PRN PRN Reason: for SBP>160 or DBP >100 Stop: 12/15/16 22:27 Dextrose (D50w) 50 ml IVP ACHS PRN PRN Reason: BLOOD SUGAR < 70 Stop: 12/15/16 22:27 Docusate Sodium (Colace) 250 mg PO 1700 [facility] Stop: 12/16/16 16:59 Last Admin: 10/17/16 16:25 Dose: 250 mg Epoetin Scott (Epogen) 5,000 units SUBQ TuThSa [facility] Stop: 12/15/16 22:29 Last Admin: 10/16/16 23:34 Dose: Not Given Hydralazine HCl (Apresoline) 50 mg PO SuMoWeFr@0900,2100 [facility] Stop: 12/16/16 08:59 Last Admin: 10/17/16 20:35 Dose: Not Given Ceftriaxone Sodium 1 gm/ (Dextrose) 50 mls @ 100 mls/hr IV Q24H [facility] Stop: 12/16/16 20:59 Last Admin: 10/17/16 20:33 Dose: Not Given Sodium Chloride (Nacl 0.9%) 100 mls @ 0 mls/hr IV .Q0M [facility] PRN Reason: TKO Stop: 12/16/16 01:29 Insulin Aspart (Novolog Insulin Sliding Scale) 0 units SUBQ ACHS [facility] PRN Reason: Protocol Stop: 12/16/16 07:29 Last Admin: 10/18/16 11:38 Dose: 2 units Lactobacillus Rhamnosus (Culturelle) 1 each PO DAILY [facility] Stop: 12/18/16 08:59 Lactulose (Cephulac) 15 gm PO Q8H PRN PRN Reason: BM MANAGEMENT Lidocaine (Lidoderm 5% Patch) 1 patch TD DAILY [facility] Stop: 12/16/16 08:59 Last Admin: 10/18/16 08:26 Dose: 1 patch Miscellaneous (Clinical Monitoring) 1 ea MC DAILY PRN PRN Reason: RENAL Stop: 12/16/16 09:05 Miscellaneous (Probiotic Screen) 1 ea MC PRN PRN PRN Reason: PROTOCOL Stop: 12/17/16 09:48 Nifedipine (Procardia) 10 mg PO Q6H PRN PRN Reason: SBP >160 Stop: 12/15/16 22:27 Nitroglycerin (Nitrostat) 0.4 mg SL Q5M PRN PRN Reason: Chest Pain Stop: 12/15/16 22:27 Oxycodone HCl (Oxycodone Ir) 5 mg PO Q6HR PRN PRN Reason: Pain (Severe) Stop: 12/15/16 22:27 Last Admin: 10/18/16 04:56 Dose: 5 mg Sodium Bicarbonate (Sodium Bicarbonate) 650 mg PO BID [facility] PRN Reason: Protocol Stop: 12/16/16 08:59 Last Admin: 10/18/16 08:28 Dose: 650 mg Sucralfate (Carafate) 1 gm PO TIDHS [facility] Stop: 12/16/16 08:59 Last Admin: 10/18/16 12:16 Dose: 1 gm Vitamin B Complex/Vit C/Folic Acid (Vitamin B Complex W/Vitamin C) 1 tab PO 1700 [facility] Stop: 12/16/16 16:59 Last Admin: 10/17/16 16:25 Dose: 1 tab schedule for hd today resp status better cxr showed improvement of b/l effusions Plts still low @ 20, no active bleed Liverspleen scan- normal spleen, increase liver size f/u cbc, cxr Lab - Result Diagrams 10/21/16 05:45 10/19/16 05:10 Nutritional Asmnt/Malnutr-PDOC - Dietary Evaluation Malnutrition Findings (Please click <Entered> for more info): Nutritional Asmnt/Malnutrition Start: 10/17/16 14: 28 Text: Status: Active Freq: Document 10/17/16 14:28 GSUN (Rec: 10/17/16 14:47 GSMARIA G [id number]) Nutritional Asmnt/Malnutrition Patient General Information Nutritional Screening Consult Diagnosis ER: acute anasarca due to acute CHF exacerbation, ESRD, acute resp, DM Pertinent Medical Hx/Surgical Hx ER note: HTN, DM, ESRD on dialysis, thrombocytopenia, right above the knee amputation Subjective Information 86 year old male from SNF. RD consult for [place] 11 and active wound. Pt is ESRD on HD , received HD yesterday 10/16. Visited pt after lunch time with family members at bedside . Pt was asleep, observed lunch tray 75% consumed at bedside. Per EMR, 90% breakfast this AM. Spoke to family, pt is edentulous without difficulties with current order, pt usually has good appetite, no nutritional concerns at this time. RD explained diet order to family , family understood. CBW 149. 7lb via bedscale with equipment removed, family report CBW should be around 140lb. Mild to moderate wasting to chest noted. Current Diet Order/ Nutrition Support Renal, [id number] Pertinent Medications Vitamin C, Dulcolax, Maalox, D50w, Colace, Epogen, Novolog, Cephulac, Nacl 0.9%, Vitamin B Complex W/ Vitamin C Pertinent Labs 10/16: potassium 3.4L, BUN 31H, creatinine 2.4H, glucose 169H 10/17: potassium 3.4L, BUN 39H, creatinine 2.8H, glucose 185H Nutritional Hx/Data Height 1.65 m Height (Calculated Centimeters) 165.1 Current Weight (lbs) 67.903 kg Weight (Calculated Kilograms) 67.9 Weight (Calculated Grams) 09850.8 Usual body Weight (lbs) 140 [place] Body Weight 125 Weight Status Approriate GI Symptoms Cultural/Ethnic/[employer] Family deneid allergies. Usual diet at home [place] [facility]: mech soft, ZIYAD, CCHO, 80g prot, 2.5g K+, renal, thin liqui Skin Integrity/Comment: Alton Brown. RN: sacrum decubitus ulcer, left forearm skin tear, BUE's bruise Current %PO Good (75-100%) Estimated Nutritional Goals BEE in Kcals: Using Current wt Calories/Kcals/Kg CBW 149.7lb/68kg Kcals Calculated 2039-2379kcal (30-35kcal/kg, ESRD on HD, ?ulcerations) Protein: Using Current wt Protein g/kg: CBW Protein Calculated 95-109g (1.4-1.6g/kg, ESRD on HD, ?ulcerations) Fluid: ml Per MD (dx. ESRD on HD) Nutritional Problem 1. Problem Problem Increased kcal and prot needs related to Etiology hypermetabolic state, skin integrity aeb Signs/Symptoms: pt is on HD, ulcerations noted (H&P decubitus stage III), wound care consult pending Intervention/Recommendation Comments 1. Continue with current diet order. Pt noted with good appetite. Explained diet order to family. 2. Recommend [place] Glucose Control BID for additional kcal and prot during hypermetabolic state. Encourage PO intake. Expected Outcomes/Goals Expected Outcomes/Goals 1. PO intake to meet at least 75% fo estimated nutritional needs.
--- NOTE | 2016-10-21 17:02 | General Progress Note ---
Subjective - Review of Systems Service Date: 10/21/16 Events since last encounter: no fever , no distress Objective - Results Result Diagrams: 10/22/16 06:20 10/22/16 06:20 Recent Labs: Laboratory Last Values WBC 5.6 Th/cmm (4.8-10.8) 10/21/16 05:45 RBC 3.44 Mil/cmm (3.80-5.20) L 10/21/16 05:45 Hgb 8.4 gm/dL (11.7-16.1) L 10/21/16 05:45 Hct 27.8 % (35.0-45.0) L 10/21/16 05:45 MCV 80.7 fl (81-100) L 10/21/16 05:45 MCH 24.5 pg (27.0-31.0) L 10/21/16 05:45 MCHC Differential 30.4 pg (28.0-36.0) 10/21/16 05:45 RDW 19.4 % (11.5-20.0) 10/21/16 05:45 Plt Count 20 Th/cmm (150-400) L* 10/21/16 05:45 MPV 9.2 fl 10/21/16 05:45 Neutrophils % DUCK FARMER 10/16/16 18:27 Band Neutrophils % 3 % (0-10) 10/21/16 05:45 Lymphocytes % DUCK FARMER 10/16/16 18:27 Monocytes % DUCK FARMER 10/16/16 18:27 Eosinophils % DUCK FARMER 10/16/16 18:27 Basophils % DUCK FARMER 10/16/16 18:27 Neutrophils (Manual) 60 % (40-80) 10/21/16 05:45 Lymphocytes 20 % (20-50) 10/21/16 05:45 Monocytes 17 % (2-10) H 10/21/16 05:45 Eosinophils 1 % (0-5) 10/19/16 05:10 Basophils 0 % (0-3) 10/16/16 18:27 Nucleated RBCs 2.0 % (0-0) H 10/19/16 05:10 Hypochromia 1+ 10/16/16 18:27 Platelet Estimate DECREASED PLATELETS (NORMAL) 10/21/16 05:45 Platelet Morphology NORMAL (NORMAL) 10/19/16 05:10 Microcytosis 1+ 10/16/16 18:27 RBC Morph Micro Appear ABNORMAL (NORMAL) 10/16/16 18:27 PT 10.5 SECONDS (9.5-11.5) 10/16/16 18:27 INR 1.01 (0.5-1.4) 10/16/16 18:27 PTT (Actin FS) 33.4 SECONDS (26.0-38.0) 10/16/16 18:27 Sodium 134 mEq/L (136-145) L 10/19/16 05:10 Potassium 4.0 mEq/L (3.5-5.1) 10/19/16 05:10 Chloride 99 mEq/L (98-107) 10/19/16 05:10 Carbon Dioxide 30.1 mEq/L (21.0-31.0) 10/19/16 05:10 Anion Gap 8.9 (7.0-16.0) 10/19/16 05:10 BUN 40 mg/dL (7-25) H 10/19/16 05:10 Creatinine 2.8 mg/dL (0.6-1.2) H 10/19/16 05:10 Est GFR ( Amer) TNP 10/19/16 05:10 Est GFR (Non-Af Amer) TNP 10/19/16 05:10 BUN/Creatinine Ratio 14.3 10/19/16 05:10 Glucose 120 mg/dL (70-105) H 10/19/16 05:10 POC Glucose 180 MG/DL (70 - 105) H 10/21/16 13:19 Hemoglobin A1c 5.3 10/17/16 06:45 Calcium 8.9 mg/dL (8.6-10.3) 10/19/16 05:10 Total Bilirubin 0.4 mg/dL (0.3-1.0) 10/18/16 04:37 AST 12 U/L (13-39) L 10/18/16 04:37 ALT 11 U/L (7-52) 10/18/16 04:37 Alkaline Phosphatase 63 U/L (34-104) 10/18/16 04:37 Troponin I 0.03 ng/mL (0.01-0.05) 10/17/16 14:44 B-Natriuretic Peptide 1970.0 pg/mL (5.0-100.0) H 10/16/16 18:27 Total Protein 7.0 gm/dL (6.0-8.3) 10/18/16 04:37 Albumin 3.6 gm/dL (3.7-5.3) L 10/18/16 04:37 Globulin 3.4 gm/dL 10/18/16 04:37 Albumin/Globulin Ratio 1.1 (1.0-1.8) 10/18/16 04:37 Blood Type O POSITIVE 10/16/16 18:27 Antibody Screen NEGATIVE 10/16/16 18:27 - Physical Exam Vitals and I&O: Vital Signs Temp 98.2 F 10/21/16 12:00 Pulse 90 10/21/16 12:00 Resp 20 10/21/16 12:00 BP 134/64 10/21/16 12:00 Pulse Ox 96 10/21/16 12:00 Intake & Output 10/20/16 10/21/16 10/21/16 18:59 06:59 18:59 Intake Total 450 50 240 Balance 450 50 240 Weight (lbs) 61.689 kg 61.689 kg 61.689 kg Intake: Oral 450 50 240 Other: # Voids 3 2 3 # Bowel Movements 1 0 0 Active Medications: Current Medications Acetaminophen (Tylenol) 650 mg PO Q4HR PRN PRN Reason: PAIN (MILD) OR TEMP 100.0 OR > Stop: 12/15/16 22:27 Acetaminophen (Tylenol Extra Strength) 1,000 mg PO Q6H PRN PRN Reason: Pain (Moderate) Last Admin: 10/17/16 11:35 Dose: 1,000 mg Acetaminophen/Hydrocodone Bitart ([place] 5mg/325mg) 1 tab PO Q8H [facility] Stop: 12/15/16 22:29 Last Admin: 10/21/16 13:42 Dose: 1 tab Al Hydrox/Mg Hydrox/Simethicone (Maalox) 30 ml PO Q6HR PRN PRN Reason: GI DISTRESS Stop: 12/16/16 00:00 Albuterol/Ipratropium (Duoneb Neb) 3 ml HHN Q6HRT [facility] Stop: 12/16/16 12:59 Last Admin: 10/21/16 11:48 Dose: 3 ml Amlodipine Besylate (Norvasc) 5 mg PO TuThSa@2100 [facility] Stop: 12/17/16 20:59 Last Admin: 10/21/16 01:24 Dose: 5 mg Amlodipine Besylate (Norvasc) 5 mg PO SuMoWeFr@ [facility] Stop: 12/16/16 08:59 Last Admin: 10/21/16 09:45 Dose: 5 mg Ascorbic Acid (Vitamin C) 500 mg PO 1700 [facility] Stop: 12/16/16 16:59 Last Admin: 10/20/16 16:08 Dose: 500 mg Bisacodyl (Dulcolax 10 Mg Supp) 10 mg RC DAILY PRN PRN Reason: BM MANAGEMENT Stop: 12/15/16 22:27 Budesonide (Pulmicort) 0.5 mg HHN BIDRT [facility] Stop: 12/16/16 06:59 Last Admin: 10/21/16 06:49 Dose: 0.5 mg Clonidine HCl (Catapres) 0.1 mg PO Q4H PRN PRN Reason: for SBP>160 or DBP >100 Stop: 12/15/16 22:27 Dextrose (D50w) 50 ml IVP ACHS PRN PRN Reason: BLOOD SUGAR < 70 Stop: 12/15/16 22:27 Docusate Sodium (Colace) 250 mg PO 1700 [facility] Stop: 12/16/16 16:59 Last Admin: 10/20/16 16:07 Dose: 250 mg Epoetin Scott (Epogen) 5,000 units SUBQ TuThSa [facility] Stop: 12/15/16 22:29 Last Admin: 10/20/16 22:24 Dose: Not Given Hydralazine HCl (Apresoline) 50 mg PO SuMoWeFr@899,2099 [facility] Stop: 12/16/16 08:59 Last Admin: 10/21/16 09:45 Dose: 50 mg Ceftriaxone Sodium 1 gm/ (Dextrose) 50 mls @ 100 mls/hr IV Q24H [facility] Stop: 12/16/16 20:59 Last Admin: 10/20/16 22:30 Dose: 100 mls/hr Sodium Chloride (Nacl 0.9%) 100 mls @ 0 mls/hr IV .Q0M [facility] PRN Reason: TKO Stop: 12/16/16 01:29 Insulin Aspart (Novolog Insulin Sliding Scale) 0 units SUBQ ACHS [facility] PRN Reason: Protocol Stop: 12/16/16 07:29 Last Admin: 10/21/16 13:42 Dose: Not Given Lactobacillus Rhamnosus (Culturelle) 1 each PO DAILY [facility] Stop: 12/18/16 08:59 Last Admin: 10/21/16 09:45 Dose: 1 each Lactulose (Cephulac) 15 gm PO Q8H PRN PRN Reason: BM MANAGEMENT Lidocaine (Lidoderm 5% Patch) 1 patch TD DAILY [facility] Stop: 12/16/16 08:59 Last Admin: 10/21/16 09:45 Dose: 1 patch Miscellaneous (Clinical Monitoring) 1 ea MC DAILY PRN PRN Reason: RENAL Stop: 12/16/16 09:05 Miscellaneous (Probiotic Screen) 1 ea MC PRN PRN PRN Reason: PROTOCOL Stop: 12/17/16 09:48 Nifedipine (Procardia) 10 mg PO Q6H PRN PRN Reason: SBP >160 Stop: 12/15/16 22:27 Nitroglycerin (Nitrostat) 0.4 mg SL Q5M PRN PRN Reason: Chest Pain Stop: 12/15/16 22:27 Oxycodone HCl (Oxycodone Ir) 5 mg PO Q6HR PRN PRN Reason: Pain (Severe) Stop: 12/15/16 22:27 Last Admin: 10/20/16 06:45 Dose: 5 mg Sodium Bicarbonate (Sodium Bicarbonate) 650 mg PO BID [facility] PRN Reason: Protocol Stop: 12/16/16 08:59 Last Admin: 10/21/16 09:45 Dose: 650 mg Sucralfate (Carafate) 1 gm PO TIDHS [facility] Stop: 12/16/16 08:59 Last Admin: 10/21/16 13:42 Dose: 1 gm Vitamin B Complex/Vit C/Folic Acid (Vitamin B Complex W/Vitamin C) 1 tab PO 1700 [facility] Stop: 12/16/16 16:59 Last Admin: 10/20/16 16:07 Dose: 1 tab General: Oriented x3, No acute distress Neck: Supple Cardiovascular: Regular rate - Procedures Procedures: Procedures Procedure Code Date PERFORMANCE OF URINARY FILTRATION, MULTIPLE [id number] 08/13/16 PERFORMANCE OF URINARY FILTRATION, SINGLE [id number] 12/29/15 TRANSFUSE NONAUT PLATELETS IN PERIPH VEIN, [facility] 42943R7 04/24/17 TRANSFUSE NONAUT RED BLOOD CELLS IN PERIPH VEIN, [facility] [id number] 06/07/16 Assessment/Plan - Plan Plan: cpm Nutritional Asmnt/Malnutr-PDOC - Dietary Evaluation Malnutrition Findings (Please click <Entered> for more info): Nutritional Asmnt/Malnutrition Start: 10/17/16 14: 28 Text: Status: Active Freq: Document 10/17/16 14:28 GSUN (Rec: 10/17/16 14:47 GSUN [email or web address]) Nutritional Asmnt/Malnutrition Patient General Information Nutritional Screening Consult Diagnosis ER: acute anasarca due to acute CHF exacerbation, ESRD, acute resp, DM Pertinent Medical Hx/Surgical Hx ER note: HTN, DM, ESRD on dialysis, thrombocytopenia, right above the knee amputation Subjective Information 86 year old male from SNF. RD consult for [place] 11 and active wound. Pt is ESRD on HD , received HD yesterday 10/16. Visited pt after lunch time with family members at bedside . Pt was asleep, observed lunch tray 75% consumed at bedside. Per EMR, 90% breakfast this AM. Spoke to family, pt is edentulous without difficulties with current order, pt usually has good appetite, no nutritional concerns at this time. RD explained diet order to family , family understood. CBW 149. 7lb via bedscale with equipment removed, family report CBW should be around 140lb. Mild to moderate wasting to chest noted. 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 Usual diet at home [facility]: mech soft, ZIYAD, CCHO, 80g prot, 2.5g K+, renal, thin liqui Skin Integrity/Comment: Al[place] 11. RN: sacrum decubitus ulcer, left forearm skin tear, BUE's bruise Current %PO Good (75-100%) Estimated Nutritional Goals BEE in Kcals: Using Current wt Calories/Kcals/Kg CBW 149.7lb/68kg Kcals Calculated 2039-2379kcal (30-35kcal/kg, ESRD on HD, ?ulcerations) Protein: Using Current wt Protein g/kg: CBW Protein Calculated 95-109g (1.4-1.6g/kg, ESRD on HD, ?ulcerations) Fluid: ml Per MD (dx. ESRD on HD) Nutritional Problem 1. Problem Problem Increased kcal and prot needs related to Etiology hypermetabolic state, skin integrity aeb Signs/Symptoms: pt is on HD, ulcerations noted (H&P decubitus stage III), wound care consult pending Intervention/Recommendation Comments 1. Continue with current diet order. Pt noted with good appetite. Explained diet order to family. 2. Recommend Bosot Glucose Control BID for additional kcal and prot during hypermetabolic state. Encourage PO intake. Expected Outcomes/Goals Expected Outcomes/Goals 1. PO intake to meet at least 75% fo estimated nutritional needs.
[2016-10-21] MEDS: Vitamin B Complex w/Vitamin C Tab PO SCH (17:49)
--- NOTE | 2016-10-21 21:15 | Infectious Disease Prog Note ---
Infectious Disease Subjective - Review of Systems Service Date: 10/21/16 Events since last encounter: none. Subjective: no fever. Infectious Disease Objective - Results Result Diagrams: 10/21/16 05:45 10/19/16 05:10 Recent Labs: Laboratory Last Values WBC 5.6 Th/cmm (4.8-10.8) 10/21/16 05:45 RBC 3.44 Mil/cmm (3.80-5.20) L 10/21/16 05:45 Hgb 8.4 gm/dL (11.7-16.1) L 10/21/16 05:45 Hct 27.8 % (35.0-45.0) L 10/21/16 05:45 MCV 80.7 fl (81-100) L 10/21/16 05:45 MCH 24.5 pg (27.0-31.0) L 10/21/16 05:45 MCHC Differential 30.4 pg (28.0-36.0) 10/21/16 05:45 RDW 19.4 % (11.5-20.0) 10/21/16 05:45 Plt Count 20 Th/cmm (150-400) L* 10/21/16 05:45 MPV 9.2 fl 10/21/16 05:45 Neutrophils % ADJUSTO WRITER OPERATOR 10/16/16 18:27 Band Neutrophils % 3 % (0-10) 10/21/16 05:45 Lymphocytes % ADJUSTO WRITER OPERATOR 10/16/16 18:27 Monocytes % ADJUSTO WRITER OPERATOR 10/16/16 18:27 Eosinophils % ADJUSTO WRITER OPERATOR 10/16/16 18:27 Basophils % ADJUSTO WRITER OPERATOR 10/16/16 18:27 Neutrophils (Manual) 60 % (40-80) 10/21/16 05:45 Lymphocytes 20 % (20-50) 10/21/16 05:45 Monocytes 17 % (2-10) H 10/21/16 05:45 Eosinophils 1 % (0-5) 10/19/16 05:10 Basophils 0 % (0-3) 10/16/16 18:27 Nucleated RBCs 2.0 % (0-0) H 10/19/16 05:10 Hypochromia 1+ 10/16/16 18:27 Platelet Estimate DECREASED PLATELETS (NORMAL) 10/21/16 05:45 Platelet Morphology NORMAL (NORMAL) 10/19/16 05:10 Microcytosis 1+ 10/16/16 18:27 RBC Morph Micro Appear ABNORMAL (NORMAL) 10/16/16 18:27 PT 10.5 SECONDS (9.5-11.5) 10/16/16 18:27 INR 1.01 (0.5-1.4) 10/16/16 18:27 PTT (Actin FS) 33.4 SECONDS (26.0-38.0) 10/16/16 18:27 Sodium 134 mEq/L (136-145) L 10/19/16 05:10 Potassium 4.0 mEq/L (3.5-5.1) 10/19/16 05:10 Chloride 99 mEq/L (98-107) 10/19/16 05:10 Carbon Dioxide 30.1 mEq/L (21.0-31.0) 10/19/16 05:10 Anion Gap 8.9 (7.0-16.0) 10/19/16 05:10 BUN 40 mg/dL (7-25) H 10/19/16 05:10 Creatinine 2.8 mg/dL (0.6-1.2) H 10/19/16 05:10 Est GFR ( Amer) TNP 10/19/16 05:10 Est GFR (Non-Af Amer) TNP 10/19/16 05:10 BUN/Creatinine Ratio 14.3 10/19/16 05:10 Glucose 120 mg/dL (70-105) H 10/19/16 05:10 POC Glucose 143 MG/DL (70 - 105) H 10/21/16 17:47 Hemoglobin A1c 5.3 10/17/16 06:45 Calcium 8.9 mg/dL (8.6-10.3) 10/19/16 05:10 Total Bilirubin 0.4 mg/dL (0.3-1.0) 10/18/16 04:37 AST 12 U/L (13-39) L 10/18/16 04:37 ALT 11 U/L (7-52) 10/18/16 04:37 Alkaline Phosphatase 63 U/L (34-104) 10/18/16 04:37 Troponin I 0.03 ng/mL (0.01-0.05) 10/17/16 14:44 B-Natriuretic Peptide 1970.0 pg/mL (5.0-100.0) H 10/16/16 18:27 Total Protein 7.0 gm/dL (6.0-8.3) 10/18/16 04:37 Albumin 3.6 gm/dL (3.7-5.3) L 10/18/16 04:37 Globulin 3.4 gm/dL 10/18/16 04:37 Albumin/Globulin Ratio 1.1 (1.0-1.8) 10/18/16 04:37 Blood Type O POSITIVE 10/16/16 18:27 Antibody Screen NEGATIVE 10/16/16 18:27 - Physical Exam Vitals and I&O: Vital Signs Temp 98.2 F 10/21/16 12:00 Pulse 89 10/21/16 19:50 Resp 16 10/21/16 19:50 BP 134/64 10/21/16 12:00 Pulse Ox 96 10/21/16 19:50 Intake & Output 10/21/16 10/21/16 10/22/16 06:59 18:59 06:59 Intake Total 50 240 Balance 50 240 Weight (lbs) 61.689 kg 61.689 kg Intake: Oral 50 240 Other: # Voids 2 3 # Bowel Movements 0 0 Active Medications: Current Medications Acetaminophen (Tylenol) 650 mg PO Q4HR PRN PRN Reason: PAIN (MILD) OR TEMP 100.0 OR > Stop: 12/15/16 22:27 Acetaminophen (Tylenol Extra Strength) 1,000 mg PO Q6H PRN PRN Reason: Pain (Moderate) Last Admin: 10/17/16 11:35 Dose: 1,000 mg Acetaminophen/Hydrocodone Bitart ([place] 5mg/325mg) 1 tab PO Q8H [facility] Stop: 12/15/16 22:29 Last Admin: 10/21/16 13:42 Dose: 1 tab Al Hydrox/Mg Hydrox/Simethicone (Maalox) 30 ml PO Q6HR PRN PRN Reason: GI DISTRESS Stop: 12/16/16 00:00 Albuterol/Ipratropium (Duoneb Neb) 3 ml HHN Q6HRT [facility] Stop: 12/16/16 12:59 Last Admin: 10/21/16 19:19 Dose: 3 ml Amlodipine Besylate (Norvasc) 5 mg PO TuThSa@2100 [facility] Stop: 12/17/16 20:59 Last Admin: 10/21/16 01:24 Dose: 5 mg Amlodipine Besylate (Norvasc) 5 mg PO SuMoWeFr@0900,2100 [facility] Stop: 12/16/16 08:59 Last Admin: 10/21/16 09:45 Dose: 5 mg Ascorbic Acid (Vitamin C) 500 mg PO 1700 [facility] Stop: 12/16/16 16:59 Last Admin: 10/21/16 17:49 Dose: 500 mg Bisacodyl (Dulcolax 10 Mg Supp) 10 mg RC DAILY PRN PRN Reason: BM MANAGEMENT Stop: 12/15/16 22:27 Budesonide (Pulmicort) 0.5 mg HHN BIDRT [facility] Stop: 12/16/16 06:59 Last Admin: 10/21/16 19:20 Dose: 0.5 mg Clonidine HCl (Catapres) 0.1 mg PO Q4H PRN PRN Reason: for SBP>160 or DBP >100 Stop: 12/15/16 22:27 Dextrose (D50w) 50 ml IVP ACHS PRN PRN Reason: BLOOD SUGAR < 70 Stop: 12/15/16 22:27 Docusate Sodium (Colace) 250 mg PO 1700 [facility] Stop: 12/16/16 16:59 Last Admin: 10/21/16 17:50 Dose: Not Given Epoetin Scott (Epogen) 5,000 units SUBQ TuThSa [facility] Stop: 12/15/16 22:29 Last Admin: 10/20/16 22:24 Dose: Not Given Hydralazine HCl (Apresoline) 50 mg PO SuMoWeFr@899,2100 [facility] Stop: 12/16/16 08:59 Last Admin: 10/21/16 09:45 Dose: 50 mg Sodium Chloride (Nacl 0.9%) 100 mls @ 0 mls/hr IV .Q0M [facility] PRN Reason: TKO Stop: 12/16/16 01:29 Insulin Aspart (Novolog Insulin Sliding Scale) 0 units SUBQ ACHS [facility] PRN Reason: Protocol Stop: 12/16/16 07:29 Last Admin: 10/21/16 17:49 Dose: Not Given Lactobacillus Rhamnosus (Culturelle) 1 each PO DAILY [facility] Stop: 12/18/16 08:59 Last Admin: 10/21/16 09:45 Dose: 1 each Lactulose (Cephulac) 15 gm PO Q8H PRN PRN Reason: BM MANAGEMENT Lidocaine (Lidoderm 5% Patch) 1 patch TD DAILY [facility] Stop: 12/16/16 08:59 Last Admin: 10/21/16 09:45 Dose: 1 patch Miscellaneous (Clinical Monitoring) 1 ea MC DAILY PRN PRN Reason: RENAL Stop: 12/16/16 09:05 Miscellaneous (Probiotic Screen) 1 ea MC PRN PRN PRN Reason: PROTOCOL Stop: 12/17/16 09:48 Nifedipine (Procardia) 10 mg PO Q6H PRN PRN Reason: SBP >160 Stop: 12/15/16 22:27 Nitroglycerin (Nitrostat) 0.4 mg SL Q5M PRN PRN Reason: Chest Pain Stop: 12/15/16 22:27 Oxycodone HCl (Oxycodone Ir) 5 mg PO Q6HR PRN PRN Reason: Pain (Severe) Stop: 12/15/16 22:27 Last Admin: 10/20/16 06:45 Dose: 5 mg Sodium Bicarbonate (Sodium Bicarbonate) 650 mg PO BID [facility] PRN Reason: Protocol Stop: 12/16/16 08:59 Last Admin: 10/21/16 17:49 Dose: 650 mg Sucralfate (Carafate) 1 gm PO TIDHS [facility] Stop: 12/16/16 08:59 Last Admin: 10/21/16 17:49 Dose: 1 gm Vitamin B Complex/Vit C/Folic Acid (Vitamin B Complex W/Vitamin C) 1 tab PO 1700 [facility] Stop: 12/16/16 16:59 Last Admin: 10/21/16 17:49 Dose: 1 tab General: no acute distress, well developed, well nourished HEENT: atraumatic, normocephalic, PERRLA, EOMI, moist mucous membrane, dry Neck: supple, no thyromegaly, no lymphadenopathy Cardiovascular: S1S2, regular, systolic murmur Lungs: clear to percussion, crackles Abdomen: soft, bowel sounds, no tender, no distended, no mass, no hepatomegaly, no splenomegaly Extremities: no cyanosis, no clubbing, no edema Neurological: awake, alert, oriented Skin: no intact, no rash - Procedures Procedures: Procedures Procedure Code Date PERFORMANCE OF URINARY FILTRATION, MULTIPLE [id number] 08/13/16 PERFORMANCE OF URINARY FILTRATION, SINGLE [id number] 12/29/15 TRANSFUSE NONAUT PLATELETS IN PERIPH VEIN, [facility] [id number] 08/13/16 TRANSFUSE NONAUT RED BLOOD CELLS IN PERIPH VEIN, [facility] [id number] 06/07/16 Infectious Disease Assmt/Plan - Assessment Assessment: Impression: 1. Altered mental status, rule out sepsis. May have toxic/metabolic encephalopathy. There is no neck rigidity. 2. Anasarca. 3. H/o CHF, may have CHF exacerbation. 4. Dementia. 5. Respiratory insufficiency. 6. DM2 7. Sacral decubitus. 8. Thrombocytopenia. Recommendations: dc ceftriaxone. Wound care. Nutritional Asmnt/Malnutr-PDOC - Dietary Evaluation Malnutrition Findings (Please click <Entered> for more info): Nutritional Asmnt/Malnutrition Start: 10/17/16 14: 28 Text: Status: Active Freq: Document 10/17/16 14:28 GSUN (Rec: 10/17/16 14:47 GSUN [id number]) Nutritional Asmnt/Malnutrition Patient General Information Nutritional Screening Consult Diagnosis ER: acute anasarca due to acute CHF exacerbation, ESRD, acute resp, DM Pertinent Medical Hx/Surgical Hx ER note: HTN, DM, ESRD on dialysis, thrombocytopenia, right above the knee amputation Subjective Information 86 year old male from SNF. RD consult for [place] 11 and active wound. Pt is ESRD on HD , received HD yesterday 10/16. Visited pt after lunch time with family members at bedside . Pt was asleep, observed lunch tray 75% consumed at bedside. Per EMR, 90% breakfast this AM. Spoke to family, pt is edentulous without difficulties with current order, pt usually has good appetite, no nutritional concerns at this time. RD explained diet order to family , family understood. CBW 149. 7lb via bedscale with equipment removed, family report CBW should be around 140lb. Mild to moderate wasting to chest noted. Current Diet Order/ Nutrition Support Renal, [id number] Pertinent Medications Vitamin C, Dulcolax, Maalox, D50w, Colace, Epogen, Novolog, Cephulac, Nacl 0.9%, Vitamin B Complex W/ Vitamin C Pertinent Labs 10/16: potassium 3.4L, BUN 31H, creatinine 2.4H, glucose 169H 10/17: potassium 3.4L, BUN 39H, creatinine 2.8H, glucose 185H Nutritional Hx/Data Height 1.65 m Height (Calculated Centimeters) 165.1 Current Weight (lbs) 67.903 kg Weight (Calculated Kilograms) 67.9 Weight (Calculated Grams) 98154.8 Usual body Weight (lbs) 140 [place] Body Weight 125 Weight Status Approriate GI Symptoms Cultural/Ethnic/Jew Belief Family deneid allergies. Usual diet at home [facility]: mech soft, ZIYAD, CCHO, 80g prot, 2.5g K+, renal, thin liqui Skin Integrity/Comment: [place] 11. RN: sacrum decubitus ulcer, left forearm skin tear, BUE's bruise Current %PO Good (75-100%) Estimated Nutritional Goals BEE in Kcals: Using Current wt Calories/Kcals/Kg CBW 149.7lb/68kg Kcals Calculated 2039-0kcal (30-35kcal/kg, ESRD on HD, ?ulcerations) Protein: Using Current wt Protein g/kg: CBW Protein Calculated 95-109g (1.4-1.6g/kg, ESRD on HD, ?ulcerations) Fluid: ml Per MD (dx. ESRD on HD) Nutritional Problem 1. Problem Problem Increased kcal and prot needs related to Etiology hypermetabolic state, skin integrity aeb Signs/Symptoms: pt is on HD, ulcerations noted (H&P decubitus stage III), wound care consult pending Intervention/Recommendation Comments 1. Continue with current diet order. Pt noted with good appetite. Explained diet order to family. 2. Recommend Bosot Glucose Control BID for additional kcal and prot during hypermetabolic state. Encourage PO intake. Expected Outcomes/Goals Expected Outcomes/Goals 1. PO intake to meet at least 75% fo estimated nutritional needs.
[2016-10-21] MEDS ORDERED: Epoetin Alfa 20000 Units/mL Vial SUBQ ONE (22:06)
[2016-10-22] MEDS: Albuterol/Ipratropium Neb 3 ML AERS HHN SCH ×3 (01:51→12:53)
[2016-10-22] MEDS: INSULIN ASPART SLIDING SCALE 100 UNITS/ML UNIT SUBQ SCH ×2 (06:42→12:32)
[2016-10-22] MEDS: Hydrocodone/APAP 5mg/325mg Tab PO SCH ×2 (06:45→15:33)
[2016-10-22] MEDS: Budesonide 0.5 Mg/2 mL Ud HHN SCH (07:16)
[2016-10-22 07:41] LABS: HEMOGLOBIN 8.6 gm/dL (11.7-16.1); MEAN CELL VOLUME 83.2 fl (81-100); MEAN CORPUSCULAR HEMOGLOBIN 24.6 pg (27.0-31.0); MEAN CORPUSCULAR HGB CONC 29.6 pg (28.0-36.0); RED BLOOD COUNT 3.48 Mil/cmm (3.80-5.20); RED CELL DISTRIBUTION WIDTH 20.1 % (11.5-20.0); WHITE BLOOD COUNT 6.2 Th/cmm (4.8-10.8)
[2016-10-22 08:08] LABS: PLATELET COUNT 21 Th/cmm (150-400)
[2016-10-22 08:18] LABS: TOTAL CELLS COUNTED 100
[2016-10-22 08:20] LABS: BAND NEUTROPHILE 2 % (0-10); NEUTROPHILS 68 % (40-80); PLATELET ESTIMATE DECREASED PLATELETS (NORMAL)
[2016-10-22] MEDS: Lactobacillus Rhamnosus 10 Billion CFU Capsule PO SCH (09:12)
[2016-10-22] MEDS: Lidocaine 5% Patch TD SCH (09:13)
[2016-10-22 11:43] LABS: ALB/GLOB RATIO 1.1 (1.0-1.8); ALKALINE PHOSPHATASE 53 U/L (34-104); ANION GAP 7.4 (7.0-16.0); BILIRUBIN,TOTAL 0.4 mg/dL (0.3-1.0); BUN - UREA NITROGEN 28 mg/dL (7-25); BUN/CREATININE RATIO 11.7; CARBON DIOXIDE 28.9 mEq/L (21.0-31.0); CHLORIDE 101 mEq/L (98-107); CREATININE - SERUM 2.4 mg/dL (0.6-1.2); GLUCOSE 122 mg/dL (70-105); POTASSIUM SERUM 3.3 mEq/L (3.5-5.1); SGOT 7 U/L (13-39); SGPT/ALT 8 U/L (7-52); SODIUM SERUM 134 mEq/L (136-145)
--- NOTE | 2016-10-22 12:18 | Diagnostic Imaging Report ---
Portable chest x-ray HISTORY: Shortness of breath Compared to prior exam of October 20, 2016, there is a very poor inspiration. The heart appears enlarged. Generalized accentuation of the interstitial lung markings. This poor visualization left lower lobe with obscuration the left hemidiaphragm. Changes associated with consolidation and/or atelectasis cannot be excluded. IMPRESSION: 1. No significant change in the cardiopulmonary status as noted above.
--- NOTE | 2016-10-22 12:45 | General Progress Note ---
Subjective - Review of Systems Events since last encounter: no change from yesterday Objective - Results Result Diagrams: 10/22/16 06:20 10/22/16 06:20 Recent Labs: Laboratory Last Values WBC 6.2 Th/cmm (4.8-10.8) 10/22/16 06:20 RBC 3.48 Mil/cmm (3.80-5.20) L 10/22/16 06:20 Hgb 8.6 gm/dL (11.7-16.1) L 10/22/16 06:20 Hct 29.0 % (35.0-45.0) L 10/22/16 06:20 MCV 83.2 fl (81-100) 10/22/16 06:20 MCH 24.6 pg (27.0-31.0) L 10/22/16 06:20 MCHC Differential 29.6 pg (28.0-36.0) 10/22/16 06:20 RDW 20.1 % (11.5-20.0) H 10/22/16 06:20 Plt Count 21 Th/cmm (150-400) L* 10/22/16 06:20 MPV 9.2 fl 10/21/16 05:45 Neutrophils % OBIEE OBIA [employer] ARCHITECT 10/16/16 18:27 Band Neutrophils % 2 % (0-10) 10/22/16 06:20 Lymphocytes % OBIEE [employer]IA SOLUTION ARCHITECT 10/16/16 18:27 Monocytes % OBIEE OBIA SOLUTION ARCHITECT 10/16/16 18:27 Eosinophils % OBIEE OBIA SOLUTION ARCHITECT 10/16/16 18:27 Basophils % OBIEE OBIA SOLUTION ARCHITECT 10/16/16 18:27 Neutrophils (Manual) 68 % (40-80) 10/22/16 06:20 Lymphocytes 20 % (20-50) 10/22/16 06:20 Monocytes 10 % (2-10) 10/22/16 06:20 Eosinophils 1 % (0-5) 10/19/16 05:10 Basophils 0 % (0-3) 10/16/16 18:27 Nucleated RBCs 2.0 % (0-0) H 10/19/16 05:10 Hypochromia 1+ 10/16/16 18:27 Platelet Estimate DECREASED PLATELETS (NORMAL) 10/22/16 06:20 Platelet Morphology NORMAL (NORMAL) 10/19/16 05:10 Microcytosis 1+ 10/16/16 18:27 RBC Morph Micro Appear ABNORMAL (NORMAL) 10/16/16 18:27 PT 10.5 SECONDS (9.5-11.5) 10/16/16 18:27 INR 1.01 (0.5-1.4) 10/16/16 18:27 PTT (Actin FS) 33.4 SECONDS (26.0-38.0) 10/16/16 18:27 Sodium 134 mEq/L (136-145) L 10/22/16 06:20 Potassium 3.3 mEq/L (3.5-5.1) L 10/22/16 06:20 Chloride 101 mEq/L (98-107) 10/22/16 06:20 Carbon Dioxide 28.9 mEq/L (21.0-31.0) 10/22/16 06:20 Anion Gap 7.4 (7.0-16.0) 10/22/16 06:20 BUN 28 mg/dL (7-25) H 10/22/16 06:20 Creatinine 2.4 mg/dL (0.6-1.2) H 10/22/16 06:20 Est GFR ( Amer) TNP 10/22/16 06:20 Est GFR (Non-Af Amer) TNP 10/22/16 06:20 BUN/Creatinine Ratio 11.7 10/22/16 06:20 Glucose 122 mg/dL (70-105) H 10/22/16 06:20 POC Glucose 158 MG/DL (70 - 105) H 10/22/16 12:00 Hemoglobin A1c 5.3 10/17/16 06:45 Calcium 9.0 mg/dL (8.6-10.3) 10/22/16 06:20 Total Bilirubin 0.4 mg/dL (0.3-1.0) 10/22/16 06:20 AST 7 U/L (13-39) L 10/22/16 06:20 ALT 8 U/L (7-52) 10/22/16 06:20 Alkaline Phosphatase 53 U/L (34-104) 10/22/16 06:20 Troponin I 0.03 ng/mL (0.01-0.05) 10/17/16 14:44 B-Natriuretic Peptide 1970.0 pg/mL (5.0-100.0) H 10/16/16 18:27 Total Protein 6.8 gm/dL (6.0-8.3) 10/22/16 06:20 Albumin 3.6 gm/dL (3.7-5.3) L 10/22/16 06:20 Globulin 3.2 gm/dL 10/22/16 06:20 Albumin/Globulin Ratio 1.1 (1.0-1.8) 10/22/16 06:20 Blood Type O POSITIVE 10/16/16 18:27 Antibody Screen NEGATIVE 10/16/16 18:27 - Physical Exam Vitals and I&O: Vital Signs Temp 97 F 10/22/16 11:55 Pulse 81 10/22/16 11:55 Resp 20 10/22/16 11:55 BP 133/59 10/22/16 11:55 Pulse Ox 98 10/22/16 11:55 Intake & Output 10/21/16 10/22/16 10/22/16 18:59 06:59 18:59 Intake Total 240 100 Output Total 3100 Balance 240 -3000 Weight (lbs) 61.689 kg 61.689 kg Intake: Oral 240 100 Output: Urine 0 Hemodialysis 3100 Other: # Voids 3 # Bowel Movements 0 1 Stool Characteristics Soft Soft Active Medications: Current Medications Acetaminophen (Tylenol) 650 mg PO Q4HR PRN PRN Reason: PAIN (MILD) OR TEMP 100.0 OR > Stop: 12/15/16 22:27 Acetaminophen (Tylenol Extra Strength) 1,000 mg PO Q6H PRN PRN Reason: Pain (Moderate) Last Admin: 10/17/16 11:35 Dose: 1,000 mg Acetaminophen/Hydrocodone Bitart ([place] 5mg/325mg) 1 tab PO Q8H [facility] Stop: 12/15/16 22:29 Last Admin: 10/22/16 06:45 Dose: 1 tab Al Hydrox/Mg Hydrox/Simethicone (Maalox) 30 ml PO Q6HR PRN PRN Reason: GI DISTRESS Stop: 12/16/16 00:00 Albuterol/Ipratropium (Duoneb Neb) 3 ml HHN Q6HRT [facility] Stop: 12/16/16 12:59 Last Admin: 10/22/16 07:14 Dose: 3 ml Amlodipine Besylate (Norvasc) 5 mg PO TuThSa@2100 [facility] Stop: 12/17/16 20:59 Last Admin: 10/21/16 01:24 Dose: 5 mg Amlodipine Besylate (Norvasc) 5 mg PO SuMoWeFr@0900,2100 [facility] Stop: 12/16/16 08:59 Last Admin: 10/22/16 09:12 Dose: Not Given Ascorbic Acid (Vitamin C) 500 mg PO 1700 [facility] Stop: 12/16/16 16:59 Last Admin: 10/21/16 17:49 Dose: 500 mg Bisacodyl (Dulcolax 10 Mg Supp) 10 mg RC DAILY PRN PRN Reason: BM MANAGEMENT Stop: 12/15/16 22:27 Budesonide (Pulmicort) 0.5 mg HHN BIDRT [facility] Stop: 12/16/16 06:59 Last Admin: 10/22/16 07:16 Dose: 0.5 mg Clonidine HCl (Catapres) 0.1 mg PO Q4H PRN PRN Reason: for SBP>160 or DBP >100 Stop: 12/15/16 22:27 Dextrose (D50w) 50 ml IVP ACHS PRN PRN Reason: BLOOD SUGAR < 70 Stop: 12/15/16 22:27 Docusate Sodium (Colace) 250 mg PO 1700 [facility] Stop: 12/16/16 16:59 Last Admin: 10/21/16 17:50 Dose: Not Given Hydralazine HCl (Apresoline) 50 mg PO SuMoWeFr@0900,2100 [facility] Stop: 12/16/16 08:59 Last Admin: 10/22/16 09:12 Dose: Not Given Sodium Chloride (Nacl 0.9%) 100 mls @ 0 mls/hr IV .Q0M [facility] PRN Reason: TKO Stop: 12/16/16 01:29 Insulin Aspart (Novolog Insulin Sliding Scale) 0 units SUBQ ACHS [facility] PRN Reason: Protocol Stop: 12/16/16 07:29 Last Admin: 10/22/16 12:32 Dose: 4 units Lactobacillus Rhamnosus (Culturelle) 1 each PO DAILY [facility] Stop: 12/18/16 08:59 Last Admin: 10/22/16 09:12 Dose: 1 each Lactulose (Cephulac) 15 gm PO Q8H PRN PRN Reason: BM MANAGEMENT Lidocaine (Lidoderm 5% Patch) 1 patch TD DAILY [facility] Stop: 12/16/16 08:59 Last Admin: 10/22/16 09:13 Dose: Not Given Miscellaneous (Clinical Monitoring) 1 ea MC DAILY PRN PRN Reason: RENAL Stop: 12/16/16 09:05 Miscellaneous (Probiotic Screen) 1 ea MC PRN PRN PRN Reason: PROTOCOL Stop: 12/17/16 09:48 Nifedipine (Procardia) 10 mg PO Q6H PRN PRN Reason: SBP >160 Stop: 12/15/16 22:27 Nitroglycerin (Nitrostat) 0.4 mg SL Q5M PRN PRN Reason: Chest Pain Stop: 12/15/16 22:27 Oxycodone HCl (Oxycodone Ir) 5 mg PO Q6HR PRN PRN Reason: Pain (Severe) Stop: 12/15/16 22:27 Last Admin: 10/20/16 06:45 Dose: 5 mg Sodium Bicarbonate (Sodium Bicarbonate) 650 mg PO BID [facility] PRN Reason: Protocol Stop: 12/16/16 08:59 Last Admin: 10/22/16 09:12 Dose: 650 mg Sucralfate (Carafate) 1 gm PO TIDHS [facility] Stop: 12/16/16 08:59 Last Admin: 10/22/16 09:12 Dose: 1 gm Vitamin B Complex/Vit C/Folic Acid (Vitamin B Complex W/Vitamin C) 1 tab PO 1700 [facility] Stop: 12/16/16 16:59 Last Admin: 10/21/16 17:49 Dose: 1 tab General: No acute distress Cardiovascular: Regular rate - Procedures Procedures: Procedures Procedure Code Date PERFORMANCE OF URINARY FILTRATION, MULTIPLE [id number] 08/13/16 PERFORMANCE OF URINARY FILTRATION, SINGLE [id number] 12/29/15 TRANSFUSE NONAUT PLATELETS IN PERIPH VEIN, [facility] [id number] 08/13/16 TRANSFUSE NONAUT RED BLOOD CELLS IN PERIPH VEIN, [facility] [id number] 06/07/16 Assessment/Plan - Plan Plan: cpm Nutritional Asmnt/Malnutr-PDOC - Dietary Evaluation Malnutrition Findings (Please click <Entered> for more info): Nutritional Asmnt/Malnutrition Start: 10/17/16 14: 28 Text: Status: Active Freq: Document 10/17/16 14:28 GSUN (Rec: 10/17/16 14:47 GSUN [id number]) Nutritional Asmnt/Malnutrition Patient General Information Nutritional Screening Consult Diagnosis ER: acute anasarca due to acute CHF exacerbation, ESRD, acute resp, DM Pertinent Medical Hx/Surgical Hx ER note: HTN, DM, ESRD on dialysis, thrombocytopenia, right above the knee amputation Subjective Information 86 year old male from SNF. RD consult for [place] 11 and active wound. Pt is ESRD on HD , received HD yesterday 10/16. Visited pt after lunch time with family members at bedside . Pt was asleep, observed lunch tray 75% consumed at bedside. Per EMR, 90% breakfast this AM. Spoke to family, pt is edentulous without difficulties with current order, pt usually has good appetite, no nutritional concerns at this time. RD explained diet order to family , family understood. CBW 149. 7lb via bedscale with equipment removed, family report CBW should be around 140lb. Mild to moderate wasting to chest noted. Current Diet Order/ Nutrition Support Renal, [id number] Pertinent Medications Vitamin C, Dulcolax, Maalox, D50w, Colace, Epogen, Novolog, Cephulac, Nacl 0.9%, Vitamin B Complex W/ Vitamin C Pertinent Labs 10/16: potassium 3.4L, BUN 31H, creatinine 2.4H, glucose 169H 10/17: potassium 3.4L, BUN 39H, creatinine 2.8H, glucose 185H Nutritional Hx/Data Height 1.65 m Height (Calculated Centimeters) 165.1 Current Weight (lbs) 67.903 kg Weight (Calculated Kilograms) 67.9 Weight (Calculated Grams) 47729.8 Usual body Weight (lbs) 140 [place] Body Weight 125 Weight Status Approriate GI Symptoms Cultural/Ethnic/Yazidi Belief Family deneid allergies. Usual diet at [facility] ZIYAD, CCHO, 80g prot, 2.5g K+, renal, thin liqui Skin Integrity/Comment: Alton Brown. RN: sacrum decubitus ulcer, left forearm skin tear, BUE's bruise Current %PO Good (75-100%) Estimated Nutritional Goals BEE in Kcals: Using Current wt Calories/Kcals/Kg CBW 149.7lb/68kg Kcals Calculated 2039-2379kcal (30-35kcal/kg, ESRD on HD, ?ulcerations) Protein: Using Current wt Protein g/kg: CBW Protein Calculated 95-109g (1.4-1.6g/kg, ESRD on HD, ?ulcerations) Fluid: ml Per MD (dx. ESRD on HD) Nutritional Problem 1. Problem Problem Increased kcal and prot needs related to Etiology hypermetabolic state, skin integrity aeb Signs/Symptoms: pt is on HD, ulcerations noted (H&P decubitus stage III), wound care consult pending Intervention/Recommendation Comments 1. Continue with current diet order. Pt noted with good appetite. Explained diet order to family. 2. Recommend Bosot Glucose Control BID for additional kcal and prot during hypermetabolic state. Encourage PO intake. Expected Outcomes/Goals Expected Outcomes/Goals 1. PO intake to meet at least 75% fo estimated nutritional needs.
--- NOTE | 2016-10-22 15:11 | General Progress Note ---
Subjective - Review of Systems Service Date: 10/22/16 Subjective: more awake, less posadas, comfortable Objective - Results Result Diagrams: 10/22/16 06:20 10/22/16 06:20 Recent Labs: Laboratory Last Values WBC 6.2 Th/cmm (4.8-10.8) 10/22/16 06:20 RBC 3.48 Mil/cmm (3.80-5.20) L 10/22/16 06:20 Hgb 8.6 gm/dL (11.7-16.1) L 10/22/16 06:20 Hct 29.0 % (35.0-45.0) L 10/22/16 06:20 MCV 83.2 fl (81-100) 10/22/16 06:20 MCH 24.6 pg (27.0-31.0) L 10/22/16 06:20 MCHC Differential 29.6 pg (28.0-36.0) 10/22/16 06:20 RDW 20.1 % (11.5-20.0) H 10/22/16 06:20 Plt Count 21 Th/cmm (150-400) L* 10/22/16 06:20 MPV 9.2 fl 10/21/16 05:45 Neutrophils % [employer]NER 10/16/16 18:27 Band Neutrophils % 2 % (0-10) 10/22/16 06:20 Lymphocytes % [employer]NER 10/16/16 18:27 Monocytes % [employer]NER 10/16/16 18:27 Eosinophils % [employer]NER 10/16/16 18:27 Basophils % [employer]NER 10/16/16 18:27 Neutrophils (Manual) 68 % (40-80) 10/22/16 06:20 Lymphocytes 20 % (20-50) 10/22/16 06:20 Monocytes 10 % (2-10) 10/22/16 06:20 Eosinophils 1 % (0-5) 10/19/16 05:10 Basophils 0 % (0-3) 10/16/16 18:27 Nucleated RBCs 2.0 % (0-0) H 10/19/16 05:10 Hypochromia 1+ 10/16/16 18:27 Platelet Estimate DECREASED PLATELETS (NORMAL) 10/22/16 06:20 Platelet Morphology NORMAL (NORMAL) 10/19/16 05:10 Microcytosis 1+ 10/16/16 18:27 RBC Morph Micro Appear ABNORMAL (NORMAL) 10/16/16 18:27 PT 10.5 SECONDS (9.5-11.5) 10/16/16 18:27 INR 1.01 (0.5-1.4) 10/16/16 18:27 PTT (Actin FS) 33.4 SECONDS (26.0-38.0) 10/16/16 18:27 Sodium 134 mEq/L (136-145) L 10/22/16 06:20 Potassium 3.3 mEq/L (3.5-5.1) L 10/22/16 06:20 Chloride 101 mEq/L (98-107) 10/22/16 06:20 Carbon Dioxide 28.9 mEq/L (21.0-31.0) 10/22/16 06:20 Anion Gap 7.4 (7.0-16.0) 10/22/16 06:20 BUN 28 mg/dL (7-25) H 10/22/16 06:20 Creatinine 2.4 mg/dL (0.6-1.2) H 10/22/16 06:20 Est GFR ( Amer) TNP 10/22/16 06:20 Est GFR (Non-Af Amer) TNP 10/22/16 06:20 BUN/Creatinine Ratio 11.7 10/22/16 06:20 Glucose 122 mg/dL (70-105) H 10/22/16 06:20 POC Glucose 158 MG/DL (70 - 105) H 10/22/16 12:00 Hemoglobin A1c 5.3 10/17/16 06:45 Calcium 9.0 mg/dL (8.6-10.3) 10/22/16 06:20 Total Bilirubin 0.4 mg/dL (0.3-1.0) 10/22/16 06:20 AST 7 U/L (13-39) L 10/22/16 06:20 ALT 8 U/L (7-52) 10/22/16 06:20 Alkaline Phosphatase 53 U/L (34-104) 10/22/16 06:20 Troponin I 0.03 ng/mL (0.01-0.05) 10/17/16 14:44 B-Natriuretic Peptide 1970.0 pg/mL (5.0-100.0) H 10/16/16 18:27 Total Protein 6.8 gm/dL (6.0-8.3) 10/22/16 06:20 Albumin 3.6 gm/dL (3.7-5.3) L 10/22/16 06:20 Globulin 3.2 gm/dL 10/22/16 06:20 Albumin/Globulin Ratio 1.1 (1.0-1.8) 10/22/16 06:20 Blood Type O POSITIVE 10/16/16 18:27 Antibody Screen NEGATIVE 10/16/16 18:27 - Physical Exam Vitals and I&O: Vital Signs Temp 97 F 10/22/16 11:55 Pulse 78 10/22/16 12:54 Resp 18 10/22/16 12:54 BP 133/59 10/22/16 11:55 Pulse Ox 99 10/22/16 12:54 Intake & Output 10/21/16 10/22/16 10/22/16 18:59 06:59 18:59 Intake Total 240 100 Output Total 3100 Balance 240 -3000 Weight (lbs) 61.689 kg 61.689 kg Intake: Oral 240 100 Output: Urine 0 Hemodialysis 3100 Other: # Voids 3 # Bowel Movements 0 1 Stool Characteristics Soft Soft Active Medications: Current Medications Acetaminophen (Tylenol) 650 mg PO Q4HR PRN PRN Reason: PAIN (MILD) OR TEMP 100.0 OR > Stop: 12/15/16 22:27 Acetaminophen (Tylenol Extra Strength) 1,000 mg PO Q6H PRN PRN Reason: Pain (Moderate) Last Admin: 10/17/16 11:35 Dose: 1,000 mg Acetaminophen/Hydrocodone Bitart ([place] 5mg/325mg) 1 tab PO Q8H [facility] Stop: 12/15/16 22:29 Last Admin: 10/22/16 06:45 Dose: 1 tab Al Hydrox/Mg Hydrox/Simethicone (Maalox) 30 ml PO Q6HR PRN PRN Reason: GI DISTRESS Stop: 12/16/16 00:00 Albuterol/Ipratropium (Duoneb Neb) 3 ml HHN Q6HRT [facility] Stop: 12/16/16 12:59 Last Admin: 10/22/16 12:53 Dose: 3 ml Amlodipine Besylate (Norvasc) 5 mg PO TuThSa@2100 [facility] Stop: 12/17/16 20:59 Last Admin: 10/21/16 01:24 Dose: 5 mg Amlodipine Besylate (Norvasc) 5 mg PO SuMoWeFr@ [facility] Stop: 12/16/16 08:59 Last Admin: 10/22/16 09:12 Dose: Not Given Ascorbic Acid (Vitamin C) 500 mg PO 1700 [facility] Stop: 12/16/16 16:59 Last Admin: 10/21/16 17:49 Dose: 500 mg Bisacodyl (Dulcolax 10 Mg Supp) 10 mg RC DAILY PRN PRN Reason: BM MANAGEMENT Stop: 12/15/16 22:27 Budesonide (Pulmicort) 0.5 mg HHN BIDRT [facility] Stop: 12/16/16 06:59 Last Admin: 10/22/16 07:16 Dose: 0.5 mg Clonidine HCl (Catapres) 0.1 mg PO Q4H PRN PRN Reason: for SBP>160 or DBP >100 Stop: 12/15/16 22:27 Dextrose (D50w) 50 ml IVP ACHS PRN PRN Reason: BLOOD SUGAR < 70 Stop: 12/15/16 22:27 Docusate Sodium (Colace) 250 mg PO 1700 [facility] Stop: 12/16/16 16:59 Last Admin: 10/21/16 17:50 Dose: Not Given Hydralazine HCl (Apresoline) 50 mg PO SuMoWeFr@899,2099 [facility] Stop: 12/16/16 08:59 Last Admin: 10/22/16 09:12 Dose: Not Given Sodium Chloride (Nacl 0.9%) 100 mls @ 0 mls/hr IV .Q0M [facility] PRN Reason: TKO Stop: 12/16/16 01:29 Insulin Aspart (Novolog Insulin Sliding Scale) 0 units SUBQ ACHS [facility] PRN Reason: Protocol Stop: 12/16/16 07:29 Last Admin: 10/22/16 12:32 Dose: 4 units Lactobacillus Rhamnosus (Culturelle) 1 each PO DAILY [facility] Stop: 12/18/16 08:59 Last Admin: 10/22/16 09:12 Dose: 1 each Lactulose (Cephulac) 15 gm PO Q8H PRN PRN Reason: BM MANAGEMENT Lidocaine (Lidoderm 5% Patch) 1 patch TD DAILY [facility] Stop: 12/16/16 08:59 Last Admin: 10/22/16 09:13 Dose: Not Given Miscellaneous (Clinical Monitoring) 1 ea MC DAILY PRN PRN Reason: RENAL Stop: 12/16/16 09:05 Miscellaneous (Probiotic Screen) 1 ea MC PRN PRN PRN Reason: PROTOCOL Stop: 12/17/16 09:48 Nifedipine (Procardia) 10 mg PO Q6H PRN PRN Reason: SBP >160 Stop: 12/15/16 22:27 Nitroglycerin (Nitrostat) 0.4 mg SL Q5M PRN PRN Reason: Chest Pain Stop: 12/15/16 22:27 Oxycodone HCl (Oxycodone Ir) 5 mg PO Q6HR PRN PRN Reason: Pain (Severe) Stop: 12/15/16 22:27 Last Admin: 10/20/16 06:45 Dose: 5 mg Sodium Bicarbonate (Sodium Bicarbonate) 650 mg PO BID [facility] PRN Reason: Protocol Stop: 12/16/16 08:59 Last Admin: 10/22/16 09:12 Dose: 650 mg Sucralfate (Carafate) 1 gm PO TIDHS [facility] Stop: 12/16/16 08:59 Last Admin: 10/22/16 13:02 Dose: 1 gm Vitamin B Complex/Vit C/Folic Acid (Vitamin B Complex W/Vitamin C) 1 tab PO 1700 [facility] Stop: 12/16/16 16:59 Last Admin: 10/21/16 17:49 Dose: 1 tab Physical Exam: drowsy, less posadas, comfortable General: No acute distress HEENT: PERRLA, Other (left eyelid edema) Neck: Supple, +2 carotid pulse wo bruit Cardiovascular: Regular rate, Normal S1, Normal S2 Lungs: Other (few rhonchi) Abdomen: Bowel sounds, Soft Extremities: no Edema Neurological: Sensation intact Skin: no Rash Psych/Mental Status: Mood NL - Procedures Procedures: Procedures Procedure Code Date PERFORMANCE OF URINARY FILTRATION, MULTIPLE [id number] 08/13/16 PERFORMANCE OF URINARY FILTRATION, SINGLE [id number] 12/29/15 TRANSFUSE NONAUT PLATELETS IN PERIPH VEIN, [facility] [id number] 08/13/16 TRANSFUSE NONAUT RED BLOOD CELLS IN PERIPH VEIN, [facility] [id number] 06/07/16 Assessment/Plan - Assessment Assessment: Acute decomp CHF ESRD on HD Chronic Thrombocytopenia Anemia of CKD PAD Type 2 DM Ess HTN Left BKA Hx of A. fib - Plan Plan: Lab - Result Diagrams 10/18/16 04:37 10/18/16 04:37 Current Medications Acetaminophen (Tylenol) 650 mg PO Q4HR PRN PRN Reason: PAIN (MILD) OR TEMP 100.0 OR > Stop: 12/15/16 22:27 Acetaminophen (Tylenol Extra Strength) 1,000 mg PO Q6H PRN PRN Reason: Pain (Moderate) Last Admin: 10/17/16 11:35 Dose: 1,000 mg Acetaminophen/Hydrocodone Bitart ([place] 5mg/325mg) 1 tab PO Q8H [facility] Stop: 12/15/16 22:29 Last Admin: 10/18/16 06:05 Dose: Not Given Al Hydrox/Mg Hydrox/Simethicone (Maalox) 30 ml PO Q6HR PRN PRN Reason: GI DISTRESS Stop: 12/16/16 00:00 Albuterol/Ipratropium (Duoneb Neb) 3 ml HHN Q6HRT [facility] Stop: 12/16/16 12:59 Last Admin: 10/18/16 06:57 Dose: 3 ml Amlodipine Besylate (Norvasc) 5 mg PO TuThSa@2100 [facility] Stop: 12/17/16 20:59 Amlodipine Besylate (Norvasc) 5 mg PO SuMoWeFr@0900,2100 [facility] Stop: 12/16/16 08:59 Last Admin: 10/17/16 20:34 Dose: Not Given Ascorbic Acid (Vitamin C) 500 mg PO 1700 [facility] Stop: 12/16/16 16:59 Last Admin: 10/17/16 16:25 Dose: 500 mg Bisacodyl (Dulcolax 10 Mg Supp) 10 mg RC DAILY PRN PRN Reason: BM MANAGEMENT Stop: 12/15/16 22:27 Budesonide (Pulmicort) 0.5 mg HHN BIDRT [facility] Stop: 12/16/16 06:59 Last Admin: 10/18/16 06:57 Dose: 0.5 mg Clonidine HCl (Catapres) 0.1 mg PO Q4H PRN PRN Reason: for SBP>160 or DBP >100 Stop: 12/15/16 22:27 Dextrose (D50w) 50 ml IVP ACHS PRN PRN Reason: BLOOD SUGAR < 70 Stop: 12/15/16 22:27 Docusate Sodium (Colace) 250 mg PO 1700 [facility] Stop: 12/16/16 16:59 Last Admin: 10/17/16 16:25 Dose: 250 mg Epoetin Scott (Epogen) 5,000 units SUBQ TuThSa [facility] Stop: 12/15/16 22:29 Last Admin: 10/16/16 23:34 Dose: Not Given Hydralazine HCl (Apresoline) 50 mg PO SuMoWeFr@0900,2100 [facility] Stop: 12/16/16 08:59 Last Admin: 10/17/16 20:35 Dose: Not Given Ceftriaxone Sodium 1 gm/ (Dextrose) 50 mls @ 100 mls/hr IV Q24H [facility] Stop: 12/16/16 20:59 Last Admin: 10/17/16 20:33 Dose: Not Given Sodium Chloride (Nacl 0.9%) 100 mls @ 0 mls/hr IV .Q0M [facility] PRN Reason: TKO Stop: 12/16/16 01:29 Insulin Aspart (Novolog Insulin Sliding Scale) 0 units SUBQ ACHS [facility] PRN Reason: Protocol Stop: 12/16/16 07:29 Last Admin: 10/18/16 11:38 Dose: 2 units Lactobacillus Rhamnosus (Culturelle) 1 each PO DAILY [facility] Stop: 12/18/16 08:59 Lactulose (Cephulac) 15 gm PO Q8H PRN PRN Reason: BM MANAGEMENT Lidocaine (Lidoderm 5% Patch) 1 patch TD DAILY [facility] Stop: 12/16/16 08:59 Last Admin: 10/18/16 08:26 Dose: 1 patch Miscellaneous (Clinical Monitoring) 1 ea MC DAILY PRN PRN Reason: RENAL Stop: 12/16/16 09:05 Miscellaneous (Probiotic Screen) 1 ea MC PRN PRN PRN Reason: PROTOCOL Stop: 12/17/16 09:48 Nifedipine (Procardia) 10 mg PO Q6H PRN PRN Reason: SBP >160 Stop: 12/15/16 22:27 Nitroglycerin (Nitrostat) 0.4 mg SL Q5M PRN PRN Reason: Chest Pain Stop: 12/15/16 22:27 Oxycodone HCl (Oxycodone Ir) 5 mg PO Q6HR PRN PRN Reason: Pain (Severe) Stop: 12/15/16 22:27 Last Admin: 10/18/16 04:56 Dose: 5 mg Sodium Bicarbonate (Sodium Bicarbonate) 650 mg PO BID [facility] PRN Reason: Protocol Stop: 12/16/16 08:59 Last Admin: 10/18/16 08:28 Dose: 650 mg Sucralfate (Carafate) 1 gm PO TIDHS [facility] Stop: 12/16/16 08:59 Last Admin: 10/18/16 12:16 Dose: 1 gm Vitamin B Complex/Vit C/Folic Acid (Vitamin B Complex W/Vitamin C) 1 tab PO 1700 [facility] Stop: 12/16/16 16:59 Last Admin: 10/17/16 16:25 Dose: 1 tab schedule for hd tomorrow resp status better cxr showed improvement of b/l effusions Plts still low @ 21, no active bleed Liverspleen scan- normal spleen, increase liver size f/u cbc, cxr replace K Lab - Result Diagrams 10/22/16 06:20 10/22/16 06:20 Nutritional Asmnt/Malnutr-PDOC - Dietary Evaluation Malnutrition Findings (Please click <Entered> for more info): Nutritional Asmnt/Malnutrition Start: 10/17/16 14: 28 Text: Status: Active Freq: Document 10/17/16 14:28 GSUN (Rec: 10/17/16 14:47 GSUN [id number]) Nutritional Asmnt/Malnutrition Patient General Information Nutritional Screening Consult Diagnosis ER: acute anasarca due to acute CHF exacerbation, ESRD, acute resp, DM Pertinent Medical Hx/Surgical Hx ER note: HTN, DM, ESRD on dialysis, thrombocytopenia, right above the knee amputation Subjective Information 86 year old male from SNF. RD consult for [place] 11 and active wound. Pt is ESRD on HD , received HD yesterday 10/16. Visited pt after lunch time with family members at bedside . Pt was asleep, observed lunch tray 75% consumed at bedside. Per EMR, 90% breakfast this AM. Spoke to family, pt is edentulous without difficulties with current order, pt usually has good appetite, no nutritional concerns at this time. RD explained diet order to family , family understood. CBW 149. 7lb via bedscale with equipment removed, family report CBW should be around 140lb. Mild to moderate wasting to chest noted. 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 Usual diet at home [facility]: mech soft, ZIYAD, CCHO, 80g prot, 2.5g K+, renal, thin liqui Skin Integrity/Comment: Alton Brown. RN: sacrum decubitus ulcer, left forearm skin tear, BUE's bruise Current %PO Good (75-100%) Estimated Nutritional Goals BEE in Kcals: Using Current wt Calories/Kcals/Kg CBW 149.7lb/68kg Kcals Calculated 2039-2379kcal (30-35kcal/kg, ESRD on HD, ?ulcerations) Protein: Using Current wt Protein g/kg: CBW Protein Calculated 95-109g (1.4-1.6g/kg, ESRD on HD, ?ulcerations) Fluid: ml Per MD (dx. ESRD on HD) Nutritional Problem 1. Problem Problem Increased kcal and prot needs related to Etiology hypermetabolic state, skin integrity aeb Signs/Symptoms: pt is on HD, ulcerations noted (H&P decubitus stage III), wound care consult pending Intervention/Recommendation Comments 1. Continue with current diet order. Pt noted with good appetite. Explained diet order to family. 2. Recommend [place]ot Glucose Control BID for additional kcal and prot during hypermetabolic state. Encourage PO intake. Expected Outcomes/Goals Expected Outcomes/Goals 1. PO intake to meet at least 75% fo estimated nutritional needs.
[2016-10-22] MEDS ORDERED: Potassium Chloride 20 mEq ER Tab PO ONE (15:19)
--- NOTE | 2016-10-25 12:40 | Cardiology ---
Cardiology Report - Cardiology Cardiology: Patient of M-MODE ECHOCARDIOLGRAM: Mitral valve . Anterior leaflet normal excursion. posterior leaflet normal excursion Left ventricular posterior wall shows increased thickness normal excursion and interventricular septa shows increased thickness with normal excursion ejection fraction 66% Left atrium enlarged 5.8 cm Aortic root normal dimension with normal excursion of aortic leaflets Aortic valve CONCLUSION: Hypertrophy of the left ventricle left atrial enlargement ejection fraction 66% 2D ECHO: Long axis view of normal-sized left ventricle with hypertrophy of the left ventricle ejection fraction 66% left atrium enlarged Mitral valve normal excursion Left ventricular posterior wall hypertrophy Ejection fraction 66% Aortic root normal size normal excursion aortic leaflets Aortic valve Short axis view of mitral valve normal and aortic valve normal Apical four chamber view the left ventricle showed hypertrophy ejection fraction 66% left atrium enlarged 5.8 cm right radicular cavity right atrium normal Doppler . Mild mitral regurgitation and mild aortic regurgitation and mild tricuspid regurgitation trace pulmonary regurgitation CONCLUSION: Hypertrophy of the left ventricle ejection fraction 66% left atrial enlargement mild aortic regurgitation and mild tricuspid regurgitation trace mitral regurgitation trace pulmonary regurgitation
--- NOTE | 2016-10-25 15:31 | Cardiology ---
Cardiology Report - Cardiology Cardiology: Date of Service: Patient of M-MODE ECHOCARDIOLGRAM: CONCLUSION: 2D ECHO: CONCLUSION: DOPPLER: CONCLUSION:
== END 2016-10-22 16:25 | disposition home or self-care (01) | DRG 291 ==
LOC: ER 18:00 → ICU 20:50 → TELE 10-18 13:30
PROVIDERS: ADMIT Internal Medicine; ATTEND Internal Medicine
PROC: 5A1D60Z (ICD-10-PCS; principal; 2016-10-17)
DX: I13.2 Hypertensive heart and chronic kidney disease with heart failure and with stage 5 chronic kidney disease, or end stage renal disease (principal); N18.6 End stage renal disease; L89.159 Pressure ulcer of sacral region, unspecified stage; G92 Toxic encephalopathy; E11.22 Type 2 diabetes mellitus with diabetic chronic kidney disease; D69.6 Thrombocytopenia, unspecified; E11.51 Type 2 diabetes mellitus with diabetic peripheral angiopathy without gangrene; F03.90 Unspecified dementia, unspecified severity, without behavioral disturbance, psychotic disturbance, mood disturbance, and anxiety; I50.9 Heart failure, unspecified; I48.91 Unspecified atrial fibrillation; R06.89 Other abnormalities of breathing; D63.1 Anemia in chronic kidney disease; Z99.2 Dependence on renal dialysis; Z89.611 Acquired absence of right leg above knee; Z89.512 Acquired absence of left leg below knee; Z79.4 Long term (current) use of insulin
CPT/HCPCS: 36415-UA; 71010-TC; 78215-TC; 80048-TC; 80053-TC; 82948-90; 83036-90; 83880-TC; 84484-TC; 85007-TC; 85025-TC; 85027-TC; 85610-TC; 86850-TC; 86900-TC; 86901-TC; 90937; 93005; 94640; 94760; 96374; 96375; A9500; J0696; J0885; J1815; J1940; J2930; J7030; Z7502; Z7610